=== PATIENT | male | born 1960 | race Caucasian/White ===

== ENCOUNTER 2017-10-10 19:57 | Emergency (ER) | payer OTHER, SELFPAY ==
[2017-10-10 20:02] VITALS: BP 130/43; PULSE 93; RESP 16; TEMP 37.1; O2SAT 97; BMI 35.9
[2017-10-10 21:10] LABS: Absolute Lymphocyte Count 1.44 X10^3/ul (0.83-4.51); Absolute Neutrophil Count 6.2 X10^3/uL (2.0-7.7); Basophil# 0.02 X10^3/uL; Basophil% 0.2 % (0-1); Eosinophil# 0.11 X10^3/uL; Eosinophils% 1.3 % (0-5); Hematocrit 29.6 % (40-54); Hemoglobin 9.5 g/dl (13.0-16.5); Lymphocyte # 1.44 X10^3/ul (4.0); Lymphocyte % 17.2 % (19-41); Mean Corp Hgb Conc 32.1 g/gl (32-36); Mean Corpuscular Hgb 26.2 pg (27.0-32.0); Mean Corpuscular Volume 81.5 fL (80-94); Mean Platelet Vol. 8.6 fl (6.2-12.0); Monocyte% 7.2 % (0-10); Neutrophil # 6.19 X10^3/uL (2.7-7.7); Neutrophil % 73.9 % (47-70); Platelet Count 406 K/mm3 (150-450); RBC Distribution Width CV 13.6 % (11.6-14.6); RBC Distribution Width SD 40.4 fl (35.1-43.9); Red Blood Count 3.63 M/mm3 (4.6-6.2); White Blood Count 8.4 K/mm3 (4.4-11.0)
--- NOTE | 2017-10-10 21:10 | RAD_ITS ---
STUDY: X-RAY CHEST REASON FOR EXAM: Male, 57 years old. Cough after recent podiatry surgery. TECHNIQUE: AP and lateral views of the chest. COMPARISON: October 22, 2015. FINDINGS: Patient has left-sided intracardiac pacemaker. Patient has had a sternotomy. Cardiac monitoring leads are present. The lungs are underexpanded with crowding the bronchovascular markings and obscuration of the lung bases. There is a small left-sided pleural effusion. Normal size heart. Normal mediastinum and delia. There is prominence of the pulmonary hilar arteries without peripheral pulmonary vascular congestion. There is atherosclerotic calcification of the aortic arch with tortuosity. Normal visualized thoracic spine. Normal visualized ribs, clavicles, and shoulders. There is no demonstrated abnormality of the visualized soft tissue structures of the upper abdomen. RAD/Chest PA and Lateral IMPRESSION: Cardiomegaly and mild pulmonary congestion. Electronically Signed: Delores Bass MD at 21:43 EST , Service support ,
[2017-10-10 21:11] LABS: POSITIVE COUNT NO; POSITIVE DIFFERENTIAL NO; POSITIVE MORPHOLOGY NO
[2017-10-10 21:36] LABS: Anion Gap 8 (5-15); BUN 6 mg/dL (7-18); BUN/Creat Ratio 7.3 RATIO (10-20); Calcium,Total 7.8 mg/dL (8.5-10.1); Chloride 104 mmol/L (98-107); Creatinine, Serum 0.82 mg/dL (0.70-1.30); EST Glomerular Filtration Rate 102 mL/min (>60); Est Glom Filt Rate - Afr Amer 124 mL/min (>60); Estimated Creatinine Clearance 102.63 ml/min; Glucose 181 mg/dL (74-106); Potassium 3.6 mmol/L (3.5-5.1); Sodium Level 139 mmol/L (136-145)
[2017-10-10 21:37] LABS: Lactic Acid 1.1 mmol/L (0.4-2.0)
--- NOTE | 2017-10-10 22:23 | ED.DCSUM_ITS ---
- ER Visit Summary Date of Service: 10/10/17 Chief Complaint: Bleeding from right foot History of Present Illness: The patient is a [address] Burris. He reports that he had amputation of his right great toe and part of his first metatarsal on October 06 at [facility]. Reports that he was discharged from hospital on the . He was not supposed to change his dressing until tomorrow and the home health aide was going to do it at that time. Reports that tonight he began have bleeding. Patient reports he has a burning pain is 10 out of 10 at worst and is pain-free currently. Physical Examination: Vitals: Stable. Afebrile. General: Well-nourished and well-developed. Head: Normocephalic atraumatic. Neck: Supple, no lymphadenopathy. No JVD. Nontender. Cardiovascular: Regular rate and rhythm. 2 out of 6 systolic murmur. Respiratory: No respiratory distress. Clear to auscultation bilaterally. Decreased air movement. Abdominal: Soft, nontender, nondistended, normal bowel sounds. No guarding, rebound, or peritoneal signs. Back: Nontender. Extremities: Right foot shows an amputation of the first distal metatarsal and toe. There is no active bleeding. The second toe is dusky. There is surrounding hematoma/contusion. There is no surrounding erythema or drainage. There is no fluctuance.. Skin: Normal color, no rash. Neurologic: Alert and oriented ?3. Cranial nerves II through XII are intact. Normal strength and sensation. Psych: Normal affect. Test Results: CBC is marked for an H&H 9.5 and 29.6, segmented neutrophils 74, lymphocytes 17. Lactic acid is 1.1. Chem-7 is more for BUN of 6, glucose 181, calcium 7.8. Chest x-ray shows cardiomegaly and pulmonary congestion. Emergency Department Course and Treatment: Was treated with Ultram p.o. Treatment Plan: The patient was discussed with the surgeon at [facility]. I texted him the pictures. Reports that it is very similar to what it looked like here and that there is no further operative intervention that would be helpful until he has vascular surgeon. I discussed this with the patient and family. They understand this and are happy with this plan. Disposition: To home in improved and stable condition. Impression: 1. 4 days status post right first toe amputation. 2. Anemia. This note was generated with [employer] dictation software. It may contain incorrect words, spelling, and punctuation that were not noted in review of the chart prior to signing ED Disposition - Plan for ED Patient: Disposition: Home or Assisted Living Chief Complaint: Wound Check Instructions: ED Wound Check Post Op Bleeding Referrals: Doctor,Your [STAFF PHYSICIAN] - Keep Jessie appointment
--- NOTE | 2017-10-10 23:09 | ED.RN ---
PT PICC (RED) LINE WAS UNABLE TO BE FLUSHED. WORKED WITH LINE UNTIL BLOOD RAMIN FREELY. 20CC WASTE DRAWN FROM RED PORT. FLUSHED EACH LINE WITH 20CC NORMAL SALINE AND 5CC HEPARIN.
[2017-10-10 23:13] VITALS: BP 130/71; PULSE 78; RESP 22; O2SAT 98
== END 2017-10-10 23:14 | disposition home or self-care (01) ==
PROVIDERS: Emergency Provider Emergency Medicine; Family Provider Family Medicine; PCP Family Medicine
DX: M96.830 Postprocedural hemorrhage of a musculoskeletal structure following a musculoskeletal system procedure (principal); Y83.8 Other surgical procedures as the cause of abnormal reaction of the patient, or of later complication, without mention of misadventure at the time of the procedure; D64.9 Anemia, unspecified; R01.1 Cardiac murmur, unspecified; I51.7 Cardiomegaly; R09.89 Other specified symptoms and signs involving the circulatory and respiratory systems; I25.10 Atherosclerotic heart disease of native coronary artery without angina pectoris; E11.9 Type 2 diabetes mellitus without complications; I10 Essential (primary) hypertension; E78.00 Pure hypercholesterolemia, unspecified
CPT/HCPCS: 71046; 80048; 83605; 85025; 87040; 96374; 96375; 99284; J2997; A4216

== ENCOUNTER 2017-10-13 17:18 | Outpatient (RCR) | payer OTHER, SELFPAY ==
[2017-10-13 17:29] LABS: Hematocrit 28.1 % (40-54); Mean Corpuscular Hgb 26.9 pg (27.0-32.0); Mean Corpuscular Volume 83.9 fL (80-94); Mean Platelet Vol. 9.7 fl (6.2-12.0); Platelet Count 484 K/mm3 (150-450); RBC Distribution Width CV 13.8 % (11.6-14.6); RBC Distribution Width SD 40.9 fl (35.1-43.9); Red Blood Count 3.35 M/mm3 (4.6-6.2); White Blood Count 7.1 K/mm3 (4.4-11.0)
[2017-10-13 17:30] LABS: Scan Indicated on CBC? Y/N NO
[2017-10-13 17:39] LABS: Erythrocyte Sedimentation Rate 60 mm/hr (0-20)
[2017-10-13 18:00] LABS: Anion Gap 7 (5-15); BUN 6 mg/dL (7-18); BUN/Creat Ratio 8.4 RATIO (10-20); Calcium,Total 7.8 mg/dL (8.5-10.1); Chloride 103 mmol/L (98-107); Creatinine, Serum 0.72 mg/dL (0.70-1.30); EST Glomerular Filtration Rate 120 mL/min (>60); Est Glom Filt Rate - Afr Amer 145 mL/min (>60); Glucose 153 mg/dL (74-106); Potassium 3.9 mmol/L (3.5-5.1); Sodium Level 138 mmol/L (136-145)
== END 2017-11-08 23:59 ==
LOC: HHLAB 17:18
PROVIDERS: Family Provider Family Medicine; PCP Family Medicine
DX: M86.9 Osteomyelitis, unspecified (principal); G61.0 Guillain-Barre syndrome; I73.9 Peripheral vascular disease, unspecified; E11.9 Type 2 diabetes mellitus without complications; L98.499 Non-pressure chronic ulcer of skin of other sites with unspecified severity
CPT/HCPCS: 80048; 85027; 85652; 86140

== ENCOUNTER 2017-10-23 14:56 | Inpatient (IN) | payer OTHER, SELFPAY ==
[2017-10-23 15:04] VITALS: BP 102/54; PULSE 95; RESP 20; TEMP 36.6; O2SAT 96
--- NOTE | 2017-10-23 15:18 | NURSING ---
PT ARRIVED VIA WC AT SIDE FROM [facility]
[2017-10-23 15:30] VITALS: BMI 32.1
[2017-10-23 15:32] VITALS: BMI 32.2
--- NOTE | 2017-10-23 15:45 | NURSING ---
SPOKE WITH OSWALDO MAURER AT [facility] TO CLARIFY CEFTRIAXONE 2G IV, DR LOVELL DOES NOT IV ATB CONTINUED. PICC WAS REMOVED BEFORE ARRIVING TO TCU.
[2017-10-23 17:05] LABS: Bedside Glucose 256 mg/dL (70-110)
[2017-10-23] MEDS: Acetaminophen 325 MG Tablet 650 MG PO (17:46)
[2017-10-23] MEDS: SACUBITRIL/VALSARTAN 49-51 MG TABLET 1 EACH PO (19:48)
[2017-10-23] MEDS: Carvedilol 12.5 MG Tablet PO (19:48)
[2017-10-23] MEDS: Ascorbic Acid 500 MG Tablet PO (19:49)
[2017-10-23 21:01] LABS: Bedside Glucose 304 mg/dL (70-110)
--- NOTE | 2017-10-23 22:54 | PCM.HP.STD ---
Problem List (1) Gangrene of right foot Status: Acute (2) Diabetes mellitus Status: Chronic (3) Chronic systolic heart failure Status: Chronic (4) Hypertension Status: Chronic (5) Atrial fibrillation Status: Chronic (6) Peripheral arterial occlusive disease Status: Chronic (7) Osteoarthritis Status: Chronic (8) Polyneuropathy Status: Chronic History of Present Illness Date of Admission: 10/23/17 Chief Complaint: Here for rehabilitation, strengthening, prior to discharge home with spouse. The patient is a 57 year old Male with below past medical history hospitalized at [facility] for right foot gangrene. 10/03/2017 Vascular surgery performed left peroneal artery surgery. 10/20/2017 Dr. Hernandez performed right below knee amputation. 10/23/2017 Admit to TCU for rehabilitation, strengthening, prior to discharge home with spouse. Past Medical History Past Medical History (Chronic Problems): Chronic Problems Diabetes mellitus (Chronic) Chronic systolic heart failure (Chronic) Hypertension (Chronic) Atrial fibrillation (Chronic) Peripheral arterial occlusive disease (Chronic) Osteoarthritis (Chronic) Polyneuropathy (Chronic) Allergies Penicillins Allergy (Verified 10/10/17 20:05) Hives pioglitazone HCl [From Actos] Allergy (Verified 10/10/17 20:05) Swelling Juxqnve-Dyn-Fuz Reductase Inhibitor Allergy (Verified 10/10/17 20:05) Unknown gabapentin [From Neurontin] Adverse Reaction (Verified 10/10/17 20:05) Other Home Medications: Ambulatory Orders Medication Instructions Recorded Insulin Glargine [Lantus SoloStar 70 units SC DAILY 09/16/14 Pen] Tramadol HCl [Ultram] 50 mg PO Q6H PRN PRN 09/16/14 Pregabalin [Lyrica] 200 mg PO DAILY 10/22/15 Carvedilol [Coreg (Beta Toño)] 12.5 tab PO BID 08/29/17 Furosemide [Furosemide] 1 tab PO DAILY 08/29/17 Metformin HCl [Glucophage] 500 mg PO BREAKFAST 08/29/17 Sacubitril/Valsartan 49-51 mg 1 tab PO BID 08/29/17 [Entresto 49 mg-51 mg Tablet] Ascorbic Acid [Vitamin C] 500 mg PO BID 10/10/17 Aspirin [Adult Aspirin Regimen] 81 mg PO DAILY 10/10/17 Clopidogrel Bisulfate [Plavix] 75 mg PO DAILY 10/10/17 Nitroglycerin [Nitro-Dur] 0.4 mg TRANSDERM. DAILY 10/10/17 Acetaminophen 650 mg PO Q6H PRN PRN 10/23/17 Metoclopramide [Reglan] 10 mg PO 4X/DAY 10/23/17 Oxycodone [Oxyir] 5 mg PO Q6H PRN PRN 10/23/17 Surgical History: angioplasty - with stent., coronary bypass surgery, pacemaker implantation - defibrillator., - - Right BKA, back surgery, left peroneal artery surgery. Psychiatric History: No pertinent psych hx Lives: Spouse/ Significant Other Smoking Status: Former smoker Tobacco Use: Non-smoker Alcohol: None Drugs: None - *Family History Maternal History Items: No pertinent history Paternal History Items: No pertinent history Review of Systems Constitutional: Denies: Chills, Fever, Weight Change HEENT: Denies: Head Aches, Sinus Congestion, Sinus Drainage Cardiovascular: Denies: Chest Pain, Palpitations Respiratory: Denies: Cough, Shortness of breath at rest, Sputum production Gastrointestinal: Denies: Abdominal Pain, Nausea, Vomiting Genitourinary: Denies: Dysuria Musculoskeletal: Denies: Joint Pain, Joint Tenderness Skin: Denies: Rash, Wounds Neurological: Denies: Numbness, Tingling, Focal weakness Psychiatric: Denies: Anxiety, Depression, Homicidal Ideations, Suicidal Ideations Hematologic/ Lymphatic: Denies: Easy Bruising, Easy Bleeding VTE Information - Inpt Only VTE Present on Admission: No VTE Mechan Device Prophylaxis: Knee High QUIRINO Hose VTE Pharm Prophylaxis ordered?: Yes Patient Problems: Active and Suspected Problems Gangrene of right foot (Acute) - Physical Exam General: Alert, Oriented x3, Cooperative HEENT: Atraumatic, PERRLA, EOMI, Normocephalic Neck: Supple, No JVD, Negative Carotid Bruits Lungs: Clear to auscultation, Normal air movement Cardiovascular: Regular rate, No murmurs Abdomen: Bowel Sounds Present, Soft, Non Tender Extremities: No edema, Capillary Refill Less than 3 Seconds, - - Right below knee amputation. Skin: No rashes, No breakdown Musculoskeletal: No Tenderness to Palpation of Joints or Extremities, - - Right below knee amputation. Neurological: Cranial nerves II-XII grossly intact Psych/Mental Status: Normal Affect, Appropriate Vital Signs Temp Pulse Resp BP Pulse Ox 97.8 F 95 20 H 102/54 L 96 10/23/17 15:04 10/23/17 15:04 10/23/17 15:04 10/23/17 15:04 10/23/17 15:04 Oxygen Delivery Method Room Air Weight: 101.831 kg Body Mass Index (BMI) 32.1 Finger Stick Blood Glucose 250 Intake and Output for Last 24 Hours 10/21/17 10/22/17 10/23/17 23:59 23:59 23:59 Intake Total 240 / 240 Balance 240 / 240 POC Glucose 10/23/17 10/23/17 20:50 16:59 POC Glucose 304 H 256 H Assessment/Plan Active and Suspected Problems Gangrene of right foot (Acute) 57 year old male with below past medical history hospitalized for right foot gangrene, 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 Debility - PT/OT. Pain - Tylenol 1000MG Q8H PRN mild pain, Tramadol 50MG Q6H PRN moderate pain, Oxycodone 5MG Q6H PRN severe pain. Bowel - Miralax 17GM daily, Senna/colace 2 tablets BID, Dulcolax 10MG IA daily PRN. Pneumonia vaccination - Administer Prevnar 13 and/or Pneumovax 23 as necessary. DVT prophylaxis - Lovenox 40MG SC daily. Vitamin C deficiency - Vitamin C 500MG BID. Coronary Artery Disease status post CABG, stent - Coreg 12.5MG BID, Aspirin 81MG daily, Plavix 75MG daily, NTG 0.4MG TD daily. Chronic systolic heart failure - Coreg 12.5MG BID, Entresto 49/51MG BID, NTG 0.4MG TD daily, Lasix 40MG daily. Diabetes Mellitus II - Metformin 500MG QAM, Levemir 70 units daily. Diabetic polyneuropathy - Lyrica 200MG daily.
--- NOTE | 2017-10-23 23:05 | HP.PCM_ITS ---
Problem List (1) Gangrene of right foot Status: Acute (2) Diabetes mellitus Status: Chronic (3) Chronic systolic heart failure Status: Chronic (4) Hypertension Status: Chronic (5) Atrial fibrillation Status: Chronic (6) Peripheral arterial occlusive disease Status: Chronic (7) Osteoarthritis Status: Chronic (8) Polyneuropathy Status: Chronic History of Present Illness Date of Admission: 10/23/17 Chief Complaint: Here for rehabilitation, strengthening, prior to discharge home with spouse. The patient is a 57 year old Male with below past medical history hospitalized at [facility] for right foot gangrene. 10/03/2017 Vascular surgery performed left peroneal artery surgery. 10/20/2017 Dr. Hernandez performed right below knee amputation. 10/23/2017 Admit to TCU for rehabilitation, strengthening, prior to discharge home with spouse. Past Medical History Past Medical History (Chronic Problems): Chronic Problems Diabetes mellitus (Chronic) Chronic systolic heart failure (Chronic) Hypertension (Chronic) Atrial fibrillation (Chronic) Peripheral arterial occlusive disease (Chronic) Osteoarthritis (Chronic) Polyneuropathy (Chronic) Allergies Penicillins Allergy (Verified 10/10/17 20:05) Hives pioglitazone HCl [From Actos] Allergy (Verified 10/10/17 20:05) Swelling Tqiynor-Pqi-Kpx Reductase Inhibitor Allergy (Verified 10/10/17 20:05) Unknown gabapentin [From Neurontin] Adverse Reaction (Verified 10/10/17 20:05) Other Home Medications: Ambulatory Orders Medication Instructions Recorded Insulin Glargine [Lantus SoloStar 70 units SC DAILY 09/16/14 Pen] Tramadol HCl [Ultram] 50 mg PO Q6H PRN PRN 09/16/14 Pregabalin [Lyrica] 200 mg PO DAILY 10/22/15 Carvedilol [Coreg (Beta Toño)] 12.5 tab PO BID 08/29/17 Furosemide [Furosemide] 1 tab PO DAILY 08/29/17 Metformin HCl [Glucophage] 500 mg PO BREAKFAST 08/29/17 Sacubitril/Valsartan 49-51 mg 1 tab PO BID 08/29/17 [Entresto 49 mg-51 mg Tablet] Ascorbic Acid [Vitamin C] 500 mg PO BID 10/10/17 Aspirin [Adult Aspirin Regimen] 81 mg PO DAILY 10/10/17 Clopidogrel Bisulfate [Plavix] 75 mg PO DAILY 10/10/17 Nitroglycerin [Nitro-Dur] 0.4 mg TRANSDERM. DAILY 10/10/17 Acetaminophen 650 mg PO Q6H PRN PRN 10/23/17 Metoclopramide [Reglan] 10 mg PO 4X/DAY 10/23/17 Oxycodone [Oxyir] 5 mg PO Q6H PRN PRN 10/23/17 Surgical History: angioplasty - with stent., coronary bypass surgery, pacemaker implantation - defibrillator., - - Right BKA, back surgery, left peroneal artery surgery. Psychiatric History: No pertinent psych hx Lives: Spouse/ Significant Other Smoking Status: Former smoker Tobacco Use: Non-smoker Alcohol: None Drugs: None - *Family History Maternal History Items: No pertinent history Paternal History Items: No pertinent history Review of Systems Constitutional: Denies: Chills, Fever, Weight Change HEENT: Denies: Head Aches, Sinus Congestion, Sinus Drainage Cardiovascular: Denies: Chest Pain, Palpitations Respiratory: Denies: Cough, Shortness of breath at rest, Sputum production Gastrointestinal: Denies: Abdominal Pain, Nausea, Vomiting Genitourinary: Denies: Dysuria Musculoskeletal: Denies: Joint Pain, Joint Tenderness Skin: Denies: Rash, Wounds Neurological: Denies: Numbness, Tingling, Focal weakness Psychiatric: Denies: Anxiety, Depression, Homicidal Ideations, Suicidal Ideations Hematologic/ Lymphatic: Denies: Easy Bruising, Easy Bleeding VTE Information - Inpt Only VTE Present on Admission: No VTE Mechan Device Prophylaxis: Knee High QUIRINO Hose VTE Pharm Prophylaxis ordered?: Yes Patient Problems: Active and Suspected Problems Gangrene of right foot (Acute) - Physical Exam General: Alert, Oriented x3, Cooperative HEENT: Atraumatic, PERRLA, EOMI, Normocephalic Neck: Supple, No JVD, Negative Carotid Bruits Lungs: Clear to auscultation, Normal air movement Cardiovascular: Regular rate, No murmurs Abdomen: Bowel Sounds Present, Soft, Non Tender Extremities: No edema, Capillary Refill Less than 3 Seconds, - - Right below knee amputation. Skin: No rashes, No breakdown Musculoskeletal: No Tenderness to Palpation of Joints or Extremities, - - Right below knee amputation. Neurological: Cranial nerves II-XII grossly intact Psych/Mental Status: Normal Affect, Appropriate Vital Signs Temp Pulse Resp BP Pulse Ox 97.8 F 95 20 H 102/54 L 96 10/23/17 15:04 10/23/17 15:04 10/23/17 15:04 10/23/17 15:04 10/23/17 15:04 Oxygen Delivery Method Room Air Weight: 101.831 kg Body Mass Index (BMI) 32.1 Finger Stick Blood Glucose 250 Intake and Output for Last 24 Hours 10/21/17 10/22/17 10/23/17 23:59 23:59 23:59 Intake Total 240 / 240 Balance 240 / 240 POC Glucose 10/23/17 10/23/17 20:50 16:59 POC Glucose 304 H 256 H Assessment/Plan Active and Suspected Problems Gangrene of right foot (Acute) 57 year old male with below past medical history hospitalized for right foot gangrene, 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 * Debility - PT/OT. * Pain - Tylenol 1000MG Q8H PRN mild pain, Tramadol 50MG Q6H PRN moderate pain, Oxycodone 5MG Q6H PRN severe pain. * Bowel - Miralax 17GM daily, Senna/colace 2 tablets BID, Dulcolax 10MG AK daily PRN. * Pneumonia vaccination - Administer Prevnar 13 and/or Pneumovax 23 as necessary. * DVT prophylaxis - Lovenox 40MG SC daily. * Vitamin C deficiency - Vitamin C 500MG BID. * Coronary Artery Disease status post CABG, stent - Coreg 12.5MG BID, Aspirin 81MG daily, Plavix 75MG daily, NTG 0.4MG TD daily. * Chronic systolic heart failure - Coreg 12.5MG BID, Entresto 49/51MG BID, NTG 0.4MG TD daily, Lasix 40MG daily. * Diabetes Mellitus II - Metformin 500MG QAM, Levemir 70 units daily. * Diabetic polyneuropathy - Lyrica 200MG daily.
[2017-10-24 03:26] VITALS: BP 113/61; PULSE 89
[2017-10-24] MEDS: SACUBITRIL/VALSARTAN 49-51 MG TABLET 1 EACH PO ×2 (03:26→17:30)
[2017-10-24] MEDS: Carvedilol 12.5 MG Tablet PO ×2 (03:26→17:29)
[2017-10-24] MEDS: Furosemide 40 MG Tablet PO (03:26)
[2017-10-24] MEDS: Ascorbic Acid 500 MG Tablet PO ×2 (03:30→17:30)
[2017-10-24] MEDS: Clopidogrel Bisulfate 75 MG Tablet PO (03:30)
[2017-10-24] MEDS: Enoxaparin 40 MG/0.4 ML Syringe SC (03:30)
[2017-10-24] MEDS: Senna/Docusate Sodium 1 Tablet 2 TABLET PO ×2 (03:31→17:30)
[2017-10-24] MEDS: Pregabalin 50 MG Capsule 200 MG PO (03:33)
[2017-10-24 06:20] LABS: Bedside Glucose 284 mg/dL (70-110)
[2017-10-24 06:25] LABS: Absolute Lymphocyte Count 1.38 X10^3/ul (0.83-4.51); Absolute Neutrophil Count 4.3 X10^3/uL (2.0-7.7); Basophil# 0.02 X10^3/uL; Basophil% 0.3 % (0-1); Eosinophil# 0.12 X10^3/uL; Eosinophils% 1.9 % (0-5); Hemoglobin 9.8 g/dl (13.0-16.5); Lymphocyte # 1.38 X10^3/ul (4.0); Mean Corp Hgb Conc 31.6 g/gl (32-36); Mean Corpuscular Hgb 25.4 pg (27.0-32.0); Mean Corpuscular Volume 80.3 fL (80-94); Mean Platelet Vol. 9.4 fl (6.2-12.0); Monocyte% 6.4 % (0-10); Neutrophil # 4.33 X10^3/uL (2.7-7.7); Neutrophil % 69.1 % (47-70); Platelet Count 181 K/mm3 (150-450); RBC Distribution Width CV 14.3 % (11.6-14.6); RBC Distribution Width SD 40.9 fl (35.1-43.9); Red Blood Count 3.86 M/mm3 (4.6-6.2); White Blood Count 6.3 K/mm3 (4.4-11.0)
[2017-10-24 06:27] LABS: POSITIVE COUNT NO; POSITIVE DIFFERENTIAL NO; POSITIVE MORPHOLOGY NO
[2017-10-24 06:49] LABS: Anion Gap 7 (5-15); BUN 15 mg/dL (7-18); BUN/Creat Ratio 19.8 RATIO (10-20); Calcium,Total 8.1 mg/dL (8.5-10.1); Chloride 102 mmol/L (98-107); Creatinine, Serum 0.76 mg/dL (0.70-1.30); EST Glomerular Filtration Rate 113 mL/min (>60); Est Glom Filt Rate - Afr Amer 136 mL/min (>60); Estimated Creatinine Clearance 110.73 ml/min; Glucose 273 mg/dL (74-106); Potassium 4.4 mmol/L (3.5-5.1); Sodium Level 133 mmol/L (136-145)
[2017-10-24] MEDS: Aspirin E.C. 81 MG Tablet PO (07:35)
[2017-10-24 11:41] LABS: Bedside Glucose 267 mg/dL (70-110)
[2017-10-24] MEDS: Tuberculin,Purif.prot.deriv. 50 TU/ML Vial 5 ML ID (14:36)
[2017-10-24 15:52] VITALS: BP 123/56; PULSE 95; RESP 22; TEMP 36.3; O2SAT 96
[2017-10-24 17:06] LABS: Bedside Glucose 279 mg/dL (70-110)
[2017-10-24] MEDS: Polyethylene Glycol 3350 17 GM PACKET PO (19:36)
[2017-10-24] MEDS: Acetaminophen 500 MG Tablet 1000 MG PO (19:41)
[2017-10-24 20:51] LABS: Bedside Glucose 336 mg/dL (70-110)
--- NOTE | 2017-10-25 00:29 | NURSING ---
Butrans patches noted to bilateral side of back.
[2017-10-25] MEDS: Ascorbic Acid 500 MG Tablet PO ×2 (04:42→17:43)
[2017-10-25] MEDS: Polyethylene Glycol 3350 17 GM PACKET PO (04:42)
[2017-10-25] MEDS: Furosemide 40 MG Tablet PO (04:42)
[2017-10-25] MEDS: Clopidogrel Bisulfate 75 MG Tablet PO (04:42)
[2017-10-25] MEDS: Senna/Docusate Sodium 1 Tablet 2 TABLET PO ×2 (04:43→17:43)
[2017-10-25] MEDS: SACUBITRIL/VALSARTAN 49-51 MG TABLET 1 EACH PO ×2 (04:43→17:43)
[2017-10-25] MEDS: Enoxaparin 40 MG/0.4 ML Syringe SC (04:43)
[2017-10-25] MEDS: Carvedilol 12.5 MG Tablet PO ×2 (04:43→17:42)
[2017-10-25] MEDS: Pregabalin 50 MG Capsule 200 MG PO (04:44)
[2017-10-25 04:45] VITALS: BP 122/76; PULSE 86
[2017-10-25 06:45] LABS: Bedside Glucose 114 mg/dL (70-110)
[2017-10-25] MEDS: Aspirin E.C. 81 MG Tablet PO (07:57)
[2017-10-25 11:36] LABS: Bedside Glucose 154 mg/dL (70-110)
--- NOTE | 2017-10-25 14:01 | PCM.PN.RX ---
<Jeffery Stark - Last Filed: 10/25/17 14:01> Progress Note - Pharmacy Subjective: TCU Admission Objective: Allergies Penicillins Allergy (Verified 10/10/17 20:05) Hives pioglitazone HCl [From Actos] Allergy (Verified 10/10/17 20:05) Swelling Vyesufs-Rtc-Hwk Reductase Inhibitor Allergy (Verified 10/10/17 20:05) Unknown gabapentin [From Neurontin] Adverse Reaction (Verified 10/10/17 20:05) Other Home Medications Medication Instructions Recorded Insulin Glargine [Lantus SoloStar 70 units SC DAILY 09/16/14 Pen] Tramadol HCl [Ultram] 50 mg PO Q6H PRN PRN 09/16/14 Pregabalin [Lyrica] 200 mg PO DAILY 10/22/15 Carvedilol [Coreg (Beta Toño)] 12.5 tab PO BID 08/29/17 Furosemide [Furosemide] 1 tab PO DAILY 08/29/17 Metformin HCl [Glucophage] 500 mg PO BREAKFAST 08/29/17 Sacubitril/Valsartan 49-51 mg 1 tab PO BID 08/29/17 [Entresto 49 mg-51 mg Tablet] Ascorbic Acid [Vitamin C] 500 mg PO BID 10/10/17 Aspirin [Adult Aspirin Regimen] 81 mg PO DAILY 10/10/17 Clopidogrel Bisulfate [Plavix] 75 mg PO DAILY 10/10/17 Nitroglycerin [Nitro-Dur] 0.4 mg TRANSDERM. DAILY 10/10/17 Acetaminophen 650 mg PO Q6H PRN PRN 10/23/17 Metoclopramide [Reglan] 10 mg PO 4X/DAY 10/23/17 Oxycodone [Oxyir] 5 mg PO Q6H PRN PRN 10/23/17 Current Medications Generic Name Dose Route Start Last Admin Trade Name Freq PRN Reason Stop Dose Admin Acetaminophen 1,000 mg 10/23/17 23:07 10/24/17 19:41 Tylenol PO 1,000 mg Q8H PRN PRN Administration MILD PAIN (1-3/10) Ascorbic Acid 500 mg 10/23/17 18:00 10/25/17 04:42 Vitamin C PO 500 mg BID YARY Administration Aspirin 81 mg 10/24/17 08:00 10/25/17 07:57 Ecotrin PO 81 mg DAILYCM YARY Administration Bisacodyl 10 mg 10/23/17 23:07 Dulcolax RECTAL DAILY PRN Constipation Carvedilol 12.5 mg 10/23/17 18:00 10/25/17 04:43 Coreg PO 12.5 mg BID [facility] Administration Clopidogrel Bisulfate 75 mg 10/24/17 06:00 10/25/17 04:42 Plavix PO 75 mg DAILY [facility] Administration Enoxaparin Sodium 40 mg 10/24/17 06:00 10/25/17 04:43 Lovenox SC 40 mg DAILY@0600 [facility] Administration Furosemide 40 mg 10/24/17 06:00 10/25/17 04:42 Lasix PO 40 mg DAILY [facility] Administration Insulin Detemir 70 units 10/24/17 22:00 10/24/17 21:16 Levemir (Bkc) SC 70 units QHS [facility] Administration Metformin HCl 500 mg 10/24/17 08:00 10/25/17 07:57 Glucophage PO 500 mg BREAKFAST [facility] Administration Nitroglycerin 0.4 mg 10/24/17 06:00 10/25/17 04:45 Nitro-Dur TRANSDERM. 0.4 mg DAILY [facility] Administration Nutritional Formula 1 packet 10/24/17 17:00 10/25/17 07:57 Naresh - Archule[place] Flavor PO 1 packet BIDCM [facility] Administration Oxycodone HCl 5 mg 10/23/17 23:08 Oxyir PO Q6H PRN PRN SEVERE PAIN (6-10/10) Polyethylene Glycol 17 gm 10/24/17 06:00 10/25/17 04:42 Miralax PO 17 gm DAILY [facility] Administration Pregabalin 200 mg 10/24/17 06:00 10/25/17 04:44 Lyrica PO 200 mg DAILY [facility] Administration Senna/Docusate Sodium 2 tablet 10/24/17 06:00 10/25/17 04:43 Senokot-S, Lulú-Colace PO 2 tablet BID [facility] Administration Tramadol HCl 50 mg 10/23/17 23:08 10/25/17 13:22 Ultram (G) PO 50 mg Q6H PRN PRN Administration MODERATE PAIN (4-5/10) Tuberculin PPD 5 tu 10/31/17 10:00 Tubersol, Aplisol, Ppd ID 10/31/17 10:01 X1 ONE Problem List Gangrene of right foot (Acute) Diabetes mellitus (Chronic) Chronic systolic heart failure (Chronic) Hypertension (Chronic) Atrial fibrillation (Chronic) Peripheral arterial occlusive disease (Chronic) Osteoarthritis (Chronic) Polyneuropathy (Chronic) Vital Signs Temp Pulse Resp BP Pulse Ox 97.4 F L 86 22 H 122/76 H 96 10/24/17 15:52 10/25/17 04:45 10/24/17 15:52 10/25/17 04:45 10/24/17 15:52 Oxygen Delivery Method Room Air Weight: 101.831 kg Body Mass Index (BMI) 32.1 Finger Stick Blood Glucose 250 Sodium 133 mmol/L (136-145) L 10/24/17 06:03 Potassium 4.4 mmol/L (3.5-5.1) 10/24/17 06:03 Chloride 102 mmol/L (98-107) 10/24/17 06:03 Carbon Dioxide 24.0 mmol/L (21.0-32.0) 10/24/17 06:03 Anion Gap 7 (5-15) 10/24/17 06:03 BUN 15 mg/dL (7-18) 10/24/17 06:03 Creatinine 0.76 mg/dL (0.70-1.30) 10/24/17 06:03 Est GFR (MDRD) Af Amer 136 mL/min (>60) 10/24/17 06:03 Est GFR (MDRD) Non-Af 113 mL/min (>60) 10/24/17 06:03 BUN/Creatinine Ratio 19.8 RATIO (10-20) 10/24/17 06:03 Glucose 273 mg/dL (74-106) H 10/24/17 06:03 Assessment/Plan: 1) Pain APAP for mild pain, tramadol for moderate pain, oxycodone for severe pain, pregabalin. Continue to monitor prn medication use, daily pain scores. 2) CHF/CAD Sacubitril/valsartan, ntg patch, furosemide, ASA, clopidogrel, carvedilol. BP/HR within goal ranges, K wnl, BUN/SCr at baseline. Continue to monitor BP/HR, renal function, electrolytes, s/s chest pain. 3) DM2 Insulin detemir at HS, metformin daily. Avg BGT < 200 mg/dL for past 24 hr. Continue to monitor BGT, s/s hyper/hypoglycemia. 4) Nutrition C, Naresh. Continue to monitor clinically. 5) DVT PPx Enoxaparin daily. Continue to monitor s/s bleeding/clot Psychotropic Medications: None Unnecessary Medications: None Bowel Regimen: 6) Senna/s, PEG, prn bisacodyl. Continue to monitor prn medication use, for constipation/diarrhea. Date of Note:: 10/25/17 - Provider Comments Provider responsibility: Provider responsible to enter orders to implement recommendations <Brain Diez Chi - Last Filed: 10/25/17 14:21> Progress Note - Pharmacy Subjective: [] Objective: Allergies Penicillins Allergy (Verified 10/10/17 20:05) Hives pioglitazone HCl [From Actos] Allergy (Verified 10/10/17 20:05) Swelling Enccyza-Evy-Ykx Reductase Inhibitor Allergy (Verified 10/10/17 20:05) Unknown gabapentin [From Neurontin] Adverse Reaction (Verified 10/10/17 20:05) Other Home Medications Medication Instructions Recorded Insulin Glargine [Lantus SoloStar 70 units SC DAILY 09/16/14 Pen] Tramadol HCl [Ultram] 50 mg PO Q6H PRN PRN 09/16/14 Pregabalin [Lyrica] 200 mg PO DAILY 10/22/15 Carvedilol [Coreg (Beta Toño)] 12.5 tab PO BID 08/29/17 Furosemide [Furosemide] 1 tab PO DAILY 08/29/17 Metformin HCl [Glucophage] 500 mg PO BREAKFAST 08/29/17 Sacubitril/Valsartan 49-51 mg 1 tab PO BID 08/29/17 [Entresto 49 mg-51 mg Tablet] Ascorbic Acid [Vitamin C] 500 mg PO BID 10/10/17 Aspirin [Adult Aspirin Regimen] 81 mg PO DAILY 10/10/17 Clopidogrel Bisulfate [Plavix] 75 mg PO DAILY 10/10/17 Nitroglycerin [Nitro-Dur] 0.4 mg TRANSDERM. DAILY 10/10/17 Acetaminophen 650 mg PO Q6H PRN PRN 10/23/17 Metoclopramide [Reglan] 10 mg PO 4X/DAY 10/23/17 Oxycodone [Oxyir] 5 mg PO Q6H PRN PRN 10/23/17 Current Medications Generic Name Dose Route Start Last Admin Trade Name Freq PRN Reason Stop Dose Admin Acetaminophen 1,000 mg 10/23/17 23:07 10/24/17 19:41 Tylenol PO 1,000 mg Q8H PRN PRN Administration MILD PAIN (1-3/10) Ascorbic Acid 500 mg 10/23/17 18:00 10/25/17 04:42 Vitamin C PO 500 mg BID [facility] Administration Aspirin 81 mg 10/24/17 08:00 10/25/17 07:57 Ecotrin PO 81 mg DAILYCM [facility] Administration Bisacodyl 10 mg 10/23/17 23:07 Dulcolax RECTAL DAILY PRN Constipation Carvedilol 12.5 mg 10/23/17 18:00 10/25/17 04:43 Coreg PO 12.5 mg BID [facility] Administration Clopidogrel Bisulfate 75 mg 10/24/17 06:00 10/25/17 04:42 Plavix PO 75 mg DAILY [facility] Administration Enoxaparin Sodium 40 mg 10/24/17 06:00 10/25/17 04:43 Lovenox SC 40 mg DAILY@0600 [facility] Administration Furosemide 40 mg 10/24/17 06:00 10/25/17 04:42 Lasix PO 40 mg DAILY [facility] Administration Insulin Detemir 70 units 10/24/17 22:00 10/24/17 21:16 Levemir (Bkc) SC 70 units QHS [facility] Administration Metformin HCl 500 mg 10/24/17 08:00 10/25/17 07:57 Glucophage PO 500 mg BREAKFAST [facility] Administration Nitroglycerin 0.4 mg 10/24/17 06:00 10/25/17 04:45 Nitro-Dur TRANSDERM. 0.4 mg DAILY [facility] Administration Nutritional Formula 1 packet 10/24/17 17:00 10/25/17 07:57 Naresh - Archuleta Flavor PO 1 packet BIDCM [facility] Administration Oxycodone HCl 5 mg 10/23/17 23:08 Oxyir PO Q6H PRN PRN SEVERE PAIN (6-10/10) Polyethylene Glycol 17 gm 10/24/17 06:00 10/25/17 04:42 Miralax PO 17 gm DAILY [facility] Administration Pregabalin 200 mg 10/24/17 06:00 10/25/17 04:44 Lyrica PO 200 mg DAILY [facility] Administration Senna/Docusate Sodium 2 tablet 10/24/17 06:00 10/25/17 04:43 Senokot-S, Lulú-Colace PO 2 tablet BID YARY Administration Tramadol HCl 50 mg 10/23/17 23:08 10/25/17 13:22 Ultram (G) PO 50 mg Q6H PRN PRN Administration MODERATE PAIN (4-5/10) Tuberculin PPD 5 tu 10/31/17 10:00 Tubersol, Aplisol, Ppd ID 10/31/17 10:01 X1 ONE Problem List Gangrene of right foot (Acute) Diabetes mellitus (Chronic) Chronic systolic heart failure (Chronic) Hypertension (Chronic) Atrial fibrillation (Chronic) Peripheral arterial occlusive disease (Chronic) Osteoarthritis (Chronic) Polyneuropathy (Chronic) Vital Signs Temp Pulse Resp BP Pulse Ox 97.4 F L 86 22 H 122/76 H 96 10/24/17 15:52 10/25/17 04:45 10/24/17 15:52 10/25/17 04:45 10/24/17 15:52 Oxygen Delivery Method Room Air Weight: 101.831 kg Body Mass Index (BMI) 32.1 Finger Stick Blood Glucose 250 Sodium 133 mmol/L (136-145) L 10/24/17 06:03 Potassium 4.4 mmol/L (3.5-5.1) 10/24/17 06:03 Chloride 102 mmol/L (98-107) 10/24/17 06:03 Carbon Dioxide 24.0 mmol/L (21.0-32.0) 10/24/17 06:03 Anion Gap 7 (5-15) 10/24/17 06:03 BUN 15 mg/dL (7-18) 10/24/17 06:03 Creatinine 0.76 mg/dL (0.70-1.30) 10/24/17 06:03 Est GFR (MDRD) Af Amer 136 mL/min (>60) 10/24/17 06:03 Est GFR (MDRD) Non-Af 113 mL/min (>60) 10/24/17 06:03 BUN/Creatinine Ratio 19.8 RATIO (10-20) 10/24/17 06:03 Glucose 273 mg/dL (74-106) H 10/24/17 06:03 Assessment/Plan: Psychotropic Medications: Unnecessary Medications: Bowel Regimen: - Provider Comments Provider responsibility: Provider responsible to enter orders to implement recommendations Provider Comments to Recommendations by Pharmacy: Agree
--- NOTE | 2017-10-25 14:08 | PHA.CONS_ITS ---
<Jeffery Stark - Last Filed: 10/25/17 14:01> Progress Note - Pharmacy Subjective: TCU Admission Objective: Allergies Penicillins Allergy (Verified 10/10/17 20:05) Hives pioglitazone HCl [From Actos] Allergy (Verified 10/10/17 20:05) Swelling Agszzvp-Zoo-Jgd Reductase Inhibitor Allergy (Verified 10/10/17 20:05) Unknown gabapentin [From Neurontin] Adverse Reaction (Verified 10/10/17 20:05) Other Home Medications Medication Instructions Recorded Insulin Glargine [Lantus SoloStar 70 units SC DAILY 09/16/14 Pen] Tramadol HCl [Ultram] 50 mg PO Q6H PRN PRN 09/16/14 Pregabalin [Lyrica] 200 mg PO DAILY 10/22/15 Carvedilol [Coreg (Beta Toño)] 12.5 tab PO BID 08/29/17 Furosemide [Furosemide] 1 tab PO DAILY 08/29/17 Metformin HCl [Glucophage] 500 mg PO BREAKFAST 08/29/17 Sacubitril/Valsartan 49-51 mg 1 tab PO BID 08/29/17 [Entresto 49 mg-51 mg Tablet] Ascorbic Acid [Vitamin C] 500 mg PO BID 10/10/17 Aspirin [Adult Aspirin Regimen] 81 mg PO DAILY 10/10/17 Clopidogrel Bisulfate [Plavix] 75 mg PO DAILY 10/10/17 Nitroglycerin [Nitro-Dur] 0.4 mg TRANSDERM. DAILY 10/10/17 Acetaminophen 650 mg PO Q6H PRN PRN 10/23/17 Metoclopramide [Reglan] 10 mg PO 4X/DAY 10/23/17 Oxycodone [Oxyir] 5 mg PO Q6H PRN PRN 10/23/17 Current Medications Generic Name Dose Route Start Last Admin Trade Name Freq PRN Reason Stop Dose Admin Acetaminophen 1,000 mg 10/23/17 23:07 10/24/17 19:41 Tylenol PO 1,000 mg Q8H PRN PRN Administration MILD PAIN (1-3/10) Ascorbic Acid 500 mg 10/23/17 18:00 10/25/17 04:42 Vitamin C PO 500 mg BID YARY Administration Aspirin 81 mg 10/24/17 08:00 10/25/17 07:57 Ecotrin PO 81 mg DAILYCM YARY Administration Bisacodyl 10 mg 10/23/17 23:07 Dulcolax RECTAL DAILY PRN Constipation Carvedilol 12.5 mg 10/23/17 18:00 10/25/17 04:43 Coreg PO 12.5 mg BID [facility] Administration Clopidogrel Bisulfate 75 mg 10/24/17 06:00 10/25/17 04:42 Plavix PO 75 mg DAILY [facility] Administration Enoxaparin Sodium 40 mg 10/24/17 06:00 10/25/17 04:43 Lovenox SC 40 mg DAILY@0600 [facility] Administration Furosemide 40 mg 10/24/17 06:00 10/25/17 04:42 Lasix PO 40 mg DAILY [facility] Administration Insulin Detemir 70 units 10/24/17 22:00 10/24/17 21:16 Levemir (Bkc) SC 70 units QHS [facility] Administration Metformin HCl 500 mg 10/24/17 08:00 10/25/17 07:57 Glucophage PO 500 mg BREAKFAST [facility] Administration Nitroglycerin 0.4 mg 10/24/17 06:00 10/25/17 04:45 Nitro-Dur TRANSDERM. 0.4 mg DAILY [facility] Administration Nutritional Formula 1 packet 10/24/17 17:00 10/25/17 07:57 Naresh - [place] Flavor PO 1 packet BIDCM [facility] Administration Oxycodone HCl 5 mg 10/23/17 23:08 Oxyir PO Q6H PRN PRN SEVERE PAIN (6-10/10) Polyethylene Glycol 17 gm 10/24/17 06:00 10/25/17 04:42 Miralax PO 17 gm DAILY [facility] Administration Pregabalin 200 mg 10/24/17 06:00 10/25/17 04:44 Lyrica PO 200 mg DAILY [facility] Administration Senna/Docusate Sodium 2 tablet 10/24/17 06:00 10/25/17 04:43 Senokot-S, Lulú-Colace PO 2 tablet BID [facility] Administration Tramadol HCl 50 mg 10/23/17 23:08 10/25/17 13:22 Ultram (G) PO 50 mg Q6H PRN PRN Administration MODERATE PAIN (4-5/10) Tuberculin PPD 5 tu 10/31/17 10:00 Tubersol, Aplisol, Ppd ID 10/31/17 10:01 X1 ONE Problem List Gangrene of right foot (Acute) Diabetes mellitus (Chronic) Chronic systolic heart failure (Chronic) Hypertension (Chronic) Atrial fibrillation (Chronic) Peripheral arterial occlusive disease (Chronic) Osteoarthritis (Chronic) Polyneuropathy (Chronic) Vital Signs Temp Pulse Resp BP Pulse Ox 97.4 F L 86 22 H 122/76 H 96 10/24/17 15:52 10/25/17 04:45 10/24/17 15:52 10/25/17 04:45 10/24/17 15:52 Oxygen Delivery Method Room Air Weight: 101.831 kg Body Mass Index (BMI) 32.1 Finger Stick Blood Glucose 250 Sodium 133 mmol/L (136-145) L 10/24/17 06:03 Potassium 4.4 mmol/L (3.5-5.1) 10/24/17 06:03 Chloride 102 mmol/L (98-107) 10/24/17 06:03 Carbon Dioxide 24.0 mmol/L (21.0-32.0) 10/24/17 06:03 Anion Gap 7 (5-15) 10/24/17 06:03 BUN 15 mg/dL (7-18) 10/24/17 06:03 Creatinine 0.76 mg/dL (0.70-1.30) 10/24/17 06:03 Est GFR (MDRD) Af Amer 136 mL/min (>60) 10/24/17 06:03 Est GFR (MDRD) Non-Af 113 mL/min (>60) 10/24/17 06:03 BUN/Creatinine Ratio 19.8 RATIO (10-20) 10/24/17 06:03 Glucose 273 mg/dL (74-106) H 10/24/17 06:03 Assessment/Plan: 1) Pain APAP for mild pain, tramadol for moderate pain, oxycodone for severe pain, pregabalin. Continue to monitor prn medication use, daily pain scores. 2) CHF/CAD Sacubitril/valsartan, ntg patch, furosemide, ASA, clopidogrel, carvedilol. BP /HR within goal ranges, K wnl, BUN/SCr at baseline. Continue to monitor BP/HR, renal function, electrolytes, s/s chest pain. 3) DM2 Insulin detemir at HS, metformin daily. Avg BGT < 200 mg/dL for past 24 hr. Continue to monitor BGT, s/s hyper/hypoglycemia. 4) Nutrition C, Naresh. Continue to monitor clinically. 5) DVT PPx Enoxaparin daily. Continue to monitor s/s bleeding/clot Psychotropic Medications: None Unnecessary Medications: None Bowel Regimen: 6) Senna/s, PEG, prn bisacodyl. Continue to monitor prn medication use, for constipation/diarrhea. Date of Note:: 10/25/17 - Provider Comments Provider responsibility: Provider responsible to enter orders to implement recommendations <Brain Diez Chi - Last Filed: 10/25/17 14:21> Progress Note - Pharmacy Subjective: [] Objective: Allergies Penicillins Allergy (Verified 10/10/17 20:05) Hives pioglitazone HCl [From Actos] Allergy (Verified 10/10/17 20:05) Swelling Ubpjabq-Rsf-Fiy Reductase Inhibitor Allergy (Verified 10/10/17 20:05) Unknown gabapentin [From Neurontin] Adverse Reaction (Verified 10/10/17 20:05) Other Home Medications Medication Instructions Recorded Insulin Glargine [Lantus SoloStar 70 units SC DAILY 09/16/14 Pen] Tramadol HCl [Ultram] 50 mg PO Q6H PRN PRN 09/16/14 Pregabalin [Lyrica] 200 mg PO DAILY 10/22/15 Carvedilol [Coreg (Beta Toño)] 12.5 tab PO BID 08/29/17 Furosemide [Furosemide] 1 tab PO DAILY 08/29/17 Metformin HCl [Glucophage] 500 mg PO BREAKFAST 08/29/17 Sacubitril/Valsartan 49-51 mg 1 tab PO BID 08/29/17 [Entresto 49 mg-51 mg Tablet] Ascorbic Acid [Vitamin C] 500 mg PO BID 10/10/17 Aspirin [Adult Aspirin Regimen] 81 mg PO DAILY 10/10/17 Clopidogrel Bisulfate [Plavix] 75 mg PO DAILY 10/10/17 Nitroglycerin [Nitro-Dur] 0.4 mg TRANSDERM. DAILY 10/10/17 Acetaminophen 650 mg PO Q6H PRN PRN 10/23/17 Metoclopramide [Reglan] 10 mg PO 4X/DAY 10/23/17 Oxycodone [Oxyir] 5 mg PO Q6H PRN PRN 10/23/17 Current Medications Generic Name Dose Route Start Last Admin Trade Name Freq PRN Reason Stop Dose Admin Acetaminophen 1,000 mg 10/23/17 23:07 10/24/17 19:41 Tylenol PO 1,000 mg Q8H PRN PRN Administration MILD PAIN (1-3/10) Ascorbic Acid 500 mg 10/23/17 18:00 10/25/17 04:42 Vitamin C PO 500 mg BID [facility] Administration Aspirin 81 mg 10/24/17 08:00 10/25/17 07:57 Ecotrin PO 81 mg DAILYCM [facility] Administration Bisacodyl 10 mg 10/23/17 23:07 Dulcolax RECTAL DAILY PRN Constipation Carvedilol 12.5 mg 10/23/17 18:00 10/25/17 04:43 Coreg PO 12.5 mg BID [facility] Administration Clopidogrel Bisulfate 75 mg 10/24/17 06:00 10/25/17 04:42 Plavix PO 75 mg DAILY [facility] Administration Enoxaparin Sodium 40 mg 10/24/17 06:00 10/25/17 04:43 Lovenox SC 40 mg DAILY@0600 [facility] Administration Furosemide 40 mg 10/24/17 06:00 10/25/17 04:42 Lasix PO 40 mg DAILY [facility] Administration Insulin Detemir 70 units 10/24/17 22:00 10/24/17 21:16 Levemir (Bkc) SC 70 units QHS [facility] Administration Metformin HCl 500 mg 10/24/17 08:00 10/25/17 07:57 Glucophage PO 500 mg BREAKFAST [facility] Administration Nitroglycerin 0.4 mg 10/24/17 06:00 10/25/17 04:45 Nitro-Dur TRANSDERM. 0.4 mg DAILY [facility] Administration Nutritional Formula 1 packet 10/24/17 17:00 10/25/17 07:57 Naresh - [place] Flavor PO 1 packet BIDCM [facility] Administration Oxycodone HCl 5 mg 10/23/17 23:08 Oxyir PO Q6H PRN PRN SEVERE PAIN (6-10/10) Polyethylene Glycol 17 gm 10/24/17 06:00 10/25/17 04:42 Miralax PO 17 gm DAILY [facility] Administration Pregabalin 200 mg 10/24/17 06:00 10/25/17 04:44 Lyrica PO 200 mg DAILY [facility] Administration Senna/Docusate Sodium 2 tablet 10/24/17 06:00 10/25/17 04:43 Senokot-S, Lulú-Colace PO 2 tablet BID [facility] Administration Tramadol HCl 50 mg 10/23/17 23:08 10/25/17 13:22 Ultram (G) PO 50 mg Q6H PRN PRN Administration MODERATE PAIN (4-5/10) Tuberculin PPD 5 tu 10/31/17 10:00 Tubersol, Aplisol, Ppd ID 10/31/17 10:01 X1 ONE Problem List Gangrene of right foot (Acute) Diabetes mellitus (Chronic) Chronic systolic heart failure (Chronic) Hypertension (Chronic) Atrial fibrillation (Chronic) Peripheral arterial occlusive disease (Chronic) Osteoarthritis (Chronic) Polyneuropathy (Chronic) Vital Signs Temp Pulse Resp BP Pulse Ox 97.4 F L 86 22 H 122/76 H 96 10/24/17 15:52 10/25/17 04:45 10/24/17 15:52 10/25/17 04:45 10/24/17 15:52 Oxygen Delivery Method Room Air Weight: 101.831 kg Body Mass Index (BMI) 32.1 Finger Stick Blood Glucose 250 Sodium 133 mmol/L (136-145) L 10/24/17 06:03 Potassium 4.4 mmol/L (3.5-5.1) 10/24/17 06:03 Chloride 102 mmol/L (98-107) 10/24/17 06:03 Carbon Dioxide 24.0 mmol/L (21.0-32.0) 10/24/17 06:03 Anion Gap 7 (5-15) 10/24/17 06:03 BUN 15 mg/dL (7-18) 10/24/17 06:03 Creatinine 0.76 mg/dL (0.70-1.30) 10/24/17 06:03 Est GFR (MDRD) Af Amer 136 mL/min (>60) 10/24/17 06:03 Est GFR (MDRD) Non-Af 113 mL/min (>60) 10/24/17 06:03 BUN/Creatinine Ratio 19.8 RATIO (10-20) 10/24/17 06:03 Glucose 273 mg/dL (74-106) H 10/24/17 06:03 Assessment/Plan: Psychotropic Medications: Unnecessary Medications: Bowel Regimen: - Provider Comments Provider responsibility: Provider responsible to enter orders to implement recommendations Provider Comments to Recommendations by Pharmacy: Agree
[2017-10-25 16:00] VITALS: BP 138/62; PULSE 98; RESP 18; TEMP 36.4; O2SAT 97
[2017-10-25 19:36] LABS: Bedside Glucose 170 mg/dL (70-110)
[2017-10-25 21:21] LABS: Bedside Glucose 145 mg/dL (70-110)
[2017-10-26] MEDS: SACUBITRIL/VALSARTAN 49-51 MG TABLET 1 EACH PO ×2 (06:56→17:16)
[2017-10-26 06:57] VITALS: BP 121/73; PULSE 85
[2017-10-26] MEDS: Carvedilol 12.5 MG Tablet PO ×2 (06:57→17:16)
[2017-10-26] MEDS: Furosemide 40 MG Tablet PO (06:57)
[2017-10-26] MEDS: Enoxaparin 40 MG/0.4 ML Syringe SC (07:00)
[2017-10-26] MEDS: Clopidogrel Bisulfate 75 MG Tablet PO (07:00)
[2017-10-26] MEDS: Ascorbic Acid 500 MG Tablet PO ×2 (07:00→17:16)
[2017-10-26] MEDS: Pregabalin 50 MG Capsule 200 MG PO (07:03)
[2017-10-26] MEDS: Acetaminophen 500 MG Tablet 1000 MG PO ×2 (07:04→15:12)
[2017-10-26] MEDS: Senna/Docusate Sodium 1 Tablet 2 TABLET PO (07:05)
[2017-10-26 07:06] LABS: Bedside Glucose 149 mg/dL (70-110)
[2017-10-26] MEDS: Aspirin E.C. 81 MG Tablet PO (08:17)
[2017-10-26 11:35] LABS: Bedside Glucose 366 mg/dL (70-110)
[2017-10-26 15:56] VITALS: BP 122/72; PULSE 89; RESP 20; TEMP 36.8; O2SAT 98
[2017-10-26 16:50] LABS: Bedside Glucose 207 mg/dL (70-110)
[2017-10-26 21:06] LABS: Bedside Glucose 265 mg/dL (70-110)
[2017-10-27 05:31] VITALS: BP 130/69; PULSE 89
[2017-10-27] MEDS: Furosemide 40 MG Tablet PO (05:33)
[2017-10-27] MEDS: Carvedilol 12.5 MG Tablet PO ×2 (05:33→18:01)
[2017-10-27] MEDS: Ascorbic Acid 500 MG Tablet PO ×2 (05:33→18:00)
[2017-10-27] MEDS: SACUBITRIL/VALSARTAN 49-51 MG TABLET 1 EACH PO ×2 (05:34→19:08)
[2017-10-27] MEDS: Clopidogrel Bisulfate 75 MG Tablet PO (05:34)
[2017-10-27] MEDS: Enoxaparin 40 MG/0.4 ML Syringe SC (05:34)
[2017-10-27] MEDS: Pregabalin 50 MG Capsule 200 MG PO (05:39)
[2017-10-27 06:51] LABS: Bedside Glucose 119 mg/dL (70-110)
[2017-10-27] MEDS: Aspirin E.C. 81 MG Tablet PO (07:40)
[2017-10-27] MEDS: Acetaminophen 500 MG Tablet 1000 MG PO (10:44)
--- NOTE | 2017-10-27 11:03 | NURSING ---
Addendum entered by Liza Reynolds 10/27/17 11:28: RICHARD FROM [employer] CALLED AND NEEDED DEMOGRAPHIC SHEET AND ORDER, FAXED. 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 awaiting return call.
[2017-10-27 11:36] LABS: Bedside Glucose 99 mg/dL (70-110)
--- NOTE | 2017-10-27 12:32 | NURSING ---
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
--- NOTE | 2017-10-27 15:41 | CASEMGMT ---
Social Work Spoke with resident in room. Resident requesting for discharge date to be set for 10/28/17. Spoke with staff/therapy, 10/28/17 is an agreeable date at this time. Resident plans to discharge home with spouse. Resident reporting to have a need for a wheelchair within the home. Resident does not have a preference of [place], [place] to be utilized. Physical and Occupational therapy and nursing are recommending for resident to have continued services within the home. Resident is agreeable to recommendation and requesting for home health services to be set up through [facility] ([facility]). Resident spouse plans to provide transportation home for resident at time of discharge and is aware of discharge plan. Resident spouse also planning to assist with dressing changes within the home for wound at time of discharge, nursing planning to educate spouse on dressing changes. Support given. [facility] making referral for physical and occupational therapy as well as jail. Order to be completed. Telephone call to Evelyne Austin. This social research assistant making referral for wheelchair. Order faxed. Evelyne to deliver wheelchair to resident room prior to resident discharge. Proposed discharge date: 10/28/17 PLAN: Discharge home with spouse and home health services. Rika BOLDEN, NURSING STAFF DEVELOPMENT COORDINATOR
[2017-10-27 16:00] VITALS: BP 111/50; PULSE 91; RESP 20; TEMP 36.9; O2SAT 95
[2017-10-27 17:40] LABS: Bedside Glucose 200 mg/dL (70-110)
--- NOTE | 2017-10-27 20:31 | PCM.DC ---
- Discharge Diagnoses Current Active Problems: Current Active and Chronic Problems Gangrene of right foot (Acute) Diabetes mellitus (Chronic) Chronic systolic heart failure (Chronic) Hypertension (Chronic) Atrial fibrillation (Chronic) Peripheral arterial occlusive disease (Chronic) Osteoarthritis (Chronic) Polyneuropathy (Chronic) You will use the following diet at home:: No restrictions, Regular Your food should be the consistency of: Regular Your liquids should be the consistency of: Regular/Thin Discharge Activity: Return to Normal Activity, Use Walker Weight Bearing Status: Weight bearing as tolerated Call your doctor if you observe: Fever of 101 or Higher, Inability to urinate, Inability to have a bowel movement, Shortness of breath, Chest pain, Uncontrolled pain Allergies/Adverse Reactions: Allergies Penicillins Allergy (Verified 10/10/17 20:05) Hives pioglitazone HCl [From Actos] Allergy (Verified 10/10/17 20:05) Swelling Ztzzeqf-Woh-Yrj Reductase Inhibitor Allergy (Verified 10/10/17 20:05) Unknown gabapentin [From Neurontin] Adverse Reaction (Verified 10/10/17 20:05) Other Medications to take at Discharge Insulin Glargine [Lantus SoloStar Pen] 70 units SC DAILY 09/16/14 Pregabalin [Lyrica] 200 mg PO DAILY 10/22/15 Carvedilol [Coreg (Beta Toño)] 12.5 tab PO BID 08/29/17 Furosemide 1 tab PO DAILY 08/29/17 Metformin HCl [Glucophage] 500 mg PO BREAKFAST 08/29/17 Sacubitril/Valsartan 49-51 mg [Entresto 49 mg-51 mg Tablet] 1 tab PO BID 08/29/17 Ascorbic Acid [Vitamin C] 500 mg PO BID 10/10/17 Aspirin [Adult Aspirin Regimen] 81 mg PO DAILY 10/10/17 Clopidogrel Bisulfate [Plavix] 75 mg PO DAILY 10/10/17 Nitroglycerin [Nitro-Dur] 0.4 mg TRANSDERM. DAILY 10/10/17 Acetaminophen [Tylenol] 1,000 mg PO Q8H PRN PRN tablet 10/27/17 Nutritional Supplement [Naresh - ORANGE FLAVOR] 1 packet PO BIDCM #60 packet 10/27/17 Oxycodone [Oxyir] 5 mg PO Q6H PRN PRN #30 tablet 10/27/17 Polyethylene Glycol 3350 [Miralax] 17 gm PO DAILY #30 packet 10/27/17 Senna/Docusate Sodium [Senokot-S] 2 tab PO BID #120 tab 10/27/17 TraMADol [Ultram] 50 mg PO Q6H PRN PRN #30 tablet 10/27/17 The following prescriptions were given: Oxycodone [Oxyir] 5 mg PO Q6H PRN PRN #30 tablet PRN Reason: Mod-Severe Pain (4-10/10) TraMADol [Ultram] 50 mg PO Q6H PRN PRN #30 tablet PRN Reason: Moderate Pain (4-5/10) Polyethylene Glycol 3350 [Miralax] 17 gm PO DAILY #30 packet Nutritional Supplement [Naresh - ORANGE FLAVOR] 1 packet PO BIDCM #60 packet Senna/Docusate Sodium [Senokot-S] 2 tab PO BID #120 tab Primary Care Physician: Saul Hartmann MD [Primary Care Provider] - Please follow up with your Primary Care Physician in: 1 week. Please Follow Up With: Dr Hernandez When: 2 weeks. Proposed Discharge Date: 10/28/17
--- NOTE | 2017-10-27 20:33 | PCM.DC.SUM ---
Discharge Date and Diagnosis - Problem List Patient Problems: Active and Suspected Problems Gangrene of right foot (Acute) Date of Admission: 10/23/17 Date of Discharge: 10/28/17 - Primary Discharge Diagnosis Active and Suspected Problems Gangrene of right foot (Acute) - Secondary Discharge Diagnosis Chronic Problems Diabetes mellitus (Chronic) Chronic systolic heart failure (Chronic) Hypertension (Chronic) Atrial fibrillation (Chronic) Peripheral arterial occlusive disease (Chronic) Osteoarthritis (Chronic) Polyneuropathy (Chronic) Hospital Course and Treatment Imaging Results: 10/23/17 16:24 Diet: Cardiac: Calorie-Controlled Food consistency:: Regular Liquid Consistency:: Regular/Thin Is pt able to select menu?: Yes How many daily calories?: 1800 calorie Labs (Last 48 Hours) 10/25/17 10/26/17 10/26/17 21:09 06:40 11:27 POC Glucose 145 H 149 H 366 H 10/26/17 10/26/17 10/27/17 16:44 21:00 06:18 POC Glucose 207 H 265 H 119 H 10/27/17 10/27/17 11:14 17:35 POC Glucose 99 200 H Operations: None Procedures: None Summary of Care Provided: The patient is a 57 year old Male with below past medical history hospitalized for right foot gangrene, 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 [] Discharge home with spouse, and Home Health Services. Home health ordered. Discharge Diet: No Restrictions Discharge Activity: Return to Normal Activity, Use Walker Weight Bearing Status: Weight bearing as tolerated Call your doctor if you observe: Fever of 101 or Higher, Inability to urinate, Inability to have a bowel movement, Shortness of breath, Chest pain, Uncontrolled pain Home Medications: Medications to take at Discharge Insulin Glargine [Lantus SoloStar Pen] 70 units SC DAILY 09/16/14 Pregabalin [Lyrica] 200 mg PO DAILY 10/22/15 Carvedilol [Coreg (Beta Otño)] 12.5 tab PO BID 08/29/17 Furosemide 1 tab PO DAILY 08/29/17 Metformin HCl [Glucophage] 500 mg PO BREAKFAST 08/29/17 Sacubitril/Valsartan 49-51 mg [Entresto 49 mg-51 mg Tablet] 1 tab PO BID 08/29/17 Ascorbic Acid [Vitamin C] 500 mg PO BID 10/10/17 Aspirin [Adult Aspirin Regimen] 81 mg PO DAILY 10/10/17 Clopidogrel Bisulfate [Plavix] 75 mg PO DAILY 10/10/17 Nitroglycerin [Nitro-Dur] 0.4 mg TRANSDERM. DAILY 10/10/17 Acetaminophen [Tylenol] 1,000 mg PO Q8H PRN PRN tablet 10/27/17 Nutritional Supplement [Naresh - ORANGE FLAVOR] 1 packet PO BIDCM #60 packet 10/27/17 Oxycodone [Oxyir] 5 mg PO Q6H PRN PRN #30 tablet 10/27/17 Polyethylene Glycol 3350 [Miralax] 17 gm PO DAILY #30 packet 10/27/17 Senna/Docusate Sodium [Senokot-S] 2 tab PO BID #120 tab 10/27/17 TraMADol [Ultram] 50 mg PO Q6H PRN PRN #30 tablet 10/27/17 Following Prescrptions Were Given to Patient: Oxycodone [Oxyir] 5 mg PO Q6H PRN PRN #30 tablet PRN Reason: Mod-Severe Pain (4-10/10) TraMADol [Ultram] 50 mg PO Q6H PRN PRN #30 tablet PRN Reason: Moderate Pain (4-5/10) Polyethylene Glycol 3350 [Miralax] 17 gm PO DAILY #30 packet Nutritional Supplement [Naresh - ORANGE FLAVOR] 1 packet PO BIDCM #60 packet Senna/Docusate Sodium [Senokot-S] 2 tab PO BID #120 tab Primary Care Physician: Saul Hartmann MD [Primary Care Provider] - Please follow up with your Primary Care Physician in: 1 week. Please Follow Up With: Dr Hernandez When: 2 weeks. Please Follow Up With: Dr. Vazquez Disposition: Home with Home Health Minutes spent on discharge:: 35 Patient Condition:: Good Medical Necessity - Tobacco Use Smoking Status: Former smoker Tobacco Use: Non-smoker Meaningful Use Info Meaningful Use Diagnoses (Choose all that apply): None applicable
--- NOTE | 2017-10-27 20:36 | HHNOTE_ITS ---
Home Health Note - Plan Overview of reason of hospitalization: The patient is a 57 year old Male with below past medical history hospitalized for right foot gangrene, 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 [] Discharge home with spouse, and Home Health Services. Home health ordered. Problems: Patient was seen for Gangrene of right foot (Acute) Diabetes mellitus (Chronic) Chronic systolic heart failure (Chronic) Hypertension (Chronic) Atrial fibrillation (Chronic) Peripheral arterial occlusive disease (Chronic) Osteoarthritis (Chronic) Polyneuropathy (Chronic) Complete List of Medical Problems Gangrene of right foot (Acute) Diabetes mellitus (Chronic) Chronic systolic heart failure (Chronic) Hypertension (Chronic) Atrial fibrillation (Chronic) Peripheral arterial occlusive disease (Chronic) Osteoarthritis (Chronic) Polyneuropathy (Chronic) - Requirements and Reasons Disciplines Needed/Ordered: Assisted, Physical Therapy Reason for Disciplines: Disease Specific Monitoring/education, Medication Management/Knowledge Deficit, Wound Care, Gait Training, Stair Training, Fall Prevention, Home Safety/Equipment Instruction, Balance and/or Posture Training, Transfer Training Related To: Limited/Poor Endurance, Physical Impairments, Unsteady Gait/Balance , Fall Risk Patient is unable to leave the home: Without Aid of Supportive Devices (crutches , cane, wheelchair, walker), Without the assistance of another person - Additional Disciplines Additional Disciplines Needed/Ordered: Occupational Therapy
[2017-10-27 21:11] LABS: Bedside Glucose 292 mg/dL (70-110)
[2017-10-28 04:41] VITALS: BP 127/58; PULSE 85
[2017-10-28] MEDS: Clopidogrel Bisulfate 75 MG Tablet PO (04:41)
[2017-10-28] MEDS: Ascorbic Acid 500 MG Tablet PO (04:41)
[2017-10-28] MEDS: Acetaminophen 500 MG Tablet 1000 MG PO (04:42)
[2017-10-28] MEDS: Pregabalin 50 MG Capsule 200 MG PO (04:42)
[2017-10-28] MEDS: Furosemide 40 MG Tablet PO (04:42)
[2017-10-28] MEDS: Enoxaparin 40 MG/0.4 ML Syringe SC (04:42)
[2017-10-28] MEDS: Carvedilol 12.5 MG Tablet PO (04:42)
[2017-10-28 06:50] LABS: Bedside Glucose 61 mg/dL (70-110)
[2017-10-28 06:50] LABS: Bedside Glucose 101 mg/dL (70-110)
[2017-10-28 06:55] LABS: Bedside Glucose 231 mg/dL (70-110)
[2017-10-28] MEDS: Aspirin E.C. 81 MG Tablet PO (08:05)
--- NOTE | 2017-10-28 10:38 | NURSING ---
DASCO HERE AND DROPPING OFF WC.
[2017-10-28 10:48] VITALS: BP 127/85; PULSE 91; RESP 18; TEMP 36.6; O2SAT 98
[2017-10-28 11:15] LABS: Bedside Glucose 177 mg/dL (70-110)
--- NOTE | 2017-10-28 12:49 | BH.SGPN.T2 ---
800am rounds pt called stating coffee was spilled while he was in bed so i assisted in helping put the two top bath blankets on his lap in the linen cart bc the bed was dry. Pt felt the green pad with his hand and clothes were dry also including the bed linens. Only top two bath blankets had coffee on them. Later in shift OSWALDO De Jesus confirmed that bed linens were dry.
--- NOTE | 2017-10-28 14:43 | CASEMGMT ---
Brief interview for mental status (BIMS) and resident mood interview (PHQ-9) completed on this day. BIMS score 15/15. PHQ-9 score
--- NOTE | 2017-10-28 16:02 | CASEMGMT ---
Insurance Notified insurance of resident discharge on 10/28/17 to home with spouse. Auth#[id number] Rika BOLDEN, [employer]
--- NOTE | 2017-11-03 15:56 | MDS.RN ---
Information for the mds was obtained from review of the clinical record, observation of resident, staff, and direct observation of resident's care.
== END 2017-10-28 11:45 | disposition home health service (06) | DRG 560 ==
PROVIDERS: Admitting Provider Family Medicine Geriatric Medicine; Family Provider Family Medicine; PCP Family Medicine; Visit Provider Family Medicine Geriatric Medicine
DX: Z47.81 Encounter for orthopedic aftercare following surgical amputation (principal); I50.22 Chronic systolic (congestive) heart failure; E11.42 Type 2 diabetes mellitus with diabetic polyneuropathy; E11.51 Type 2 diabetes mellitus with diabetic peripheral angiopathy without gangrene; I11.0 Hypertensive heart disease with heart failure; I48.2 Chronic atrial fibrillation; M19.90 Unspecified osteoarthritis, unspecified site; I25.10 Atherosclerotic heart disease of native coronary artery without angina pectoris; Z87.891 Personal history of nicotine dependence; Z89.511 Acquired absence of right leg below knee; Z79.899 Other long term (current) drug therapy; Z79.02 Long term (current) use of antithrombotics/antiplatelets; Z79.84 Long term (current) use of oral hypoglycemic drugs; Z95.1 Presence of aortocoronary bypass graft; Z95.0 Presence of cardiac pacemaker
CPT/HCPCS: 36415; 80048; 82962; 85025; 97110; 97116; 97162; 97165; 97530; 97802

== ENCOUNTER → 2017-11-06 15:41 | Outpatient (CLI) | payer OTHER, SELFPAY ==
[2017-11-06 17:45] LABS: Absolute Lymphocyte Count 1.99 X10^3/ul (0.83-4.51); Absolute Neutrophil Count 2.6 X10^3/uL (2.0-7.7); Basophil# 0.04 X10^3/uL; Basophil% 0.8 % (0-1); Eosinophil# 0.14 X10^3/uL; Eosinophils% 2.7 % (0-5); Hematocrit 34.2 % (40-54); Hemoglobin 10.8 g/dl (13.0-16.5); Lymphocyte # 1.99 X10^3/ul (4.0); Lymphocyte % 37.8 % (19-41); Mean Corp Hgb Conc 31.6 g/gl (32-36); Mean Corpuscular Volume 82.2 fL (80-94); Mean Platelet Vol. 9.7 fl (6.2-12.0); Monocyte# 0.44 X10^3/uL; Monocyte% 8.3 % (0-10); Neutrophil # 2.64 X10^3/uL (2.7-7.7); Platelet Count 390 K/mm3 (150-450); RBC Distribution Width CV 15.6 % (11.6-14.6); RBC Distribution Width SD 46.5 fl (35.1-43.9); Red Blood Count 4.16 M/mm3 (4.6-6.2); White Blood Count 5.3 K/mm3 (4.4-11.0)
[2017-11-06 18:05] LABS: POSITIVE COUNT NO; POSITIVE DIFFERENTIAL NO; POSITIVE MORPHOLOGY NO
[2017-11-06 18:12] LABS: ALB/GLOB Ratio 0.8 RATIO (0.9-2.4); AST(SGOT) 12 U/L (15-37); Alanine Aminotransfer ALT/SGPT 24 U/L (16-61); Albumin, Serum 3.2 g/dL (3.2-5.0); Alkaline Phosphatase 60 U/L (45-117); Anion Gap 7 (5-15); BUN 13 mg/dL (7-18); BUN/Creat Ratio 15.8 RATIO (10-20); CRP 5.61 mg/L (0.0-3.0); Calcium,Total 8.6 mg/dL (8.5-10.1); Chloride 104 mmol/L (98-107); Creatinine, Serum 0.82 mg/dL (0.70-1.30); EST Glomerular Filtration Rate 102 mL/min (>60); Est Glom Filt Rate - Afr Amer 124 mL/min (>60); Glucose 112 mg/dL (74-106); Potassium 4.2 mmol/L (3.5-5.1); Protein, Total 7.2 g/dL (6.4-8.2); Sodium Level 139 mmol/L (136-145)
[2017-11-06 18:24] LABS: BNP,B-Type NATRIURETIC PEPTIDE 319.3 pg/mL (0-100)
[2017-11-06 18:27] LABS: Erythrocyte Sedimentation Rate 16 mm/hr (0-20)
== END ==
PROVIDERS: Family Provider Family Medicine; PCP Family Medicine; Visit Provider Family Medicine
DX: Z89.519 Acquired absence of unspecified leg below knee (principal); I50.9 Heart failure, unspecified
CPT/HCPCS: 36415; 80053; 83880; 85025; 85652; 86140

== ENCOUNTER → 2017-11-11 13:52 | Outpatient (CLI) | payer OTHER, SELFPAY ==
--- NOTE | 2017-11-11 13:58 | VDLE_ITS ---
Reason For Study: edema RIGHT GSV is normal. CFV is compressible, spontaneous, phasic, competent and demonstrates normal augmentation. Prox and Mid FV are compressible with normal venous flow patterns. Distal FV is partially compressible. POP V is dilated and noncompressible with decreased flow. Pt is recent BKA amputation. Procedure Exam performed in department. The exam was diagnostic. A preliminary report was called and/or faxed to [facility]. Pt to go back to [facility]. Interpretation Summary Acute deep vein thrombosis is noted in the right popliteal vein and distal femoral vein. The more proximal portion of the right lower extremity deep venous system is patent and compressible. Valvular competence appears intact within the proximal deep venous system on the right . The right greater saphenous vein appears patent and compressible segmentally. The patient has a right below- knee amputation. Ordering Physician: Darius Hartmann Performed By: Flash Montanez RVT
== END ==
PROVIDERS: Family Provider Family Medicine; PCP Family Medicine; Visit Provider Family Medicine
DX: T87.89 Other complications of amputation stump (principal)
CPT/HCPCS: 93971

== ENCOUNTER → 2018-01-01 08:26 | Outpatient (CLI) | payer OTHER, SELFPAY ==
--- NOTE | 2018-01-01 08:27 | STE_ITS ---
Reason For Study: Chest Pain, CAD Stress Results Protocol: Dobutamine Stress Echo Maximum Predicted HR: 163 bpm Target HR: 139 bpm% Maximum Pre dicted HR: 87 % DurationHeart Rate Stage (mm:ss) (bpm) BPComm ent Baseline 70 146/78 No Chest Pain DSE 10 MCG 3:07 74 132/92 No Chest Pain DSE 20 MCG 3:00 10 3 150/101No Chest Pain DSE 30 MCG 3:02 13 6 154/56 No Chest Pain DSE 40 MCG 1:31 14 1 146/74 No Chest Pain Recovery 90 113/73 No Chest Pain Stress Duration: 10:40 mm:ss Maximum Stress HR: 141 bpmME TS: 1 Baseline Echocardiogram Findings The estimated ejection fraction is 35 %. Septal motion consistent with IVCD. Stress Echo Wall motion Data Resting WMIntermediate WMStress WM Resting Wall Motion Wall Motion Stress Mid-Lateral : Mildly hypokinetic. Anterior and posterior schrader Mid-Inferior: Mildly hypokinetic. contract normally at peak Infero-Basal: Mildly hypokinetic. infusion. Baseline infero-lateral schrader remained hypokinetic during infusion. EKG Data The baseline ECG demonstrates normal sinus rhythm with at rate of _ beats per minute. The patient was titrated from 10 mcg to a maximum of 40 mcg of dobutamine during the stress. The maximum heart rate attained was 142 beats per minute. This was 87% of maximum predicted heart rate. At peak infusion, upsloping ST changes only were noted, which did not meet the criteria for ischemia. No clinical angina was noted. Interpretation Summary The estimated ejection fraction is 35 %. Anterior and posterior schrader contract normally at peak infusion. Baseline infero-lateral schrader remained hypokinetic during infusion. Normal, adequate, dobutamine echocardiogram. No additional wall motion abnormalities over baseline inferior and lateral hypokinesis. Anterior, apical, and posterior schrader all contracted normally during peak infusion. Rare PVCs noted. No anginal symptoms noted. Appropriate blood pressure response to dobutamine. Final LVEF of 45%. No complications. Recommend clinical correlation or alternative mode of testing if coronary ischemia is suspected. Ordering Physician: Harrison Noel Referring Physician: Harrison Noel MD Performed By: Kerrie Hanna RDCS
== END ==
PROVIDERS: Family Provider Family Medicine; PCP Family Medicine; Visit Provider Internal Medicine Cardiovascular Disease
DX: I25.10 Atherosclerotic heart disease of native coronary artery without angina pectoris (principal); I25.5 Ischemic cardiomyopathy; I20.8 Other forms of angina pectoris
CPT/HCPCS: 93017; 93350; J7030; A4216

== ENCOUNTER → 2018-01-12 09:15 | Outpatient (CLI) | payer OTHER, SELFPAY ==
--- NOTE | 2018-01-12 09:15 | DT_ITS ---
This patient was seen during an EMR downtime January 12, 2018 - January 19, 2018. This patient may have a combination of paper and electronic documentation or all paper documentation. All documentation is viewable within the e-chart portion of [employer] for each patient visit.
[2018-01-16 21:03] LABS: Anion Gap 8 (5-15); BUN 13 mg/dL (7-18); BUN/Creat Ratio 11.4 RATIO (10-20); Calcium,Total 8.4 mg/dL (8.5-10.1); Chloride 105 mmol/L (98-107); Creatinine, Serum 1.14 mg/dL (0.70-1.30); EST Glomerular Filtration Rate 70 mL/min (>60); Est Glom Filt Rate - Afr Amer 85 mL/min (>60); Glucose 328 mg/dL (74-106); Potassium 4.3 mmol/L (3.5-5.1); Sodium Level 137 mmol/L (136-145)
[2018-01-16 21:05] LABS: BNP,B-Type NATRIURETIC PEPTIDE 220.3 pg/mL (0-100)
[2018-01-16 21:29] LABS: Hematocrit 39.4 % (40-54); Mean Corpuscular Hgb 26.6 pg (27.0-32.0); Mean Corpuscular Volume 80.6 fL (80-94); Mean Platelet Vol. 11.2 fl (6.2-12.0); POSITIVE COUNT NO; POSITIVE DIFFERENTIAL NO; POSITIVE MORPHOLOGY NO; Platelet Count 189 K/mm3 (150-450); RBC Distribution Width CV 15.5 % (11.6-14.6); RBC Distribution Width SD 44.7 fl (35.1-43.9); Red Blood Count 4.89 M/mm3 (4.6-6.2); White Blood Count 9.1 K/mm3 (4.4-11.0)
[2018-01-16 21:31] LABS: Absolute Lymphocyte Count 1.91 X10^3/ul (0.83-4.51); Absolute Neutrophil Count 6.6 X10^3/uL (2.0-7.7); Basophil# 0.02 X10^3/uL; Basophil% 0.2 % (0-1); Eosinophil# 0.07 X10^3/uL; Eosinophils% 0.8 % (0-5); Lymphocyte # 1.91 X10^3/ul (4.0); Lymphocyte % 20.9 % (19-41); Monocyte# 0.57 X10^3/uL; Monocyte% 6.2 % (0-10); Neutrophil # 6.56 X10^3/uL (2.7-7.7); Neutrophil % 71.9 % (47-70)
== END ==
PROVIDERS: Family Provider Family Medicine; PCP Family Medicine; Visit Provider Internal Medicine Cardiovascular Disease
DX: I25.10 Atherosclerotic heart disease of native coronary artery without angina pectoris (principal); I50.9 Heart failure, unspecified; R60.0 Localized edema; R50.9 Fever, unspecified
CPT/HCPCS: 36415; 80048; 83880; 85025; 87040

== ENCOUNTER → 2018-02-06 10:24 | Outpatient (CLI) | payer OTHER, SELFPAY ==
--- NOTE | 2018-02-06 10:30 | CDU_ITS ---
Reason For Study: CAD Rt. Velocities/BP Lt. Velocities/BP Prox CCA 68.0/17.0 cm/sec. Prox CCA 88.5/21.1 cm/sec. Mid CCA 72.7/17.6 cm/sec. Mid CCA 77.4/15.8 cm/sec. Dist CCA 86.2/22.9 cm/sec. Dist CCA 95.0/21.7 cm/sec. Prox ICA 99.1/22.3 cm/sec. Prox ICA 72.7/18.4 cm/sec. Mid ICA 97.9/25.8 cm/sec. Mid ICA 82.3/21.9 cm/sec. Dist ICA 71.5/23.5 cm/sec. Dist ICA 66.8/21.4 cm/sec. Rt. ICA/CCA = 1.4. Lt. ICA/CCA = 1.1. Prox ECA 137.0/16.7 cm/sec. Prox ECA 99.7/9.4 cm/sec. Rt. Vert. 48.1/14.7 cm/sec. Lt. Vert. 40.9/14.1 cm/sec. Right Extracranial There is intimal thickening but no significant atherosclerotic plaque noted in the right common carotid artery. There is heterogeneous, irregular atherosclerotic plaque noted in the right internal carotid artery. There is intimal thickening but no significant atherosclerotic plaque noted in the right external carotid artery. Antegrade flow is noted in the right vertebral artery. Left Extracranial There is intimal thickening but no significant atherosclerotic plaque noted in the left common carotid artery. There is heterogeneous, irregular atherosclerotic plaque noted in the left internal carotid artery. There is no significant atherosclerotic plaque noted in the left external carotid artery. Antegrade flow is noted in the left vertebral artery. Procedure Carotid Duplex [id number]. Exam performed in department. Interpretation Summary Mild (<50%) stenosis right extracranial internal carotid. Mild (<50%) stenosis left extracranial internal carotid. Flow within the vertebral arteries is antegrade bilaterally. Ordering Physician: Darius Hartmann Referring Physician: Darius Hartmann [facility] Performed By: Yuko Baldwin RVT
== END ==
PROVIDERS: Family Provider Family Medicine; PCP Family Medicine; Visit Provider Family Medicine
DX: I25.10 Atherosclerotic heart disease of native coronary artery without angina pectoris (principal)
CPT/HCPCS: 93880

== ENCOUNTER 2018-02-20 07:00 | Outpatient (RCR) | payer OTHER, SELFPAY ==
--- NOTE | 2018-01-27 14:48 | HP.PTEVAL_ITS ---
Patient's Visit Information XUAN HUSTON is a 57 year old M referred to Physical Therapy by RADHA MIGUEL with a diagnosis of Right BKA. Date of Evaluation: 01/27/18 Physical Therapist: Shelly Esteban - Visit Plan Frequency: 3x /Week Duration: 4 Weeks Plan: focus on ambulation and functional mobility and balance - Subjective Subjective: When he had his leg amputated he had so much fluid in damaged the eyes and he had injections in them this morning. So he can't really see today and is hard of hearing. Right leg amputation in October BKA. Had an ingrown toe nail- toe ampuation and gangrene- so they attempted stents- so they decided an ampuation was appropriate- [facility]. Received his prothesis yesterday. He has been wearing it on/off. He is having ghost pains (ankle hurt so bad he felt like it was broken). Does have walker at home and has been just standing on it. Was on the // bars for actually walking- at [employer] Lives in a one story home with 2 stairs to get in but uses a ramp. Has been using a scooter and a w/c at home. Has a at home who helps. He is not driving. Other than the one time he had ghost pains he doesnt have problems. No pain meds but can feel the pressure. Does have feeling in the stump. Sleep: not disturbed. Wants to be more active. Has a long list of medical issues that slow him down. Work: disabled. PMHx/Meds: only change since last hospitalization is a booster to his water pill. - Objective Posture: good throughout. Observation: no open wounds on stump- stocking and prosthesis fit well. ROM: knee: WNL. Sensation: diminished to light touch but normal to deep pressure at end of stump. Sit to Stand: I with 2 UE safely to walker- stand to sit- good control with use of UE and LE. Strength: 5/5 with gross strength testing in hip/knee. SLS: can weight shift but unable to SLS on the left UE for any length of time. ambulation: ambulated with FWW 100 feet with no rest breaks and no LOB - Goals Goal 1:: Patient will be I with HEP and progression Goal Time Frame: 4-6 Weeks Goal 2:: Patient will ambulate >300 feet with a normalized gait pattern and LRD Goal Time Frame: 4-6 Weeks Goal 3:: Patient will SLS for 10 sec on right LE Goal Time Frame: 4-6 Weeks Goal 4:: Patient will report full I with ADL's. Goal Time Frame: 4-6 Weeks - Rehabilitation Potential Physical Therapy Diagnosis: Patient presents with hypomobilty- he has decreased strength and balance leading abnormal gait and decreased ability to perform ADL' s. Rehabilitation Potential: Fair - Anticipated Interventions Patient/Client Instruction: Educate patient on: Benefits of Fitness Program For the Purpose of:: To improve ability to perform ADL's Therapeutic Exercise to Include: Strength training, Endurance training, Balance training, Agility training, Body mechanics, Postural training, Flexibilty training, Gait and locomotor training, Dynamic Lumbar Stabilization Functional Training to Include: ADL Training, Gait training Thank you for the opportunity to evaluate your patient. For Medicare and Medicare HMO plans, please review the plan of care and approve it. It will need to be FAXED BACK to us at [phone] for Medicare purposes. Please let me know if there are questions or concerns regarding this plan of care. Physician Signature: Date:
--- NOTE | 2018-05-04 16:30 | HP.PT.NRP ---
HP - Discharge Summary (1) - Patient Information XUAN HUSTON was seen in my office for initial evaluation on 01/27/18. The following Plan of Care was established for this patient: Initial Frequency: 3x /Week Initial Duration: 4 Weeks - Anticipated Interventions Patient/Client Instruction: Educate patient on: Benefits of Fitness Program For the Purpose of:: To improve ability to perform ADL's Therapeutic Exercise to Include: Strength training, Endurance training, Balance training, Agility training, Body mechanics, Postural training, Flexibilty training, Gait and locomotor training, Dynamic Lumbar Stabilization Functional Training to Include: ADL Training, Gait training This patient was last seen in our office . Pertinent comments regarding their Physical therapy will appear below: Patient has not attended physical therapy in over 8 weeks and is appropriate for d/c. At this point I will be discontinuing this patient from physical therapy. I would be happy to see this patient again in the future if found appropriate by the physician. Thank you! Shelly Esteban
== END 2018-02-20 19:00 | disposition home or self-care (01) ==
LOC: PT 07:00
PROVIDERS: Family Provider Family Medicine; PCP Family Medicine
DX: Z97.8 Presence of other specified devices (principal)
CPT/HCPCS: 97110; 97116; 97162

== ENCOUNTER → 2018-03-24 14:56 | Outpatient (CLI) | payer OTHER, SELFPAY | PROVIDERS: Family Provider Family Medicine; PCP Family Medicine | DX: H00-H59 Diseases of the eye and adnexa (principal) | CPT/HCPCS: 70496; 70498; Q9967 ==

== ENCOUNTER → 2018-04-22 14:54 | Outpatient (CLI) | payer OTHER, SELFPAY ==
--- NOTE | 2018-04-22 14:58 | RAD_ITS ---
STUDY: X-RAY - CERVICAL SPINE REASON FOR EXAM: Male, 57 years old. Bilateral hand numbness/coldness. TECHNIQUE: Lateral, frontal, bilateral oblique, swimmer's view, and odontoid views of the cervical spine. COMPARISON: CTA neck 03/24/2018. FINDINGS: The patient is edentulous. Craniofacial osseous structures within the field of view exhibit no acute abnormality. The sinuses appear grossly clear. Odontoid and lateral masses intact and aligned. Normal alignment across the cervicothoracic junction. Mild multilevel facet arthropathy slightly more prominent in the upper cervical spine. In the oblique views there is no evidence of significant bony foraminal stenosis. Cervical vertebral body height and alignment are normal. Mineralization is osteopenic. Preserved cervical lordosis. Facet joints aligned and intact. Spinous processes aligned and intact. There is mild to moderate disc narrowing at each level between C3 and C7 most notably at C4-C5. Prevertebral soft tissues and airways appear normal. Apical lungs clear, apical thoracic cage intact. RAD/Cerv Spine 4 or 5 Views IMPRESSION: Multilevel cervical spondylosis as described above. Most notable degenerative disc disease at C4-C5. No evidence of acute cervical spine fracture or traumatic subluxation. Electronically Signed: Aristides Demetria, at 16:38 EDT Tel , Service support ,
== END ==
PROVIDERS: Family Provider Family Medicine; PCP Family Medicine; Visit Provider Family Medicine
DX: M54.12 Radiculopathy, cervical region (principal)
CPT/HCPCS: 72050

== ENCOUNTER → 2018-06-13 07:49 | Outpatient (CLI) | payer OTHER, SELFPAY ==
[2018-06-13 09:09] LABS: ALB/GLOB Ratio 1.1 RATIO (0.9-2.4); AST(SGOT) 12 U/L (15-37); Alanine Aminotransfer ALT/SGPT 25 U/L (16-61); Albumin, Serum 3.5 g/dL (3.2-5.0); Alkaline Phosphatase 50 U/L (45-117); Anion Gap 8 (5-15); BUN 17 mg/dL (7-18); BUN/Creat Ratio 17.1 RATIO (10-20); Calcium,Total 8.4 mg/dL (8.5-10.1); Chloride 109 mmol/L (98-107); Cholesterol 113 mg/dL (200); EST Glomerular Filtration Rate 82 mL/min (>60); Est Glom Filt Rate - Afr Amer 99 mL/min (>60); Globulin 3.3 g/dL (2.2-4.2); Glucose 95 mg/dL (74-106); High Density Lipoprotein 36 mg/dL; Potassium 4.2 mmol/L (3.5-5.1); Protein, Total 6.8 g/dL (6.4-8.2); Sodium Level 140 mmol/L (136-145); Triglycerides 54 mg/dL; Very Low Density Lipoprotein 11 mg/dL (5-40)
[2018-06-13 10:31] LABS: BNP,B-Type NATRIURETIC PEPTIDE 87.9 pg/mL (0-100)
[2018-06-13 16:00] LABS: Xtra Tube EP Lab EXTRA TUBE
== END ==
PROVIDERS: Family Provider Family Medicine; PCP Family Medicine; Referring Provider Family Medicine; Visit Provider Family Medicine
DX: E11.65 Type 2 diabetes mellitus with hyperglycemia (principal)
CPT/HCPCS: 36415; 80053; 80061; 83880

== ENCOUNTER 2018-06-19 06:31 | Day surgery (SDC) | payer OTHER, SELFPAY ==
--- NOTE | 2018-06-15 11:43 | RAD_ITS ---
STUDY: X-RAY CHEST REASON FOR EXAM: Male, 58 years old. Her breath. Chest pain. TECHNIQUE: Frontal and lateral views of the chest. COMPARISON: 10/10/2017. FINDINGS: The lungs are clear and expanded. There is no demonstrated pleural abnormality. Normal size heart. Previous CABG. Pacemaker is seen with leads terminating in the right atrium and right ventricle.. Normal mediastinum and delia. Normal visualized pulmonary arteries. Normal visualized aortic arch and descending thoracic aorta. Normal visualized thoracic spine. Epidural stimulator seen in the lower thoracic spine. Normal visualized ribs, clavicles, and shoulders. There is no demonstrated abnormality of the visualized soft tissue structures of the upper abdomen. RAD/Chest PA and Lateral IMPRESSION: No acute chest disease. Electronically Signed: Moreno Mccurdy MD at 22:54 EST , Service support ,
[2018-06-15 13:01] LABS: Absolute Lymphocyte Count 2.31 X10^3/ul (0.83-4.51); Basophil# 0.02 X10^3/uL; Basophil% 0.3 % (0-1); Eosinophil# 0.09 X10^3/uL; Eosinophils% 1.5 % (0-5); Hematocrit 43.4 % (40-54); Hemoglobin 14.4 g/dl (13.0-16.5); Lymphocyte # 2.31 X10^3/ul (4.0); Lymphocyte % 39.1 % (19-41); Mean Corp Hgb Conc 33.2 g/gl (32-36); Mean Corpuscular Hgb 27.6 pg (27.0-32.0); Mean Corpuscular Volume 83.1 fL (80-94); Mean Platelet Vol. 10.7 fl (6.2-12.0); Monocyte# 0.45 X10^3/uL; Monocyte% 7.6 % (0-10); Neutrophil # 3.03 X10^3/uL (2.7-7.7); Neutrophil % 51.3 % (47-70); Platelet Count 202 K/mm3 (150-450); RBC Distribution Width CV 13.1 % (11.6-14.6); RBC Distribution Width SD 39.5 fl (35.1-43.9); Red Blood Count 5.22 M/mm3 (4.6-6.2); White Blood Count 5.9 K/mm3 (4.4-11.0)
[2018-06-15 13:05] LABS: POSITIVE COUNT NO; POSITIVE DIFFERENTIAL NO; POSITIVE MORPHOLOGY NO
[2018-06-15 13:15] LABS: International Normalized Ratio 1.2; Prothrombin Time (Protime)PT. 14.7 SECONDS (11.7-14.9)
[2018-06-15 13:22] LABS: Anion Gap 9 (5-15); BUN 20 mg/dL (7-18); Calcium,Total 8.5 mg/dL (8.5-10.1); Chloride 106 mmol/L (98-107); Creatinine, Serum 1.11 mg/dL (0.70-1.30); EST Glomerular Filtration Rate 72 mL/min (>60); Est Glom Filt Rate - Afr Amer 88 mL/min (>60); Glucose 205 mg/dL (74-106); Potassium 4.2 mmol/L (3.5-5.1); Sodium Level 141 mmol/L (136-145)
[2018-06-18 07:00] VITALS: BMI 38.4
--- NOTE | 2018-06-19 09:05 | CL.D_ITS ---
Patient Name: XUAN HUSTON Study Date: 06/19/2018 Performing: Harrison Noel MD Ht: 68.89 inches 175 cm : 1960 Wt: 260.15 lbs 118 kg Age: 58 Gender: male BSA: 2.31 PROCEDURE(S) PERFORMED [id number]/COR/LV/CABG CLINICAL PROFILE AND INDICATIONS Indications: New Onset Angina <= 2 months, Stable Known CAD, Cardiomyopathy, LV Dysfunction Heart Failure: NYHA Class: 1, Newly Diagnosed: No, Heart Failure Type: Systolic Stress/Imaging Stress Echocardiogram: Yes Result: NegativeStress Echocardiogram: Negative Angina Classification Anginal Classification w/in 2 Weeks: CCS IV CAD Presentations: Unstable angina. Comorbidities/Risk Factors: Hypertension Dyslipidemia Prior CHF Prior PCI Prior CABG Diabetes Mellitus: Diabetes Therapy: Oral CONCLUSIONS Triple vessel CAD of the LCX, LAD, RCA Patent sequential VEGA to DIAG#1 and LAD. Patent SVG to RCA; table mountain PDA with diffuse 75% disease, but pt has old inferior HI; unlikely to benef it from PCI. Occluded recently placed OM#1 stents. RECOMMENDATIONS Risk factor modification Management as per referring [employer] [place]; all stenotic vessels too small or of questionable benefit for additional PCI. Manual sheath removal. DESCRIPTION OF PROCEDURE The patient arrived to the procedure lab. The risks and benefits of the procedure as well as a full d escription of our services here and current unavailability of surgical backup were fully explained to the patient and/or their significant other prior to the catheterization. The Timeout was completed, verifying the correct patient and procedure. The patient's procedural site was prepped and draped in the usual fashion. Local anesthetic was given subcutaneously to right groin region with Lidocaine 2%. Using a modified Seldinger technique, arterial access was obtained via the right femoral artery, a 4 Fr sheath was inserted Left Coronary Artery selective angiography was performed in multiple views us ing a 4 Fr. JL5 catheter. Right Coronary Artery selective angiography was then performed in multiple views using a 4 Fr. 3DRC catheter. Left internal mammary artery graft to the LAD selective angiograph y was performed in multiple views using a 4 Fr. 3DRC catheter. Saphenous Vein graft to the RPDA selective angiography was performed in multiple views using a 4 Fr. AR MOD 2 catheter. Left Vent riculography was performed in CORBETT projection using a 4 Fr. Pigtail catheter. LV to AO pullback pressu res were then recorded. CORONARY ANGIOGRAPHY DOMINANCE: Right Dominant LEFT HEART ASSESSMENT Left Ventricular Ejection Fraction: by LV Gram 25-30 % Apical Akinesis. Inferior Mid Akinesis Depressed Left Ventricular systolic function LEFT MAIN: Instent restenosis 10 % LEFT ANTERIOR DECENDING ARTERY: MID LAD: is occluded CIRCUMFLEX ARTERY: OSTIAL CIRC: 70 % Stenosis DISTAL CIRC: 85 % Stenosis; very small vessel, too tiny for PCI. OM 1: Proximal - Previously placed stent is occluded RIGHT CORONARY ARTERY: PROX RCA: is occluded RT PDA: Mid - 75% after touchdown site from SVG to RCA; too small to PCI in face of old inferior ray esis. GRAFTS: Sequential VEGA graft to the DIAG#1 and LAD is patent. Saphenous Vein graft to the RCA is patent COMPLICATIONS No Complications PROCEDURE MEDICATIONS Oxygen: 2 L/min via nasal cannula SUMMARY OF HEMODYNAMIC DATA Time AIR REST ECG 07:24:45 AO 104/62 (78) SA 08:39:39 LV 105/-24, 3 08:50:33 LV 106/-20, 5 08:50:39 LVp 112/-19, 6 08:50:46 AOp 112/60 (79) 08:50:51 Signed By Harrison Noel MD On 06/19/2018 09:04:16 Harrison Noel MD
== END 2018-06-19 13:25 | disposition home or self-care (01) ==
LOC: CLSP 06:31
PROVIDERS: Family Provider Family Medicine; PCP Family Medicine; Referring Provider Internal Medicine Cardiovascular Disease; Visit Provider Internal Medicine Cardiovascular Disease
DX: I25.10 Atherosclerotic heart disease of native coronary artery without angina pectoris (principal); I25.82 Chronic total occlusion of coronary artery; I25.5 Ischemic cardiomyopathy; E78.5 Hyperlipidemia, unspecified; I48.91 Unspecified atrial fibrillation; T82.858A Stenosis of other vascular prosthetic devices, implants and grafts, initial encounter; I10 Essential (primary) hypertension; Z95.1 Presence of aortocoronary bypass graft; E11.9 Type 2 diabetes mellitus without complications; I73.9 Peripheral vascular disease, unspecified; Z86.718 Personal history of other venous thrombosis and embolism; Z87.891 Personal history of nicotine dependence; I25.2 Old myocardial infarction; I50.22 Chronic systolic (congestive) heart failure; Z95.810 Presence of automatic (implantable) cardiac defibrillator
CPT/HCPCS: 36415; 71046; 80048; 85025; 85610; 93459; J7040; C1769; C1894; Q9967

== ENCOUNTER 2018-07-10 15:40 | Emergency (ER) | payer OTHER, SELFPAY ==
[2018-07-10 15:40] VITALS: BP 170/79; PULSE 93; RESP 16; TEMP 36.3; O2SAT 96; BMI 35.9
[2018-07-10] MEDS: Oxymetazoline 0.05% 1 SPRAY SPRAY.BTL 2 SPRAY NASAL (16:09)
[2018-07-10] MEDS: Tetracaine/Benzocaine/Butamben 1 APPLIC TOPICAL (16:09)
--- NOTE | 2018-07-10 17:09 | ED.VISSUMM ---
- ER Visit Summary Date of Service: 07/10/18 Chief Complaint: Nosebleed History of Present Illness: The patient is a 58 M with a nosebleed that started around 1 PM this afternoon. He states blood was initially just from the left nostril but now from both. He is currently on aspirin and Plavix. He did have shots to both eyes earlier today in [place]. He has been getting the shots regularly since November. He is complaining of a burning sensation to both eyes. He had similar reaction in the past but more severe today. He is unsure if this is related to his nosebleed. He also had a single nosebleed earlier in the week that he was able to stop with compression. Physical Examination: Vital signs include a blood pressure of 170/79, otherwise normal. Patient is sitting at the side of the bed holding pressure over his nose. Heart is regular rate and rhythm. Lungs clear. Test Results: [] Emergency Department Course and Treatment: Afrin and Cetacaine soaked cottonball was placed in the left nostril. This was removed and foam packing was placed into the left nare. Bleeding is well controlled at this time. He states his headache is improving. He still has a burning sensation to his eyes. I offered tetracaine drops and further eye exam but he declines at this time. Patient is given a dose of [place] will be discharged home with . He is referred to Dr. Alamo for follow-up as he is seen him in the past. Repeat blood pressure at discharge is 133/96. Treatment Plan: [] Disposition: Discharge Impression: Left epistaxis, improved This note was generated with [employer] dictation software. It may contain incorrect words, spelling, and punctuation that were not noted in review of the chart prior to signing ED Disposition - Plan for ED Patient: Disposition: Home or Assisted Living Chief Complaint: Nosebleed Instructions: Nosebleed Referrals: Scott Pratt MD [STAFF PHYSICIAN] - 3-5 Days
[2018-07-10] MEDS: HYDROcodone Bitartrate/Apap 5/325 Tablet PO (17:21)
[2018-07-10 17:22] VITALS: BP 133/96; PULSE 99; RESP 18; O2SAT 97
--- OUTSIDE RECORDS SUMMARY | 2018-09-04 16:19 | XMS RPT_ITS ---
:1960 Author Organization OHIP Support Name Relationship Address Phone SHILAEVELYNE Unavailable [address] + [place] [address] ROSAS FUCHS Unavailable [address] + [place] [address] D Unavailable Unavailable Unavailable EVELYNE FUCHS Unavailable [address] + [place] [address] ROSAS FUCHS Unavailable [address] + [place] [address] D Unavailable Unavailable Unavailable EVELYNE FUCHS Unavailable [address] + [place] [address] ROSAS FUCHS Unavailable [address] + [place] [address] D Unavailable Unavailable Unavailable EVELYNE FUCHS Unavailable [address] + [place] [address] ROSAS FUCHS Unavailable [address] + [place] [address] D Unavailable Unavailable Unavailable EVELYNE FUCHS Unavailable [address] + [place] [address] ROSAS FUCHS Unavailable [address] + [place] [address] D Unavailable Unavailable Unavailable EVELYNE FUCHS Unavailable [address] + [place] [address] ROSAS FUCHS Unavailable [address] + [place] [address] D Unavailable Unavailable Unavailable EVELYNE FUCHS Unavailable [address] + [place] [address] ROSAS FUCHS Unavailable [address] + [place] [address] D Unavailable Unavailable Unavailable EVELYNE FUCHS Unavailable [address] + [place] [address] SHILA ROSAS Unavailable [address] + [place] [address] D Unavailable Unavailable Unavailable EVELYNE FUCHS Unavailable [address] + [place] [address] SHILA ROSAS Unavailable [address] + [place] [address] D Unavailable Unavailable Unavailable EVELYNE FUCHS Unavailable [address] + [place] [address] SHILA ROSAS Unavailable [address] + [facility] [place] [address] D Unavailable Unavailable Unavailable EVELYNE FUCHS Unavailable [address] + [place] [address] SHILA ROSAS Unavailable [address] + [place] [address] D Unavailable Unavailable Unavailable EVELYNE FUCHS Unavailable [address] + [place] [address] SHILA ROSAS Unavailable [address] + [place] [address] D Unavailable Unavailable Unavailable EVELYNE FUCHS Unavailable [address] + [place] [address] ROSAS FUCHS Unavailable [address] + [place] [address] D Unavailable Unavailable Unavailable EVELYNE FUCHS Unavailable [address] + [place] [address] ROSAS FUCHS Unavailable [address] + [place] [address] D Unavailable Unavailable Unavailable EVELYNE FUCHS Unavailable [address] + [place] [address] ROSAS FUCHS Unavailable [address] + [facility] [place] [address] D Unavailable Unavailable Unavailable EVELYNE FUCHS Unavailable [address] + [place] [address] ROSAS FUCHS Unavailable [address] + [facility] [place] [address] D Unavailable Unavailable Unavailable EVELYNE FUCHS Unavailable [address] + [place] [address] FUCHSROSAS Unavailable [address] + [place] [address] D Unavailable Unavailable Unavailable EVELYNE FUCHS Unavailable [address] + [place] [address] ROSAS FUCHS Unavailable [address] + [facility] [place] [address] D Unavailable Unavailable Unavailable EVELYNE FUCHS Unavailable [address] + [place] [address] FUCHS ROSAS Unavailable [address] + [place] [address] D Unavailable Unavailable Unavailable SHIRLEY FUCHSEN Unavailable [address] + [place] [address] FUCHS ROSAS Unavailable [address] + [place] [address] D Unavailable Unavailable Unavailable EVELYNE FUCHS Unavailable [address] + [place] [address] SHILA ROSAS Unavailable [address] + [place] [address] D Unavailable Unavailable Unavailable Evelyne Fuchs Unavailable Unavailable + EVELYNE FUCHS Unavailable [address] + [place] [address] FUCHS ROSAS Unavailable [address] + [place] [address] D Unavailable Unavailable Unavailable Evelyne Fuchs Unavailable Unavailable + EVELYNE FUCHS Unavailable [address] + [place] [address] SHILA ROSAS Unavailable [address] + [place] [address] D Unavailable Unavailable Unavailable SHIRLEY FUCHSEN Unavailable [address] + [place] [address] SHILA ROSAS Unavailable [address] + [place] [address] D Unavailable Unavailable Unavailable SHIRLEY FUCHSEN Unavailable [address] + [place] [address] SHILA ROSAS Unavailable [address] + [place] [address] D Unavailable Unavailable Unavailable SHIRLEY FUCHSEN Unavailable [address] + [place] [address] SHILA ROSAS Unavailable [address] + [place] [address] D Unavailable Unavailable Unavailable FUCHSEVELYNE Unavailable [address] + [place] [address] SHILA ROSAS Unavailable [address] + [place] [address] D Unavailable Unavailable Unavailable Shila Evelyne Unavailable Unavailable + Shila Evelyne Unavailable Unavailable + FUCHSEVELYNE Unavailable [address] + [place] [address] SHILA ROSAS Unavailable [address] + [place] [address] D Unavailable Unavailable Unavailable EVELYNE FUCHS Unavailable [address] [phone] [place] [address] SHILA ROSAS Unavailable [address] + [place] [address] D Unavailable Unavailable Unavailable EVELYNE FUCHS Unavailable [address] + [place] [address] EVELYNE FUCHS Unavailable [address] + [place] [address] EVELYNE FUCHS CELL Unavailable Unavailable + EVELYNE FUCHS Unavailable [address] + [place] [address] EVELYNE FUCHS Unavailable [address] + [place] [address] EVELYNE FUCHS CELL Unavailable Unavailable + EVELYNE FUCHS Unavailable [address] + [place] [address] EVELYNE FUCHS Unavailable [address] + [place] [address] EVELYNE FUCHS CELL Unavailable Unavailable + EVELYNE FUCHS Unavailable [address] + [place] [address] EVELYNE FUCHS Unavailable [address] + [place] [address] EVELYNE FUCHS CELL Unavailable Unavailable + EVELYNE FUCHS Unavailable [address] + [place] [address] EVELYNE FUCHS Unavailable [address] + [place] [address] EVELYNE FUCHS CELL Unavailable Unavailable + EVELYNE FUCHS Unavailable [address] + [place] [address] EVELYNE FUCHS Unavailable [address] + [place] [address] EVELYNE FUCHS Unavailable [address] + [place] [address] EVELYNE FUCHS Unavailable [address] + [place] [address] FUCHS EVELYNE Unavailable [address] [phone] [place] [address] SHILA ROSAS Unavailable . + [place] [address] D Unavailable Unavailable Unavailable FUCHS, EVELYNE Unavailable [address] [phone] [place] [address] SHILA ROSAS Unavailable . + [place] [address] D Unavailable Unavailable Unavailable FUCHS, EVELYNE Unavailable [address] [phone] [place] [address] SHILA ROSAS Unavailable . + [place] [address] D Unavailable Unavailable Unavailable Care Team Providers Name Role Phone Suri Aguilar Attending Unavailable Suri Aguilar Referring Unavailable Ranney, Christopher Primary Care Unavailable Suri Aguilar Attending Unavailable Ranney, Christopher Primary Care Unavailable Niurka Tellez Attending Unavailable Ranney, Christopher Referring Unavailable Ranney, Christopher Primary Care Unavailable Roni Wilkins Attending Unavailable Ranney, Christopher Primary Care Unavailable Jake Velazquez Attending Unavailable OSMEL WREN Referring Unavailable Ranney, Christopher Primary Care Unavailable OSMEL WREN Attending Unavailable Rg, Brain Chi Admitting Unavailable Rg, Brain Chi Attending Unavailable Rg, Brain Chi Referring Unavailable Ranney, Christopher Primary Care Unavailable Ranney, Christopher Attending Unavailable Ranney, Christopher Primary Care Unavailable DOCTOR, OUT OF TOWN Attending Unavailable OSMEL WREN Referring Unavailable Ranney, Christopher Primary Care Unavailable KilnerKelley Attending Unavailable Ranney, Christopher Attending Unavailable Ranney, Christopher Primary Care Unavailable Harrison Noel Attending Unavailable Ranney, Christopher Referring Unavailable Ranney, Christopher Primary Care Unavailable Kelley Thapa Attending Unavailable Niurka Tellez Attending Unavailable Ranney, Christopher Referring Unavailable NoelHarrison Attending Unavailable Ranney, Christopher Referring Unavailable Ranney, Christopher Primary Care Unavailable Harrison Noel Attending Unavailable Harrison Noel Referring Unavailable Ranney, Christopher Primary Care Unavailable Harrison Noel Attending Unavailable Bert, Harrison Referring Unavailable Ranney, Christopher Primary Care Unavailable Ranney, Christopher Primary Care Unavailable OSMEL WREN Attending Unavailable OSMEL WREN Referring Unavailable Kelley Thapa Attending Unavailable Harrison Noel Attending Unavailable Ranney, Christopher Attending Unavailable Ranney, Christopher Referring Unavailable Ranney, Christopher Primary Care Unavailable Inez Israel D.C. Attending Unavailable Ranney, Christopher Referring Unavailable OSMEL WREN Attending Unavailable OSMEL WREN Referring Unavailable Ranney, Christopher Primary Care Unavailable OSMEL WREN Consulting Unavailable Niurka Tellez Attending Unavailable Ranney, Christopher Referring Unavailable Ranney, Christopher Primary Care Unavailable Ranney, Christopher Attending Unavailable Ranney, Christopher Referring Unavailable Ranney, Christopher Primary Care Unavailable Bolivar Finch Attending Unavailable Ranney, Christopher Referring Unavailable Ranney, Christopher Attending Unavailable Ranney, Christopher Referring Unavailable Ranney, Christopher Primary Care Unavailable Harrison Noel Attending Unavailable Ranney, Christopher Referring Unavailable Harrison Noel Attending Unavailable Noel, Harrison Referring Unavailable Ranney, Christopher Primary Care Unavailable Suni Jacobs Attending Unavailable Harrison Noel Attending Unavailable Noel, Harrison Referring Unavailable Ranney, Christopher Primary Care Unavailable Debbi Link Attending Unavailable DANTE VANN Attending Unavailable NONSTAFF, PHYSICIAN Primary Care Unavailable SOO DANTE A Attending Unavailable NONSTAFF, PHYSICIAN Primary Care Unavailable SOO, DANTE A Attending Unavailable NONSTAFF, PHYSICIAN Primary Care Unavailable UNKNOWN, PROVIDER Attending Unavailable NONSTAFF, PHYSICIAN Primary Care Unavailable UNKNOWN, PROVIDER Attending Unavailable NONSTAFF, PHYSICIAN Referring Unavailable NONSTAFF, PHYSICIAN Primary Care Unavailable AMILCAR COBB Consulting Unavailable UNKNOWN, PROVIDER Attending Unavailable NONSTAFF, PHYSICIAN Primary Care Unavailable GUERDA CHAVEZ Consulting Unavailable NONSTAFF, PHYSICIAN Primary Care Unavailable [facility] ([facility]) Jaciel Attending Unavailable UNKNOWN, PROVIDER Consulting Unavailable AMILCAR COBB Consulting Unavailable HUGH MORENO Consulting Unavailable MELINA AUGUSTIN Procedure Practitioner Unavailable TAVRI, SIDHARTHA Procedure Practitioner Unavailable MELINA AUGUSTIN Consulting Unavailable UNKNOWN, PROVIDER Procedure Practitioner Unavailable Melina Augustin Attending Unavailable PROVIDER, UNKNOWN Referring Unavailable Ransandeep, Garrettophgladis Primary Care Unavailable Bill Lockwood Attending Unavailable PROVIDER, UNKNOWN Referring Unavailable Ransandeep, Christopher Primary Care Unavailable PROVIDER, UNKNOWN Referring Unavailable Angel Hartmanner Primary Care Unavailable James Mijares Attending Unavailable James Mijares Attending Unavailable PROVIDER, UNKNOWN Referring Unavailable Ransandeep, Christopher Primary Care Unavailable Dr. Aristides Moura Attending Unavailable Dr. 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 / Hospital I25.2(ICD-10) Repository Unknown I25.5 - Ischemic Harrison Noel cardiomyopathy / Community I25.5(ICD-10) Hospital Repository Unknown E78.5 - Harrison Noel Hyperlipidemia, Community unspecified / Hospital E78.5(ICD-10) Repository Unknown R07.9 - Chest pain, Harrison Noel Active [place] [facility] unspecified / Community R07.9(ICD-10) Hospital Repository Unknown I48.91 - Unspecified Harrison Noel Active [facility] atrial fibrillation Community / I48.91(ICD-10) Hospital Repository Unknown M54.12 - Mary Kate Active [facility] Radiculopathy, [facility] cervical region / Hospital M54.12(ICD-10) Repository Unknown Z97.8 - Presence of OSMEL WREN Active [facility] other specified Community devices / Hospital Z97.8(ICD-10) Repository Unknown I20.8 - Other forms Bert Harrison Active [facility] of angina pectoris / Community I20.8(ICD-10) Hospital Repository Admitting Acute embolism and [place] 8 Diagnosis thrombosis of right [facility] popliteal vein / Repository I82.431(ICD-10) Unknown Z47.81 - Encounter Rg, Brain Chi Active [facility] for orthopedic Community aftercare following Hospital surgical amputation Repository / Z47.81(ICD-10) Unknown I96 - Gangrene, not Rg, Brain Chi Active [facility] elsewhere classified Community / I96(ICD-10) Hospital Repository Admitting Athscl yocha dehe [place] 8 Diagnosis arteries of [facility] extremities w Repository gangrene, right leg / I70.261(ICD-10) Admitting Type 2 diabetes w [facility], [facility] 8 Diagnosis diabetic peripheral [facility] angiopathy w Repository gangrene / E11.52(ICD-10) Admitting Acute on chronic [place] 8 Diagnosis systolic [facility] (congestive) heart Repository failure / I50.23(ICD-10) Admitting Other pancytopenia / [place] 8 Diagnosis D61.818(ICD-10) [facility] Repository Admitting Type 2 diabetes [place] 8 Diagnosis mellitus with foot [facility] ulcer / Repository E11.621(ICD-10) Admitting Coagulation defect, [facility] Diagnosis unspecified / [facility] D68.9(ICD-10) Repository Admitting Gangrene, not [facility], [facility] Diagnosis elsewhere classified [facility] / I96(ICD-10) Repository Admitting Type 2 diabetes [facility], [facility] 8 Diagnosis mellitus with other [facility] skin complications / Repository E11.628(ICD-10) Admitting Type 2 diabetes [facility], [facility] 8 Diagnosis mellitus with other [facility] specified Repository complication / E11.69(ICD-10) Admitting [facility]el[facility], [facility] and foot / [facility] M86.8X7(ICD-10) Repository Admitting [facility]ulitis [facility] lower limb / [facility] L03.115(ICD-10) Repository Admitting Non-prs chronic [facility] Diagnosis ulcer oth prt right [facility] foot w unsp severity Repository / L97.519(ICD-10) Admitting [facility]schemic [facility] Diagnosis cardiomyopathy / [facility] I25.5(ICD-10) Repository Admitting Ath[facility]cl [facility] Diagnosis of yocha dehe coronary [facility] artery w/o ang pctrs Repository / I25.10(ICD-10) Admitting [facility]ence of [facility] Diagnosis automatic [facility] (implantable) Repository cardiac defibrillator / Z95.810(ICD-10) Admitting Essential (primary) [facility] Diagnosis hypertension / [facility] I10(ICD-10) Repository Admitting Hyperlipidemia, [facility], [facility] 8 Diagnosis unspecified / [facility] E78.5(ICD-10) Repository Admitting Obesity, unspecified [facility], [facility] 8 Diagnosis / E66.9(ICD-10) [facility] Repository Admitting Body mass index [facility], [facility] 8 Diagnosis (BMI) 36.0-36.9, [facility] adult / Repository Z68.36(ICD-10) Admitting Presence of Mcshannic, Active [facility] 8 Diagnosis aortocoronary bypass [facility] graft / Repository Z95.1(ICD-10) Admitting Presence of coronary Mcshannic, Active [facility] 8 Diagnosis angioplasty implant [facility] and graft / Repository Z95.5(ICD-10) Admitting Unspecified Mcshannic, Active [facility] 8 Diagnosis osteoarthritis, [facility] unspecified site / Repository M19.90(ICD-10) Admitting Unspecified asthma, Mcshannic, Active [place] 8 Diagnosis uncomplicated / [facility] J45.909(ICD-10) Repository Admitting Nicotine dependence, [facility], [facility] 8 Diagnosis chewing tobacco, [facility] uncomplicated / Repository F17.220(ICD-10) Admitting Acquired absence of [facility], [facility] 8 Diagnosis right great toe / [facility] Z89.411(ICD-10) Repository Admitting Type 2 diabetes w [facility], Active [place] 8 Diagnosis 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 edema / Repository E11.319(ICD-10) Admitting Chronic obstructive Mcshannic, Active [place] 8 Diagnosis pulmonary disease, [facility] unspecified / Repository J44.9(ICD-10) Admitting Pure Mcshannic, Active [facility] 8 Diagnosis hypercholesterolemia [facility] , unspecified / Repository E78.00(ICD-10) Admitting Unspecified Mcshannic, Active [facility] 8 Diagnosis age-related cataract [facility] / H25.9(ICD-10) Repository Admitting Unspecified disorder Mcshannic, Active [facility] 8 Diagnosis of refraction / [facility] H52.7(ICD-10) Repository Unknown M86.9 - OSMEL WREN Active [facility] Osteomyelitis, Community unspecified / Hospital M86.9(ICD-10) Repository Admitting SEPSIS, UNSPECIFIED [facility] 8 Diagnosis ORGANISM / ([facility]) [facility] A41.9(ICD-10) Hospital Repository Final SEPSIS, UNSPECIFIED [facility] Diagnosis ORGANISM / ([facility]) [facility] (Discharge) A41.9(ICD-10) Hospital Repository Final GANGRENE, NOT [facility] Diagnosis ELSEWHERE CLASSIFIED ([facility]) [facility] (Discharge) / I96(ICD-10) Hospital Repository Final ACIDOSIS / [facility] Diagnosis E87.2(ICD-10) ([facility]) [facility] (Discharge) Hospital Repository Final CHRONIC COMBINED [facility] Diagnosis SYSTOLIC AND ([facility]) [facility] (Discharge) DIASTOLIC HRT FAIL / Hospital I50.42(ICD-10) Repository Final OSTEOMYELITIS, [facility] Diagnosis UNSPECIFIED / ([facility]) [facility] (Discharge) M86.9(ICD-10) Hospital Repository Final TYPE 2 DIABETES W [facility] Diagnosis DIABETIC PERIPHERAL ([facility]) [facility] (Discharge) ANGIOPATHY W Hospital GANGRENE / Repository E11.52(ICD-10) Final TYPE 2 DIABETES [facility] Diagnosis MELLITUS WITH ([facility]) [facility] (Discharge) DIABETIC NEUROPATHY, Hospital UNSP / Repository E11.40(ICD-10) Final HYPERTENSIVE HEART [facility] Diagnosis DISEASE WITH HEART ([facility]) [facility] (Discharge) FAILURE / Hospital I11.0(ICD-10) Repository Final MORBID (SEVERE) [facility] Diagnosis OBESITY DUE TO ([facility]) [facility] (Discharge) EXCESS CALORIES / Hospital E66.01(ICD-10) Repository Final TYPE 2 DIABETES [facility] Diagnosis MELLITUS WITH OTHER ([facility]) [facility] (Discharge) SPECIFIED Hospital COMPLICATION / Repository E11.69(ICD-10) Final TYPE 2 DIABETES [facility] Diagnosis MELLITUS WITH ([facility]) [facility] (Discharge) HYPERGLYCEMIA / Hospital E11.65(ICD-10) Repository Final PRESENCE OF CORONARY [facility] Diagnosis ANGIOPLASTY IMPLANT ([facility]) [facility] (Discharge) AND GRAFT / Hospital Z95.5(ICD-10) Repository Final OLD MYOCARDIAL [facility] Diagnosis INFARCTION / ([facility]) [facility] (Discharge) I25.2(ICD-10) Hospital Repository Final CARE HOME (CURRENT) [facility] Diagnosis USE OF ASPIRIN / ([facility]) [facility] (Discharge) Z79.82(ICD-10) Hospital Repository Final CARE HOME (CURRENT) [facility] Diagnosis USE OF ([facility]) [facility] (Discharge) ANTITHROMBOTICS/ANTI Hospital PLATELETS / Repository Z79.02(ICD-10) Final ACQUIRED ABSENCE OF [facility] Diagnosis OTHER SPECIFIED ([facility]) [facility] (Discharge) PARTS OF DIGESTIVE Hospital TRACT / Repository Z90.49(ICD-10) Final SEVERE SEPSIS [facility] Diagnosis WITHOUT SEPTIC SHOCK ([facility]) [facility] (Discharge) / R65.20(ICD-10) Hospital Repository Final NAUSEA / [facility] Diagnosis R11.0(ICD-10) ([facility]) [facility] (Discharge) Hospital Repository Final BODY MASS INDEX [facility] Diagnosis (BMI) 34.0-34.9, ([facility]) [facility] (Discharge) ADULT / Hospital Z68.34(ICD-10) Repository Final PRESENCE OF Unknown Active [facility] 8 Diagnosis AORTOCORONARY BYPASS [facility] (Discharge) GRAFT / Hospital Z95.1(ICD-10) Repository Final PERSONAL HISTORY OF Unknown Active [facility] 8 Diagnosis NICOTINE DEPENDENCE [facility] (Discharge) / Z87.891(ICD-10) Hospital Repository Admitting ATHSCL HEART DISEASE Unknown Active [facility] 8 Diagnosis OF [place] CORONARY [facility] ARTERY W/O [facility] / I25.10(ICD-10) Repository Final ATHSCL HEART DISEASE Unknown Active [facility] 8 Diagnosis OF [place] CORONARY [facility] (Discharge) ARTERY W/O [facility] / I25.10(ICD-10) Repository Final NON-PRS CHRONIC Unknown Active [facility] 8 Diagnosis ULCER OTH PRT RIGHT [facility] (Discharge) FOOT W [facility] / L97.519(ICD-10) Repository Final TYPE 2 DIABETES Unknown Active [facility] 8 Diagnosis MELLITUS WITHOUT [facility] (Discharge) COMPLICATIONS / Hospital E11.9(ICD-10) Repository Final CARDIOMYOPATHY, Unknown Active [facility] 8 Diagnosis UNSPECIFIED / [facility] (Discharge) I42.9(ICD-10) Hospital Repository Final HEART FAILURE, Unknown Active [facility] 8 Diagnosis UNSPECIFIED / [facility] (Discharge) I50.9(ICD-10) Hospital Repository Final NICOTINE DEPENDENCE, Unknown Active [facility] 8 Diagnosis CHEWING TOBACCO, [facility] (Discharge) UNCOMPLICATED / Hospital F17.220(ICD-10) Repository Final PRESENCE OF Unknown Active [facility] 8 Diagnosis AUTOMATIC [facility] (Discharge) (IMPLANTABLE) Hospital CARDIAC Repository DEFIBRILLATOR / Z95.810(ICD-10) Final CORONARY ANGIOPLASTY Unknown Active [facility] 8 Diagnosis STATUS / [facility] (Discharge) Z98.61(ICD-10) Hospital Repository Final CARE HOME (CURRENT) Unknown Active [facility] 8 Diagnosis USE OF ORAL [facility] (Discharge) HYPOGLYCEMIC DRUGS / Hospital Z79.84(ICD-10) Repository Admitting PERIPHERAL VASCULAR Unknown Active [facility] 8 Diagnosis DISEASE, [facility]IED [facility] / I73.9(ICD-10) Hospital Repository Final PERIPHERAL VASCULAR Unknown Active [facility] 8 Diagnosis DISEASE, UNSPECIFIED [facility] (Discharge) / I73.9(ICD-10) Hospital Repository Admitting Unknown / SOODANTE Active [facility] 8 Diagnosis UNK(Unknown) [facility] Repository Final TYPE 2 DIABETES W SOODANTE A Active [facility] 8 Diagnosis DIABETIC PERIPHERAL [facility] (Discharge) ANGIOPATH W/O Hospital GANGRENE / Repository E11.51(ICD-10) Final VENOUS INSUFFICIENCY DANTE VANN Active [facility] 8 Diagnosis (CHRONIC) [facility] (Discharge) (PERIPHERAL) / Hospital I87.2(ICD-10) Repository Admitting TYPE 2 DIABETES SOODANTE A Active [facility] Diagnosis MELLITUS WITH FOOT [facility] / Hospital E11.621(ICD-10) Repository Final TYPE 2 DIABETES SOODANTE A Active [facility] Diagnosis MELLITUS WITH FOOT [facility] (Discharge) [facility] / Hospital E11.621(ICD-10) Repository Final NON-PRS CHRONIC SOODANTE JERNIGAN A Active [facility] Diagnosis [facility] OTH PRT RIGHT [facility] (Discharge) FOOT W FAT LAYER Hospital EXPOSED / Repository L97.512(ICD-10) Final CELLULITIS OF RIGHT SOO, DANTE A Active [facility] Diagnosis LOWER LIMB / [facility] (Discharge) L03.115(ICD-10) Hospital Repository Final EDEMA, UNSPECIFIED / SOO, DANTE A Active [facility] Diagnosis R60.9(ICD-10) [facility] (Discharge) Hospital Repository Final TYPE 2 DIABETES SOO, DANTE A Active [facility] Diagnosis MELLITUS WITH [facility] (Discharge) DIABETIC Hospital POLYNEUROPATHY / Repository E11.42(ICD-10) Final ESSENTIAL (PRIMARY) SOO, DANTE A Active [facility] Diagnosis HYPERTENSION / [facility] (Discharge) I10(ICD-10) Hospital Repository Final OBESITY, UNSPECIFIED SOO, DANTE A Active [facility] Diagnosis / E66.9(ICD-10) [facility] (Discharge) Hospital Repository PROCEDURES PROCEDURES DATE CODE DESCRIPTION STATUS SOURCE 10/08/2017 [id number](ICD-1 DETACHMENT AT RIGHT 1ST Completed [facility] 0) TOE, COMPLETE, O Hospital Repository 10/08/2017 [id number](ICD-1 INSERTION OF INFUSION Completed [facility] 0) DEV INTO SUP VENA Hospital Repository 10/03/2017 207S7MX(ICD-1 DILATION OF RIGHT Completed [facility] 0) ANTERIOR TIBIAL ARTERY Hospital Repository 10/03/2017 194E36F(ICD-1 DILATION OF R PERONEAL Completed [facility] 0) ART WITH DRUG-ELU Hospital Repository 10/03/2017 [id number](ICD-1 FLUOROSCOPY OF SUPERIOR Completed [facility] 0) VENA CAVA, MANJU Hospital Repository 10/03/2017 [id number](ICD-1 ULTRASONOGRAPHY OF RIGHT Completed [facility] 0) UPPER EXTREMITY Hospital Repository RESULTS RESULTS PACEMAKER CHECK Observed: 07/24/2018 Status: F Source: [place] 2:56 PM [facility] HOSPITAL REPOSITORY [facility] [address] [place], [place] [address]e. [address] [place] [address] Pacemaker Check Date of Service: 07/23/18 0703 MR#: [id number] Acct: [id number] Name: XUAN FUCHS Rep #: [id number] : 1960 From: Niurka Tellez Age/Sex: 58/M Location: [facility] Status: Signed Billing Codes ICD Device Billing: ICD Dev Interrogate (Rmt) 07/23/18 0705 <Electronically signed by Niurka Tellez > Date Niurka Tellez 07/24/18 1456<Electronically signed by Harrison Noel MD> Cosigner Signature: Date (if applicable) Harrison Noel MD CC: EMERGENCY DEPARTMENT Observed: 07/10/2018 Status: F Source: [place] SUMMARY 10:55 PM [facility] REPOSITORY [facility] Medical Records Department [address] [place] [address] Emergency Department Summary 07/10/18 1709 MR#: [id number] Acct: [id number] Name: XUAN FUCHS Rep #: [id number] : 1960 58 From: Debbi Link MD PCP: Darius Hartmann MD Status: DEP ER - ER Visit Summary Date of Service: 07/10/18 Chief Complaint: Nosebleed History of Present Illness: The patient is a 58 M with a nosebleed that started around 1 PM this afternoon. He states blood was initially just from the left nostril but now from both. He is currently on aspirin and Plavix. He did have shots to both eyes earlier today in [place]. He has been getting the shots regularly since November. He is complaining of a burning sensation to both eyes. He had similar reaction in the past but more severe today. He is unsure if this is related to his nosebleed. He also had a single nosebleed earlier in the week that he was able to stop with compression. Physical Examination: Vital signs include a blood pressure of 170/79, otherwise normal. Patient is sitting at the side of the bed holding pressure over his nose. Heart is regular rate and rhythm. Lungs clear. Test Results: [] Emergency Department Course and Treatment: Afrin and Cetacaine soaked cottonball was placed in the left nostril. This was removed and foam packing was placed into the left nare. Bleeding is well controlled at this time. He states his headache is improving. He still has a burning sensation to his eyes. I offered tetracaine drops and further eye exam but he declines at this time. Patient is given a dose of [place] will be discharged home with . He is referred to Dr. Alamo for follow-up as he is seen him in the past. Repeat blood pressure at discharge is 133/96. Treatment Plan: [] Disposition: Discharge Impression: Left epistaxis, improved This note was generated with [employer] dictation software. It may contain incorrect words, spelling, and punctuation that were not noted in review of the chart prior to signing ED Disposition - Plan for ED Patient: Disposition: Home or Assisted Living Chief Complaint: Nosebleed Instructions: Nosebleed Referrals: Scott Pratt MD [STAFF PHYSICIAN] - 3-5 Days What to do if you have Problems For any increased pain, shortness of breath, bleeding, nausea or vomiting, chest pain, or any unexpected problems, contact your Primary Care Provider. Call [facility] ([phone]) or report to the closest Emergency Room. Call 911 if necessary. 07/10/18 1844 <Electronically signed by Debbi Link MD> Date Debbi Link MD Cosigner Signature (If Indicated): Date CC: Darius Hartmann MD; Darius Hartmann MD DISCHARGE INSTRUCTION Observed: 07/10/2018 Status: F Source: [place] 5:10 PM [facility] REPOSITORY [facility] Medical Records Department [address] [place] [address] Discharge Instruction 07/10/18 1710 MR#: [id number] Acct: [id number] Name: XUAN FUCHS Rep #: [id number] : 1960 58 From: Debbi Link MD PCP: Darius Hartmann MD Status: REG ER ED Disposition - Plan for ED Patient: Disposition: Home or Assisted Living Chief Complaint: Nosebleed Instructions: Nosebleed Referrals: Scott Pratt MD [STAFF PHYSICIAN] - 3-5 Days What to do if you have Problems For any increased pain, shortness of breath, bleeding, nausea or vomiting, chest pain, or any unexpected problems, contact your Primary Care Provider. Call [facility] ([phone]) or report to the closest Emergency Room. Call 911 if necessary. 07/10/18 1710 <Electronically signed by Debbi Link MD> Date Debbi Link MD Cosigner Signature (If Indicated): Date CC: Darius Hartmann MD; Darius Hartmann MD CBC W/DIFF, AUTOMATED Collected: 06/19/2018 Status: F Source: [place] 8:30 AM [facility] REPOSITORY TYPE CODE TESTS RESULT OUT OF RANGE REFERENCE UNITS LAB L100.1000 4.4-11.0 K/mm3 Normal WBC 5.9 LAB L100.1200 4.6-6.2 M/mm3 Normal RBC 5.22 LAB L100.1300 13.0-16.5 g/dl Normal HGB 14.4 LAB L100.1400 40-54 % Normal HCT 43.4 LAB L100.1500 80-94 fL Normal MCV 83.1 LAB L100.1600 27.0-32.0 pg Normal MCH 27.6 LAB L100.1700 32-36 g/gl Normal MCHC 33.2 LAB L100.1810 11.6-14.6 % Normal RDW CV 13.1 LAB L100.1820 35.1-43.9 fl Normal RDW SD 39.5 LAB L100.1900 150-450 K/mm3 Normal PLT 202 LAB L100.2000 6.2-12.0 fl Normal MPV 10.7 LAB L100.2100 47-70 % Normal NEUT% 51.3 LAB L100.2200 19-41 % Normal LY% 39.1 LAB L100.2300 0-10 % Normal MONO% 7.6 LAB L100.2400 0-5 % Normal EO% 1.5 LAB L100.2500 0-1 % Normal BASO% 0.3 LAB L100.2550 0.0-0.9 % Normal IM GRAN % 0.200 Result Comment: IG% - Immature Granulocytes (promyelocytes, myelocytes and metamyelocytes) > 1% indicates that a LEFT SHIFT is Present. LAB L100.2620 2.0-7.7 X10 3/uL Normal Absolute Neut 3.0 LAB L100.2720 0.83-4.51 X10 3/ul Normal Absolute Lymph 2.31 Performed By: #### L100.0100 #### [facility] [address] [facility] [place], [address] PROTHROMBIN TIME W/INR Collected: 06/19/2018 Status: F Source: [place] 8:30 AM [facility] REPOSITORY TYPE CODE TESTS RESULT OUT OF RANGE REFERENCE UNITS LAB L300.4150 11.7-14.9 SECONDS Normal PROTIME 14.7 LAB L300.4200 Normal INR 1.2 Performed By: #### L300.3900 #### [facility] [address] [facility] [place], [address] BASIC METABOLIC Collected: 06/19/2018 Status: F Source: [place] PROFILE (BMP) 8:30 AM [facility] REPOSITORY TYPE CODE TESTS RESULT OUT OF RANGE REFERENCE UNITS LAB L501.0100 74-106 mg/dL High GLU 205 Result Comment: Glucose result greater than or equal to 200 mg/dL suggests DIABETES MELLITUS per A.D.A. criteria. Please note revised GLUCOSE reference range effective 2017. LAB L501.1000 7-18 mg/dL High BUN 20 LAB L501.1100 0.70-1.30 mg/dL Normal CREAT,SERUM 1.11 Result Comment: The validity of the calculated GFR AND GFRAA in patients over 70 years has not been determined. Clinical correlation is essential. LAB L501.1110 >60 mL/min Normal EST GFR 72 Result Comment: Non- GFR Calc LAB L501.1115 >60 mL/min Normal EST GFR - AA 88 Result Comment: GFR Calc LAB L501.1300 10-20 RATIO Normal BUN/CRE 18.0 LAB L501.2200 8.5-10.1 mg/dL CA Normal 8.5 LAB L501.5300 136-145 mmol/L NA Normal 141 LAB L501.5600 3.5-5.1 mmol/L K Normal 4.2 LAB L501.5900 98-107 mmol/L CL Normal 106 LAB L501.6100 21.0-32.0 mmol/L Normal CO2 26.0 LAB L501.6200 5-15 Normal GAP 9 Performed By: #### L500.2500 #### [facility] [address] [facility] [place], [address] CHEST PA AND LATERAL Observed: 06/15/2018 Status: F Source: [place] 11:43 AM [facility] REPOSITORY [facility] Imaging Services [address] [facility] [place] [address] Chest PA and Lateral MR#: [id number] Acct: [id number] Name: XUAN FUCHS Rep #: [id number] : 1960 M 58 From: Moreno Mccurdy MD PCP: Darius Hartmann MD Status: [facility] Study: Chest PA and Lateral Date of Exam: 06/15/18 Exam# [id number] Ordering Dr: Harrison Noel MD STUDY: X-RAY CHEST REASON FOR EXAM: Male, 58 years old. Her breath. Chest pain. TECHNIQUE: Frontal and lateral views of the chest. COMPARISON: 10/10/2017. FINDINGS: The lungs are clear and expanded. There is no demonstrated pleural abnormality. Normal size heart. Previous CABG. Pacemaker is seen with leads terminating in the right atrium and right ventricle.. Normal mediastinum and delia. Normal visualized pulmonary arteries. Normal visualized aortic arch and descending thoracic aorta. Normal visualized thoracic spine. Epidural stimulator seen in the lower thoracic spine. Normal visualized ribs, clavicles, and shoulders. There is no demonstrated abnormality of the visualized soft tissue structures of the upper abdomen. RAD/Chest PA and Lateral IMPRESSION: No acute chest disease. Electronically Signed: Moreno Mccurdy MD at 22:54 EST , Service support , CC: Darius Hartmann MD; Harrison Noel MD [employer] [place]: Signed CARDIOLOGY VISIT Observed: 06/15/2018 Status: F Source: [place] REPORT 11:24 AM [facility] REPOSITORY [facility] [address] [place] [address] OFFICE VISIT Date of Service: 06/15/18 MR#: [id number] Acct: [id number] Name: XUAN FUCHS Rep #: [id number] : 1960 Provider: Harrison Noel MD Age/Sex: 58/M Location: [facility] Status: Signed HPI HPI Chief Complaint: Sinus pressure with cough Details: XUAN FUCHS, is a 58 M, lifelong non-smoker, with a history of diabetes, ischemic cardiomyopathy, systolic congestive heart failure with an EF around 15%, coronary artery disease status post CABG [address] Moss at [facility]. At that time he received a VEGA to the LAD with sequential jumping to the diagonal, and a saphenous vein graft to the right posterior descending artery. Left circumflex had minimal disease and a previously patent stent. In addition the patient has undergone multiple coronary PCI's. Patient had PCI in 2011 and again on 09/25/17 at [facility]. At that time the patient was undergoing evaluation for right lower extremity claudication and diabetic foot ulcer. And underwent successful angioplasty and stenting of the mid obtuse marginal #2 receiving a 2.5X 38 Xience Alpine, followed by a 2.5X 23 overlapping Xience alpine stent. This was then postdilated with a noncompliant 3.0 mm balloon. Several days later the patient underwent attempted lower extremity angioplasty for his right foot cellulitis but unfortunately was unsuccessful. He then had a gangrenous foot which resulted in osteomyelitis undergoing eventual below the knee amputation. Patient is now here in follow-up. In addition he is undergone AICD placement on 08/08/16. Unfortunately the patient is unable to take statins due to myalgias. Patient states that initially his angina got much better after his angioplasty and stenting in September 2017, and that he required only 1 nitroglycerin patch on a daily basis. Patient was doing well up in the week prior to our december 2017 visit when he has developed worsening lower extremity edema, orthopnea, congestive cough, as well as substernal chest pain radiating up into his left shoulder and down his left arm similar to his previous angina. He has been compliant with his dietary and fluid restrictions and has been compliant with his Lasix 40 mg twice daily. He underwent dobutamine echocardiogram on 01/01/18 which was negative for any additional wall motion abnormalities over the above is inferior posterior hypokinesis. No additional catheterization took place. Patient is now here in follow-up. Since her last visit, the patient has had progressively worsening substernal chest pain now radiating down his left arm, with both typical and atypical features. He reports that it can happen at rest, or with exertion. He has not required any significant nitroglycerin tablets. He also complains of mild dyspnea on exertion and worsening left lower extremity edema. He has a prosthetic right limb. He has maintained his aspirin and Plavix. In our office today's blood pressure is 100/60, and pulse is 88 and regular. Physical exam is as below. Lipids from 06/13/18 show an LDL of 66 and an HDL of 36. EKG dated 09/18/17 shows normal sinus rhythm with old inferior wall myocardial infarction, old anteroseptal wall myocardial infarction, and ventricular conduction delay. EKG dated 06/15/18 shows normal sinus rhythm, poor R wave progression, left anterior hemiblock, incomplete right bundle branch block. No changes from previous. Intake Vital Signs06/15/18 Height 5 ft 9 in 06/15/18 Weight: 260 lb 06/15/18 Body Mass Index (BMI) 38.4 06/15/18 Blood Pressure 100/60 Intake Visit Reasons: 6 M Chain Hooker Required: No Accompanied by: Son Is patient in pain?: No Allergies Penicillins Allergy (Verified 06/15/18 10:55) Hives pioglitazone HCl [From Actos] Allergy (Verified 06/15/18 10:55) Swelling Pvvbbjy-Hyh-Kch Reductase Inhibitor Allergy (Verified 06/15/18 10:55) Unknown gabapentin [From Neurontin] Adverse Reaction (Verified 06/15/18 10:55) Other Medications Metformin HCl [Glucophage] 500 mg PO BREAKFAST 08/29/17 [History Confirmed 06/15/18] Aspirin [Adult Aspirin Regimen] 81 mg PO DAILY 10/10/17 [History Confirmed 06/15/18] traMADol [Ultram] 50 mg PO Q6H PRN PRN #30 tab 10/27/17 [Rx Confirmed 04/29/18] clopidogrel 75 mg tablet 75 mg PO DAILY #90 tab 11/28/17 [Rx Confirmed 06/15/18] furosemide 40 mg tablet 40 mg PO BID #180 tab 12/29/17 [Rx Confirmed 06/15/18] nitroglycerin 0.4 mg sublingual tablet 0.4 mg SUBLINGUAL Q5- 15M PRN #25 tab 12/29/17 [Rx Confirmed 06/15/18] nitroglycerin 0.4 mg/hr transdermal 24 hour patch 0.4 mg TOPICAL DAILY #90 ea 12/29/17 [Rx Confirmed 06/15/18] metolazone 2.5 mg tablet 2.5 mg PO .2xweek #14 tab 02/09/18 [Rx Confirmed 06/15/18] benzonatate 200 mg capsule 200 mg PO TID PRN #30 cap 04/29/18 [Rx Confirmed 06/15/18] insulin aspart U- 100 100 unit/mL subcutaneous pen SC 90 Days #15 04/29/18 [History Confirmed 04/29/18] insulin glargine (U-100) 100 unit/mL (3 mL) subcutaneous pen 70 unit SC DAILY ml 04/29/18 [History Confirmed 04/29/18] pregabalin 200 mg capsule 200 mg PO DAILY 04/29/18 [History Confirmed 06/15/18] sacubitril 49 mg-valsartan 51 mg tablet 1 tab PO BID 04/29/18 [History Confirmed 06/15/18] carvedilol 6.25 mg tablet 6.25 mg PO BID #180 tab 06/15/18 [Rx Confirmed 06/15/18] gemfibrozil 600 mg tablet 600 mg PO BID 90 Days #180 tab 06/15/18 [Rx Confirmed 06/15/18] [facility] Medical History History of DVT (deep vein thrombosis) (Chronic) Sick sinus syndrome (Chronic) Old myocardial infarction (Chronic) Obesity (Chronic) Hyperlipidemia (Chronic) Atherosclerosis of coronary artery of [place] heart without angina pectoris (Chronic) Ischemic cardiomyopathy (Chronic) Diabetes mellitus (Chronic) Chronic systolic heart failure (Chronic) Hypertension (Chronic) Atrial fibrillation (Chronic) Peripheral arterial occlusive disease (Chronic) Back pain (Acute) CAD (coronary artery disease) (Acute) CHF (congestive heart failure) (Acute) Chest pain (Acute) Difficulty balancing (Acute) Hx of staphylococcal infection (Acute) PAD (peripheral artery disease) (Acute) NPDR (nonproliferative diabetic retinopathy) (Chronic) Osteoarthritis (Chronic) Polyneuropathy (Chronic) Thrombocytopenia (Chronic) Deep vein blood clot of right lower extremity (Resolved) Gangrene of right foot (Resolved) Surgical History Presence of automatic implantable cardioverter-defibrillator (Chronic 08/08/16) History of coronary artery stent placement (Chronic 09/25/17) H/O coronary artery bypass surgery (Chronic 09/26/04) Amputation, toe, traumatic (Acute) H/O right heart catheterization (Acute) History of angioplasty (Acute) History of carpal tunnel release of both wrists (Acute) History of exploratory laparotomy (Acute) History of laminectomy (Acute) History of right below knee amputation (Acute 10/20/17) History of spinal fusion (Acute) neurostimulator implant (Chronic) History of vasectomy (Resolved 1994) Hx of cholecystectomy (Resolved 2014) Previous back surgery (Resolved) RLE peroneal artery stent (Resolved 10/03/17) Status post ablation of incompetent vein using laser (Resolved) abdominal aortagram with RLE runoff (Resolved 10/17/17) left heart cath and RLE arteriogram (Resolved 09/25/17) Family History Other CAD (coronary artery disease) Diabetes Social History Smoking Status: Former smoker caffeine: Yes Type: coffee Number of servings: 8 ROS Const Const: Positive for other (On 2nd round ATB for URI, cough prod yellow); negative for fatigue, weakness, body ache, fever(s), headache(s), chills, frequent falls, night sweats, daytime sleepiness, difficulty sleeping, excessive sweating, weight gain, weight loss, increased appetite, poor appetite or anorexia Eyes Eyes: Negative for blind spots, loss of peripheral vision, transient loss of vision, blurry vision, change in vision, double vision, floaters, tunnel vision or other ENT ENT: Negative for headache(s), dizziness, hearing loss, tinnitus, Nosebleed/epistaxis, balance problems, post nasal drip, lip swelling, tongue swelling, bleeding gums, hoarseness, neck pain, dry mouth or other Cardio Chest Pain: Yes (Not related to activity, usually relieved with drinking diet pepsi. ) Frequency: other (variable frequency and not related to activity or eating) Character: sharp (Very sharp, feels like hit in chest.) Location: mid sternal, other (radiating down left arm, sometimes from right arm to mid sternal) Palpitations: No Edema: Left (Pitting edema left leg chronic, post SVG harvesting) Muscle aches with walking: None Resp Respiratory: Positive for SOB with activity and Cough (Productive of yellow sputum. Lungs clear); negative for SOB at rest, SOB orthopnea\SOB lying down, Coughing up blood/hemoptysis, chest congestion, pain on inspiration, snoring, stridor, wheezing, crackles, paroxysmal nocturnal dyspnea or other GI GI: Negative nausea, vomiting, heartburn, constipation, belching, bloating, cramping, vomiting blood/hematemesis, bright, red blood in stools, black,tarry stools, loose stools, Difficulty Swallowing or other : Negative for hematuria, frequent nighttime urination/ nocturia, erectile dysfunction or abnormal vaginal bleeding Musc Musc: Negative for balance problems, muscle aches/ myalgia, muscle weakness or joint pain Skin Skin: Negative redness, non-healing lesions, rash, unusual bruising, skin ulcer, wounds, jaundice or other Neuro Neuro: Negative for weakness, headache(s), frequent falls, blurry vision, double vision, dizziness, lightheadedness, near syncope, syncope, orthostatic symptoms, confusion, memory loss, restless legs, vertigo, seizures, lack of coordination or other Hector Hematologic/Lymphatic: Negative for easy bleeding, easy bruising, enlarged lymph nodes or other Endo Endo: Negative for fatigue, excessive sweating, cold intolerance, heat intolerance, flushing, increased thirst/drinking, increased hunger, hair loss, hair growth or other Psych Psych: Negative for anxiety, depression, thoughts of harming anyone, thoughts of harming yourself, visual hallucinations, panic attacks or audible hallucinations Allergy Allergy/Immunology: Negative for lip swelling, Negative for tongue swelling, Negative for rash, Negative for throat swelling, Negative for hives Cardiology Exam Const Appearance: cooperative, healthy appearing and no acute distress Nutritional Appearance: well nourished Orientation: alert, oriented x3 and oriented to person Head Head: normal to inspection, atraumatic and normocephalic Nose: external nose normal Face and Sinus: face symmetric Mouth: oral mucosae normal Eyes General: appearance normal, both eyes and all related structures Eyelids: eyelids normal Conjunctivae: conjunctivae normal Pupils: PERRL and normal by confrontation EOM: EOM intact bilaterally Neck Neck: normal visual inspection and full ROM Carotids: normal carotid upstroke Chest Chest inspection: normal inspection of the chest Auscultation: Bilateral: Clear to Auscultation Cardio Palpation: normal PMI Rate: regular rate Rhythm: regular rhythm Heart sounds: S1 normal and S2 normal GI GI: normal to inspection, no hepatosplenomegaly and bowel sounds present Neuro General: alert, oriented x3, awake, CN's II-XI intact bilaterally and moves all extremities Skin Skin: no rashes or lesions noted Extremities Pulses: Normal: Right Femoral Pulse, Left Femoral Pulse, Right Dorsalis Pedis Pulse, Left Dorsalis Pedis Pulse, Right Posterior Tibial Pulse, Left Posterior Tibial Pulse, Right Radial Pulse, Left Radial Pulse Lower Extremity Edema: None: Bilateral Psych Psychological: normal affect Assessment AND Plan 1. Ischemic cardiomyopathy I25.5 Plan 1. Coronary artery disease: The patient reports worsening exertional chest pain as well as radiation down his left arm, but he cannot recall whether this is similar dissimilar from his angina prior to his bypass surgery. Patient had a negative stress test for inducible ischemia in December 2017 but despite this his symptoms have worsened. In order to be sure he has no significant recurrent coronary occlusive disease, I recommended he undergo a left heart catheterization with graft angiography in the near future. His blood pressure and heart rate are optimized. I recommended he continue baby aspirin, Plavix, Lasix, metolazone and Entresto. 2. Hyperlipidemia E78.5 Plan 2. Hyperlipidemia: His LDL and HDL cholesterol are at goal. Continue gemfibrozil. 3. Atrial fibrillation I48.91 Plan 3. Atrial fibrillation: Patient is currently in normal sinus rhythm as of this writing. He continues on Coreg. He is not on Coumadin or novel new oral anticoagulants. 4. Return office in 6 months. This note was generated using a voice recognition system and there may be incorrect words, spelling or punctuation that were not noted when reviewing the office note prior to saving. Plan Detail Other Orders Orders: Other Medications New: Follow Up +6M (Bert) Coding Level of Care Code Off vis,est,level 3 Diagnoses Ischemic cardiomyopathy I25.5 Hyperlipidemia E78.5 Atrial fibrillation I48.91 Coding Level of Care Code Off vis,est,level 3 Diagnoses Ischemic cardiomyopathy I25.5 Hyperlipidemia E78.5 Atrial fibrillation I48.91 06/15/18 1124 <Electronically signed by Harrison Noel MD> Date [facility]el [facility] Signature: Date (if applicable) CC: Darius Hartmann MD 12 LEAD EKG PERFORMED Observed: 06/15/2018 Status: F Source: RAZA BY [facility] 11:01 AM [facility] REPOSITORY [facility] [address] [place] [address] 12 Lead EKG performed by [facility] 06/15/18 1100 MR#: [id number] Acct: [id number] Name: XUAN FUCHS Rep #: [id number] : 1960 58 From: Harrison Noel MD Attending Dr: Harrison Noel MD Status: DEP AMB Ordering Dr: Harrison Noel MD Date: 06/15/18 Location: [facility] Sex: M C Admitted: [facility]/12 Lead EKG performed by [facility] ECG Report Interpretation Sinus Rhythm Low voltage in precordial leads. -Incomplete right bundle branch block and left axis -anterior fascicular block. ABNORMAL Electronically signed on 07/24/2018 at 15:00 by Harrison Noel Software Version [id number] 07/24/18 1501 Date Harrison Noel MD CC: Darius Hartmann MD Date Dictated: 06/15/181099 Date Transcribed: 06/15/181099 [employer]: Signed BNP,B-TYPE NATRIURETIC Collected: 06/13/2018 Status: F Source: RAZA PEPTIDE 7:59 AM [facility] REPOSITORY TYPE CODE TESTS RESULT OUT OF RANGE REFERENCE UNITS LAB L503.6620 0-100 pg/mL Normal B-TYPE 87.9 JHONNY PEP Performed By: #### L503.6620 #### [facility] [address] [place], [address] COMPREHENSIVE METABOLIC Collected: 06/13/2018 Status: F Source: RAZA PROFIL 7:58 AM [facility] REPOSITORY Order Comment: Order Date: 04/22/18 Order Info: 0786-1 - CMP Order Info: 78782-8 - LIPID TYPE CODE TESTS RESULT OUT OF RANGE REFERENCE UNITS LAB L501.0100 74-106 mg/dL Normal GLU 95 Result Comment: Please note revised GLUCOSE reference range effective 2017. LAB L501.1000 7-18 mg/dL Normal BUN 17 LAB L501.1100 0.70-1.30 mg/dL Normal CREAT,SERUM 1.00 Result Comment: The validity of the calculated GFR AND GFRAA in patients over 70 years has not been determined. Clinical correlation is essential. LAB L501.1110 >60 mL/min Normal EST GFR 82 Result Comment: Non- GFR Calc LAB L501.1115 >60 mL/min Normal EST GFR - AA 99 Result Comment: GFR Calc LAB L501.1300 10-20 RATIO Normal BUN/CRE 17.1 LAB L501.1500 6.4-8.2 g/dL T Normal PROT 6.8 LAB L501.1800 3.2-5.0 g/dL Normal ALB 3.5 LAB L501.1950 2.2-4.2 g/dL Normal GLOB 3.3 LAB L501.2000 0.9-2.4 RATIO Normal A/G 1.1 LAB L501.2200 8.5-10.1 mg/dL Low CA 8.4 LAB L501.4100 15-37 U/L Low AST 12 LAB L501.4305 45-117 U/L Normal ALK P 50 LAB L501.4405 16-61 U/L Normal ALT 25 LAB L501.4600 0.20-1.00 mg/dL T Normal BILI 0.50 LAB L501.5300 136-145 mmol/L NA Normal 140 LAB L501.5600 3.5-5.1 mmol/L K Normal 4.2 LAB L501.5900 98-107 mmol/L High CL 109 LAB L501.6100 21.0-32.0 mmol/L Normal CO2 23.0 LAB L501.6200 5-15 Normal GAP 8 Performed By: #### L500.4050, L500.4100 #### [facility] [address] [place], [place], [address] LIPID PROFILE Collected: 06/13/2018 Status: F Source: RAZA 7:58 AM [facility] REPOSITORY Order Comment: Order Date: 04/22/18 Order Info: 0786-1 - CMP Order Info: 93727-9 - LIPID TYPE CODE TESTS RESULT OUT OF RANGE REFERENCE UNITS LAB L501.4900 200 mg/dL Normal CHOL 113 Result Comment: <200 mg/dL Desirable 200-240 mg/dL Borderline >240 mg/dL High Risk LAB L501.5000 mg/dL Normal TRIG 54 Result Comment: The drugs N-Acetylcysteine and Metamizole may falsely depress this assay. Serum Triglycerides Reference Interval Normal <150 mg/dL Borderline high 150 - 199 mg/dL High 200 - 499 mg/dL Very High > or = 500 mg/dL LAB L501.6400 mg/dL Low HDL 36 Result Comment: The drugs N-Acetylcysteine and Metamizole may falsely depress this assay. Reference Range HDL <40 mg/dL Low HDL Cholesterol HDL >or= 60 mg/dL High HDL Cholesterol LAB L501.6500 0-130 mg/dL Normal LDL 66 LAB L501.6600 5-40 mg/dL Normal VLDL 11 Performed By: #### L500.4050, L500.4100 #### [facility] [address] [place], [address] URGENT CARE VISIT Observed: 04/29/2018 Status: F Source: [place] REPORT 7:56 AM [facility] REPOSITORY [facility] [address] [place] [address] [address] [place] [address] OFFICE VISIT Date of Service: 04/29/18 MR#: [id number] Acct: [id number] Name: XUAN FUCHS Rep #: [id number] : 1960 Provider: ANGIE Finch Age/Sex: 57/M Location: [facility] Status: Signed Intake Vital Signs04/29/18 Height 5 ft 9 in Intake Visit Reasons: Cough Chief Complaint: Sinus pressure with cough Allergies Penicillins Allergy (Verified 04/29/18 06:27) Hives pioglitazone HCl [From Actos] Allergy (Verified 04/29/18 06:27) Swelling Lwnjiuh-Puu-Prp Reductase Inhibitor Allergy (Verified 04/29/18 06:27) Unknown gabapentin [From Neurontin] Adverse Reaction (Verified 04/29/18 06:27) Other Medications Metformin HCl [Glucophage] 500 mg PO BREAKFAST 08/29/17 [History Confirmed 04/29/18] Aspirin [Adult Aspirin Regimen] 81 mg PO DAILY 10/10/17 [History Confirmed 04/29/18] traMADol [Ultram] 50 mg PO Q6H PRN PRN #30 tab 10/27/17 [Rx Confirmed 04/29/18] clopidogrel 75 mg tablet 75 mg PO DAILY #90 tab 11/28/17 [Rx Confirmed 04/29/18] furosemide 40 mg tablet 40 mg PO BID #180 tab 12/29/17 [Rx Confirmed 04/29/18] nitroglycerin 0.4 mg sublingual tablet 0.4 mg SUBLINGUAL Q5- 15M PRN #25 tab 12/29/17 [Rx Confirmed 04/29/18] nitroglycerin 0.4 mg/hr transdermal 24 hour patch 0.4 mg TOPICAL DAILY #90 ea 12/29/17 [Rx Confirmed 04/29/18] carvedilol 12.5 mg tablet 6.25 mg PO BID tab 01/24/18 [History Confirmed 04/29/18] metolazone 2.5 mg tablet 2.5 mg PO .2xweek #14 tab 02/09/18 [Rx Confirmed 04/29/18] benzonatate 200 mg capsule 200 mg PO TID PRN #30 cap 04/29/18 [Rx Confirmed 04/29/18] doxycycline monohydrate 100 mg capsule 100 mg PO Q12H 10 Days #20 cap 04/29/18 [Rx Confirmed 04/29/18] gemfibrozil 600 mg tablet PO 90 Days #180 04/29/18 [History Confirmed 04/29/18] insulin aspart U-100 100 unit/mL subcutaneous pen SC 90 Days #15 04/29/18 [History Confirmed 04/29/18] insulin glargine (U-100) 100 unit/mL (3 mL) subcutaneous pen 70 unit SC DAILY ml 04/29/18 [History Confirmed 04/29/18] pregabalin 200 mg capsule 200 mg PO DAILY 04/29/18 [History Confirmed 04/29/18] sacubitril 49 mg-valsartan 51 mg tablet 1 tab PO BID 04/29/18 [History Confirmed 04/29/18] PFSH Medical History Deep vein blood clot of right lower extremity (Acute) Sick sinus syndrome (Chronic) Old myocardial infarction (Chronic) Obesity (Chronic) Hyperlipidemia (Chronic) Atherosclerosis of coronary artery of [place] heart without angina pectoris (Chronic) Ischemic cardiomyopathy (Chronic) Diabetes mellitus (Chronic) Chronic systolic heart failure (Chronic) Hypertension (Chronic) Atrial fibrillation (Chronic) Peripheral arterial occlusive disease (Chronic) Back pain (Acute) CAD (coronary artery disease) (Acute) CHF (congestive heart failure) (Acute) Chest pain (Acute) Difficulty balancing (Acute) Hx of staphylococcal infection (Acute) PAD (peripheral artery disease) (Acute) NPDR (nonproliferative diabetic retinopathy) (Chronic) Osteoarthritis (Chronic) Polyneuropathy (Chronic) Thrombocytopenia (Chronic) Gangrene of right foot (Resolved) Surgical History Presence of automatic implantable cardioverter-defibrillator (Chronic 08/08/16) History of coronary artery stent placement (Chronic 09/25/17) H/O coronary artery bypass surgery (Chronic 09/26/04) Amputation, toe, traumatic (Acute) H/O right heart catheterization (Acute) History of angioplasty (Acute) History of carpal tunnel release of both wrists (Acute) History of exploratory laparotomy (Acute) History of laminectomy (Acute) History of right below knee amputation (Acute 10/20/17) History of spinal fusion (Acute) neurostimulator implant (Chronic) History of vasectomy (Resolved 1994) Hx of cholecystectomy (Resolved 2014) Previous back surgery (Resolved) RLE peroneal artery stent (Resolved 10/03/17) Status post ablation of incompetent vein using laser (Resolved) abdominal aortagram with RLE runoff (Resolved 10/17/17) left heart cath and RLE arteriogram (Resolved 09/25/17) Family History Other CAD (coronary artery disease) Diabetes Social History Smoking Status: Former smoker caffeine: Yes Type: coffee Number of servings: 8 HPI HPI Chief Complaint: Sinus pressure with cough Details: XUAN FUCHS, is a 57 M who presents to the office today for a 10 day history of sinus pain and pressure with a hacking cough and low-grade fever. The patient has been taking OTC Mucinex and DayQuil. His son is being treated for a sinus infection at this time. ROS Const Constitutional: Positive for fever(s), fatigue and headache(s) Eyes Eyes: No change in vision ENT ENT: Positive for sinus pain, facial pain, post nasal drip, sinus pressure and headache(s) Resp Respiratory: Positive for cough and change in phlegm color (Dark yellow sputum) Cardio Cardiology: No chest pain at rest or chest pain with exertion Gastro GI: No abdominal pain, diarrhea, vomiting or nausea/dyspepsia Genitourinary Male: No urinary frequency, urinary urgency or difficulty urinating Musc Musculoskeletal: No back pain Skin Skin: No rash or change in skin color Neuro Neurology: Positive for headache(s) Endo Endocrine: Positive for fatigue Exam Const General: healthy appearing, no acute distress Orientation: oriented x3, oriented to person, oriented to place, oriented to time [facility] Head: normocephalic Ears: external ears normal, TM's normal bilaterally, EAC's normal Face and sinus: sinus tenderness Throat: posterior oropharynx normal Eyes General: appearance normal, both eyes and all related structures Conjunctivae: conjunctivae normal Sclera: sclerae normal Pupils: PERRL Neck Neck: no lymphadenopathy Thyroid: thyroid normal Chest Chest palpation AND inspection: normal inspection of the chest Resp Effort AND Inspection: normal respiratory effort, no cough, no respiratory distress Auscultation: Bilateral: Clear to Auscultation Cardio Rate: regular rate Rhythm: regular rhythm GI Inspection: normal to inspection Auscultation: normal bowel sounds Palpation: no hepatosplenomegaly, no splenomegaly, no masses Skin General: no pallor Rashes: no rashes Nails: no clubbing Neuro General: oriented x3, gait normal Extrem General: normal to inspection, no pedal edema, no calf tenderness, normal gait, no edema, no cyanosis, no clubbing, no calf tenderness bilaterally, no pedal edema Psych Mood: congruent mood Affect: normal affect Speech and Movement: speech and movement normal Assessment AND Plan Problems 1. Acute maxillary sinusitis J01.00 2. Cough R05 Medications New: Discontinued: ezetimibe (Zetia) Discontinued Reason: Pt no longer t10 mg PO DAILY Sandee hameed Coding Level of Care Code Off vis,est,level 4 Diagnoses Acute maxillary sinusitis J01.00 Cough R05 04/29/18 0756 <Electronically signed by Bolivar ADAMS> Date Bolivar ADAMS Cosigner Signature: Date (if applicable) CC: CERV SPINE 4 OR 5 Observed: 04/22/2018 Status: F Source: RAZA VIEWS 2:58 PM [facility] REPOSITORY [facility] Imaging Services [address] [place] [address] Cerv Spine 4 or 5 Views MR#: [id number] Acct: [id number] Name: XUAN FUCHS Rep #: [id number] : 1960 M 57 From: Aristides Augustin MD PCP: Darius Hartmann MD Status: REG CLI Study: Cerv Spine 4 or 5 Views Date of Exam: 04/22/18 Exam# [id number] Ordering Dr: Saul Hartmann MD STUDY: X-RAY - CERVICAL SPINE REASON FOR EXAM: Male, 57 years old. Bilateral hand numbness/coldness. TECHNIQUE: Lateral, frontal, bilateral oblique, swimmer's view, and odontoid views of the cervical spine. COMPARISON: CTA neck 03/24/2018. FINDINGS: The patient is edentulous. Craniofacial osseous structures within the field of view exhibit no acute abnormality. The sinuses appear grossly clear. Odontoid and lateral masses intact and aligned. Normal alignment across the cervicothoracic junction. Mild multilevel facet arthropathy slightly more prominent in the upper cervical spine. In the oblique views there is no evidence of significant bony foraminal stenosis. Cervical vertebral body height and alignment are normal. Mineralization is osteopenic. Preserved cervical lordosis. Facet joints aligned and intact. Spinous processes aligned and intact. There is mild to moderate disc narrowing at each level between C3 and C7 most notably at C4-C5. Prevertebral soft tissues and airways appear normal. Apical lungs clear, apical thoracic cage intact. RAD/Cerv Spine 4 or 5 Views IMPRESSION: Multilevel cervical spondylosis as described above. Most notable degenerative disc disease at C4-C5. No evidence of acute cervical spine fracture or traumatic subluxation. Electronically Signed: Aristides Augustin, at 16:38 EDT Tel , Service support , CC: Darius Hartmann MD; Darius Hartmann MD [employer]: Signed PACEMAKER CHECK Observed: 04/06/2018 Status: F Source: [place] 10:14 AM [facility] REPOSITORY [facility] [address] [place] [address]. [address] [place] [address] Pacemaker Check Date of Service: 04/01/18 1526 MR#: [id number] Acct: [id number] Name: XUAN FUCHS Rep #: [id number] : 1960 From: Niurka Tellez Age/Sex: 57/M Location: [facility] Status: Signed Billing Codes ICD Device Billing: ICD Dev Interrogate (Rmt) 04/01/18 1529 <Electronically signed by Niurka Tellez > Date Niurka Tellez 04/06/18 1014<Electronically signed by Harrison Noel MD> Cosigner Signature: Date (if applicable) Harrison Noel MD CC: CTA HEAD W/WO Observed: 03/24/2018 Status: F Source: [place] CONTRAST 3:05 PM [facility] REPOSITORY [facility] Imaging Services [address] [place] [address] CTA Head W/WO Contrast MR#: [id number] Acct: [id number] Name: XUAN FUCHS Rep #: [id number] : 1960 M 57 From: Bradley Frye MD PCP: Darius Hartmann MD Status: REG CLI Study: CTA Head W/WO Contrast Date of Exam: 03/24/18 Exam# [id number] Ordering Dr: RIDGE BLACKWELL STUDY: CTA OF THE BRAIN REASON FOR EXAM: Male, 57 years old. AMAUROSIS RADIATION DOSAGE (If Supplied By Facility): CTDIvol = ( 30.34 ) mGy, DLP = ( 1608.01 ) mGycm TECHNIQUE: CT angiography was performed with a multi-detector CT scanner. Data acquisition was obtained from the skull base through the vertex following intravenous administration of 100 ml of ISO 370. MIP images were reconstructed from the axial data set. Post-processing of the angiographic images was performed, with multiplanar reformation and 3D reconstruction. Individualized dose optimization techniques were used for this CT. COMPARISON: None. FINDINGS: Normal bilateral petrous carotid arteries. There is calcified plaque formation of the right cavernous carotid artery, with a mild stenosis (less than 50%). There is calcified plaque formation of the left cavernous carotid artery, with a mild stenosis (less than 50%). Normal right A1 segments of the anterior cerebral artery. Normal left A1 segments of the anterior cerebral artery. Normal intact anterior communicating artery (ACOM). Normal bilateral A2 segments of the anterior cerebral arteries. Normal right M1 and M2 segments of the middle cerebral arteries, with a normal M1 bifurcation. Normal left M1 and M2 segments of the middle cerebral arteries, with a normal M1 bifurcation. There is non-visualization of the right posterior communicating artery (PCOM). Normal left posterior communicating artery (PCOM). Normal bilateral vertebral arteries. Normal basilar artery with a normal basilar bifurcation. The visualized bilateral superior cerebellar (SCA) arteries are normal. Normal bilateral P1, P2 and visualized P3 segments of the posterior cerebral arteries. There is no demonstrated aneurysm of the [place]. Low density regions in the brain may signify early microvascular ischemic changes, a demyelinating process, vasculitis, or sequela related to migraines. Multiple median sternotomy wires are noted consistent for cardiac surgery. There are coronary arterial calcifications. CT/CTA Head W/WO Contrast IMPRESSION: There is calcified plaque formation of the right cavernous carotid artery, with a mild stenosis (less than 50%). There is calcified plaque formation of the left cavernous carotid artery, with a mild stenosis (less than 50%). Low density regions in the brain may signify early microvascular ischemic changes, a demyelinating process, vasculitis, or sequela related to migraines. Electronically Signed: Bradley Frye MD at 16:52 EDT , Service support , CC: Darius Hartmann MD; RIDGE BLACKWELL [employer] [place]: Signed CTA NECK W/WO Observed: 03/24/2018 Status: F Source: [place] CONTRAST 3:05 PM [facility] REPOSITORY [facility] Imaging Services [address] [place] [address] CTA Neck W/WO Contrast MR#: [id number] Acct: [id number] Name: XUAN FUCHS Rep #: [id number] : 1960 M 57 From: Bradley Frye MD PCP: Darius Hartmann MD Status: REG CLI Study: CTA Neck W/WO Contrast Date of Exam: 03/24/18 Exam# [id number] Ordering Dr: RIDGE BLACKWELL STUDY: CTA NECK WITH CONTRAST REASON FOR EXAM: Male, 57 years old. AMAUROSIS RADIATION DOSAGE (If Supplied By Facility): CTDIvol = ( 30.34 ) mGy, DLP = ( 1608.01 ) mGycm TECHNIQUE: CT angiography with multi-detector data acquisition was performed from the aortic arch to the skull base following intravenous administration of 100CC ml of Isovue 370 contrast. MIP images were reconstructed from the axial data set. Post-processing of the angiographic images was performed, with multiplanar reformation and 3D reconstruction. COMPARISON: None. FINDINGS: Multiple median sternotomy wires are noted consistent for cardiac surgery. AORTIC ARCH: There is atherosclerotic calcific plaque formation of the aortic arch and great vessels arising from the aortic arch, without a hemodynamically significant stenosis. There is a normal origin of the brachiocephalic, left common carotid, and left subclavian arteries. Normal origins of the brachiocephalic, left common carotid, and left subclavian arteries. RIGHT CAROTID ARTERIES: Normal right common carotid artery (CCA). Normal right common carotid bulb. There is mild atherosclerotic plaque formation of the origin of the right internal carotid artery with less than 50% cross sectional diameter stenosis. Normal visualized cervical portion of the right internal carotid artery. Normal origin of the right external carotid artery (ECA). LEFT CAROTID ARTERIES: Normal left common carotid artery (CCA). Normal left common carotid bulb. There is mild atherosclerotic plaque formation of the origin of the left internal carotid artery with less than 50% cross sectional diameter stenosis. Normal visualized cervical portion of the left internal carotid artery. Normal origin of the left external carotid artery (ECA). VERTEBRAL ARTERIES: Normal bilateral vertebral arteries. CT/CTA Neck W/WO Contrast IMPRESSION: There is mild atherosclerotic plaque formation of the origin of the right and left internal carotid artery with less than 50% cross sectional diameter stenosis. Electronically Signed: Bradley Frye MD at 16:53 EDT , Service support , CC: Darius Hartmann MD; RIDGE BLACKWELL [employer] [place]: Signed CAROTID DUPLEX Observed: 02/07/2018 Status: F Source: [place] ULTRASOUND 1:33 PM [facility] REPOSITORY [facility] Cardiovascular Services [address] [place] [address] Carotid Duplex Ultrasound 02/06/18 1031 MR#: [id number] Acct: [id number] Name: XUAN FUCHS Rep #: [id number] : 1960 57 From: Tyler Zhu MD Attending Dr: Darius Hartmann MD Status: REG CLI Ordering Dr: Saul Hartmann MD Date: 02/06/18 Location: [facility] Sex: M C Admitted: Reason For Study: CAD Rt. Velocities/BP Lt. Velocities/BP Prox CCA 68.0/17.0 cm/sec. Prox CCA 88.5/21.1 cm/sec. Mid CCA 72.7/17.6 cm/sec. Mid CCA 77.4/15.8 cm/sec. Dist CCA 86.2/22.9 cm/sec. Dist CCA 95.0/21.7 cm/sec. Prox ICA 99.1/22.3 cm/sec. Prox ICA 72.7/18.4 cm/sec. Mid ICA 97.9/25.8 cm/sec. Mid ICA 82.3/21.9 cm/sec. Dist ICA 71.5/23.5 cm/sec. Dist ICA 66.8/21.4 cm/sec. Rt. ICA/CCA = 1.4. Lt. ICA/CCA = 1.1. Prox ECA 137.0/16.7 cm/sec. Prox ECA 99.7/9.4 cm/sec. Rt. Vert. 48.1/14.7 cm/sec. Lt. Vert. 40.9/14.1 cm/sec. Right Extracranial There is intimal thickening but no significant atherosclerotic plaque noted in the right common carotid artery. There is heterogeneous, irregular atherosclerotic plaque noted in the right internal carotid artery. There is intimal thickening but no significant atherosclerotic plaque noted in the right external carotid artery. Antegrade flow is noted in the right vertebral artery. Left Extracranial There is intimal thickening but no significant atherosclerotic plaque noted in the left common carotid artery. There is heterogeneous, irregular atherosclerotic plaque noted in the left internal carotid artery. There is no significant atherosclerotic plaque noted in the left external carotid artery. Antegrade flow is noted in the left vertebral artery. Procedure Carotid Duplex [id number]. Exam performed in department. Interpretation Summary Mild (<50%) stenosis right extracranial internal carotid. Mild (<50%) stenosis left extracranial internal carotid. Flow within the vertebral arteries is antegrade bilaterally. Ordering Physician: Darius Hartmann Referring Physician: Darius Hartmann Chi Performed By: Yuko Baldwin RVT 02/07/18 1332 Date Tyler Zhu MD CC: Darius Hartmann MD; Darius Hartmann MD Date Dictated: 02/06/18 1031 Date Transcribed: 02/07/18 133 [employer] [place]: Signed DOWNTIME REPORT Observed: 01/29/2018 Status: F Source: [place] 12:32 PM [facility] REPOSITORY [facility] Medical Records Department [address] [place] [address] Downtime Report MR#: [id number] Acct: [id number] Name: XUAN FUCHS Rep #: [id number] : 1960 57 From: Johnny Bass PCP: Darius Hartmann MD Status: REG CLI This patient was seen during an EMR downtime January 12, 2018 - January 19, 2018. This patient may have a combination of paper and electronic documentation or all paper documentation. All documentation is viewable within the e-chart portion of [employer] for each patient visit. INITAL EVALUATION (1) Observed: 01/27/2018 Status: F Source: [place] - PT 2:48 PM [facility] REPOSITORY [facility] [address] [place], [place] [address] Fax REHABILITATION SERVICES INITIAL EVALUATION MR#: [id number] Acct: [id number] Name: XUAN FUCHS Rep #: [id number] : 1960 57 From: Shelly Esteban DPT Referring Dr.: OUT OF TOWN DOCTOR Status: REG RCR Insurance: [facility] SELF PAY INSURANCE Patient's Visit Information XUAN FUCHS is a 57 year old M referred to Physical Therapy by JAMES MIJARES with a diagnosis of Right BKA. Date of Evaluation: 01/27/18 Physical Therapist: Shelly Esteban - Visit Plan Frequency: 3x /Week Duration: 4 Weeks Plan: focus on ambulation and functional mobility and balance - Subjective Subjective: When he had his leg amputated he had so much fluid in damaged the eyes and he had injections in them this morning. So he can't really see today and is hard of hearing. Right leg amputation in October BKA. Had an ingrown toe nail- toe ampuation and gangrene- so they attempted stents- so they decided an ampuation was appropriate- [facility]. Received his prothesis yesterday. He has been wearing it on/off. He is having ghost pains (ankle hurt so bad he felt like it was broken). Does have walker at home and has been just standing on it. Was on the // bars for actually walking- at [employer]. Lives in a one story home with 2 stairs to get in but uses a ramp. Has been using a scooter and a w/c at home. Has a at home who helps. He is not driving. Other than the one time he had ghost pains he doesnt have problems. No pain meds but can feel the pressure. Does have feeling in the stump. Sleep: not disturbed. Wants to be more active. Has a long list of medical issues that slow him down. Work: disabled. PMHx/Meds: only change since last hospitalization is a booster to his water pill. - Objective Posture: good throughout. Observation: no open wounds on stump- stocking and prosthesis fit well. ROM: knee: WNL. Sensation: diminished to light touch but normal to deep pressure at end of stump. Sit to Stand: I with 2 UE safely to walker- stand to sit- good control with use of UE and LE. Strength: 5/5 with gross strength testing in hip/knee. SLS: can weight shift but unable to SLS on the left UE for any length of time. ambulation: ambulated with FWW 100 feet with no rest breaks and no LOB - Goals Goal 1:: Patient will be I with HEP and progression Goal Time Frame: 4-6 Weeks Goal 2:: Patient will ambulate >300 feet with a normalized gait pattern and LRD Goal Time Frame: 4-6 Weeks Goal 3:: Patient will SLS for 10 sec on right LE Goal Time Frame: 4-6 Weeks Goal 4:: Patient will report full I with ADL's. Goal Time Frame: 4-6 Weeks - Rehabilitation Potential Physical Therapy Diagnosis: Patient presents with hypomobilty- he has decreased strength and balance leading abnormal gait and decreased ability to perform ADL's. Rehabilitation Potential: Fair - Anticipated Interventions Patient/Client Instruction: Educate patient on: Benefits of Fitness Program For the Purpose of:: To improve ability to perform ADL's Therapeutic Exercise to Include: Strength training, Endurance training, Balance training, Agility training, Body mechanics, Postural training, Flexibilty training, Gait and locomotor training, Dynamic Lumbar Stabilization Functional Training to Include: ADL Training, Gait training Thank you for the opportunity to evaluate your patient. For Medicare and Medicare HMO plans, please review the plan of care and approve it. It will need to be FAXED BACK to us at [phone] for Medicare purposes. Please let me know if there are questions or concerns regarding this plan of care. Physician Signature: Date: <Electronically signed by Shelly Esetban DPT> 01/27/18 1448 CC: Darius Hartmann MD; OUT OF TOWN DOCTOR ELR Signed For Medicare only, by signing this I certify the plan of care. Physicians Signature Date CBC W/DIFF, AUTOMATED Collected: 01/12/2018 Status: F Source: RAZA 9:20 AM [facility] REPOSITORY Order Comment: CALLED TO KELLEY STEPHENSON IN THE OFFICE AT 11:40 TYPE CODE TESTS RESULT OUT OF RANGE REFERENCE UNITS LAB L100.1000 4.4-11.0 K/mm3 Normal WBC 9.1 LAB L100.1200 4.6-6.2 M/mm3 Normal RBC 4.89 LAB L100.1300 13.0-16.5 g/dl Normal HGB 13.0 LAB L100.1400 40-54 % Low HCT 39.4 LAB L100.1500 80-94 fL Normal MCV 80.6 LAB L100.1600 27.0-32.0 pg Low MCH 26.6 LAB L100.1700 32-36 g/gl Normal MCHC 33.0 LAB L100.1810 11.6-14.6 % High RDW CV 15.5 LAB L100.1820 35.1-43.9 fl High RDW SD 44.7 LAB L100.1900 150-450 K/mm3 Normal PLT 189 LAB L100.2000 6.2-12.0 fl Normal MPV 11.2 LAB L100.2100 47-70 % High NEUT% 71.9 LAB L100.2200 19-41 % Normal LY% 20.9 LAB L100.2300 0-10 % Normal MONO% 6.2 LAB L100.2400 0-5 % Normal EO% 0.8 LAB L100.2500 0-1 % Normal BASO% 0.2 LAB L100.2620 2.0-7.7 X10 3/uL Normal Absolute Neut 6.6 LAB L100.2720 0.83-4.51 X10 3/ul Normal Absolute Lymph 1.91 Performed By: #### L100.0100 #### [facility] [address] [place], [place], [address] BASIC METABOLIC Collected: 01/12/2018 Status: F Source: RAZA PROFILE (BMP) 9:20 AM [facility] REPOSITORY Order Comment: RESULT(S) PREVIOUSLY REPORTED ON MANUAL REQUISITION DURING DOWNTIME. HAND DELIVERED. 10:45 01/12/18 SLOZANO TYPE CODE TESTS RESULT OUT OF RANGE REFERENCE UNITS LAB L501.0100 74-106 mg/dL High GLU 328 Result Comment: Glucose result greater than or equal to 200 mg/dL suggests DIABETES MELLITUS per A.D.A. criteria. Please note revised GLUCOSE reference range effective 2017. LAB L501.1000 7-18 mg/dL Normal BUN 13 LAB L501.1100 0.70-1.30 mg/dL Normal CREAT,SERUM 1.14 Result Comment: The validity of the calculated GFR AND GFRAA in patients over 70 years has not been determined. Clinical correlation is essential. LAB L501.1110 >60 mL/min Normal EST GFR 70 LAB L501.1115 >60 mL/min Normal EST GFR - AA 85 LAB L501.1300 10-20 RATIO Normal BUN/CRE 11.4 LAB L501.2200 8.5-10.1 mg/dL Low CA 8.4 LAB L501.5300 136-145 mmol/L Normal NA 137 LAB L501.5600 3.5-5.1 mmol/L Normal K 4.3 LAB L501.5900 98-107 mmol/L Normal CL 105 LAB L501.6100 21.0-32.0 mmol/L Normal CO2 24.0 LAB L501.6200 5-15 Normal GAP 8 Performed By: #### L500.2500 #### [facility] [address] [place], [address] BNP,B-TYPE NATRIURETIC Collected: 01/12/2018 Status: F Source: RAZA PEPTIDE 9:20 AM [facility] REPOSITORY Order Comment: RESULT(S) PREVIOUSLY REPORTED ON MANUAL REQUISITION DURING DOWNTIME. HAND DELIVERED TYPE CODE TESTS RESULT OUT OF RANGE REFERENCE UNITS LAB L503.6620 0-100 pg/mL High B-TYPE 220.3 JHONNY PEP Performed By: #### L503.6620 #### [facility] [address] [place], [address] Observed: 01/12/2018 Status: F Source: RAZA CULTURE, BLOOD (WB) 9:20 AM [facility] REPOSITORY BC No growth in 5 days. Performed By: #### M200.1000 #### [facility] [address] [place], [address] Observed: 01/12/2018 Status: F Source: RAZA CULTURE, BLOOD (WB) 9:20 AM [facility] REPOSITORY BC No growth in 5 days. Performed By: #### M200.1000 #### [facility] [address] [place], [place], [address] PACEMAKER CHECK Observed: 01/07/2018 Status: F Source: RAZA 8:43 AM [facility] REPOSITORY [facility] [address] [place] [address] Pacemaker Check Date of Service: 12/18/17 1030 MR#: [id number] Acct: [id number] Name: XUAN FUCHS Jaciel Rep #: [id number] : 1960 From: Niurka Tellez Age/Sex: 57/M Location: [facility] Status: Signed Comments Summary Comments: Dual Chamber ICD Evaluation: See attached scanned .net programmer report. New enrollee to device clinic from Dr. Whelan's office. Interrogation shows 1 NSVT episode and no no MS episodes since 01/07/17. Stored e-gram for NSVT episode shows on 10/15/17 what appears to be supraventricular tachycardia @ 165 bpm (1:1 conduction) x 18 beats. Pt unable to correlate sx's with episode. Left pectoral pocket/incision w/o s/s of infection or erosion. Pt offers no cardiac complaints. Presenting rhythm shows NSR @ 65 bpm. NAIL KEGGER=<1%. Battery longevity approx 10.5 yrs. Lead impedances, sensing and pace/sense thresholds remain stable. No parameter changes made. Counters cleared. Pt enrolled in [facility] remote site and transferred from [facility]. Next remote f/u appt scheduled for in 3 mos. Device Device Date Interviewed: 12/18/17 Follow-up Location: in office Interview Reason: scheduled follow up Fork Lift Technician: Nintu Oy Name: InsureWorx EL Model: [id number] Serial #: [id number] Implant Date: 08/08/16 Year(s): 1 Implant Physician: Dave Whelan MD @ [facility] Patient Characteristics Atrial Indication: sick sinus syndrome, Sinus bradycardia Ventricular Indication: Prophylactic (per MADIT II Criteria, Ischemic cardiomyopathy, systolic heart failure, RBBB) Patient Substrate: Ischemic cardiomyopathy Underlying rhythm: Sinus rhythm (W/ RBBB) Pacemaker Dependent: No Device Characteristics Device: Dual Chamber Type: Implantable defibrillator Remote Follow-Up: [facility] Device Physical Exam Yes Incision well healed Leads Lead #1 Fork Lift Technician Lead 1: Nintu Oy Model Lead 1: 7741 Serial# Lead 1: [id number] Date Implanted Lead 1: 08/08/16 Position Lead 1: RA Lead #2 Fork Lift Technician Lead 2: Nintu Oy Model Lead 2: 0296 Serial# Lead 2: [id number] Date Implanted Lead 2: 08/08/16 Position Lead 2: RV Diagnostics Pacing % RA Pacin % RV Pacin Mode Switching Total # Episodes: 0 % Mode switched: 0 Arrhythmias VF Episodes: 0 Fast VT Episodes: 0 Slow VT Episodes: 0 Non-Sust Episodes: 1 Measurements Battery Charge Time (Sec): 9.7 Battery Status: ELVER Predicted Remaining Longevity (months or years): 10.5 years RA Measurements Signal Amplitude (mV): 5.2 Impedance (Ohms): 680 Threshold Voltage: 0.8 @ PW(ms): 0.5 RV Measurements Signal Amplitude (mV): 7.6 Impedance (Ohms): 381 Threshold Voltage: 1.2 @ PW(ms): 0.5 Shock Impedance (Ohms): 40 Tachy Settings VF ON 150 (bpm) FVT ON 185 (bpm) VT ms (bpm) Monitor Monitor Only ms (bpm) VF Therapies VF Therapy Status On/Off On/Off On/Off On/Off On/Off On/Off Energy 41 JOULES X 8 Pathway ATP: During charging ON FVT Therapies FVT Therapy Status On/Off On/Off On/Off On/Off On/Off On/Off VT Therapies FVT Therapy Status On/Off On/Off On/Off On/Off On/Off On/Off Comments: Flip Settings Flip Settings Pacemaker Mode DDD Lower Rate Limit (bpm) 60 Hysteresis Rate (bpm) Max Track Rate (bpm) 135 Max Sensor Rate (bpm) Max AV Delay (msec) 300 Max PV Delay (msec) Max PVARP (msec) 300 Output/Sensing V/PW (ms) 2.5/0.5 2.5/0.5 Sensitivity RA RV LV AGC 0.25 0.6 Comments: Billing Codes ICD Device Billing: ICD Dev Prog Eval, Dual Assessment AND Plan Problems 1. Presence of automatic implantable cardioverter-defibrillator Z95.810 [employer]gen EL Dr. Ilana Fitzgerald @ [facility] 2. Sick sinus syndrome I49.5 3. Ischemic cardiomyopathy I25.5 4. Chronic systolic heart failure I50.22 01/05/18 1249 <Electronically signed by Niurka Tellez > Date Niurka Tellez 01/07/18 0843<Electronically signed by Harrison Noel MD> Cosign Signature: Date (if applicable) Harrison Noel MD CC: STRESS TEST ECHO W/O Observed: 01/01/2018 Status: F Source: RAZA CONTRAST 4:57 PM [facility] REPOSITORY [facility] Services [address] [place], [place] [address] [place] [address] Stress Test Echo w/o Contrast MR#: [id number] Acct: [id number] Name: XUAN FUCHS Rep #: [id number] : 1960 57 From: Harrison Noel MD Primary Care: Darius Hartmann MD Status: REG CLI Ordering Dr: Harrison Noel MD Sex: M C Reason For Study: Chest Pain, CAD Stress Results Protocol: Dobutamine Stress Echo Maximum Predicted HR: 163 bpm Target HR: 139 bpm% Maximum Pre dicted HR: 87 % DurationHeart Rate Stage (mm:ss) (bpm) BPComm ent Baseline 70 146/78 No Chest Pain DSE 10 MCG 3:07 74 132/92 No Chest Pain DSE 20 MCG 3:00 10 3 150/101No Chest Pain DSE 30 MCG 3:02 13 6 154/56 No Chest Pain DSE 40 MCG 1:31 14 1 146/74 No Chest Pain Recovery 90 113/73 No Chest Pain Stress Duration: 10:40 mm:ss Maximum Stress HR: 141 bpmME TS: 1 Baseline Echocardiogram Findings The estimated ejection fraction is 35 %. Septal motion consistent with IVCD. Stress Echo Wall motion Data Resting WMIntermediate WMStress WM Resting Wall Motion Wall Motion Stress Mid-Lateral : Mildly hypokinetic. Anterior and posterior schrader Mid-Inferior: Mildly hypokinetic. contract normally at peak Infero-Basal: Mildly hypokinetic. infusion. Baseline infero-lateral schrader remained hypokinetic during infusion. EKG Data The baseline ECG demonstrates normal sinus rhythm with at rate of _ beats per minute. The patient was titrated from 10 mcg to a maximum of 40 mcg of dobutamine during the stress. The maximum heart rate attained was 142 beats per minute. This was 87% of maximum predicted heart rate. At peak infusion, upsloping ST changes only were noted, which did not meet the criteria for ischemia. No clinical angina was noted. Interpretation Summary The estimated ejection fraction is 35 %. Anterior and posterior schrader contract normally at peak infusion. Baseline infero-lateral schrader remained hypokinetic during infusion. Normal, adequate, dobutamine echocardiogram. No additional wall motion abnormalities over baseline inferior and lateral hypokinesis. Anterior, apical, and posterior schrader all contracted normally during peak infusion. Rare PVCs noted. No anginal symptoms noted. Appropriate blood pressure response to dobutamine. Final LVEF of 45%. No complications. Recommend clinical correlation or alternative mode of testing if coronary ischemia is suspected. Ordering Physician: Harrison Noel Referring Physician: Harrison Noel MD Performed By: Kerrie Hanna [facility] 01/01/181655 Date Harrison Noel MD CC: Darius Hartmann MD; Darius Hartmann MD; Harrison Noel MD Date Dictated: 01/01/1851 Date Transcribed: 01/01/181655 [employer] [place]: Signed CARDIOLOGY VISIT Observed: 12/29/2017 Status: F Source: [place] REPORT 2:07 PM [facility] REPOSITORY [facility] [address] [place] [address] OFFICE VISIT Date of Service: 12/29/17 MR#: [id number] Acct: [id number] Name: XUAN FUCHS Rep #: [id number] : 1960 Provider: Harrison Noel MD Age/Sex: 57/M Location: [facility] Status: Signed HPI HPI Chief Complaint: Routine f/u Details: Chief Complaint: Establishment of cardiac care Details: XUAN FUCHS, is a 57 M, lifelong non-smoker, with a history of diabetes, ischemic cardiomyopathy, systolic congestive heart failure with an EF around 15%, coronary artery disease status post CABG [address] Moss at [facility]. At that time he received a VEGA to the LAD with sequential jumping to the diagonal, and a saphenous vein graft to the right posterior descending artery. Left circumflex had minimal disease and a previously patent stent. In addition the patient has undergone multiple coronary PCI's. Patient had PCI in 2011 and again on 09/25/17 at [facility]. At that time the patient was undergoing evaluation for right lower extremity claudication and diabetic foot ulcer. And underwent successful angioplasty and stenting of the mid obtuse marginal #2 receiving a 2.5X 38 Xience Alpine, followed by a 2.5X 23 overlapping Xience alpine stent. This was then postdilated with a noncompliant 3.0 mm balloon. Several days later the patient underwent attempted lower extremity angioplasty for his right foot cellulitis but unfortunately was unsuccessful. He then had a gangrenous foot which resulted in osteomyelitis undergoing eventual below the knee amputation. Patient is now here in follow-up. In addition he is undergone AICD placement on 08/08/16. Unfortunately the patient is unable to take statins due to myalgias. Patient states that initially his angina got much better after his angioplasty and stenting in September 2017, and that he required only 1 nitroglycerin patch on a daily basis. Patient was doing well up in the last week when he has developed worsening lower extremity edema, orthopnea, congestive cough, as well as substernal chest pain radiating up into his left shoulder and down his left arm similar to his previous angina. He has been compliant with his dietary and fluid restrictions and has been compliant with his Lasix 40 mg twice daily. In our office today's blood pressure is 130/70, and pulse is 66 and regular. Physical exam is as below. Lipids are pending. EKG dated 09/18/17 shows normal sinus rhythm with old inferior wall myocardial infarction, old anteroseptal wall myocardial infarction, and ventricular conduction delay. Intake Vital Signs12/29/17 Height 5 ft 10 in Intake Visit Reasons: per LL Allergies Penicillins Allergy (Verified 12/29/17 13:28) Hives pioglitazone HCl [From Actos] Allergy (Verified 12/29/17 13:28) Swelling Nqmffxc-Lnc-Xye Reductase Inhibitor Allergy (Verified 12/29/17 13:28) Unknown gabapentin [From Neurontin] Adverse Reaction (Verified 12/29/17 13:28) Other Medications Insulin Glargine [Lantus SoloStar Pen] 70 units SC DAILY 09/16/14 [History Confirmed 12/29/17] Pregabalin [Lyrica] 200 mg PO DAILY 10/22/15 [History Confirmed 12/29/17] Metformin HCl [Glucophage] 500 mg PO BREAKFAST 08/29/17 [History Confirmed 12/29/17] Sacubitril/Valsartan 49-51 mg [Entresto 49 mg-51 mg Tablet] 1 tab PO BID 08/29/17 [History Confirmed 12/29/17] Ascorbic Acid [Vitamin C] 500 mg PO BID 10/10/17 [History Confirmed 12/29/17] Aspirin [Adult Aspirin Regimen] 81 mg PO DAILY 10/10/17 [History Confirmed 12/29/17] Acetaminophen [Tylenol] 1,000 mg PO Q8H PRN PRN tab 10/27/17 [Rx Confirmed 12/29/17] Nutritional Supplement [Naresh - ORANGE FLAVOR] 1 packet PO BIDCM #60 packet 10/27/17 [Rx Confirmed 12/29/17] Senna/Docusate Sodium [Senokot-S] 2 tab PO BID #120 tab 10/27/17 [Rx Confirmed 12/29/17] traMADol [Ultram] 50 mg PO Q6H PRN PRN #30 tab 10/27/17 [Rx Confirmed 12/29/17] carvedilol 12.5 mg tablet 12.5 mg PO BID 11/13/17 [History Confirmed 12/29/17] clopidogrel 75 mg tablet 75 mg PO DAILY #90 tab 11/28/17 [Rx Confirmed 12/29/17] furosemide 40 mg tablet 40 mg PO BID #180 tab 12/29/17 [Rx Confirmed 12/29/17] gemfibrozil 600 mg tablet 600 mg PO BID #180 tab 12/29/17 [Rx Confirmed 12/29/17] metolazone 2.5 mg tablet 2.5 mg PO ONCE #14 tab 12/29/17 [Rx Confirmed 12/29/17] nitroglycerin 0.4 mg sublingual tablet 0.4 mg SUBLINGUAL Q5- 15M PRN #25 tab 12/29/17 [Rx Confirmed 12/29/17] nitroglycerin 0.4 mg/hr transdermal 24 hour patch 0.4 mg TOPICAL DAILY #90 ea 12/29/17 [Rx Confirmed 12/29/17] [facility] Medical History Deep vein blood clot of right lower extremity (Acute) Sick sinus syndrome (Chronic) Old myocardial infarction (Chronic) Obesity (Chronic) Hyperlipidemia (Chronic) Atherosclerosis of coronary artery of [place] heart without angina pectoris (Chronic) Ischemic cardiomyopathy (Chronic) Diabetes mellitus (Chronic) Chronic systolic heart failure (Chronic) Hypertension (Chronic) Atrial fibrillation (Chronic) Peripheral arterial occlusive disease (Chronic) NPDR (nonproliferative diabetic retinopathy) (Chronic) Osteoarthritis (Chronic) Polyneuropathy (Chronic) Thrombocytopenia (Chronic) Gangrene of right foot (Resolved) Surgical History Presence of automatic implantable cardioverter-defibrillator (Chronic 08/08/16) History of coronary artery stent placement (Chronic 09/25/17) H/O coronary artery bypass surgery (Chronic 09/26/04) History of right below knee amputation (Acute 10/20/17) neurostimulator implant (Chronic) History of vasectomy (Resolved 1994) Hx of cholecystectomy (Resolved 2014) Previous back surgery (Resolved) RLE peroneal artery stent (Resolved 10/03/17) Status post ablation of incompetent vein using laser (Resolved) abdominal aortagram with RLE runoff (Resolved 10/17/17) left heart cath and RLE arteriogram (Resolved 09/25/17) Family History Other CAD (coronary artery disease) Social History Smoking Status: Former smoker caffeine: Yes Type: coffee Number of servings: 8 ROS Const Const: Positive for other, weight gain (up 5 lbs) and fatigue; negative for weakness, difficulty sleeping, frequent falls, headache(s) or excessive sweating Eyes Eyes: Negative for loss of peripheral vision, transient loss of vision, blurry vision or double vision ENT ENT: Negative for dizziness, Nosebleed/epistaxis, balance problems or headache(s) Cardio Chest Pain: Yes Frequency: daily Character: tightness Onset: at rest Location: mid sternal, left chest Duration: minutes, hours Edema: None Muscle aches with walking: None Resp Respiratory: Positive for SOB with activity and Cough; negative for SOB at rest, SOB orthopnea\SOB lying down or paroxysmal nocturnal dyspnea GI GI: Negative nausea or heartburn : Negative for hematuria Musc Musc: Negative for muscle aches/ myalgia, muscle weakness, joint pain or balance problems Skin Skin: Negative non-healing lesions, unusual bruising or rash Neuro Neuro: Negative for blurry vision, dizziness, lightheadedness, orthostatic symptoms, double vision, weakness, frequent falls or headache(s) Hector Hematologic/Lymphatic: Negative for easy bruising Endo Endo: Positive for fatigue; negative for excessive sweating or increased thirst/drinking Psych Psych: Negative for anxiety or depression Allergy Allergy/Immunology: Negative for hives, Negative for rash Cardiology Exam Const Appearance: cooperative, healthy appearing and no acute distress Nutritional Appearance: well nourished Orientation: alert, oriented x3 and oriented to person Head Head: normal to inspection, atraumatic and normocephalic Nose: external nose normal Face and Sinus: face symmetric Mouth: oral mucosae normal Eyes General: appearance normal, both eyes and all related structures Eyelids: eyelids normal Conjunctivae: conjunctivae normal Pupils: PERRL and normal by confrontation EOM: EOM intact bilaterally Neck Neck: normal visual inspection and full ROM Carotids: normal carotid upstroke Chest Chest inspection: normal inspection of the chest Auscultation: Bilateral: Clear to Auscultation Cardio Palpation: normal PMI Rate: regular rate Rhythm: regular rhythm Heart sounds: S1 normal and S2 normal GI GI: normal to inspection, no hepatosplenomegaly and bowel sounds present Neuro General: alert, oriented x3, awake, CN's II-XI intact bilaterally and moves all extremities Skin Skin: no rashes or lesions noted Extremities Pulses: Normal: Right Femoral Pulse, Left Femoral Pulse, Right Dorsalis Pedis Pulse, Left Dorsalis Pedis Pulse, Right Posterior Tibial Pulse, Left Posterior Tibial Pulse, Right Radial Pulse, Left Radial Pulse Lower Extremity Edema: None: Bilateral Psych Psychological: normal affect Assessment AND Plan 1. Atherosclerosis of coronary artery of [place] de[place] heart without angina pectoris I25.10 PCI-VERA x 2 -Prox-mid OM2 2.5 x 38 mm Xience Alpine and a 2.5 x 23 mm Xience Alpine 09/25/17 PCI-BMS-Lt Main 4.0 x 9 mm Integrity and PCI-BMS-Mid Cx 3.5 x 15 mm Integrity 12/11/2011 CABG x 3 VEGA Sequential LAD and D1, SVG-PDA of the RCA 09/26/2004 Plan 1. Coronary artery disease: Patient now has return of his anginal symptoms similar to his angina prior to stenting in September 2017. This is superimposed on what appears to be congestive heart failure exacerbation. I recommended the patient continue his baby aspirin, Plavix, Lasix 40 mg p.o. twice daily, adding metolazone 2.5 mg p.o. every Derrick, and wrapping his legs in Jose bandages. In addition we will check to see if there is a 24 hour nitroglycerin patch versus the 12 hours on 12 hours off. If no such Nitropatch exists, recommend nitroglycerin patch every 12 hours. In addition we will do a dobutamine echocardiogram to determine if he has any ischemia in the territory of his previous obtuse marginal stents. If this is grossly abnormal for ischemia, he may require repeat catheterization and graft angiography. Also requested that he continue his 1500 cc fluid restriction. He appears to be compliant with this. Finally, we will need to get a copy of his catheterization and angioplasty film from [facility] from September 2017. Orders Orders: 2. Hyperlipidemia E78.5 Plan 2. Hyperlipidemia: Unfortunately the patient is unable to take statins. We will repeat his lipid profile to determine if his gemfibrozil is adequately controlling his LDL and HDL. Orders Orders: 3. Ischemic cardiomyopathy I25.5 Plan 3. Ischemic cardiac myopathy: The patient is status post AICD placement. No shocks delivered. Patient follows up with [facility]. 4. Return office in 4 months. This note was generated using a voice recognition system and there may be incorrect words, spelling or punctuation that were not noted when reviewing the office note prior to saving. Orders Orders: Plan Detail Other Orders Orders: Other Medications New: nitroglycerin until response; do not exceed 3 0.4 mg Sublingual Q5-15M PRN chest pain doses per event Changed: Refilled: Follow Up +2 weeks (BP Check) +4M (Noel or [facility]) Coding Level of Care Code Off vis,est,level 3 Diagnoses Atherosclerosis of coronary artery of [place] de[place] heart without angina pectoris I25.10 Hyperlipidemia E78.5 Ischemic cardiomyopathy I25.5 Coding Level of Care Code Off vis,est,level 3 Diagnoses Atherosclerosis of coronary artery of [place] heart without angina pectoris I25.10 Hyperlipidemia E78.5 Ischemic cardiomyopathy I25.5 12/29/17 1407 <Electronically signed by Harrison Noel MD> Date Harrison Noel MD Cosigner Signature: Date (if applicable) CC: Darius Hartmann MD VL VENOUS DUPLEX US Observed: 11/13/2017 Status: F Source: [employer] LOWER EXT RIGHT 2:35 PM SYSTEM REPOSITORY Patient Name: XUAN FUCHS Ultrasound Exam Date/Time 11/13/2017 15:17:09 EDT Exam VL Venous Duplex US Lower Ext Right Ordering Physician JAMES MIJARES Accession Number [id number] CPT4 Codes 29238 () Reason For Exam Acute embolism and thrombosis of right popliteal vein Report [facility] --- Right Lower Extremity Venous Duplex Report Patient Name: Xuan Fuchs : 1960 Study Date: 11/13/2017 (57yrs) Age: 57 Account: [id number] Gender: M Loc: BP: Ordering: James Mijares MD Technologist: Ordering Physician: James Mijares MD Music Arranger: Lucero Hauser RVT Interpreting Physician: James Mijares MD --- Location: [facility] [address] [place] [address] --- INDICATIONS: Acute DVT of popliteal vein of right lower extremity. --- CRITICAL FINDINGS were reported to Nella by Verenice Hauser on 11/13/2017. Correct read-back was verified. --- CONCLUSIONS 1. Acute deep vein thrombosis of the right popliteal vein. --- IMPRESSIONS: Acute deep vein thrombosis of the right popliteal vein. --- STUDY DATA: Right lower extremity venous duplex evaluation. Birthdate: Patient birthdate: 1960. Age: Patient is 57 yr old. Sex: Gender: male. Ethnicity: Ethnicity: white. Doppler flow study including spectral analysis, color and ye scale imaging. Patient status: Outpatient. Procedure: A vascular evaluation was performed. The images were obtained using a [employer] E9 vascular ultrasound machine. --- VENOUS FLOW AND IMAGING: + + + + +-------- --+ !Location !Overall !Thrombosis!Flow properties !Comments ! + + + + +-------- --+ !Right common !Patent ! !Normal phasicity; !-------- --! !femoral ! ! !spontaneous; normal ! ! ! ! ! !augmentation; ! ! ! ! ! !compressible ! ! + + + + +-------- --+ !Right !Patent ! !Compressible !-------- --! !saphenofemoral ! ! ! ! ! !junction ! ! ! ! ! + + + + +-------- --+ !Right profunda !Patent ! !Normal phasicity; !-------- --! !femoral ! ! !spontaneous; normal ! ! ! ! ! !augmentation ! ! + + + + +-------- --+ !R femoral !Patent ! !Compressible !-------- --! !proximal ! ! ! ! ! + + + + +-------- --+ !R femoral mid !Patent ! !Normal phasicity; !-------- --! ! ! ! !spontaneous; normal ! ! ! ! ! !augmentation; ! ! ! ! ! !compressible ! ! + + + + +-------- --+ !R femoral distal!Patent ! !Compressible !-------- --! + + + + +-------- --+ !Right popliteal ! !Acute !Noncompressible !Acute DVT.! + + + + +-------- --+ !Right !Patent ! !Compressible !-------- --! !gastrocnemius ! ! ! ! ! + + + + +-------- --+ !Right posterior !Not visualized! ! !Amputated.! !tibial ! ! ! ! ! + + + + +-------- --+ !Right peroneal !Not visualized! ! !Amputated.! + + + + +-------- --+ !Right soleal !Not visualized! ! !Amputated.! + + + + +-------- --+ !Right greater !Patent ! !Compressible !-------- --! !saphenous ! ! ! ! ! + + + + +-------- --+ !Right lesser !Patent ! !Compressible !-------- --! !saphenous ! ! ! ! ! + + + + +-------- --+ !Left common !Patent ! !Normal phasicity; !-------- --! !femoral ! ! !spontaneous; normal ! ! ! ! ! !augmentation; ! ! ! ! ! !compressible ! ! + + + + +-------- --+ Electronically signed by: James Mijares MD [id number] Final Dictated: 11/13/2017 4:14 pm Dictating Physician: JAMES MIJRAES Signed Date and Time: 11/13/2017 4:14 pm Signed by: JAMES MIJARES CARDIOLOGY VISIT Observed: 11/13/2017 Status: F Source: [facility]ZA REPORT 11:48 AM [facility] REPOSITORY [facility] [address] [place] [address] OFFICE VISIT Date of Service: 11/13/17 MR#: [id number] Acct: [id number] Name: XUAN FUCHS Rep #: [id number] : 1960 Provider: Harrison Noel MD Age/Sex: 57/M Location: [facility] Status: Signed HPI HPI Chief Complaint: Establishment of cardiac care Details: XUAN FUCHS, is a 57 M, lifelong non-smoker, with a history of diabetes, ischemic cardiomyopathy, systolic congestive heart failure with an EF around 15%, coronary artery disease status post CABG [address] Moss at [facility]. At that time he received a VEGA to the LAD with sequential jumping to the diagonal, and a saphenous vein graft to the right posterior descending artery. Left circumflex had minimal disease and a previously patent stent. In addition the patient has undergone multiple coronary PCI's. Patient had PCI in 2011 and again on 09/25/17 at [facility]. At that time the patient was undergoing evaluation for right lower extremity claudication and diabetic foot ulcer. And underwent successful angioplasty and stenting of the mid obtuse marginal #2 receiving a 2.5X 38 [place] alpine, followed by a 2.5X 23 overlapping [place] alpine stent. This was then postdilated with a noncompliant 3.0 mm balloon. Several days later the patient underwent attempted lower extremity angioplasty for his right foot cellulitis but unfortunately was unsuccessful. He then had a gangrenous foot which resulted in osteomyelitis undergoing eventual below the knee amputation. Patient is now here in follow-up. In addition he is undergone AICD placement on 08/08/16. Patient denies any chest pain, angina, shortness of breath or dyspnea on exertion. He is taking and tolerating his medicines well. Unfortunately he is not able to take statins due to myalgias. In our office today's blood pressure is 80/50, and pulse is 82 and regular. Physical exam is as below. Lipids are pending. EKG dated 09/18/17 shows normal sinus rhythm with old inferior wall myocardial infarction, old anteroseptal wall myocardial infarction, and ventricular conduction delay. Intake Vital Signs11/13/17 Height 5 ft 10 in Intake Visit Reasons: CHF, CABG, STENTS Allergies Penicillins Allergy (Verified 11/13/17 10:04) Hives pioglitazone HCl [From Actos] Allergy (Verified 11/13/17 10:04) Swelling Zdffbpi-Nwd-All Reductase Inhibitor Allergy (Verified 11/13/17 10:04) Unknown gabapentin [From Neurontin] Adverse Reaction (Verified 11/13/17 10:04) Other Medications Insulin Glargine [Lantus SoloStar Pen] 70 units SC DAILY 09/16/14 [History Confirmed 11/13/17] Pregabalin [Lyrica] 200 mg PO DAILY 10/22/15 [History Confirmed 11/13/17] Metformin HCl [Glucophage] 500 mg PO BREAKFAST 08/29/17 [History Confirmed 11/13/17] Sacubitril/Valsartan 49-51 mg [Entresto 49 mg-51 mg Tablet] 1 tab PO BID 08/29/17 [History Confirmed 11/13/17] Ascorbic Acid [Vitamin C] 500 mg PO BID 10/10/17 [History Confirmed 11/13/17] Aspirin [Adult Aspirin Regimen] 81 mg PO DAILY 10/10/17 [History Confirmed 11/13/17] Clopidogrel Bisulfate [Plavix] 75 mg PO DAILY 10/10/17 [History Confirmed 11/13/17] Nitroglycerin [Nitro-Dur] 0.4 mg TRANSDERM. DAILY 10/10/17 [History Confirmed 11/13/17] Acetaminophen [Tylenol] 1,000 mg PO Q8H PRN PRN tab 10/27/17 [Rx] Nutritional Supplement [Naresh - ORANGE FLAVOR] 1 packet PO BIDCM #60 packet 10/27/17 [Rx] Senna/Docusate Sodium [Senokot-S] 2 tab PO BID #120 tab 10/27/17 [Rx] traMADol [Ultram] 50 mg PO Q6H PRN PRN #30 tab 10/27/17 [Rx Confirmed 11/13/17] carvedilol 12.5 mg tablet 12.5 mg PO BID 11/13/17 [History Confirmed 11/13/17] furosemide 40 mg tablet 40 mg PO BID tab 11/13/17 [History Confirmed 11/13/17] [facility] Medical History Old myocardial infarction (Chronic) Obesity (Chronic) Hyperlipidemia (Chronic) Atherosclerosis of coronary artery of yocha dehe heart without angina pectoris (Chronic) Ischemic cardiomyopathy (Chronic) Diabetes mellitus (Chronic) Chronic systolic heart failure (Chronic) Hypertension (Chronic) Atrial fibrillation (Chronic) Peripheral arterial occlusive disease (Chronic) Osteoarthritis (Chronic) Polyneuropathy (Chronic) Thrombocytopenia (Chronic) Gangrene of right foot (Resolved) Surgical History Presence of automatic implantable cardioverter-defibrillator (Chronic 08/08/16) History of coronary artery stent placement (Chronic 09/25/17) H/O coronary artery bypass surgery (Chronic 09/26/04) History of right below knee amputation (Acute 10/20/17) neurostimulator implant (Chronic) History of vasectomy (Resolved 1994) Hx of cholecystectomy (Resolved 2014) Previous back surgery (Resolved) RLE peroneal artery stent (Resolved 10/03/17) Status post ablation of incompetent vein using laser (Resolved) abdominal aortagram with RLE runoff (Resolved 10/17/17) left heart cath and RLE arteriogram (Resolved 09/25/17) Family History Other CAD (coronary artery disease) Social History Smoking Status: Former smoker caffeine: Yes Type: coffee Number of servings: 8 ROS Const Const: Positive for fatigue, weakness and other (weight up 13 ibs from 10/23/17); negative for difficulty sleeping, frequent falls, headache(s) or excessive sweating Eyes Eyes: Negative for loss of peripheral vision, transient loss of vision, blurry vision or double vision ENT ENT: Negative for headache(s), dizziness, Nosebleed/epistaxis or balance problems Cardio Chest Pain: Yes Character: tightness Onset: at rest, exercise Location: left chest Duration: brief, minutes Edema: None, Bilateral (BLE edema 1+ pitting edema at site of right BKA site greater secondary to DVT) Muscle aches with walking: None Resp Respiratory: Negative for SOB with activity, SOB at rest, SOB orthopnea\SOB lying down or paroxysmal nocturnal dyspnea GI GI: Negative nausea or heartburn : Negative for hematuria Musc Musc: Negative for muscle aches/ myalgia, muscle weakness, joint pain or balance problems Skin Skin: Negative non-healing lesions, unusual bruising or rash Neuro Neuro: Positive for weakness; negative for frequent falls, blurry vision, headache(s), dizziness, lightheadedness, orthostatic symptoms or double vision Hector Hematologic/Lymphatic: Negative for easy bruising Endo Endo: Positive for fatigue; negative for excessive sweating or increased thirst/drinking Psych Psych: Negative for anxiety or depression Allergy Allergy/Immunology: Negative for hives, Negative for rash Cardiology Exam Const Appearance: cooperative, healthy appearing and no acute distress Nutritional Appearance: well nourished Orientation: alert, oriented x3 and oriented to person Head Head: normal to inspection, atraumatic and normocephalic Nose: external nose normal Face and Sinus: face symmetric Mouth: oral mucosae normal Eyes General: appearance normal, both eyes and all related structures Eyelids: eyelids normal Conjunctivae: conjunctivae normal Pupils: PERRL and normal by confrontation EOM: EOM intact bilaterally Neck Neck: normal visual inspection and full ROM Carotids: normal carotid upstroke Chest Chest inspection: normal inspection of the chest Auscultation: Bilateral: Clear to Auscultation Cardio Palpation: normal PMI Rate: regular rate Rhythm: regular rhythm Heart sounds: S1 normal and S2 normal GI GI: normal to inspection, no hepatosplenomegaly and bowel sounds present Neuro General: alert, oriented x3, awake, CN's II-XI intact bilaterally and moves all extremities Skin Skin: no rashes or lesions noted Extremities Pulses: Normal: Left Femoral Pulse, Left Dorsalis Pedis Pulse, Left Posterior Tibial Pulse, Right Radial Pulse, Left Radial Pulse, Absent: Right Dorsalis Pedis Pulse, Right Posterior Tibial Pulse Lower Extremity Edema: None: Bilateral Psych Psychological: normal affect Assessment AND Plan 1. Ischemic cardiomyopathy I25.5 Plan 1. Ischemic cardiac myopathy: The patient has no anginal symptoms since he has undergone angioplasty and stenting of his obtuse marginal. At that time his VEGA to the LAD and saphenous vein graft to the RCA were widely patent. Would recommend continue baby aspirin and Plavix for life given his coronary artery disease, peripheral vascular disease, and LV dysfunction. His blood pressure and heart rate are fairly well-controlled, and his activities are essentially bedbound or in a wheelchair given his prosthesis. Recommend he continue his Coreg, Lasix 40 mrem p.o. twice daily. The patient requires eyeball injections for his diabetic retinopathy, and I believe it is appropriate for the patient to proceed with this going forward. Would like to avoid using Lidoderm with epi if at all possible. Patient is already undergone several injections. 2. Hyperlipidemia: Patient is intolerant to statins and recommend that we initiate gemfibrozil 600 mg p.o. twice daily and repeat lipid profile in 6 weeks time. 2. Presence of automatic implantable cardioverter-defibrillator Z95.[address] [employer] Dr. Ilana Fitzgerald @ [facility] Plan 3. AICD: We will enroll the patient in our AICD defibrillator clinic. Patient has had no firing since implantation. 4. Return office in 6 months. This note was generated using a voice recognition system and there may be incorrect words, spelling or punctuation that were not noted when reviewing the office note prior to saving. Plan Detail Other Medications Discontinued: polyethylene glycol 3350 Discontinued Re17 GM PO DAILY ason: Order Changed oxycodone Discontinued Reason: Order Ch5 mg PO Q6H PRN PRN Mod-Severe Pain (4-10/I96 anged 10) Follow Up +6m (Bert) Coding Level of Care Code Off vis,new,level 4 Diagnoses Ischemic cardiomyopathy I25.5 Presence of automatic implantable cardioverter-defibrillator Z95.810 Coding Level of Care Code Off vis,new,level 4 Diagnoses Ischemic cardiomyopathy I25.5 Presence of automatic implantable cardioverter-defibrillator Z95.810 11/13/17 1148 <Electronically signed by Harrison Noel MD> Date Harrison Noel MD Cosigner Signature: Date (if applicable) CC: VENOUS DUPLEX LOWER Observed: 11/13/2017 Status: F Source: RAZA EXTREMITY 8:45 AM [facility] REPOSITORY [facility] Cardiovascular Services [address] [place] [address] Venous Duplex US, Unilateral 11/11/17 1405 MR#: [id number] Acct: [id number] Name: XUAN FUCHS Rep #: [id number] : 1960 57 From: Tyler Zhu MD Attending Dr: Darius Hartmann MD Status: REG CLI Ordering Dr: Saul Hartmann MD Date: 11/11/17 Location: [facility] Sex: M C Admitted: Reason For Study: edema RIGHT GSV is normal. CFV is compressible, spontaneous, phasic, competent and demonstrates normal augmentation. Prox and Mid FV are compressible with normal venous flow patterns. Distal FV is partially compressible. POP V is dilated and noncompressible with decreased flow. Pt is recent BKA amputation. Procedure Exam performed in department. The exam was diagnostic. A preliminary report was called and/or faxed to [facility]. Pt to go back to [facility]. Interpretation Summary Acute deep vein thrombosis is noted in the right popliteal vein and distal femoral vein. The more proximal portion of the right lower extremity deep venous system is patent and compressible. Valvular competence appears intact within the proximal deep venous system on the right . The right greater saphenous vein appears patent and compressible segmentally. The patient has a right below- knee amputation. Ordering Physician: Darius Hartmann Performed By: Flash Montanez RVT 11/13/17 0844 Date Tyler Zhu MD CC: Darius Hartmann MD; Darius Hartmann MD Date Dictated: 11/11/17 1405 Date Transcribed: 11/13/17 0844 [employer]: Signed CBC W/DIFF, AUTOMATED Collected: 11/06/2017 Status: F Source: RAZA 3:41 PM [facility] REPOSITORY Order Comment: Order Date: 11/06/17 Order Info: [id number] - CBCD Order Info: 38094-9 - SED TYPE CODE TESTS RESULT OUT OF RANGE REFERENCE UNITS LAB L100.1000 4.4-11.0 K/mm3 Normal WBC 5.3 LAB L100.1200 4.6-6.2 M/mm3 Low RBC 4.16 LAB L100.1300 13.0-16.5 g/dl Low HGB 10.8 LAB L100.1400 40-54 % Low HCT 34.2 LAB L100.1500 80-94 fL Normal MCV 82.2 LAB L100.1600 27.0-32.0 pg Low MCH 26.0 LAB L100.1700 32-36 g/gl Low MCHC 31.6 LAB L100.1810 11.6-14.6 % High RDW CV 15.6 LAB L100.1820 35.1-43.9 fl High RDW SD 46.5 LAB L100.1900 150-450 K/mm3 Normal PLT 390 LAB L100.2000 6.2-12.0 fl Normal MPV 9.7 LAB L100.2100 47-70 % Normal NEUT% 50.0 LAB L100.2200 19-41 % Normal LY% 37.8 LAB L100.2300 0-10 % Normal MONO% 8.3 LAB L100.2400 0-5 % Normal EO% 2.7 LAB L100.2500 0-1 % Normal BASO% 0.8 LAB L100.2550 0.0-0.9 % Normal IM GRAN % 0.400 Result Comment: IG% - Immature Granulocytes (promyelocytes, myelocytes and metamyelocytes) > 1% indicates that a LEFT SHIFT is Present. LAB L100.2620 2.0-7.7 X10 3/uL Normal Absolute Neut 2.6 LAB L100.2720 0.83-4.51 X10 3/ul Normal Absolute Lymph 1.99 Performed By: #### L100.0100, L500.4050, L101.9900 #### [facility] [address] [place], [address] COMPREHENSIVE METABOLIC Collected: 11/06/2017 Status: F Source: RAZA CARUSO 3:41 PM [facility] REPOSITORY Order Comment: Order Date: 11/06/17 Order Info: 0786-1 - CMP TYPE CODE TESTS RESULT OUT OF RANGE REFERENCE UNITS LAB L501.0100 74-106 mg/dL High GLU 112 Result Comment: Fasting Glucose result from 100 to 125 mg/dL suggests IMPAIRED HOMEOSTASIS per A.D.A. criteria. Please note revised GLUCOSE reference range effective 2017. LAB L501.1000 7-18 mg/dL Normal BUN 13 LAB L501.1100 0.70-1.30 mg/dL Normal CREAT,SERUM 0.82 Result Comment: The validity of the calculated GFR AND GFRAA in patients over 70 years has not been determined. Clinical correlation is essential. LAB L501.1110 >60 mL/min Normal EST GFR 102 Result Comment: Non- GFR Calc LAB L501.1115 >60 mL/min Normal EST GFR - AA 124 Result Comment: GFR Calc LAB L501.1300 10-20 RATIO Normal BUN/CRE 15.8 LAB L501.1500 6.4-8.2 g/dL T Normal PROT 7.2 LAB L501.1800 3.2-5.0 g/dL Normal ALB 3.2 LAB L501.1950 2.2-4.2 g/dL Normal GLOB 4.0 LAB L501.2000 0.9-2.4 RATIO Low A/G 0.8 LAB L501.2200 8.5-10.1 mg/dL CA Normal 8.6 LAB L501.4100 15-37 U/L Low AST 12 LAB L501.4305 45-117 U/L Normal ALK P 60 LAB L501.4405 16-61 U/L Normal ALT 24 Result Comment: Please note revised ALT reference range effective 2017. LAB L501.4600 0.20-1.00 mg/dL Normal T BILI 0.70 LAB L501.5300 136-145 mmol/L Normal NA 139 LAB L501.5600 3.5-5.1 mmol/L Normal K 4.2 LAB L501.5900 98-107 mmol/L Normal CL 104 LAB L501.6100 21.0-32.0 mmol/L Normal CO2 28.0 LAB L501.6200 5-15 Normal GAP 7 Performed By: #### L100.0100, L500.4050, L101.9900 #### [facility] [address] [place], [address] ERYTHROCYTE SED RATE Collected: 11/06/2017 Status: F Source: [place]IL 3:41 PM [facility] REPOSITORY Order Comment: Order Date: 11/06/17 Order Info: 0184-1 - CBCD Order Info: 49877-5 - SED TYPE CODE TESTS RESULT OUT OF RANGE REFERENCE UNITS LAB L102.0000 0-20 mm/hr Normal SED RATE 16 Performed By: #### L100.0100, L500.4050, L101.9900 #### [facility] [address] [place], [address] CRP Collected: 11/06/2017 Status: F Source: [place] 3:41 PM [facility] REPOSITORY Order Comment: Order Date: 11/06/17 Order Info: 0786-1 - CMP TYPE CODE TESTS RESULT OUT OF RANGE REFERENCE UNITS LAB L501.6710 0.0-3.0 mg/L High 5.61 C-REACTIVE PROT Result Comment: C-Reactive Protein (CRP) provides useful information for the diagnosis, therapy and monitoring of inflammatory processes and associated diseases. For the evaluation of Relative Risk for Cardiovascular Disease, a High Sensitivity CRP (HSCRP) should be ordered. Performed By: #### L501.6710 #### [facility] [address] [place], [address] BNP,B-TYPE NATRIURETIC Collected: 11/06/2017 Status: F Source: [place] PEPTIDE 3:41 PM [facility] REPOSITORY TYPE CODE TESTS RESULT OUT OF RANGE REFERENCE UNITS LAB L503.6620 0-100 pg/mL High B-TYPE 319.3 JHONNY PEP Performed By: #### L503.6620 #### [facility] [address] [place], [place], [address] BEDSIDE GLUCOSE Collected: 10/28/2017 Status: F Source: RAZA 11:09 AM [facility] REPOSITORY TYPE CODE TESTS RESULT OUT OF REFERENCE UNITS RANGE LAB L501.080 70-110 mg/dL High BEDSIDE GLU 177 Result Comment: MANAGEMENT OF PATIENT CARE PER NURSING PROTOCOL Performed By: #### L501.080 #### [facility] Point of Care [address] [place], [place] [address] BEDSIDE GLUCOSE Collected: 10/28/2017 Status: F Source: RAZA 6:39 AM [facility] REPOSITORY TYPE CODE TESTS RESULT OUT OF REFERENCE UNITS RANGE LAB L501.080 70-110 mg/dL High BEDSIDE GLU 231 Result Comment: MANAGEMENT OF PATIENT CARE PER NURSING PROTOCOL Performed By: #### L501.080 #### [facility] Point of Care [address] [place] [address] BEDSIDE GLUCOSE Collected: 10/28/2017 Status: F Source: RAZA 5:04 AM [facility] REPOSITORY TYPE CODE TESTS RESULT OUT OF RANGE REFERENCE UNITS LAB L501.080 70-110 mg/dL Normal BEDSIDE GLU 101 Result Comment: MANAGEMENT OF PATIENT CARE PER NURSING PROTOCOL Performed By: #### L501.080 #### [facility] Point of Care [address] [place] [address] BEDSIDE GLUCOSE Collected: 10/28/2017 Status: F Source: RAZA 4:47 AM [facility] REPOSITORY TYPE CODE TESTS RESULT OUT OF REFERENCE UNITS RANGE LAB L501.080 70-110 mg/dL Low BEDSIDE GLU 61 Result Comment: MANAGEMENT OF PATIENT CARE PER NURSING PROTOCOL Performed By: #### L501.080 #### [facility] Point of Care [address] [place] [address] BEDSIDE GLUCOSE Collected: 10/27/2017 Status: F Source: RAZA 9:06 PM [facility] REPOSITORY TYPE CODE TESTS RESULT OUT OF REFERENCE UNITS RANGE LAB L501.080 70-110 mg/dL High BEDSIDE GLU 292 Result Comment: Dr Rojas Followed MANAGEMENT OF PATIENT CARE PER NURSING PROTOCOL Performed By: #### L501.080 #### [facility] Point of Care [address] [place] [address] HOME HEALTH PROGRESS Observed: 10/27/2017 Status: F Source: RAZA NOTE 8:36 PM [facility] REPOSITORY [facility] Medical Records Department [address] [place] [address] Home Health Progress Note Muyi-go-Uvto Encounter Encounter Date: 10/27/172034 MR#: [id number] Acct: [id number] Name: XUAN FUCHS Rep #: [id number] : 1960 57 From: Brain Diez MD PCP: Darius Hartmann MD Status: ADM IN Location: [place] [address] Home Health Note - Plan Overview of reason of hospitalization: The patient is a 57 year old Male with below past medical history hospitalized for right foot gangrene, 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 [] Discharge home with spouse, and Home Health Services. Home health ordered. Problems: Patient was seen for Gangrene of right foot (Acute) Diabetes mellitus (Chronic) Chronic systolic heart failure (Chronic) Hypertension (Chronic) Atrial fibrillation (Chronic) Peripheral arterial occlusive disease (Chronic) Osteoarthritis (Chronic) Polyneuropathy (Chronic) Complete List of Medical Problems Gangrene of right foot (Acute) Diabetes mellitus (Chronic) Chronic systolic heart failure (Chronic) Hypertension (Chronic) Atrial fibrillation (Chronic) Peripheral arterial occlusive disease (Chronic) Osteoarthritis (Chronic) Polyneuropathy (Chronic) - Requirements and Reasons Disciplines Needed/Ordered: Half-Way, Physical Therapy Reason for Disciplines: Disease Specific Monitoring/education, Medication Management/Knowledge Deficit, Wound Care, Gait Training, Stair Training, Fall Prevention, Home Safety/Equipment Instruction, Balance and/or Posture Training, Transfer Training Related To: Limited/Poor Endurance, Physical Impairments, Unsteady Gait/Balance, Fall Risk Patient is unable to leave the home: Without Aid of Supportive Devices (crutches, cane, wheelchair, walker), Without the assistance of another person - Additional Disciplines Additional Disciplines Needed/Ordered: Occupational Therapy 10/27/172035 <Electronically signed by Brain Diez MD> Date Brain Diez MD [facility] Signature (if indicated): Date CC: Signed DISCHARGE SUMMARY Observed: 10/27/2017 Status: F Source: RAZA 8:35 PM [facility] REPOSITORY [facility] Medical Records Department [address] [place] [address] Discharge Summary 10/27/172032 MR#: [id number] Acct: [id number] Name: XUAN FUCHS Rep #: [id number] : 1960 57 From: Brain Diez MD PCP: Darius Hartmann MD Status: ADM IN Y Location: [place] [address] Discharge Date and Diagnosis - Problem List Patient Problems: Active and Suspected Problems Gangrene of right foot (Acute) Date of Admission: 10/23/17 Date of Discharge: 10/28/17 - Primary Discharge Diagnosis Active and Suspected Problems Gangrene of right foot (Acute) - Secondary Discharge Diagnosis Chronic Problems Diabetes mellitus (Chronic) Chronic systolic heart failure (Chronic) Hypertension (Chronic) Atrial fibrillation (Chronic) Peripheral arterial occlusive disease (Chronic) Osteoarthritis (Chronic) Polyneuropathy (Chronic) Hospital Course and Treatment Imaging Results: 10/23/17 16:24 Diet: Cardiac: Calorie-Controlled Food consistency:: Regular Liquid Consistency:: Regular/Thin Is pt able to select menu?: Yes How many daily calories?: 1800 calorie Labs (Last 48 Hours) POC Glucose 145 H 149 H 366 H POC Glucose 207 H 265 H 119 H POC Glucose 99 200 H Operations: None Procedures: None Summary of Care Provided: The patient is a 57 year old Male with below past medical history hospitalized for right foot gangrene, 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 [] Discharge home with spouse, and Home Health Services. Home health ordered. Discharge Diet: No Restrictions Discharge Activity: Return to Normal Activity, Use Walker Weight Bearing Status: Weight bearing as tolerated Call your doctor if you observe: Fever of 101 or Higher, Inability to urinate, Inability to have a bowel movement, Shortness of breath, Chest pain, Uncontrolled pain Home Medications: Medications to take at Discharge Insulin Glargine [Lantus SoloStar Pen] 70 units SC DAILY 09/16/14 Pregabalin [Lyrica] 200 mg PO DAILY 10/22/15 Carvedilol [Coreg (Beta Toño)] 12.5 tab PO BID 08/29/17 Furosemide 1 tab PO DAILY 08/29/17 Metformin HCl [Glucophage] 500 mg PO BREAKFAST 08/29/17 Sacubitril/Valsartan 49-51 mg [Entresto 49 mg-51 mg Tablet] 1 tab PO BID 08/29/17 Ascorbic Acid [Vitamin C] 500 mg PO BID 10/10/17 Aspirin [Adult Aspirin Regimen] 81 mg PO DAILY 10/10/17 Clopidogrel Bisulfate [Plavix] 75 mg PO DAILY 10/10/17 Nitroglycerin [Nitro-Dur] 0.4 mg TRANSDERM. DAILY 10/10/17 Acetaminophen [Tylenol] 1,000 mg PO Q8H PRN PRN tablet 10/27/17 Nutritional Supplement [Naresh - ORANGE FLAVOR] 1 packet PO BIDCM #60 packet 10/27/17 Oxycodone [Oxyir] 5 mg PO Q6H PRN PRN #30 tablet 10/27/17 Polyethylene Glycol 3350 [Miralax] 17 gm PO DAILY #30 packet 10/27/17 Senna/Docusate Sodium [Senokot-S] 2 tab PO BID #120 tab 10/27/17 TraMADol [Ultram] 50 mg PO Q6H PRN PRN #30 tablet 10/27/17 Following Prescrptions Were Given to Patient: Oxycodone [Oxyir] 5 mg PO Q6H PRN PRN #30 tablet PRN Reason: Mod-Severe Pain (4-10/10) TraMADol [Ultram] 50 mg PO Q6H PRN PRN #30 tablet PRN Reason: Moderate Pain (4-5/10) Polyethylene Glycol 3350 [Miralax] 17 gm PO DAILY #30 packet Nutritional Supplement [Naresh - ORANGE FLAVOR] 1 packet PO BIDCM #60 packet Senna/Docusate Sodium [Senokot-S] 2 tab PO BID #120 tab Primary Care Physician: Saul Hartmann MD [Primary Care Provider] - Please follow up with your Primary Care Physician in: 1 week. Please Follow Up With: Dr Mijares When: 2 weeks. Please Follow Up With: Dr. Vazquez Disposition: Home with Home Health Minutes spent on discharge:: 35 Patient Condition:: Good Medical Necessity - Tobacco Use Smoking Status: Former smoker Tobacco Use: Non-smoker Meaningful Use Info Meaningful Use Diagnoses (Choose all that apply): None applicable 10/27/172034 <Electronically signed by Brain Diez MD> Date [facility]if applicable): Date CC: Darius Hartmann MD; Darius Hartmann MD; Brain Diez MD Signed DISCHARGE INSTRUCTION Observed: 10/27/2017 Status: F Source: [place] 8:33 PM [facility] REPOSITORY [facility] Medical Records Department [address] [place] [id number] Instructions for Home/Discharge Instructions 10/27/172030 MR#: [id number] Acct: [id number] Name: XUAN FUCHS Rep #: [id number] : 1960 57 From: Brain Diez MD PCP: Darius Hartmann MD Status: ADM IN - Discharge Diagnoses Current Active Problems: Current Active and Chronic Problems Gangrene of right foot (Acute) Diabetes mellitus (Chronic) Chronic systolic heart failure (Chronic) Hypertension (Chronic) Atrial fibrillation (Chronic) Peripheral arterial occlusive disease (Chronic) Osteoarthritis (Chronic) Polyneuropathy (Chronic) You will use the following diet at home:: No restrictions, Regular Your food should be the consistency of: Regular Your liquids should be the consistency of: Regular/Thin Discharge Activity: Return to Normal Activity, Use Walker Weight Bearing Status: Weight bearing as tolerated Call your doctor if you observe: Fever of 101 or Higher, Inability to urinate, Inability to have a bowel movement, Shortness of breath, Chest pain, Uncontrolled pain Allergies/Adverse Reactions: Allergies Penicillins Allergy (Verified 10/10/17 20:05) Hives pioglitazone HCl [From Actos] Allergy (Verified 10/10/17 20:05) Swelling Cecocom-Gvv-Xne Reductase Inhibitor Allergy (Verified 10/10/17 20:05) Unknown gabapentin [From Neurontin] Adverse Reaction (Verified 10/10/17 20:05) Other Medications to take at Discharge Insulin Glargine [Lantus SoloStar Pen] 70 units SC DAILY 09/16/14 Pregabalin [Lyrica] 200 mg PO DAILY 10/22/15 Carvedilol [Coreg (Beta Toño)] 12.5 tab PO BID 08/29/17 Furosemide 1 tab PO DAILY 08/29/17 Metformin HCl [Glucophage] 500 mg PO BREAKFAST 08/29/17 Sacubitril/Valsartan 49-51 mg [Entresto 49 mg-51 mg Tablet] 1 tab PO BID 08/29/17 Ascorbic Acid [Vitamin C] 500 mg PO BID 10/10/17 Aspirin [Adult Aspirin Regimen] 81 mg PO DAILY 10/10/17 Clopidogrel Bisulfate [Plavix] 75 mg PO DAILY 10/10/17 Nitroglycerin [Nitro-Dur] 0.4 mg TRANSDERM. DAILY 10/10/17 Acetaminophen [Tylenol] 1,000 mg PO Q8H PRN PRN tablet 10/27/17 Nutritional Supplement [Naresh - ORANGE FLAVOR] 1 packet PO BIDCM #60 packet 10/27/17 Oxycodone [Oxyir] 5 mg PO Q6H PRN PRN #30 tablet 10/27/17 Polyethylene Glycol 3350 [Miralax] 17 gm PO DAILY #30 packet 10/27/17 Senna/Docusate Sodium [Senokot-S] 2 tab PO BID #120 tab 10/27/17 TraMADol [Ultram] 50 mg PO Q6H PRN PRN #30 tablet 10/27/17 The following prescriptions were given: Oxycodone [Oxyir] 5 mg PO Q6H PRN PRN #30 tablet PRN Reason: Mod-Severe Pain (4-10/10) TraMADol [Ultram] 50 mg PO Q6H PRN PRN #30 tablet PRN Reason: Moderate Pain (4-5/10) Polyethylene Glycol 3350 [Miralax] 17 gm PO DAILY #30 packet Nutritional Supplement [Naresh - ORANGE FLAVOR] 1 packet PO BIDCM #60 packet Senna/Docusate Sodium [Senokot-S] 2 tab PO BID #120 tab Primary Care Physician: Saul Hartmann MD [Primary Care Provider] - Please follow up with your Primary Care Physician in: 1 week. Please Follow Up With: Dr Mijares When: 2 weeks. Proposed Discharge Date: 10/28/17 10/27/172032 <Electronically signed by Brain Diez MD> Date Brain Diez MD CC: Darius Hartmann MD; Darius Hartmann MD BEDSIDE GLUCOSE Collected: 10/27/2017 Status: F Source: RAZA 5:35 PM [facility] REPOSITORY TYPE CODE TESTS RESULT OUT OF REFERENCE UNITS RANGE LAB L501.080 70-110 mg/dL High BEDSIDE GLU 200 Result Comment: Dr Rojas Followed MANAGEMENT OF PATIENT CARE PER NURSING PROTOCOL Performed By: #### L501.080 #### [facility] Point of Care [address] [place] [address] BEDSIDE GLUCOSE Collected: 10/27/2017 Status: F Source: [place] 11:14 AM [facility] REPOSITORY TYPE CODE TESTS RESULT OUT OF RANGE REFERENCE UNITS LAB L501.080 70-110 mg/dL Normal BEDSIDE GLU 99 Result Comment: MANAGEMENT OF PATIENT CARE PER NURSING PROTOCOL Performed By: #### L501.080 #### [facility] Point of Care [address] [place] [address] BEDSIDE GLUCOSE Collected: 10/27/2017 Status: F Source: RAZA 6:18 AM [facility] REPOSITORY TYPE CODE TESTS RESULT OUT OF REFERENCE UNITS RANGE LAB L501.080 70-110 mg/dL High BEDSIDE GLU 119 Result Comment: MANAGEMENT OF PATIENT CARE PER NURSING PROTOCOL Performed By: #### L501.080 #### [facility] Point of Care [address] [place] [address] BEDSIDE GLUCOSE Collected: 10/26/2017 Status: F Source: RAZA 9:00 PM [facility] REPOSITORY TYPE CODE TESTS RESULT OUT OF REFERENCE UNITS RANGE LAB L501.080 70-110 mg/dL High BEDSIDE GLU 265 Result Comment: MANAGEMENT OF PATIENT CARE PER NURSING PROTOCOL Performed By: #### L501.080 #### [facility] Point of Care [address] [place] [address] BEDSIDE GLUCOSE Collected: 10/26/2017 Status: F Source: RAZA 4:44 PM [facility] REPOSITORY TYPE CODE TESTS RESULT OUT OF REFERENCE UNITS RANGE LAB L501.080 70-110 mg/dL High BEDSIDE GLU 207 Result Comment: MANAGEMENT OF PATIENT CARE PER NURSING PROTOCOL Performed By: #### L501.080 #### [facility] Point of Care [address] [place] [address] BEDSIDE GLUCOSE Collected: 10/26/2017 Status: F Source: RAZA 11:27 AM [facility] REPOSITORY TYPE CODE TESTS RESULT OUT OF REFERENCE UNITS RANGE LAB L501.080 70-110 mg/dL High BEDSIDE GLU 366 Result Comment: MANAGEMENT OF PATIENT CARE PER NURSING PROTOCOL Performed By: #### L501.080 #### [facility] Point of Care [address] [place] [address] BEDSIDE GLUCOSE Collected: 10/26/2017 Status: F Source: RAZA 6:40 AM [facility] REPOSITORY TYPE CODE TESTS RESULT OUT OF REFERENCE UNITS RANGE LAB L501.080 70-110 mg/dL High BEDSIDE GLU 149 Result Comment: MANAGEMENT OF PATIENT CARE PER NURSING PROTOCOL Performed By: #### L501.080 #### [facility] Point of Care [address] [place] [address] BEDSIDE GLUCOSE Collected: 10/25/2017 Status: F Source: RAZA 9:09 PM [facility] REPOSITORY TYPE CODE TESTS RESULT OUT OF REFERENCE UNITS RANGE LAB L501.080 70-110 mg/dL High BEDSIDE GLU 145 Result Comment: MANAGEMENT OF PATIENT CARE PER NURSING PROTOCOL Performed By: #### L501.080 #### [facility] Point of Care [address] [place] [address] BEDSIDE GLUCOSE Collected: 10/25/2017 Status: F Source: RAZA 7:29 PM [facility] REPOSITORY TYPE CODE TESTS RESULT OUT OF REFERENCE UNITS RANGE LAB L501.080 70-110 mg/dL High BEDSIDE GLU 170 Result Comment: MANAGEMENT OF PATIENT CARE PER NURSING PROTOCOL Performed By: #### L501.080 #### [facility] Point of Care [address] [place] [address] BEDSIDE GLUCOSE Collected: 10/25/2017 Status: F Source: RAZA 11:28 AM [facility] REPOSITORY TYPE CODE TESTS RESULT OUT OF REFERENCE UNITS RANGE LAB L501.080 70-110 mg/dL High BEDSIDE GLU 154 Result Comment: MANAGEMENT OF PATIENT CARE PER NURSING PROTOCOL Performed By: #### L501.080 #### [facility] Point of Care [address] [place] [address] BEDSIDE GLUCOSE Collected: 10/25/2017 Status: F Source: RAZA 6:22 AM [facility] REPOSITORY TYPE CODE TESTS RESULT OUT OF REFERENCE UNITS RANGE LAB L501.080 70-110 mg/dL High BEDSIDE GLU 114 Result Comment: MANAGEMENT OF PATIENT CARE PER NURSING PROTOCOL Performed By: #### L501.080 #### [facility] Point of Care [address] [place] [address] BEDSIDE GLUCOSE Collected: 10/24/2017 Status: F Source: RAZA 8:44 PM [facility] REPOSITORY TYPE CODE TESTS RESULT OUT OF REFERENCE UNITS RANGE LAB L501.080 70-110 mg/dL High BEDSIDE GLU 336 Result Comment: Dr Orders Followed MANAGEMENT OF PATIENT CARE PER NURSING PROTOCOL Performed By: #### L501.080 #### [facility] Point of Care [address] [place] [address] BEDSIDE GLUCOSE Collected: 10/24/2017 Status: F Source: RAZA 4:58 PM [facility] REPOSITORY TYPE CODE TESTS RESULT OUT OF REFERENCE UNITS RANGE LAB L501.080 70-110 mg/dL High BEDSIDE GLU 279 Result Comment: Dr Orders Followed MANAGEMENT OF PATIENT CARE PER NURSING PROTOCOL Performed By: #### L501.080 #### [facility] Point of Care [address] [place] [address] BEDSIDE GLUCOSE Collected: 10/24/2017 Status: F Source: RAZA 11:35 AM [facility] REPOSITORY TYPE CODE TESTS RESULT OUT OF REFERENCE UNITS RANGE LAB L501.080 70-110 mg/dL High BEDSIDE GLU 267 Result Comment: MANAGEMENT OF PATIENT CARE PER NURSING PROTOCOL Performed By: #### L501.080 #### [facility] Point of Care [address] [place] [address] HISTORY AND PHYSICAL Observed: 10/24/2017 Status: F Source: RAZA EXAM 8:57 AM [facility] REPOSITORY [facility] Medical Records Department [address] [place] [address] History and Physical 10/23/17 2254 MR#: [id number] Acct: [id number] Name: XUAN FUCHS Rep #: [id number] : 1960 57 From: Brain Diez MD PCP: Darius Hartmann MD Status: ADM IN Y Location: [facility] [place] [address] Problem List (1) Gangrene of right foot Status: Acute (2) Diabetes mellitus Status: Chronic (3) Chronic systolic heart failure Status: Chronic (4) Hypertension Status: Chronic (5) Atrial fibrillation Status: Chronic (6) Peripheral arterial occlusive disease Status: Chronic (7) Osteoarthritis Status: Chronic (8) Polyneuropathy Status: Chronic History of Present Illness Date of Admission: 10/23/17 Chief Complaint: Here for rehabilitation, strengthening, prior to discharge home with spouse. The patient is a 57 year old Male with below past medical history hospitalized at [facility] for right foot gangrene. 10/03/2017 Vascular surgery performed left peroneal artery surgery. 10/20/2017 Dr. Mijares performed right below knee amputation. 10/23/2017 Admit to TCU for rehabilitation, strengthening, prior to discharge home with spouse. Past Medical History Past Medical History (Chronic Problems): Chronic Problems Diabetes mellitus (Chronic) Chronic systolic heart failure (Chronic) Hypertension (Chronic) Atrial fibrillation (Chronic) Peripheral arterial occlusive disease (Chronic) Osteoarthritis (Chronic) Polyneuropathy (Chronic) Allergies Penicillins Allergy (Verified 10/10/17 20:05) Hives pioglitazone HCl [From Actos] Allergy (Verified 10/10/17 20:05) Swelling Ihabime-Bai-Yjx Reductase Inhibitor Allergy (Verified 10/10/17 20:05) Unknown gabapentin [From Neurontin] Adverse Reaction (Verified 10/10/17 20:05) Other Home Medications: Ambulatory Orders Medication Instructions Recorded Insulin Glargine [Lantus SoloStar 70 units SC DAILY 09/16/14 Surgical History: angioplasty - with stent., coronary bypass surgery, pacemaker implantation - defibrillator., - - Right BKA, back surgery, left peroneal artery surgery. Psychiatric History: No pertinent psych hx Lives: Spouse/ Significant Other Smoking Status: Former smoker Tobacco Use: Non-smoker Alcohol: None Drugs: None - *Family History Maternal History Items: No pertinent history Paternal History Items: No pertinent history Review of Systems Constitutional: Denies: Chills, Fever, Weight Change HEENT: Denies: Head Aches, Sinus Congestion, Sinus Drainage Cardiovascular: Denies: Chest Pain, Palpitations Respiratory: Denies: Cough, Shortness of breath at rest, Sputum production Gastrointestinal: Denies: Abdominal Pain, Nausea, Vomiting Genitourinary: Denies: Dysuria Musculoskeletal: Denies: Joint Pain, Joint Tenderness Skin: Denies: Rash, Wounds Neurological: Denies: Numbness, Tingling, Focal weakness Psychiatric: Denies: Anxiety, Depression, Homicidal Ideations, Suicidal Ideations Hematologic/ Lymphatic: Denies: Easy Bruising, Easy Bleeding VTE Information - Inpt Only VTE Present on Admission: No VTE Mechan Device Prophylaxis: Knee High QUIRINO Hose VTE Pharm Prophylaxis ordered?: Yes Patient Problems: Active and Suspected Problems Gangrene of right foot (Acute) - Physical Exam General: Alert, Oriented x3, Cooperative HEENT: Atraumatic, PERRLA, EOMI, Normocephalic Neck: Supple, No JVD, Negative Carotid Bruits Lungs: Clear to auscultation, Normal air movement Cardiovascular: Regular rate, No murmurs Abdomen: Bowel Sounds Present, Soft, Non Tender Extremities: No edema, Capillary Refill Less than 3 Seconds, - - Right below knee amputation. Skin: No rashes, No breakdown Musculoskeletal: No Tenderness to Palpation of Joints or Extremities, - - Right below knee amputation. Neurological: Cranial nerves II-XII grossly intact Psych/Mental Status: Normal Affect, Appropriate Vital Signs Temp Pulse Resp BP Pulse Ox 97.8 F 95 20 H 102/54 L 96 10/23/17 15:04 10/23/17 15:04 10/23/17 15:04 10/23/17 15:04 10/23/17 15:04 Oxygen Delivery Method Room Air Weight: 101.831 kg Body Mass Index (BMI) 32.1 Finger Stick Blood Glucose 250 Intake and Output for Last 24 Hours Intake Total 240 / 240 Balance 240 / 240 POC Glucose POC Glucose 304 H 256 H Assessment/Plan Active and Suspected Problems Gangrene of right foot (Acute) 57 year old male with below past medical history hospitalized for right foot gangrene, 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 * Debility - PT/OT. * Pain - Tylenol 1000MG Q8H PRN mild pain, Tramadol 50MG Q6H PRN moderate pain, Oxycodone 5MG Q6H PRN severe pain. * Bowel - Miralax 17GM daily, Senna/colace 2 tablets BID, Dulcolax 10MG MO daily PRN. * Pneumonia vaccination - Administer Prevnar 13 and/or Pneumovax 23 as necessary. * DVT prophylaxis - Lovenox 40MG SC daily. * Vitamin C deficiency - Vitamin C 500MG BID. * Coronary Artery Disease status post CABG, stent - Coreg 12.5MG BID, Aspirin 81MG daily, Plavix 75MG daily, NTG 0.4MG TD daily. * Chronic systolic heart failure - Coreg 12.5MG BID, Entresto 49/51MG BID, NTG 0.4MG TD daily, Lasix 40MG daily. * Diabetes Mellitus II - Metformin 500MG QAM, Levemir 70 units daily. * Diabetic polyneuropathy - Lyrica 200MG daily. 10/24/17 0857 <Electronically signed by Brain Diez MD> Date Brain Diez MD Cosigner Signature: Date (if applicable) CC: Darius Hartmann MD; Darius Hartmann MD; Brain Diez MD Signed CBC W/DIFF, AUTOMATED Collected: 10/24/2017 Status: F Source: RAZA 6:03 AM [facility] REPOSITORY TYPE CODE TESTS RESULT OUT OF RANGE REFERENCE UNITS LAB L100.1000 4.4-11.0 K/mm3 Normal WBC 6.3 LAB L100.1200 4.6-6.2 M/mm3 Low RBC 3.86 LAB L100.1300 13.0-16.5 g/dl Low HGB 9.8 LAB L100.1400 40-54 % Low HCT 31.0 LAB L100.1500 80-94 fL Normal MCV 80.3 LAB L100.1600 27.0-32.0 pg Low MCH 25.4 LAB L100.1700 32-36 g/gl Low MCHC 31.6 LAB L100.1810 11.6-14.6 % Normal RDW CV 14.3 LAB L100.1820 35.1-43.9 fl Normal RDW SD 40.9 LAB L100.1900 150-450 K/mm3 Normal PLT 181 LAB L100.2000 6.2-12.0 fl Normal MPV 9.4 LAB L100.2100 47-70 % Normal NEUT% 69.1 LAB L100.2200 19-41 % Normal LY% 22.0 LAB L100.2300 0-10 % Normal MONO% 6.4 LAB L100.2400 0-5 % Normal EO% 1.9 LAB L100.2500 0-1 % Normal BASO% 0.3 LAB L100.2550 0.0-0.9 % Normal IM GRAN % 0.300 Result Comment: IG% - Immature Granulocytes (promyelocytes, myelocytes and metamyelocytes) > 1% indicates that a LEFT SHIFT is Present. LAB L100.2620 2.0-7.7 X10 3/uL Normal Absolute Neut 4.3 LAB L100.2720 0.83-4.51 X10 3/ul Normal Absolute Lymph 1.38 Performed By: #### L100.0100 #### [facility] [address] [place], [address] BASIC METABOLIC Collected: 10/24/2017 Status: F Source: RAZA PROFILE (BMP) 6:03 AM [facility] REPOSITORY TYPE CODE TESTS RESULT OUT OF RANGE REFERENCE UNITS LAB L501.0100 74-106 mg/dL High GLU 273 Result Comment: Glucose result greater than or equal to 200 mg/dL suggests DIABETES MELLITUS per A.D.A. criteria. Please note revised GLUCOSE reference range effective 2017. LAB L501.1000 7-18 mg/dL Normal BUN 15 LAB L501.1100 0.70-1.30 mg/dL Normal CREAT,SERUM 0.76 Result Comment: The validity of the calculated GFR AND GFRAA in patients over 70 years has not been determined. Clinical correlation is essential. LAB L501.1110 >60 mL/min Normal EST GFR 113 Result Comment: Non- GFR Calc LAB L501.1115 >60 mL/min Normal EST GFR - AA 136 Result Comment: GFR Calc LAB L501.1255 ml/min Normal Estimated CRCL 110.73 LAB L501.1300 10-20 RATIO BUN/CRE Normal 19.8 LAB L501.2200 8.5-10 mg/dL Low .1 CA 8.1 LAB L501.5300 136-14 mmol/L Low 5 NA 133 LAB L501.5600 3.5-5. mmol/L 1 K Normal 4.4 LAB L501.5900 98-107 mmol/L CL Normal 102 LAB L501.6100 21.0-3 mmol/L 2.0 CO2 Normal 24.0 LAB L501.6200 5-15 GAP Normal 7 Performed By: #### L500.2500 #### [facility] [address] [place], [place], [address] BEDSIDE GLUCOSE Collected: 10/24/2017 Status: F Source: RAZA 5:52 AM [facility] REPOSITORY TYPE CODE TESTS RESULT OUT OF REFERENCE UNITS RANGE LAB L501.080 70-110 mg/dL High BEDSIDE GLU 284 Result Comment: MANAGEMENT OF PATIENT CARE PER NURSING PROTOCOL Performed By: #### L501.080 #### [facility] Point of Care [address] [place] [address] BEDSIDE GLUCOSE Collected: 10/23/2017 Status: F Source: [place] 8:50 PM [facility] REPOSITORY TYPE CODE TESTS RESULT OUT OF REFERENCE UNITS RANGE LAB L501.080 70-110 mg/dL High BEDSIDE GLU 304 Result Comment: Orders Followed MANAGEMENT OF PATIENT CARE PER NURSING PROTOCOL Performed By: #### L501.080 #### [facility] Point of Care [address] [place] [address] BEDSIDE GLUCOSE Collected: 10/23/2017 Status: F Source: [place] 4:59 PM [facility] REPOSITORY TYPE CODE TESTS RESULT OUT OF REFERENCE UNITS RANGE LAB L501.080 70-110 mg/dL High BEDSIDE GLU 256 Result Comment: Orders Followed MANAGEMENT OF PATIENT CARE PER NURSING PROTOCOL Performed By: #### L501.080 #### [facility] Point of Care [address] [place] [address] GLUCOSE,BEDSIDE Collected: 10/23/2017 Status: F Source: [place] 11:27 AM SYSTEM REPOSITORY TYPE CODE TESTS RESULT OUT OF RANGE REFERENCE UNITS LAB BGLU 70-100 mg/dL High 194 Glucose,Beds edison Result Comment: Test performed by glucose meter. Results may be 10%-15% lower than serum/plasma values. (CLIA ID [id number]) Performed By: #### BGLU #### The performing lab is in the report. HEMOGRAM W/ AUTODIFF Collected: 10/23/2017 Status: F Source: [place] 2:20 AM SYSTEM REPOSITORY TYPE CODE TESTS RESULT OUT OF REFERENCE UNITS RANGE LAB IWBC 3.6-10.7 10*3/uL WBC 7.8 LAB RBC 4.40-5.90 10*6/uL Low RBC 3.98 LAB HGB 13.0-18.0 g/dL Low Hemoglobin 10.4 LAB HCT 40.0-52.0 % Low Hematocrit 31.1 LAB MCV 80.0-98.0 fL Low MCV 78.2 LAB MCH 26.0-34.0 pg MCH 26.0 LAB MCHC 32.0-36.0 % MCHC 33.3 LAB RDW 11.5-14.5 % RDW 14.5 LAB PLT 140-440 10*3/uL Platelet 159 LAB MPV 7.4-10.4 fL MPV 8.4 LAB GRAN% 40.0-80.0 % Granulocytes 63.5 LAB LYMP% 20.0-40.0 % Lymphocytes 25.4 LAB MONO% 2.0-10.0 % Monocytes 8.5 LAB EOS% 1.0-6.0 % Eosinophils 2.2 LAB BAS% 0.0-2.0 % Basophils 0.4 LAB ANC 1.8-7.0 10*3/uL Abs Neutrophile Cnt 5.0 LAB ALC 1.0-4.3 10*3/uL Abs Lymph Cnt 2.0 LAB AMC 0.0-0.8 10*3/uL Abs Monocyte Cnt 0.7 LAB AEC 0.0-0.5 10*3/uL Abs Eosin Cnt 0.2 LAB ABC 0.0-0.2 10*3/uL Abs Baso Cnt 0.0 Performed By: #### HEMJOSE MARIA BMP3 #### The performing lab is in the report. BASIC METABOLIC PANEL Collected: 10/23/2017 Status: F Source: [place] 2:20 AM SYSTEM REPOSITORY TYPE CODE TESTS RESULT OUT OF REFERENCE UNITS RANGE LAB NA3 137-145 mmol/L Low Sodium 136 LAB K3 3.5-5.1 mmol/L Potassium 4.1 LAB CL3 98-107 mmol/L Chloride 102 LAB CO23 22-30 mmol/L Carbon Dioxide 27 LAB ANIN3 Anion Gap 7 LAB GLUC3 70-100 mg/dL Glucose High 142 LAB BUN3 7-20 mg/dL Urea Nitrogen 18 LAB CRET3 0.52-1.25 mg/dL Creatinine 0.82 LAB GF3BR >60 mL/min eGFR >60.0 LAB GF3WR >60 mL/min eGFR OTHER >60.0 Result Comment: Source- MDRD equation with creatinine calibration to IDMS(NKDEP) eGFR not recommended for drug dose adjustment LAB CA3 8.4-10.2 mg/dL Low Calcium 8.2 Performed By: #### HEMDF, BMP3 #### The performing lab is in the report. HEMOGRAM W/ AUTODIFF Collected: 10/22/2017 Status: F Source: [place] 2:59 AM SYSTEM REPOSITORY TYPE CODE TESTS RESULT OUT OF REFERENCE UNITS RANGE LAB IWBC 3.6-10.7 10*3/uL WBC 6.8 LAB RBC 4.40-5.90 10*6/uL Low RBC 3.96 LAB HGB 13.0-18.0 g/dL Low Hemoglobin 10.4 LAB HCT 40.0-52.0 % Low Hematocrit 30.5 LAB MCV 80.0-98.0 fL Low MCV 77.2 LAB MCH 26.0-34.0 pg MCH 26.3 LAB MCHC 32.0-36.0 % MCHC 34.1 LAB RDW 11.5-14.5 % RDW 14.1 LAB PLT 140-440 10*3/uL Low Platelet 136 LAB MPV 7.4-10.4 fL MPV 8.7 LAB GRAN% 40.0-80.0 % Granulocytes 61.9 LAB LYMP% 20.0-40.0 % Lymphocytes 29.7 LAB MONO% 2.0-10.0 % Monocytes 7.4 LAB EOS% 1.0-6.0 % Low Eosinophils 0.7 LAB BAS% 0.0-2.0 % Basophils 0.3 LAB ANC 1.8-7.0 10*3/uL Abs Neutrophile Cnt 4.2 LAB ALC 1.0-4.3 10*3/uL Abs Lymph Cnt 2.0 LAB AMC 0.0-0.8 10*3/uL Abs Monocyte Cnt 0.5 LAB AEC 0.0-0.5 10*3/uL Abs Eosin Cnt 0.0 LAB ABC 0.0-0.2 10*3/uL Abs Baso Cnt 0.0 Performed By: #### MAXX HAYES BMP3 #### The performing lab is in the report. VANCOMYCIN TROUGH Collected: 10/22/2017 Status: F Source: [place] 2:59 AM SYSTEM REPOSITORY TYPE CODE TESTS RESULT OUT OF REFERENCE UNITS RANGE LAB VNCT 5.0-10.0 ug/mL High Vancomycin 14.8 Trough Result Comment: . Performed By: #### MAXX HAYES BMP3 #### The performing lab is in the report. BASIC METABOLIC PANEL Collected: 10/22/2017 Status: F Source: [place] 2:59 AM SYSTEM REPOSITORY TYPE CODE TESTS RESULT OUT OF REFERENCE UNITS RANGE LAB NA3 137-145 mmol/L Low Sodium 135 LAB K3 3.5-5.1 mmol/L Potassium 3.8 LAB CL3 98-107 mmol/L Chloride 102 LAB CO23 22-30 mmol/L Carbon Dioxide 25 LAB ANIN3 Anion Gap 8 LAB GLUC3 70-100 mg/dL Glucose High 221 LAB BUN3 7-20 mg/dL Urea Nitrogen 19 LAB CRET3 0.52-1.25 mg/dL Creatinine 0.82 LAB GF3BR >60 mL/min eGFR >60.0 LAB GF3WR >60 mL/min eGFR OTHER >60.0 Result Comment: Source- MDRD equation with creatinine calibration to IDMS(NKDEP) eGFR not recommended for drug dose adjustment LAB CA3 8.4-10.2 mg/dL Calcium 8.4 Performed By: #### HEMDF, MARCELAT, BMP3 #### The performing lab is in the report. HEMOGRAM W/ AUTODIFF Collected: 10/21/2017 Status: F Source: [place] 4:09 AM SYSTEM REPOSITORY TYPE CODE TESTS RESULT OUT OF REFERENCE UNITS RANGE LAB IWBC 3.6-10.7 10*3/uL WBC 6.2 LAB RBC 4.40-5.90 10*6/uL Low RBC 4.18 LAB HGB 13.0-18.0 g/dL Low Hemoglobin 10.7 LAB HCT 40.0-52.0 % Low Hematocrit 32.7 LAB MCV 80.0-98.0 fL Low MCV 78.1 LAB MCH 26.0-34.0 pg Low MCH 25.6 LAB MCHC 32.0-36.0 % MCHC 32.7 LAB RDW 11.5-14.5 % RDW 13.8 LAB PLT 140-440 10*3/uL Low Platelet 102 LAB MPV 7.4-10.4 fL MPV 8.4 LAB GRAN% 40.0-80.0 % Granulocytes High 81.4 LAB LYMP% 20.0-40.0 % Low Lymphocytes 13.3 LAB MONO% 2.0-10.0 % Monocytes 5.1 LAB EOS% 1.0-6.0 % Low Eosinophils 0.0 LAB BAS% 0.0-2.0 % Basophils 0.2 LAB ANC 1.8-7.0 10*3/uL Abs Neutrophile Cnt 5.1 LAB ALC 1.0-4.3 10*3/uL Low Abs Lymph Cnt 0.8 LAB AMC 0.0-0.8 10*3/uL Abs Monocyte Cnt 0.3 LAB AEC 0.0-0.5 10*3/uL Abs Eosin Cnt 0.0 LAB ABC 0.0-0.2 10*3/uL Abs Baso Cnt 0.0 Performed By: #### ALEJANDRA HAYES3 #### The performing lab is in the report. BASIC METABOLIC PANEL Collected: 10/21/2017 Status: F Source: [place] 4:09 AM SYSTEM REPOSITORY TYPE CODE TESTS RESULT OUT OF REFERENCE UNITS RANGE LAB NA3 137-145 mmol/L Low Sodium 135 LAB K3 3.5-5.1 mmol/L Potassium 4.5 LAB CL3 98-107 mmol/L Chloride 101 LAB CO23 22-30 mmol/L Carbon Dioxide 26 LAB ANIN3 Anion Gap 8 LAB GLUC3 70-100 mg/dL Glucose High 309 LAB BUN3 7-20 mg/dL Urea Nitrogen 13 LAB CRET3 0.52-1.25 mg/dL Creatinine 0.62 LAB GF3BR >60 mL/min eGFR >60.0 LAB GF3WR >60 mL/min eGFR OTHER >60.0 Result Comment: Source- MDRD equation with creatinine calibration to IDMS(NKDEP) eGFR not recommended for drug dose adjustment LAB CA3 8.4-10.2 mg/dL Low Calcium 8.2 Performed By: #### ALEJANDRA HAYES3 #### The performing lab is in the report. Observed: 10/20/2017 Status: F Source: [place] 2:31 AM SYSTEM REPOSITORY ABO Group: A Rh, Gel: POS Antibody Screen Gel: NEG Performed By: #### TSGL #### [place] [id number] HEMOGRAM W/ AUTODIFF Collected: 10/20/2017 Status: F Source: [place] 2:30 AM SYSTEM REPOSITORY TYPE CODE TESTS RESULT OUT OF REFERENCE UNITS RANGE LAB IWBC 3.6-10.7 10*3/uL WBC 3.9 LAB RBC 4.40-5.90 10*6/uL Low RBC 3.84 LAB HGB 13.0-18.0 g/dL Low Hemoglobin 9.9 LAB HCT 40.0-52.0 % Low Hematocrit 29.9 LAB MCV 80.0-98.0 fL Low MCV 78.0 LAB MCH 26.0-34.0 pg Low MCH 25.8 LAB MCHC 32.0-36.0 % MCHC 33.1 LAB RDW 11.5-14.5 % RDW 14.2 LAB PLT 140-440 10*3/uL Low Platelet 85 LAB MPV 7.4-10.4 fL MPV 8.2 LAB GRAN% 40.0-80.0 % Granulocytes 62.3 LAB LYMP% 20.0-40.0 % Lymphocytes 24.5 LAB MONO% 2.0-10.0 % Monocytes 9.1 LAB EOS% 1.0-6.0 % Eosinophils 3.1 LAB BAS% 0.0-2.0 % Basophils 1.0 LAB ANC 1.8-7.0 10*3/uL Abs Neutrophile Cnt 2.4 LAB ALC 1.0-4.3 10*3/uL Abs Lymph Cnt 1.0 LAB AMC 0.0-0.8 10*3/uL Abs Monocyte Cnt 0.4 LAB AEC 0.0-0.5 10*3/uL Abs Eosin Cnt 0.1 LAB ABC 0.0-0.2 10*3/uL Abs Baso Cnt 0.0 Performed By: #### HEMDF, PT/AP, PHOS3, BMP3, MG3 #### The performing lab is in the report. PROTIME Collected: 10/20/2017 Status: F Source: [place] 2:30 AM SYSTEM REPOSITORY TYPE CODE TESTS RESULT OUT OF RANGE REFERENCE UNITS LAB PTTA 20.0-30.5 s APTT 23.8 Result Comment: NOTE: The therapeutic time for Heparin anticoagulation, based on Xa activity inhibition, is an APTT of 46-80 seconds. LAB PROTM 9.0-12.0 s Prothrombin High Time 12.1 Result Comment: . LAB INR 0.9-1.1 High INR 1.2 Result Comment: Recommended Anticoagulant Therapy: SEE BELOW ----- INR of 2.0 - 3.0 : - Prophylaxis of Venous Thrombosis (high-risk surgery) - Treatment of Venous Thrombosis - Treatment of Pulmonary Embolism (Includes tissue heart valves, Acute Myocardial Infarction to prevent systemic embolism, Valvular Heart Disease, and Atrial Fibrillation) ----- INR of 2.5 - 3.5 : - Mechanical Prosthetic Valves (high risk) - If oral anticoagulant therapy is used to prevent Myocardial Infarction Performed By: #### HEMDF, PT/AP, PHOS3, BMP3, MG3 #### The performing lab is in the report. PHOSPHORUS Collected: 10/20/2017 Status: F Source: [place] 2:30 AM SYSTEM REPOSITORY TYPE CODE TESTS RESULT OUT OF REFERENCE UNITS RANGE LAB PHOS3 2.5-4.5 mg/dL Phosphorus 3.1 Performed By: #### HEMDF, PT/AP, PHOS3, BMP3, MG3 #### The performing lab is in the report. BASIC METABOLIC PANEL Collected: 10/20/2017 Status: F Source: [place] 2:30 AM SYSTEM REPOSITORY TYPE CODE TESTS RESULT OUT OF REFERENCE UNITS RANGE LAB NA3 137-145 mmol/L Sodium 137 LAB K3 3.5-5.1 mmol/L Potassium 4.0 LAB CL3 98-107 mmol/L Chloride 105 LAB CO23 22-30 mmol/L Carbon Dioxide 26 LAB ANIN3 Anion Gap 6 LAB GLUC3 70-100 mg/dL Glucose High 179 LAB BUN3 7-20 mg/dL Low Urea Nitrogen 5 LAB CRET3 0.52-1.25 mg/dL Creatinine 0.71 LAB GF3BR >60 mL/min eGFR >60.0 LAB GF3WR >60 mL/min eGFR OTHER >60.0 Result Comment: Source- MDRD equation with creatinine calibration to IDMS(NKDEP) eGFR not recommended for drug dose adjustment LAB CA3 8.4-10.2 mg/dL Low Calcium 8.3 Performed By: #### HEMDF, PT/AP, PHOS3, BMP3, MG3 #### The performing lab is in the report. MAGNESIUM Collected: 10/20/2017 Status: F Source: [place] 2:30 AM SYSTEM REPOSITORY TYPE CODE TESTS RESULT OUT OF REFERENCE UNITS RANGE LAB MG3 1.6-2.3 mg/dL Magnesium 2.1 Performed By: #### HEMDF, PT/AP, PHOS3, BMP3, MG3 #### The performing lab is in the report. HEMOGRAM W/ AUTODIFF Collected: 10/19/2017 Status: F Source: [place] 3:01 AM SYSTEM REPOSITORY TYPE CODE TESTS RESULT OUT OF REFERENCE UNITS RANGE LAB IWBC 3.6-10.7 10*3/uL WBC 3.6 LAB RBC 4.40-5.90 10*6/uL Low RBC 3.58 LAB HGB 13.0-18.0 g/dL Low Hemoglobin 9.3 LAB HCT 40.0-52.0 % Low Hematocrit 27.8 LAB MCV 80.0-98.0 fL Low MCV 77.7 LAB MCH 26.0-34.0 pg MCH 26.0 LAB MCHC 32.0-36.0 % MCHC 33.4 LAB RDW 11.5-14.5 % RDW 14.3 LAB PLT 140-440 10*3/uL Low Platelet 78 LAB MPV 7.4-10.4 fL MPV 8.3 LAB GRAN% 40.0-80.0 % Granulocytes 60.0 LAB LYMP% 20.0-40.0 % Lymphocytes 25.0 LAB MONO% 2.0-10.0 % Monocytes High 11.0 LAB EOS% 1.0-6.0 % Eosinophils 2.9 LAB BAS% 0.0-2.0 % Basophils 1.1 LAB ANC 1.8-7.0 10*3/uL Abs Neutrophile Cnt 2.2 LAB ALC 1.0-4.3 10*3/uL Low Abs Lymph Cnt 0.9 LAB AMC 0.0-0.8 10*3/uL Abs Monocyte Cnt 0.4 LAB AEC 0.0-0.5 10*3/uL Abs Eosin Cnt 0.1 LAB ABC 0.0-0.2 10*3/uL Abs Baso Cnt 0.0 Performed By: #### HEMDF, CMP3, PCAL #### The performing lab is in the report. COMP METABOLIC PANEL Collected: 10/19/2017 Status: F Source: [place] 3:01 AM SYSTEM REPOSITORY TYPE CODE TESTS RESULT OUT OF REFERENCE UNITS RANGE LAB NA3 137-145 mmol/L Sodium 139 LAB K3 3.5-5.1 mmol/L Potassium 3.8 LAB CL3 98-107 mmol/L Chloride 105 LAB CO23 22-30 mmol/L Carbon Dioxide 27 LAB ANIN3 Anion Gap 7 LAB GLUC3 70-100 mg/dL Glucose High 235 LAB BUN3 7-20 mg/dL Urea Nitrogen 8 LAB CRET3 0.52-1.25 mg/dL Creatinine 0.74 LAB GF3BR >60 mL/min eGFR >60.0 LAB GF3WR >60 mL/min eGFR OTHER >60.0 Result Comment: Source- MDRD equation with creatinine calibration to IDMS(NKDEP) eGFR not recommended for drug dose adjustment LAB CA3 8.4-10.2 mg/dL Calcium Low 7.9 LAB ALB3 3.5-5.0 g/dL Albumin, Serum Low 3.0 LAB TP3 6.3-8.2 g/dL Total Protein 6.3 LAB BILT3 0.2-1.3 mg/dL Bilirubin,Total 0.4 LAB ALKP3 38-126 U/L Alkaline Phosphatase 91 LAB ALT3 13-69 U/L ALT (SGPT) 30 LAB AST3 15-46 U/L AST (SGOT) Low 14 Performed By: #### HEMDF, CMP3, PCAL #### The performing lab is in the report. PROCALCITONIN Collected: 10/19/2017 Status: F Source: [place] 3:01 AM SYSTEM REPOSITORY TYPE CODE TESTS RESULT OUT OF RANGE REFERENCE UNITS LAB PRO <0.10 ng/mL Procalcitonin Abnormal 13.11 LAB INT3 Interpretation See Below Result Comment: PCT <0.50 = Low risk of severe sepsis and/or septic shock. PCT >2.00 = High risk of severe sepsis and/or septic shock. Performed By: #### HEMDF, CMP3, PCAL #### The performing lab is in the report. GLUCOSE,BEDSIDE Collected: 10/18/2017 Status: F Source: [place] 1:50 PM SYSTEM REPOSITORY TYPE CODE TESTS RESULT OUT OF RANGE REFERENCE UNITS LAB BGLU 70-100 mg/dL High 181 Glucose,Beds edison Result Comment: Test performed by glucose meter. Results may be 10%-15% lower than serum/plasma values. (CLIA ID [id number]) Performed By: #### BGLU #### The performing lab is in the report. VANCOMYCIN TROUGH Collected: 10/18/2017 Status: F Source: [place] 9:46 AM SYSTEM REPOSITORY TYPE CODE TESTS RESULT OUT OF REFERENCE UNITS RANGE LAB VNCT 5.0-10.0 ug/mL High Vancomycin 13.5 Trough Result Comment: . Performed By: #### VANCT #### The performing lab is in the report. HEMOGRAM W/ AUTODIFF Collected: 10/18/2017 Status: F Source: [place] 1:53 AM SYSTEM REPOSITORY TYPE CODE TESTS RESULT OUT OF REFERENCE UNITS RANGE LAB IWBC 3.6-10.7 10*3/uL Low WBC 3.5 LAB RBC 4.40-5.90 10*6/uL Low RBC 3.57 LAB HGB 13.0-18.0 g/dL Low Hemoglobin 9.2 LAB HCT 40.0-52.0 % Low Hematocrit 27.7 LAB MCV 80.0-98.0 fL Low MCV 77.6 LAB MCH 26.0-34.0 pg Low MCH 25.8 LAB MCHC 32.0-36.0 % MCHC 33.3 LAB RDW 11.5-14.5 % RDW 14.5 LAB PLT 140-440 10*3/uL Low Platelet 87 LAB MPV 7.4-10.4 fL MPV 7.6 LAB GRAN% 40.0-80.0 % Granulocytes 67.4 LAB LYMP% 20.0-40.0 % Low Lymphocytes 19.2 LAB MONO% 2.0-10.0 % Monocytes 9.5 LAB EOS% 1.0-6.0 % Eosinophils 3.0 LAB BAS% 0.0-2.0 % Basophils 0.9 LAB ANC 1.8-7.0 10*3/uL Abs Neutrophile Cnt 2.4 LAB ALC 1.0-4.3 10*3/uL Low Abs Lymph Cnt 0.7 LAB AMC 0.0-0.8 10*3/uL Abs Monocyte Cnt 0.3 LAB AEC 0.0-0.5 10*3/uL Abs Eosin Cnt 0.1 LAB ABC 0.0-0.2 10*3/uL Abs Baso Cnt 0.0 Performed By: #### HEMDF, CMP3 #### The performing lab is in the report. COMP METABOLIC PANEL Collected: 10/18/2017 Status: F Source: [place] 1:53 AM SYSTEM REPOSITORY TYPE CODE TESTS RESULT OUT OF REFERENCE UNITS RANGE LAB NA3 137-145 mmol/L Sodium 138 LAB K3 3.5-5.1 mmol/L Potassium 3.8 LAB CL3 98-107 mmol/L Chloride 105 LAB CO23 22-30 mmol/L Carbon Dioxide 28 LAB ANIN3 Anion Gap 5 LAB GLUC3 70-100 mg/dL Glucose High 222 LAB BUN3 7-20 mg/dL Urea Nitrogen 10 LAB CRET3 0.52-1.25 mg/dL Creatinine 0.79 LAB GF3BR >60 mL/min eGFR >60.0 LAB GF3WR >60 mL/min eGFR OTHER >60.0 Result Comment: Source- MDRD equation with creatinine calibration to IDMS(NKDEP) eGFR not recommended for drug dose adjustment LAB CA3 8.4-10.2 mg/dL Calcium Low 8.1 LAB ALB3 3.5-5.0 g/dL Albumin, Serum Low 2.8 LAB TP3 6.3-8.2 g/dL Total Protein 6.3 LAB BILT3 0.2-1.3 mg/dL Bilirubin,Total 0.4 LAB ALKP3 38-126 U/L Alkaline Phosphatase 95 LAB ALT3 13-69 U/L ALT (SGPT) 27 LAB AST3 15-46 U/L AST (SGOT) 18 Performed By: #### HEMDF, CMP3 #### The performing lab is in the report. ECHO COMPLETE W/WO Observed: 10/17/2017 Status: F Source: [employer] 1:37 PM SYSTEM REPOSITORY Patient Name: XUAN FUCHS Ultrasound Exam Date/Time 10/17/2017 14:24:31 EST Exam Echo Complete w/wo Contrast Ordering Physician MD WM, MICHELLE Serrano Accession Number [id number] Reason For Exam CHF Ischemic CMP Report TRANSTHORACIC ECHOCARDIOGRAM PATIENT: Xuan Fuchs STUDY DATE: 10/17/2017 FIN#: : 1960 AGE: 57 HT/WT: 177.8 cm (70 115.7 kg (254.5 in) lb) GENDER: M BP: 137 / 74 LOCATION: [facility] PATIENT Inpatient [facility] STATUS: *READING PHYSICIAN: * Brent Adams MD *LOCOMOTIVE FIRER/FIREMAN: * Mayela Jimenez --- INDICATIONS: Congestive heart failure. --- CONCLUSIONS SUMMARY: 1. Procedure narrative: Image quality was poor. The study was technically limited due to restricted patient mobility and body habitus. Intravenous imaging enhancement (Definity) was administered to opacify the chamber. Definity lot #: [id number]. 2. Left ventricle: There is mild concentric hypertrophy. Systolic function is moderately decreased. The estimated ejection fraction is 37%. 3. Regional wall motion abnormality: Dyskinesis of the basal inferolateral myocardium; akinesis of the mid inferolateral myocardium; hypokinesis of the basal-mid anterolateral myocardium. This is in the territory of a circumflex or large RCA. 4. Right ventricle: Pacer wire noted in the right ventricle. Systolic function is moderately decreased by visual assessment. (best seen after definity given) Right ventricular systolic pressure is within the normal range. 5. Mitral valve: Not well visualized. Mildly thickened leaflets. There is no evidence for stenosis. There is mild, 1+ regurgitation. 6. Patient has chronic cough cannot lay on his side due to cough,test done supine. --- STUDY DATA: Complete transthoracic echocardiogram. Procedure: Image quality was poor. The study was technically limited due to restricted patient mobility and body habitus. Intravenous imaging enhancement (Definity) was administered to opacify the chamber. Definity lot #: [id number]. M-mode, complete 2D, complete spectral Doppler, and color flow Doppler images were acquired and archived for permanent storage and are available for subsequent review. Study status: Routine. Patient status: Inpatient. --- FINDINGS LEFT VENTRICLE: Not well visualized. The cavity size is normal. Wall thickness is mildly increased. There is mild concentric hypertrophy. Systolic function is moderately decreased. The estimated ejection fraction is 37%. Cardiac wall motion is otherwise normal. Unable to assess LV diastolic function due to suboptimal technical data Regional wall motion abnormalities: Dyskinesis of the basal inferolateral myocardium; akinesis of the mid inferolateral myocardium; hypokinesis of the basal-mid anterolateral myocardium. This is in the territory of a circumflex or large RCA. RIGHT VENTRICLE: Not well visualized. The cavity size is normal. Wall thickness is normal. Pacer wire noted in the right ventricle. Systolic function is moderately decreased by visual assessment. (best seen after definity given) Right ventricular systolic pressure is within the normal range. VENTRICULAR SEPTUM: There is no evidence of a ventricular septal defect. LEFT ATRIUM: Not well visualized. The atrium is mildly dilated. RIGHT ATRIUM: Not well visualized. The atrium is normal in size. Pacer wire noted in right atrium. ATRIAL SEPTUM: Not well visualized. Color Doppler shows no evidence of shunt. There is no aneurysm. MITRAL VALVE: Not well visualized. Mildly thickened leaflets. Doppler: There is no evidence for stenosis. There is mild, 1+ regurgitation. Peak gradient (D): 4 mm Hg. AORTIC VALVE: Not well visualized. Trileaflet; moderately thickened leaflets. Doppler: There is no stenosis. There is trivial, less than 1+ regurgitation. TRICUSPID VALVE: Structurally normal valve. Doppler: There is mild, 1+ regurgitation. PULMONIC VALVE: Not well visualized. Doppler: There is no evidence for stenosis. There is mild, 1+ regurgitation. AORTA: The aorta is poorly visualized and normal. PULMONARY ARTERY: Main pulmonary artery: Normal. PERICARDIUM: There is no pericardial effusion. SYSTEMIC VEINS: Not well visualized. Inferior vena cava: The vessel is normal and mildly dilated. The IVC collapses by greater than 50% with inspiration. Diameter: 2.7 cm. --- Measurements IVC Value Reference ID 2.7 cm --------- Left ventricle Value Reference LV ID, ED (H) 6.2 cm 4.2 - 5.9 LV ID, ES 5.2 cm --------- LV PW thickness, ED 1.0 cm 0.6 - 1.0 LV end-diastolic volume, 1-p A4C 150 ml 67 - 155 LV end-systolic volume, 1-p A4C (H) 96 ml 22 - 58 LV end-diastolic volume, 2-p (H) 159 ml 67 - 155 LV end-systolic volume, 2-p (H) 100 ml 22 - 58 LV ejection fraction, 2-p (L) 37 % >=55 LV E/e', lateral 13 --------- Ventricular septum Value Reference IVS thickness, ED (H) 1.4 cm 0.6 - 1.0 LVOT Value Reference LVOT ID, A-P 2.4 cm --------- LVOT mean velocity, S 0.6 m/sec --------- LVOT VTI, S 12.8 cm --------- LVOT peak gradient, S 2 mm Hg --------- Stroke volume (SV), LVOT DP 57 ml --------- Stroke index (SV/bsa), LVOT DP 24 ml/m2 --------- Aortic valve Value Reference Aortic regurg pressure half-time 300 ms --------- Aorta Value Reference Ascending aorta ID, A-P, S 3.4 cm --------- Left atrium Value Reference LA volume/bsa, ES, 2-p 29 ml/m2 --------- Mitral valve Value Reference Mitral E-wave peak velocity 1 m/sec --------- Mitral A-wave peak velocity 0.7 m/sec --------- Mitral deceleration time 170 ms --------- Mitral peak gradient, D 4 mm Hg --------- Mitral E/A ratio, peak 1.4 --------- Tricuspid valve Value Reference Tricuspid regurg peak velocity 2.5 m/sec --------- Tricuspid peak RV-RA gradient 25 mm Hg --------- Right atrium Value Reference RA area, ES, A4C 18 cm2 10 - 18 Right ventricle Value Reference TAPSE 0.7 cm --------- RV s', lateral, S 0.07 m/sec --------- Pulmonic valve Value Reference Pulmonic regurg gradient, ED 8 mm Hg --------- Legend: (L) and (H) bolivar values outside specified reference range. Electronically signed by Brent Adams MD 10/17/2017 17:12 Final Dictated: 10/29/2017 4:35 pm Dictating Physician: MD AADMS STEPHEN M Signed Date and Time: 10/17/2017 5:12 pm Signed by: MD ADAMS STEPHEN M VL PVR ARTERIAL Observed: 10/17/2017 Status: F Source: [facility] [employer] DOPPLER LWR W/O 12:13 PM SYSTEM REPOSITORY EXERCISE Patient Name: XUAN FUCHS Ultrasound Exam Date/Time 10/17/2017 12:59:33 EST Exam VL PVR Arterial Doppler Lwr w/o Exercise Ordering Physician MD PHPIPS NICHOLAS Accession Number [id number] CPT4 Codes 48379 () Reason For Exam gangrene Report [facility] --- Multilevel Lower Extremity Arterial Evaluation Report Patient Name: Xuan Fuchs : 1960 Study Date: 10/17/2017 (57yrs) Age: 57 Account: [id number] Gender: M Loc: 1405 BP: Ordering: Arcenio Phipps Technologist: Ordering Physician: Arcenio Phipps Music Arranger: Johnna Contreras RVT Interpreting Physician: James Mijares MD --- Location: [facility] --- INDICATIONS: Gangrene right foot. Right great toe amp. Angioplasty of right evette, per and bellhop captain X 2. Patient had Right leg arterial duplex with ankle and toe waves yesterday. Was asked to perform PVR and pressures above ankles. However, the patient was unable to tolerate cuff pressure for BP's. VPR waveforms completed. --- CONCLUSIONS 1. Severe arterial insufficiency involving suggestive of small vessel disease in the right foot --- IMPRESSIONS: - Severe arterial insufficiency involving suggestive of small vessel disease in the right foot - Left JAMAR is 1.1 - This is within the normal range. - PVR waveforms of the left leg appear normal at rest. --- HISTORY: Risk factors: Family history of coronary artery disease. Former tobacco use. Hypertension. Diabetes mellitus. Obese. Dyslipidemia. Previous myocardial infarction. --- STUDY DATA: Lower extremity multilevel physiologic evaluation. Birthdate: Patient birthdate: 1960. Age: Patient is 57 yr old. Sex: Gender: male. Ethnicity: Ethnicity: white. Pressure measurement and pulse volume recording. Patient status: Inpatient. Procedure: A vascular evaluation was performed. The images were obtained using a [employer] 2100 vascular ultrasound machine. --- PVR / Doppler waveforms: + +---------+-----+ + !Segment !Pressure !Index!Comment ! + +---------+-----+ + !R brachial !---------!-----!IV. ! + +---------+-----+ + !R thigh - high!---------!-----!Could not tolerate cuff pressure.! + +---------+-----+ + !R thigh - low !---------!-----!Could not tolerate cuff pressure.! + +---------+-----+ + !R calf !---------!-----!Could not tolerate cuff pressure.! + +---------+-----+ + !R DP !255 mm Hg!-----! ! + +---------+-----+ + !R PT !---------!-----!Could not tolerate cuff pressure.! + +---------+-----+ + !R great toe !---------!-----!amputated. ! + +---------+-----+ + !L brachial !144 mm Hg!-----! ! + +---------+-----+ + !L thigh - high!---------!-----!Could not tolerate cuff pressure.! + +---------+-----+ + !L thigh - low !---------!-----!Could not tolerate cuff pressure.! + +---------+-----+ + !L calf !---------!-----!Could not tolerate cuff pressure.! + +---------+-----+ + !L DP !166 mm Hg!1.15 ! ! + +---------+-----+ + !L PT !167 mm Hg!1.16 ! ! + +---------+-----+ + !L great toe !71 mm Hg !0.49 ! ! + +---------+-----+ + Electronically signed by: James Mijares MD [id number] Final Dictated: 10/17/2017 2:20 pm Dictating Physician: JAMES MIJARES Signed Date and Time: 10/17/2017 2:20 pm Signed by: JAMES MIJARES HEMOGRAM W/ AUTODIFF Collected: 10/17/2017 Status: F Source: [place] 2:15 AM SYSTEM REPOSITORY TYPE CODE TESTS RESULT OUT OF REFERENCE UNITS RANGE LAB IWBC 3.6-10.7 10*3/uL WBC 10.3 LAB RBC 4.40-5.90 10*6/uL Low RBC 3.61 LAB HGB 13.0-18.0 g/dL Low Hemoglobin 9.5 LAB HCT 40.0-52.0 % Low Hematocrit 28.6 LAB MCV 80.0-98.0 fL Low MCV 79.3 LAB MCH 26.0-34.0 pg MCH 26.2 LAB MCHC 32.0-36.0 % MCHC 33.0 LAB RDW 11.5-14.5 % RDW 13.9 LAB PLT 140-440 10*3/uL Platelet 144 LAB MPV 7.4-10.4 fL Low MPV 7.2 LAB GRAN% 40.0-80.0 % Granulocytes High 96.2 LAB LYMP% 20.0-40.0 % Low Lymphocytes 2.7 LAB MONO% 2.0-10.0 % Low Monocytes 0.8 LAB EOS% 1.0-6.0 % Low Eosinophils 0.2 LAB BAS% 0.0-2.0 % Basophils 0.1 LAB ANC 1.8-7.0 10*3/uL Abs High Neutrophile Cnt 9.9 LAB ALC 1.0-4.3 10*3/uL Low Abs Lymph Cnt 0.3 LAB AMC 0.0-0.8 10*3/uL Abs Monocyte Cnt 0.1 LAB AEC 0.0-0.5 10*3/uL Abs Eosin Cnt 0.0 LAB ABC 0.0-0.2 10*3/uL Abs Baso Cnt 0.0 Performed By: #### HEMDF #### The performing lab is in the report. CR CHEST PA/LAT Observed: 10/16/2017 Status: F Source: [place] 7:40 PM SYSTEM REPOSITORY Patient Name: XUAN FUCHS Diagnostic Radiology Exam Date/Time 10/16/2017 17:47:51 EST Exam CR Chest PA/LAT Ordering Physician MD BURK ALEXANDROS W. Accession Number [id number] CPT4 Codes 09206 () Reason For Exam CHF Report PORTABLE CHEST CLINICAL INDICATION: CHF TECHNIQUE: Portable AP COMPARISON: None FINDINGS: Pulmonary vascular congestion without overt edema. No focal consolidation. No large pleural effusions or pneumothorax. Top normal heart size. Status post median sternotomy. Left-sided dual- lead AICD in place. Right upper extremity PICC tip terminates over the cavoatrial junction. IMPRESSION: Top normal heart size with vascular congestion. No overt edema or focal consolidation. Report Dictated on Final Dictating Physician: MD MONTGOMERY KEVIN Signed Date and Time: 10/16/2017 7:41 pm Signed by: MD MONTGOMERY KEVIN Transcribed Date and Time: 10/16/2017 7:42 PROCALCITONIN Collected: 10/16/2017 Status: F Source: [place] 7:13 PM SYSTEM REPOSITORY TYPE CODE TESTS RESULT OUT OF REFERENCE UNITS RANGE LAB PRO <0.10 ng/mL Procalcitonin <0.10 LAB INT3 Interpretation See Below Result Comment: PCT <0.50 = Low risk of severe sepsis and/or septic shock. PCT >2.00 = High risk of severe sepsis and/or septic shock. Performed By: #### PCAL #### The performing lab is in the report. VL ARTERIAL DUPLEX US Observed: 10/16/2017 Status: F Source: [place] LOWER EXT RIGHT 3:11 PM SYSTEM REPOSITORY Patient Name: XUAN FUCHS Ultrasound Exam Date/Time 10/16/2017 16:04:15 EST Exam VL Arterial Duplex US Lower Ext Right Ordering Physician AUSTYN CLEMENTS Accession Number [id number] CPT4 Codes 71309 (), 36696 () Reason For Exam PAD Report [facility] --- Right Lower Extremity [place] Arterial Duplex Report Patient Name: Xuan Fuchs : 1960 Study Date: 10/16/2017 (57yrs) Age: 57 Account: [id number] Gender: M Loc: [id number] BP: Ordering: Austyn Clements MD Technologist: Ordering Physician: Austyn Clements MD Music Arranger: Lizzette Paniagua Interpreting Physician: Austyn Clements MD --- Location: [facility] --- CONCLUSIONS 1. Triphasic waveforms are noted through the right HYDROELECTRIC COMPONENT MACHINIST, right SFA, right popliteal, and right EVETTE. The right TIRE STRIPPER and right peroneal arteries are occluded. Severe small vessel occlusive disease of the right foot with flat-lining of the digital waveforms in that foot. --- IMPRESSIONS: - Triphasic waveforms are noted through the right HYDROELECTRIC COMPONENT MACHINIST, right SFA, right popliteal, and right EVETTE. - The right TIRE STRIPPER and right peroneal arteries are occluded. - PVR waveforms of the left leg appear normal at rest. - PVRs of the right lower extremity are compatible with at least moderate arterial insufficiency. - Severe small vessel occlusive disease of the right foot with flat-lining of the digital waveforms in that foot. --- STUDY DATA: Right lower extremity yocha dehe arterial duplex. Birthdate: Patient birthdate: 1960. Age: Patient is 57 yr old. Sex: Gender: male. Ethnicity: Ethnicity: white. Doppler flow study including spectral analysis, color and ye scale imaging and ankle-brachial index. --- Arterial flow: + + +-------+ --+ !Location !V sys !AP cm !Comment ! + + +-------+ --+ !Right common femoral - !95.7 cm/s !1 cm ! --! !distal ! ! ! ! + + +-------+ --+ !Right deep femoral !90.9 cm/s !0.42 cm! --! + + +-------+ --+ !Right femoral - proximal !110.2 cm/s!0.91 cm! --! + + +-------+ --+ !Right femoral - mid !92.4 cm/s !0.73 cm! --! + + +-------+ --+ !Right femoral - distal !90.8 cm/s !0.8 cm ! --! + + +-------+ --+ !Right popliteal - proximal !97.3 cm/s !0.56 cm! --! + + +-------+ --+ !RT TIRE STRIPPER ! !-------!Arterial flow was ! ! ! ! !demonstrated proximally but ! ! ! ! !not distally. ! + + +-------+ --+ !RT PER A ! !-------!Flow was not imaged ! ! ! ! !proximally or distally. ! + + +-------+ --+ !RT DPA ! !-------!Flow was imaged distally. ! + + +-------+ --+ PVR / Doppler waveforms: + +---------+-----+ + !Segment !Pressure !Index!Comment ! + +---------+-----+ + !R brachial !0 mm Hg !-----!Picc line. ! + +---------+-----+ + !R DP !255 mm Hg!0.00 !Non compressible.! + +---------+-----+ + !R PT !41 mm Hg !0.33 ! ! + +---------+-----+ + !R great toe!0 mm Hg !0.00 !amputation. ! + +---------+-----+ + !L brachial !125 mm Hg!-----! ! + +---------+-----+ + !L DP !171 mm Hg!1.37 ! ! + +---------+-----+ + !L PT !12 mm Hg !0.98 ! ! + +---------+-----+ + !L great toe!129 mm Hg!1.03 ! ! + +---------+-----+ + Electronically signed by: Austyn Clements MD [id number] Final Dictated: 10/17/2017 2:12 pm Dictating Physician: AUSTYN CLEMENTS Signed Date and Time: 10/17/2017 2:12 pm Signed by: AUSTYN CLEMENTS CBC-COMPLETE BLOOD CNT Collected: 10/13/2017 Status: F Source: [place] NO DIFF 5:35 PM [facility] REPOSITORY TYPE CODE TESTS RESULT OUT OF RANGE REFERENCE UNITS LAB L100.1000 4.4-11.0 K/mm3 Normal WBC 7.1 LAB L100.1200 4.6-6.2 M/mm3 Low RBC 3.35 LAB L100.1300 13.0-16.5 g/dl Low HGB 9.0 LAB L100.1400 40-54 % Low HCT 28.1 LAB L100.1500 80-94 fL Normal MCV 83.9 LAB L100.1600 27.0-32.0 pg Low MCH 26.9 LAB L100.1700 32-36 g/gl Normal MCHC 32.0 LAB L100.1810 11.6-14.6 % Normal RDW CV 13.8 LAB L100.1820 35.1-43.9 fl Normal RDW SD 40.9 LAB L100.1900 150-450 K/mm3 High PLT 484 LAB L100.2000 6.2-12.0 fl Normal MPV 9.7 Performed By: #### L100.0500, L101.9900 #### [facility] [address] [place], [place], [address] ERYTHROCYTE SED RATE Collected: 10/13/2017 Status: F Source: [place] 5:35 PM [facility] REPOSITORY TYPE CODE TESTS RESULT OUT OF RANGE REFERENCE UNITS LAB L102.0000 0-20 mm/hr High SED RATE 60 Performed By: #### L100.0500, L101.9900 #### [facility] [address] [facility] [place], [place], [id number] BASIC METABOLIC Collected: 10/13/2017 Status: F Source: [place] PROFILE (BMP) 5:35 PM [facility] REPOSITORY TYPE CODE TESTS RESULT OUT OF RANGE REFERENCE UNITS LAB L501.0100 74-106 mg/dL High GLU 153 Result Comment: Fasting Glucose result greater than or equal to 126 mg/dL suggests DIABETES MELLITUS per A.D.A. criteria. Please note revised GLUCOSE reference range effective 2017. LAB L501.1000 7-18 mg/dL Low BUN 6 LAB L501.1100 0.70-1.30 mg/dL Normal CREAT,SERUM 0.72 Result Comment: The validity of the calculated GFR AND GFRAA in patients over 70 years has not been determined. Clinical correlation is essential. LAB L501.1110 >60 mL/min Normal EST GFR 120 Result Comment: Non- GFR Calc LAB L501.1115 >60 mL/min Normal EST GFR - AA 145 Result Comment: GFR Calc LAB L501.1300 10-20 RATIO Low BUN/CRE 8.4 LAB L501.2200 8.5-10.1 mg/dL Low CA 7.8 LAB L501.5300 136-145 mmol/L Normal NA 138 LAB L501.5600 3.5-5.1 mmol/L Normal K 3.9 LAB L501.5900 98-107 mmol/L Normal CL 103 LAB L501.6100 21.0-32.0 mmol/L Normal CO2 28.0 LAB L501.6200 5-15 Normal GAP 7 Performed By: #### L500.2500, L501.6710 #### [facility] [address] [place], [address] CRP Collected: 10/13/2017 Status: F Source: [place] 5:35 PM [facility] REPOSITORY TYPE CODE TESTS RESULT OUT OF RANGE REFERENCE UNITS LAB L501.6710 0.0-3.0 mg/L High 40.80 C-REACTIVE PROT Result Comment: C-Reactive Protein (CRP) provides useful information for the diagnosis, therapy and monitoring of inflammatory processes and associated diseases. For the evaluation of Relative Risk for Cardiovascular Disease, a High Sensitivity CRP (HSCRP) should be ordered. Performed By: #### L500.2500, L501.6710 #### [facility] [address] [place], [address] EMERGENCY DEPARTMENT Observed: 10/11/2017 Status: F Source: [place] SUMMARY 12:56 AM [facility] REPOSITORY [facility] Medical Records Department [address] [place] [address] Emergency Department Summary 10/10/17 2221 MR#: [id number] Acct: [id number] Name: XUAN FUCHS Rep #: [id number] : 1960 57 From: Jake Velazquez MD PCP: Darius Hartmann MD Status: DEP ER - ER Visit Summary Date of Service: 10/10/17 Chief Complaint: Bleeding from right foot History of Present Illness: The patient is a [address] Burris. He reports that he had amputation of his right great toe and part of his first metatarsal on October 06 at [facility]. Reports that he was discharged from hospital on the . He was not supposed to change his dressing until tomorrow and the home health aide was going to do it at that time. Reports that tonight he began have bleeding. Patient reports he has a burning pain is 10 out of 10 at worst and is pain-free currently. Physical Examination: Vitals: Stable. Afebrile. General: Well-nourished and well-developed. Head: Normocephalic atraumatic. Neck: Supple, no lymphadenopathy. No JVD. Nontender. Cardiovascular: Regular rate and rhythm. 2 out of 6 systolic murmur. Respiratory: No respiratory distress. Clear to auscultation bilaterally. Decreased air movement. Abdominal: Soft, nontender, nondistended, normal bowel sounds. No guarding, rebound, or peritoneal signs. Back: Nontender. Extremities: Right foot shows an amputation of the first distal metatarsal and toe. There is no active bleeding. The second toe is dusky. There is surrounding hematoma/contusion. There is no surrounding erythema or drainage. There is no fluctuance.. Skin: Normal color, no rash. Neurologic: Alert and oriented 3. Cranial nerves II through XII are intact. Normal strength and sensation. Psych: Normal affect. Test Results: CBC is marked for an H AND H 9.5 and 29.6, segmented neutrophils 74, lymphocytes 17. Lactic acid is 1.1. Chem-7 is more for BUN of 6, glucose 181, calcium 7.8. Chest x-ray shows cardiomegaly and pulmonary congestion. Emergency Department Course and Treatment: Was treated with Ultram p.o. Treatment Plan: The patient was discussed with the surgeon at [facility]. I texted him the pictures. Reports that it is very similar to what it looked like here and that there is no further operative intervention that would be helpful until he has vascular surgeon. I discussed this with the patient and family. They understand this and are happy with this plan. Disposition: To home in improved and stable condition. Impression: 1. 4 days status post right first toe amputation. 2. Anemia. This note was generated with [employer] dictation software. It may contain incorrect words, spelling, and punctuation that were not noted in review of the chart prior to signing ED Disposition - Plan for ED Patient: Disposition: Home or Assisted Living Chief Complaint: Wound Check Instructions: ED Wound Check Post Op Bleeding Referrals: Doctor,Your [STAFF PHYSICIAN] - Keep Jessie appointment What to do if you have Problems For any increased pain, shortness of breath, bleeding, nausea or vomiting, chest pain, or any unexpected problems, contact your Primary Care Provider. Call [facility] ([phone]) or report to the closest Emergency Room. Call 911 if necessary. 10/11/17 0056 <Electronically signed by Jake Velazquez MD> Date Jake Velazquez MD Cosigner Signature (If Indicated): Date CC: Darius Hartmann MD; Darius Hartmann MD CBC W/DIFF, AUTOMATED Collected: 10/10/2017 Status: F Source: [place] 9:00 PM [facility] REPOSITORY TYPE CODE TESTS RESULT OUT OF RANGE REFERENCE UNITS LAB L100.1000 4.4-11.0 K/mm3 Normal WBC 8.4 LAB L100.1200 4.6-6.2 M/mm3 Low RBC 3.63 LAB L100.1300 13.0-16.5 g/dl Low HGB 9.5 LAB L100.1400 40-54 % Low HCT 29.6 LAB L100.1500 80-94 fL Normal MCV 81.5 LAB L100.1600 27.0-32.0 pg Low MCH 26.2 LAB L100.1700 32-36 g/gl Normal MCHC 32.1 LAB L100.1810 11.6-14.6 % Normal RDW CV 13.6 LAB L100.1820 35.1-43.9 fl Normal RDW SD 40.4 LAB L100.1900 150-450 K/mm3 Normal PLT 406 LAB L100.2000 6.2-12.0 fl Normal MPV 8.6 LAB L100.2100 47-70 % High NEUT% 73.9 LAB L100.2200 19-41 % Low LY% 17.2 LAB L100.2300 0-10 % Normal MONO% 7.2 LAB L100.2400 0-5 % Normal EO% 1.3 LAB L100.2500 0-1 % Normal BASO% 0.2 LAB L100.2550 0.0-0.9 % Normal IM GRAN % 0.200 Result Comment: IG% - Immature Granulocytes (promyelocytes, myelocytes and metamyelocytes) > 1% indicates that a LEFT SHIFT is Present. LAB L100.2620 2.0-7.7 X10 3/uL Normal Absolute Neut 6.2 LAB L100.2720 0.83-4.51 X10 3/ul Normal Absolute Lymph 1.44 Performed By: #### L100.0100 #### [facility] [address] [place], [place], [id number] BASIC METABOLIC Collected: 10/10/2017 Status: F Source: [place] PROFILE (BMP) 9:00 PM [facility] REPOSITORY TYPE CODE TESTS RESULT OUT OF RANGE REFERENCE UNITS LAB L501.0100 74-106 mg/dL High GLU 181 Result Comment: Fasting Glucose result greater than or equal to 126 mg/dL suggests DIABETES MELLITUS per A.D.A. criteria. Please note revised GLUCOSE reference range effective 2017. LAB L501.1000 7-18 mg/dL Low BUN 6 LAB L501.1100 0.70-1.30 mg/dL Normal CREAT,SERUM 0.82 Result Comment: The validity of the calculated GFR AND GFRAA in patients over 70 years has not been determined. Clinical correlation is essential. LAB L501.1110 >60 mL/min Normal EST GFR 102 Result Comment: Non- GFR Calc LAB L501.1115 >60 mL/min Normal EST GFR - AA 124 Result Comment: GFR Calc LAB L501.1255 ml/min Normal Estimated CRCL 102.63 LAB L501.1300 10-20 RATIO Low BUN/CRE 7.3 LAB L501.2200 8.5-10 mg/dL Low .1 CA 7.8 LAB L501.5300 136-14 mmol/L 5 NA Normal 139 LAB L501.5600 3.5-5. mmol/L 1 K Normal 3.6 LAB L501.5900 98-107 mmol/L CL Normal 104 LAB L501.6100 21.0-3 mmol/L 2.0 CO2 Normal 27.0 LAB L501.6200 5-15 GAP Normal 8 Performed By: #### L500.2500 #### [facility] [address] [place], [place], [address] LACTIC ACID Collected: 10/10/2017 Status: F Source: [place] 9:00 PM [facility] REPOSITORY Order Comment: Yes/No query for Sepsis Lactate Rule Y TYPE CODE TESTS RESULT OUT OF RANGE REFERENCE UNITS LAB L503.6005 0.4-2.0 mmol/L Normal LACTIC ACID 1.1 Performed By: #### L503.6005 #### [facility] [address] [place], [address] Observed: 10/10/2017 Status: F Source: [place] CULTURE, BLOOD (WB) 9:00 PM [facility] REPOSITORY No growth in 5 days. Performed By: #### M200.1000 #### [facility] [address] [place], [place], [address] Observed: 10/10/2017 Status: F Source: [place] CULTURE, BLOOD (WB) 9:00 PM [facility] REPOSITORY No growth in 5 days. Performed By: #### M200.1000 #### [facility] [address] [place], [place], [address] CHEST PA AND LATERAL Observed: 10/10/2017 Status: F Source: [place] 8:41 PM [facility] REPOSITORY [facility] Imaging Services [address] [place] [address] Chest PA and Lateral MR#: [id number] Acct: [id number] Name: XUAN FUCHS Rep #: [id number] : 1960 M 57 From: Delores Bass MD PCP: Darius Hartmann MD Status: REG ER Study: Chest PA and Lateral Date of Exam: 10/10/17 Exam# [id number] Ordering Dr: Jake Velazquez MD STUDY: X-RAY CHEST REASON FOR EXAM: Male, 57 years old. Cough after recent podiatry surgery. TECHNIQUE: AP and lateral views of the chest. COMPARISON: October 22, 2015. FINDINGS: Patient has left-sided intracardiac pacemaker. Patient has had a sternotomy. Cardiac monitoring leads are present. The lungs are underexpanded with crowding the bronchovascular markings and obscuration of the lung bases. There is a small left-sided pleural effusion. Normal size heart. Normal mediastinum and delia. There is prominence of the pulmonary hilar arteries without peripheral pulmonary vascular congestion. There is atherosclerotic calcification of the aortic arch with tortuosity. Normal visualized thoracic spine. Normal visualized ribs, clavicles, and shoulders. There is no demonstrated abnormality of the visualized soft tissue structures of the upper abdomen. RAD/Chest PA and Lateral IMPRESSION: Cardiomegaly and mild pulmonary congestion. Electronically Signed: Delores Bass MD at 21:43 EST , Service support , CC: Darius Hartmann MD; Jake Velazquez MD [employer]: Signed RIL/INVASIVE PICC LN Observed: 10/08/2017 Status: F Source: [place] 5:13 PM [facility] REPOSITORY Patient Name: XUAN FUCHS STUDY: RIL/INVASIVE PICC LN PLAC; 10/08/2017 3:39 pm INDICATION: Need for IV antibiotics COMPARISON: None. ACCESSION NUMBER(S): [id number] ORDERING CLINICIAN: ANGELLA MOURA TECHNIQUE: See below FINDINGS: PERCUTANEOUS INTRODUCED CENTRAL-VENOUS CATHETER PLACEMENT PERFORMED UNDER DIRECT ULTRASOUND AND FLUOROSCOPIC GUIDANCE The procedure and potential complications in addition to the benefits, risks, and alternatives were discussed with the patient. Voluntary signed, informed consent was obtained. The total procedure time was 30 minutes. The total fluoroscopy time was 0.1 minutes. Maximum sterile barrier technique was implemented. In the recumbent position, the patient was positioned on the angiography table. The cutaneous tissues in the right superomedial arm were prepared and draped in usual sterile manner. Screening ye-scale sonography of the brachial, cephalic and basilic veins was performed demonstrating a patent basilic vein which was subsequently selected for access. Lidocaine 1% was instilled into the subcutaneous soft tissues for local anesthesia. Utilizing direct ultrasound guidance and micropuncture/Seldinger technique, the basilic vein was accessed. Ultrasound imaging was performed to confirm location and a digital spot image was obtained and stored on the PACS. A 018 Berkshire-Mandril guidewire was inserted through the access needle to secure location. The access needle was exchanged over the wire for a 5-Ghanaian coaxial dilator peel-away sheath system. The guidewire was advanced to the cavoatrial junction utilizing intermittent fluoroscopic guidance. An optimal catheter length of 42 cm was obtained. The 5-Ghanaian dual-lumen PICC line catheter was trimmed and loaded on the 018 Berkshire-Mandril guidewire. The inner dilator was removed and the PICC catheter was introduced through the peel-away sheath. Utilizing intermittent fluoroscopic guidance, the catheter was advanced to the cavoatrial junction. The peel-away sheath was removed during catheter advancement. A fluoroscopic spot image of the chest in the AP projection was obtained to confirm optimal location. The catheter was aspirated without resistance and flushed with normal saline. The catheter was again flushed with heparinized saline. The external portion of the catheter was secured in place with a STATLOCK. The patient tolerated the procedure without complication. IMPRESSION: 1. Uncomplicated and technically successful placement of a dual-lumen 5-Ghanaian PICC line - optimal catheter length of 42 cm with catheter tip position at the cavoatrial junction. Uncomplicated procedure and the catheter is ready for use I was present for and/or performed the critical portions of the procedure and immediately available throughout the entire procedure. I personally reviewed the image(s) / study and resident interpretation. I agree with the findings as stated. Dictated at [facility]. Dictated by: Electronically Signed by: Katya Wilkes Electronically Signed on: 10/08/2017 5:13 PM GLUCOMETER Collected: 10/07/2017 Status: F Source: KAM 3:59 PM [facility] REPOSITORY TYPE CODE TESTS RESULT OUT OF REFERENCE UNITS RANGE LAB 8713774(LO 70-100 mg/dL INC) High Glucometer 161 GLUCOMETER Collected: 10/07/2017 Status: F Source: KAM 11:54 AM [facility] REPOSITORY TYPE CODE TESTS RESULT OUT OF REFERENCE UNITS RANGE LAB 6662656(LO 70-100 mg/dL INC) Glucometer 91 AUTO DIFF Collected: 10/07/2017 Status: F Source: KAM 4:37 AM [facility] REPOSITORY TYPE CODE TESTS RESULT OUT OF REFERENCE UNITS RANGE LAB NEUT(LOINC 41.0-73.8 % ) High Neutrophil% 74.8 LAB LYMP%(LOIN 17.0-44.0 % C) Low Lymph % 15.4 LAB MONO%(LOIN 5.3-12.5 % C) Sully % 8.4 LAB EO%(LOINC) 0.7-6.5 % Eo% 1.2 LAB BASO%(LOIN 0.0-2.4 % C) Baso% 0.2 LAB ANEUT(LOIN 1.8-7.5 x10E9/L C) Neutrophil 7.2 LAB ALYMP(LOIN 1.1-3.5 x10E9/L C) Lymphocyte 1.5 LAB AMONO(LOIN 0.3-1.0 x10E9/L C) Monocyte 0.8 LAB AEO(LOINC) 0.0-0.5 x10E9/L Eosinophil 0.1 LAB ABASO(LOIN 0.0-0.2 x10E9/L C) Basophil 0.0 ZCBCD Collected: 10/07/2017 Status: F Source: KAM 4:37 AM [facility] REPOSITORY TYPE CODE TESTS RESULT OUT OF REFERENCE UNITS RANGE LAB 2558509(LO 4.3-10.5 x10E9/L INC) WBC 9.6 LAB 5688228(LO 4.18-5.87 x10E12/L INC) Low RBC 3.92 LAB 4505989(LO 13.4-17.5 g/dL INC) Low Hemoglobin 10.5 LAB 6669400(LO 37.5-49.2 % INC) Low Hematocrit 32.0 LAB MCV(LOINC) 80.0-100.0 fL MCV 81.6 LAB MCH(LOINC) 26.5-33.0 pg MCH 26.8 LAB MCHC(LOINC 32.6-36.0 g/dL ) MCHC 32.9 LAB 4855571(LO 144-400 x10E9/L INC) Platelet 215 LAB 915178(HALLIE 7.2-10.3 fL NC) Mean Plt Vol 8.4 LAB 490363(HALLIE 11.4-16.0 % NC) RDW 13.3 BMP Collected: 10/07/2017 Status: F Source: KAM 4:37 AM [facility] REPOSITORY TYPE CODE TESTS RESULT OUT OF REFERENCE UNITS RANGE LAB 1584074(LO 136-144 mmol/L INC) Low Sodium 131 LAB 9755965(LO 3.4-5.1 mmol/L INC) Potassium 3.8 LAB 9500195(LO 98-107 mmol/L INC) Chloride 103 LAB 6497766(LO 22-32 mmol/L INC) Low CO2 20 LAB 436122(HALLIE 5.0-19.0 mmol/L NC) Anion Gap 8.0 LAB 1554271(LO 70-100 mg/dL INC) Glucose High 258 LAB 7289174(LO 8-26 mg/dL INC) Low BUN 7 LAB 3407226(LO 0.60-1.30 mg/dL INC) Creatinine 0.80 LAB 6557954(LO 8.1-10.1 mg/dL INC) Low Calcium 7.1 LAB 127776(HALLIE mOsm/kg NC) Osmolality-Calc 270 LAB 916294(HALLIE NC) Bun/CretRatio 8.8 MG Collected: 10/07/2017 Status: F Source: KAM 4:37 AM [facility] REPOSITORY TYPE CODE TESTS RESULT OUT OF REFERENCE UNITS RANGE LAB 4796810(LO 1.8-2.5 mg/dL INC) Magnesium 2.1 AUTO DIFF Collected: 10/06/2017 Status: F Source: KAM 4:33 [facility] REPOSITORY TYPE CODE TESTS RESULT OUT OF REFERENCE UNITS RANGE LAB NEUT(LOINC 41.0-73.8 % ) High Neutrophil% 76.6 LAB LYMP%(LOIN 17.0-44.0 % C) Low Lymph % 14.1 LAB MONO%(LOIN 5.3-12.5 % C) Sully % 8.4 LAB EO%(LOINC) 0.7-6.5 % Low Eo% 0.6 LAB BASO%(LOIN 0.0-2.4 % C) Baso% 0.3 LAB ANEUT(LOIN 1.8-7.5 x10E9/L C) Neutrophil 6.8 LAB ALYMP(LOIN 1.1-3.5 x10E9/L C) Lymphocyte 1.2 LAB AMONO(LOIN 0.3-1.0 x10E9/L C) Monocyte 0.7 LAB AEO(LOINC) 0.0-0.5 x10E9/L Eosinophil 0.0 LAB ABASO(LOIN 0.0-0.2 x10E9/L C) Basophil 0.0 ZCBCD Collected: 10/06/2017 Status: F Source: KAM 4:33 [facility] REPOSITORY TYPE CODE TESTS RESULT OUT OF REFERENCE UNITS RANGE LAB 7149729(LO 4.3-10.5 x10E9/L INC) WBC 8.8 LAB 3243365(LO 4.18-5.87 x10E12/L INC) Low RBC 3.88 LAB 6682696(LO 13.4-17.5 g/dL INC) Low Hemoglobin 10.4 LAB 8615315(LO 37.5-49.2 % INC) Low Hematocrit 31.5 LAB MCV(LOINC) 80.0-100.0 fL MCV 81.2 LAB MCH(LOINC) 26.5-33.0 pg MCH 26.9 LAB MCHC(LOINC 32.6-36.0 g/dL ) MCHC 33.1 LAB 6820716(LO 144-400 x10E9/L INC) Platelet 160 LAB 307241(HALLIE 7.2-10.3 fL NC) Mean Plt Vol 8.6 LAB 914672(HALLIE 11.4-16.0 % NC) RDW 13.4 CMP Collected: 10/06/2017 Status: F Source: KAM 4:33 AM [facility] REPOSITORY TYPE CODE TESTS RESULT OUT OF REFERENCE UNITS RANGE LAB 9745604(LO 136-144 mmol/L INC) Low Sodium 132 LAB 5678258(LO 3.4-5.1 mmol/L INC) Potassium 3.9 LAB 6492440(LO 98-107 mmol/L INC) Chloride 101 LAB 0834383(LO 22-32 mmol/L INC) CO2 23 LAB 5262957(LO 70-100 mg/dL INC) Glucose High 270 LAB 4379881(LO 8-26 mg/dL INC) BUN 8 LAB 5276095(LO 0.60-1.30 mg/dL INC) Creatinine 0.78 LAB 1619809(LO 8.1-10.1 mg/dL INC) Low Calcium 7.4 LAB 4876983(LO 6.5-8.1 g/dL INC) Low Total Protein 6.0 LAB 1693716(LO 3.5-5.0 g/dL INC) Low Albumin 2.6 LAB 4237375(LO 0.3-1.2 mg/dL INC) Bilirubin Total 0.6 LAB 5670364(LO 15-41 IU/L INC) AST High (SGOT) 63 LAB 3973259(LO 14-63 IU/L INC) ALT (SGPT) 57 LAB 5957941(LO 32-91 IU/L INC) Alk Phos 85 LAB 819397(HALLIE 5.0-19.0 mmol/L NC) Anion Gap 8.0 LAB 668656(HALLIE NC) Bun/CretRatio 10.3 LAB 546463(HALLIE mOsm/kg NC) Osmolality-Calc 272 GLUCOMETER Collected: 10/05/2017 Status: F Source: KAM 6:24 AM [facility] REPOSITORY TYPE CODE TESTS RESULT OUT OF REFERENCE UNITS RANGE LAB 6912671(LO 70-100 mg/dL INC) High Glucometer 214 AUTO DIFF Collected: 10/05/2017 Status: F Source: KAM 6:14 AM [facility] REPOSITORY TYPE CODE TESTS RESULT OUT OF REFERENCE UNITS RANGE LAB NEUT(LOINC 41.0-73.8 % ) High Neutrophil% 81.4 LAB LYMP%(LOIN 17.0-44.0 % C) Low Lymph % 9.5 LAB MONO%(LOIN 5.3-12.5 % C) Sully % 8.5 LAB EO%(LOINC) 0.7-6.5 % Low Eo% 0.3 LAB BASO%(LOIN 0.0-2.4 % C) Baso% 0.3 LAB ANEUT(LOIN 1.8-7.5 x10E9/L C) Neutrophil 5.8 LAB ALYMP(LOIN 1.1-3.5 x10E9/L C) Low Lymphocyte 0.7 LAB AMONO(LOIN 0.3-1.0 x10E9/L C) Monocyte 0.6 LAB AEO(LOINC) 0.0-0.5 x10E9/L Eosinophil 0.0 LAB ABASO(LOIN 0.0-0.2 x10E9/L C) Basophil 0.0 ZCBCD Collected: 10/05/2017 Status: F Source: KAM 6:14 AM [facility] REPOSITORY TYPE CODE TESTS RESULT OUT OF REFERENCE UNITS RANGE LAB [id number](LO 4.3-10.5 x10E9/L INC) WBC 7.2 LAB 3269265(LO 4.18-5.87 x10E12/L INC) Low RBC 3.70 LAB 2753036(LO 13.4-17.5 g/dL INC) Low Hemoglobin 10.2 LAB 1481978(LO 37.5-49.2 % INC) Low Hematocrit 29.7 LAB MCV(LOINC) 80.0-100.0 fL MCV 80.3 LAB MCH(LOINC) 26.5-33.0 pg MCH 27.6 LAB MCHC(LOINC 32.6-36.0 g/dL ) MCHC 34.3 LAB 9001119(LO 144-400 x10E9/L INC) Low Platelet 113 LAB 243297(HALLIE 7.2-10.3 fL NC) Mean Plt Vol 7.9 LAB 096891(HALLIE 11.4-16.0 % NC) RDW 12.6 CMP Collected: 10/05/2017 Status: F Source: KAM 6:12 AM [facility] REPOSITORY TYPE CODE TESTS RESULT OUT OF REFERENCE UNITS RANGE LAB 6122560(LO 136-144 mmol/L INC) Sodium 136 LAB 3486129(LO 3.4-5.1 mmol/L INC) Potassium 3.6 LAB 7152472(LO 98-107 mmol/L INC) Chloride High 109 LAB 3649761(LO 22-32 mmol/L INC) Low CO2 20 LAB 3276122(LO 70-100 mg/dL INC) Glucose High 187 LAB 2065659(LO 8-26 mg/dL INC) BUN 8 LAB 4052533(LO 0.60-1.30 mg/dL INC) Creatinine 0.64 LAB 2020753(LO 8.1-10.1 mg/dL INC) Low Calcium 6.7 LAB 5552917(LO 6.5-8.1 g/dL INC) Low Total Protein 5.2 LAB 0518250(LO 3.5-5.0 g/dL INC) Low Albumin 2.3 LAB 2035733(LO 0.3-1.2 mg/dL INC) Bilirubin Total 0.8 LAB 1566755(LO 15-41 IU/L INC) AST High (SGOT) 86 LAB 7147750(LO 14-63 IU/L INC) ALT (SGPT) 45 LAB 1372243(LO 32-91 IU/L INC) Alk Phos 73 LAB 333712(HALLIE 5.0-19.0 mmol/L NC) Anion Gap 7.0 LAB 190222(HALLIE NC) Bun/CretRatio 12.5 LAB 651966(HALLIE mOsm/kg NC) Osmolality-Calc 275 MG Collected: 10/05/2017 Status: F Source: KAM 6:12 AM [facility] REPOSITORY TYPE CODE TESTS RESULT OUT OF REFERENCE UNITS RANGE LAB 1964975(LO 1.8-2.5 mg/dL INC) Magnesium 1.8 GLUCOMETER Collected: 10/04/2017 Status: F Source: KAM 8:45 AM [facility] REPOSITORY TYPE CODE TESTS RESULT OUT OF REFERENCE UNITS RANGE LAB 8761733(LO 70-100 mg/dL INC) High Glucometer 155 GLUCOMETER Collected: 10/03/2017 Status: F Source: KAM 9:24 PM [facility] REPOSITORY TYPE CODE TESTS RESULT OUT OF REFERENCE UNITS RANGE LAB 1549291(LO 70-100 mg/dL INC) High Glucometer 124 GLUCOMETER Collected: 10/03/2017 Status: F Source: KAM 4:20 PM [facility] REPOSITORY TYPE CODE TESTS RESULT OUT OF REFERENCE UNITS RANGE LAB 2370354(LO 70-100 mg/dL INC) High Glucometer 205 VANC T Collected: 10/03/2017 Status: F Source: KAM 3:09 PM [facility] REPOSITORY TYPE CODE TESTS RESULT OUT OF REFERENCE UNITS RANGE LAB 1218518(HALLIE 10.0-20.0 ug/mL NC) Vanco Trough 17.0 Result Comment: Reference range - 10 - 20 ug/mL for complicated infections - 15 - 20 ug/mL Vancomycin trough should always be maintained above 10 ug/mL to avoid antibiotic resistance. ZCBCD Collected: 10/03/2017 Status: F Source: KAM 6:58 AM [facility] REPOSITORY TYPE CODE TESTS RESULT OUT OF REFERENCE UNITS RANGE LAB 8636489(LO 4.3-10.5 x10E9/L INC) WBC 8.5 LAB 2822790(LO 4.18-5.87 x10E12/L INC) RBC 4.44 LAB 3925321(LO 13.4-17.5 g/dL INC) Low Hemoglobin 12.0 LAB 3755264(LO 37.5-49.2 % INC) Low Hematocrit 36.1 LAB MCV(LOINC) 80.0-100.0 fL MCV 81.2 LAB MCH(LOINC) 26.5-33.0 pg MCH 27.1 LAB MCHC(LOINC 32.6-36.0 g/dL ) MCHC 33.4 LAB 5261374(LO 144-400 x10E9/L INC) Platelet 197 LAB 067720(HALLIE 7.2-10.3 fL NC) Mean Plt Vol 7.4 LAB 906709(HALLIE 11.4-16.0 % NC) RDW 12.9 AUTO DIFF Collected: 10/03/2017 Status: F Source: HUMPHREY 6:58 AM [facility] REPOSITORY TYPE CODE TESTS RESULT OUT OF REFERENCE UNITS RANGE LAB NEUT(LOINC 41.0-73.8 % ) High Neutrophil% 89.2 LAB LYMP%(LOIN 17.0-44.0 % C) Low Lymph % 7.1 LAB MONO%(LOIN 5.3-12.5 % C) Low Sully % 2.9 LAB EO%(LOINC) 0.7-6.5 % Low Eo% 0.3 LAB BASO%(LOIN 0.0-2.4 % C) Baso% 0.5 LAB ANEUT(LOIN 1.8-7.5 x10E9/L C) High Neutrophil 7.6 LAB ALYMP(LOIN 1.1-3.5 x10E9/L C) Low Lymphocyte 0.6 LAB AMONO(LOIN 0.3-1.0 x10E9/L C) Low Monocyte 0.2 LAB AEO(LOINC) 0.0-0.5 x10E9/L Eosinophil 0.0 LAB ABASO(LOIN 0.0-0.2 x10E9/L C) Basophil 0.0 [address] SHAN Collected: 10/03/2017 Status: F Source: KAM 6:58 AM [facility] REPOSITORY TYPE CODE TESTS RESULT OUT OF REFERENCE UNITS RANGE LAB 3782563(HALLIE 0-20 mm/hr NC) High SedRte Shan 67 CMP Collected: 10/03/2017 Status: F Source: HUMPHREY 6:52 AM [facility] REPOSITORY TYPE CODE TESTS RESULT OUT OF REFERENCE UNITS RANGE LAB 5046294(LO 136-144 mmol/L INC) Low Sodium 135 LAB 5028426(LO 3.4-5.1 mmol/L INC) Potassium 4.3 LAB 6345051(LO 98-107 mmol/L INC) Chloride 107 LAB 8727876(LO 22-32 mmol/L INC) CO2 23 LAB 164852(HALLIE 5.0-19.0 mmol/L NC) Anion Gap 5.0 LAB 0468867(LO 70-100 mg/dL INC) Glucose High 167 LAB 1352083(LO 8-26 mg/dL INC) BUN 10 LAB 7228348(LO 0.60-1.30 mg/dL INC) Creatinine 0.82 LAB 6425508(LO 8.1-10.1 mg/dL INC) Calcium 8.2 LAB 5933443(LO 6.5-8.1 g/dL INC) Low Total Protein 6.2 LAB 6000352(LO 3.5-5.0 g/dL INC) Low Albumin 2.7 LAB 8035493(LO 0.3-1.2 mg/dL INC) Bilirubin Total 0.9 LAB 3461036(LO 15-41 IU/L INC) AST High (SGOT) 166 LAB 5274252(LO 14-63 IU/L INC) ALT (SGPT) 51 LAB 9851689(LO 32-91 IU/L INC) Alk Phos High 98 LAB 440373(HALLIE NC) Bun/CretRatio 12.2 LAB 173934(HALLIE mOsm/kg NC) Osmolality-Calc 273 MG Collected: 10/03/2017 Status: F Source: KAM 6:52 AM [facility] REPOSITORY TYPE CODE TESTS RESULT OUT OF REFERENCE UNITS RANGE LAB 7682521(LO 1.8-2.5 mg/dL INC) Magnesium 2.0 CRP Collected: 10/03/2017 Status: F Source: KAM 6:52 AM [facility] REPOSITORY TYPE CODE TESTS RESULT OUT OF RANGE REFERENCE UNITS LAB 5220373(HALLIE 0.0-9.9 mg/L NC) High 96.3 C-Reactive Prot LACTIC ACID Collected: 10/02/2017 Status: F Source: KAM 10:03 PM [facility] REPOSITORY TYPE CODE TESTS RESULT OUT OF REFERENCE UNITS RANGE LAB 4412124(HALLIE 0.5-2.2 mmol/L NC) Lactic Acid 1.2 C Observed: 10/02/2017 Status: F Source: KAM WND/GRAM 6:40 PM [facility] REPOSITORY SOURCE: Wound (Heavy Streptococcus agalactiae (Group B)) GS : source: Right toe wound Rare White Blood Cells 4+ Gram Positive Cocci in Pairs 1+ Gram Positive Amadou, suggestive of Diphtheroids ORGANISM : Streptococcus agalactiae (Group B) ORGANISM : Streptococcus agalactiae (Group B) Ceftriaxone : Susceptible Levofloxacin : Susceptible Tetracycline : Resistant Erythromycin : Resistant Clindamycin : Resistant Linezolid : Susceptible Vancomycin : Susceptible CBC Collected: 10/02/2017 Status: F Source: KAM 5:33 PM [facility] REPOSITORY TYPE CODE TESTS RESULT OUT OF REFERENCE UNITS RANGE LAB 3331367(LO 4.3-10.5 x10E9/L INC) WBC 8.0 LAB 2429004(LO 4.18-5.87 x10E12/L INC) RBC 5.07 LAB 9598439(LO 13.4-17.5 g/dL INC) Hemoglobin 13.8 LAB 9496113(LO 37.5-49.2 % INC) Hematocrit 41.8 LAB MCV(LOINC) 80.0-100.0 fL MCV 82.5 LAB MCH(LOINC) 26.5-33.0 pg MCH 27.1 LAB MCHC(LOINC 32.6-36.0 g/dL ) MCHC 32.9 LAB 3085252(LO 144-400 x10E9/L INC) Platelet 323 LAB 775142(HALLIE 7.2-10.3 fL NC) Low Mean Plt Vol 7.1 LAB 367095(HALLIE 11.4-16.0 % NC) RDW 13.1 RENAL Collected: 10/02/2017 Status: F Source: KAM 5:33 PM [facility] REPOSITORY TYPE CODE TESTS RESULT OUT OF REFERENCE UNITS RANGE LAB 9823651(LO 136-144 mmol/L INC) Sodium 136 LAB 5137802(LO 3.4-5.1 mmol/L INC) Potassium 4.3 LAB 7296634(LO 98-107 mmol/L INC) Chloride 100 LAB 9964087(LO 22-32 mmol/L INC) CO2 22 LAB 5699444(LO 70-100 mg/dL INC) Glucose High 178 LAB 6919050(LO 8-26 mg/dL INC) BUN 10 LAB 9822119(LO 0.60-1.30 mg/dL INC) Creatinine 1.01 LAB 0346321(LO 3.5-5.0 g/dL INC) Albumin 3.5 LAB 0316012(LO 8.1-10.1 mg/dL INC) Calcium 8.5 LAB 8488950(LO 2.5-4.6 mg/dL INC) Phosphorus 3.6 LAB 916965(HALLIE 5.0-19.0 mmol/L NC) Anion Gap 14.0 LAB 209603(HALLIE NC) Bun/CretRatio 9.9 LAB 187465(HALLIE mOsm/kg NC) Osmolality-Calc 275 LACTIC ACID Collected: 10/02/2017 Status: F Source: KAM 5:33 PM [facility] REPOSITORY TYPE CODE TESTS RESULT OUT OF RANGE REFERENCE UNITS LAB 4395529(LO 0.5-2.2 mmol/L INC) Abnormal Alert Lactic 5.5 Acid Result Comment: Critical result called to, and read back by Thomas Meneses RN. 10/02/2017 18:24:36 EST [facility] LACTIC ACID COMMENT Collected: 10/02/2017 Status: F Source: KAM 5:33 PM [facility] REPOSITORY Order Comment: Lactic Acid > 2.0 If sepsis is suspected, repeat Lactic acid assay within 4 hours. TYPE CODE TESTS RESULT OUT OF REFERENCE UNITS RANGE LAB 0340132(HALLIE NC) Lactic Acid Lactic Comment Acid > 2.0 If sepsis is suspected, repeat Lactic acid assay within 4 hours. GLUCOMETER Collected: 10/02/2017 Status: F Source: KAM 4:57 PM [facility] REPOSITORY TYPE CODE TESTS RESULT OUT OF REFERENCE UNITS RANGE LAB 1926699(LO 70-100 mg/dL INC) High Glucometer 183 RAD/FOOT COMP MIN Observed: 10/02/2017 Status: F Source: KAM 3V-RT 1:37 PM [facility] REPOSITORY Patient Name: XUAN FUCHS STUDY: RAD/FOOT COMP MIN 3V-RT; 10/02/2017 1:02 pm INDICATION: infection. Right foot infection x2 months with redness over metatarsals. COMPARISON: None ACCESSION NUMBER(S): [id number] ORDERING CLINICIAN: MARCO A GOODMAN FINDINGS: Three views of the right foot were obtained. No definite acute fracture or osseous displacement. Possible subtle irregularity of the lateral aspect of the 5th metatarsal head on frontal view. No periosteal reaction. Degenerative spurring in the IP joint of the great toe. Multifocal faint vascular calcifications. Spurring along the posterior and inferior margins of the calcaneus. Forefoot soft tissue swelling. IMPRESSION: Possible subtle irregularity of the lateral 5th metatarsal head. Osteomyelitis not excluded in the proper clinical setting. Further evaluation with MRI or bone scan recommended as clinically warranted. Dictated by: Electronically Signed by: Quiana Guerrero Electronically Signed on: 10/02/2017 1:37 PM AUTO DIFF Collected: 10/02/2017 Status: F Source: KAM 1:27 PM [facility] REPOSITORY TYPE CODE TESTS RESULT OUT OF REFERENCE UNITS RANGE LAB NEUT(LOINC 41.0-73.8 % ) High Neutrophil% 77.7 LAB LYMP%(LOIN 17.0-44.0 % C) Low Lymph % 14.6 LAB MONO%(LOIN 5.3-12.5 % C) Sully % 7.1 LAB EO%(LOINC) 0.7-6.5 % Low Eo% 0.5 LAB BASO%(LOIN 0.0-2.4 % C) Baso% 0.1 LAB ANEUT(LOIN 1.8-7.5 x10E9/L C) High Neutrophil 8.7 LAB ALYMP(LOIN 1.1-3.5 x10E9/L C) Lymphocyte 1.6 LAB AMONO(LOIN 0.3-1.0 x10E9/L C) Monocyte 0.8 LAB AEO(LOINC) 0.0-0.5 x10E9/L Eosinophil 0.1 LAB ABASO(LOIN 0.0-0.2 x10E9/L C) Basophil 0.0 ZCBCD Collected: 10/02/2017 Status: F Source: KAM 1:27 PM [facility] REPOSITORY TYPE CODE TESTS RESULT OUT OF REFERENCE UNITS RANGE LAB 9429911(LO 4.3-10.5 x10E9/L INC) WBC High 11.2 LAB 9168027(LO 4.18-5.87 x10E12/L INC) RBC 4.83 LAB 4466570(LO 13.4-17.5 g/dL INC) Low Hemoglobin 13.1 LAB 7560408(LO 37.5-49.2 % INC) Hematocrit 39.4 LAB MCV(LOINC) 80.0-100.0 fL MCV 81.6 LAB MCH(LOINC) 26.5-33.0 pg MCH 27.2 LAB MCHC(LOINC 32.6-36.0 g/dL ) MCHC 33.4 LAB 3301417(LO 144-400 x10E9/L INC) Platelet 376 LAB 368573(HALLIE 7.2-10.3 fL NC) Mean Plt Vol 7.2 LAB 300317(HALLIE 11.4-16.0 % NC) RDW 12.8 CMP Collected: 10/02/2017 Status: F Source: KAM 1:27 PM [facility] REPOSITORY TYPE CODE TESTS RESULT OUT OF REFERENCE UNITS RANGE LAB 7700492(LO 136-144 mmol/L INC) Low Sodium 133 LAB 4259364(LO 3.4-5.1 mmol/L INC) Potassium 4.9 LAB 3078828(LO 98-107 mmol/L INC) Low Chloride 97 LAB 7396546(LO 22-32 mmol/L INC) CO2 25 LAB 2530356(LO 70-100 mg/dL INC) Glucose High 206 LAB 8356816(LO 8-26 mg/dL INC) BUN 10 LAB 4348769(LO 0.60-1.30 mg/dL INC) Creatinine 0.82 LAB 8183071(LO 8.1-10.1 mg/dL INC) Calcium 8.7 LAB 5668046(LO 6.5-8.1 g/dL INC) Total Protein 7.3 LAB 1415437(LO 3.5-5.0 g/dL INC) Low Albumin 3.2 LAB 2362749(LO 0.3-1.2 mg/dL INC) Bilirubin Total 0.7 LAB 4026803(LO 15-41 IU/L INC) AST (SGOT) 18 LAB 9654070(LO 14-63 IU/L INC) ALT (SGPT) 26 LAB 9162903(LO 32-91 IU/L INC) Alk Phos 65 LAB 660866(HALLIE 5.0-19.0 mmol/L NC) Anion Gap 11.0 LAB 303814(HALLIE NC) Bun/CretRatio 12.2 LAB 255065(HALLIE mOsm/kg NC) Osmolality-Calc 271 LACTIC ACID Collected: 10/02/2017 Status: F Source: KAM 1:27 PM [facility] REPOSITORY TYPE CODE TESTS RESULT OUT OF REFERENCE UNITS RANGE LAB 6134502(HALLIE 0.5-2.2 mmol/L NC) High Lactic Acid 2.6 LACTIC ACID COMMENT Collected: 10/02/2017 Status: F Source: KAM 1:27 PM [facility] REPOSITORY Order Comment: Lactic Acid > 2.0 If sepsis is suspected, repeat Lactic acid assay within 4 hours. TYPE CODE TESTS RESULT OUT OF REFERENCE UNITS RANGE LAB 0763769(HALLIE NC) Lactic Acid Lactic Comment Acid > 2.0 If sepsis is suspected, repeat Lactic acid assay within 4 hours. PT/APTT Collected: 10/02/2017 Status: F Source: KAM 1:26 PM [facility] REPOSITORY TYPE CODE TESTS RESULT OUT OF REFERENCE UNITS RANGE LAB 361842(HALLIE 9.0-11.8 seconds NC) High Protime 13.0 LAB INR(LOINC) INR 1.2 Result Comment: Recommended ranges for Protime INR: 2.0-3.0 for most medical and surgical thromboembolic states. 2.5-3.5 for artificial heart valves and recurrent embolism. NOTE: Utilizing the INR is appropriate only for those patients who are taking oral anticoagulant therapy, are stable for at least two weeks and have appropriately responded to the anticoagulant drug. LAB 2829791(LOINC) 22.5-35.7 seconds APTT 30.0 Result Comment: Recommended therapeutic range for patients receiving unfractionated heparin: 58 - 94 seconds. Observed: 10/02/2017 Status: F Source: KAM Mooney BLD 12:41 PM [facility] REPOSITORY SOURCE: Venipuncture (No growth at 5 days.) Observed: 10/02/2017 Status: F Source: KAM Mooney BLD 12:41 PM [facility] REPOSITORY SOURCE: Venipuncture (No growth at 5 days.) BMP Collected: 09/30/2017 Status: F Source: KAM 5:39 AM [facility] REPOSITORY TYPE CODE TESTS RESULT OUT OF REFERENCE UNITS RANGE LAB 2043611(LO 136-144 mmol/L INC) Sodium 136 LAB 6605107(LO 3.4-5.1 mmol/L INC) Potassium 4.0 LAB 1083319(LO 98-107 mmol/L INC) Chloride 104 LAB 7606799(LO 22-32 mmol/L INC) CO2 25 LAB 4224653(LO 70-100 mg/dL INC) Glucose High 101 LAB 1358542(LO 8-26 mg/dL INC) BUN 14 LAB 6437767(LO 0.60-1.30 mg/dL INC) Creatinine 0.73 LAB 9961973(LO 8.1-10.1 mg/dL INC) Calcium 8.8 LAB 750934(HALLIE 5.0-19.0 mmol/L NC) Anion Gap 7.0 LAB 126947(HALLIE mOsm/kg NC) Osmolality-Calc 273 LAB 414619(HALLIE NC) Bun/CretRatio 19.2 CBC Collected: 09/30/2017 Status: F Source: KAM 5:38 AM [facility] REPOSITORY TYPE CODE TESTS RESULT OUT OF REFERENCE UNITS RANGE LAB 1771550(LO 4.3-10.5 x10E9/L INC) WBC 7.6 LAB 2544879(LO 4.18-5.87 x10E12/L INC) RBC 4.43 LAB 7502284(LO 13.4-17.5 g/dL INC) Low Hemoglobin 12.2 LAB 8841060(LO 37.5-49.2 % INC) Low Hematocrit 36.2 LAB MCV(LOINC) 80.0-100.0 fL MCV 81.5 LAB MCH(LOINC) 26.5-33.0 pg MCH 27.4 LAB MCHC(LOINC 32.6-36.0 g/dL ) MCHC 33.7 LAB 8909183(LO 144-400 x10E9/L INC) Platelet 321 LAB 687544(HALLIE 7.2-10.3 fL NC) Mean Plt Vol 7.5 LAB 184228(HALLIE 11.4-16.0 % NC) RDW 13.0 GLUCOMETER Collected: 09/26/2017 Status: F Source: KAM 7:36 AM [facility] REPOSITORY TYPE CODE TESTS RESULT OUT OF REFERENCE UNITS RANGE LAB 0666378(LO 70-100 mg/dL INC) High Glucometer 224 BMP Collected: 09/26/2017 Status: F Source: KAM 5:42 AM [facility] REPOSITORY TYPE CODE TESTS RESULT OUT OF REFERENCE UNITS RANGE LAB 5945290(LO 136-144 mmol/L INC) Low Sodium 134 LAB 8689869(LO 3.4-5.1 mmol/L INC) Potassium 4.1 LAB 2582997(LO 98-107 mmol/L INC) Chloride 102 LAB 3768751(LO 22-32 mmol/L INC) CO2 25 LAB 9286244(LO 70-100 mg/dL INC) Glucose High 231 LAB 3992827(LO 8-26 mg/dL INC) BUN 11 LAB 6968387(LO 0.60-1.30 mg/dL INC) Creatinine 0.71 LAB 7448101(LO 8.1-10.1 mg/dL INC) Calcium 8.6 LAB 955755(HALLIE 5.0-19.0 mmol/L NC) Anion Gap 7.0 LAB 474005(HALLIE mOsm/kg NC) Osmolality-Calc 275 LAB 879975(HALLIE NC) Bun/CretRatio 15.5 CBC Collected: 09/26/2017 Status: F Source: KAM 5:32 AM [facility] REPOSITORY TYPE CODE TESTS RESULT OUT OF REFERENCE UNITS RANGE LAB 1102310(LO 4.3-10.5 x10E9/L INC) WBC 6.6 LAB 9288123(LO 4.18-5.87 x10E12/L INC) RBC 4.63 LAB 0938398(LO 13.4-17.5 g/dL INC) Low Hemoglobin 12.7 LAB 8226844(LO 37.5-49.2 % INC) Hematocrit 37.8 LAB MCV(LOINC) 80.0-100.0 fL MCV 81.7 LAB MCH(LOINC) 26.5-33.0 pg MCH 27.5 LAB MCHC(LOINC 32.6-36.0 g/dL ) MCHC 33.6 LAB 3722693(LO 144-400 x10E9/L INC) Platelet 269 LAB 778858(HALLIE 7.2-10.3 fL NC) Mean Plt Vol 7.6 LAB 651127(HALLIE 11.4-16.0 % NC) RDW 12.6 GLUCOMETER Collected: 09/25/2017 Status: F Source: KAM 10:18 PM [facility] REPOSITORY TYPE CODE TESTS RESULT OUT OF REFERENCE UNITS RANGE LAB 6296444(LO 70-100 mg/dL INC) High Glucometer 258 GLUCOMETER Collected: 09/25/2017 Status: F Source: KAM 6:03 PM [facility] REPOSITORY TYPE CODE TESTS RESULT OUT OF REFERENCE UNITS RANGE LAB 6946003(LO 70-100 mg/dL INC) High Glucometer 239 GLUCOMETER Collected: 09/25/2017 Status: F Source: KAM 7:16 AM [facility] REPOSITORY TYPE CODE TESTS RESULT OUT OF REFERENCE UNITS RANGE LAB 1060551(LO 70-100 mg/dL INC) High Glucometer 229 CBC Collected: 09/18/2017 Status: F Source: KAM 4:27 PM [facility] REPOSITORY TYPE CODE TESTS RESULT OUT OF REFERENCE UNITS RANGE LAB 0721326(LO 4.3-10.5 x10E9/L INC) WBC 8.0 LAB 8202915(LO 4.18-5.87 x10E12/L INC) RBC 5.19 LAB 0774824(LO 13.4-17.5 g/dL INC) Hemoglobin 14.3 LAB 4040145(LO 37.5-49.2 % INC) Hematocrit 43.5 LAB MCV(LOINC) 80.0-100.0 fL MCV 83.7 LAB MCH(LOINC) 26.5-33.0 pg MCH 27.5 LAB MCHC(LOINC 32.6-36.0 g/dL ) MCHC 32.9 LAB 9630143(LO 144-400 x10E9/L INC) Platelet 266 LAB 001433(HALLIE 7.2-10.3 fL NC) Mean Plt Vol 8.6 LAB 478910(HALLIE 11.4-16.0 % NC) RDW 12.9 CMP Collected: 09/18/2017 Status: F Source: KAM 4:27 PM [facility] REPOSITORY TYPE CODE TESTS RESULT OUT OF REFERENCE UNITS RANGE LAB 781768(HALLIE 5.0-19.0 mmol/L NC) Anion Gap 11.0 LAB 974911(HALLIE NC) Bun/CretRatio 14.1 LAB 833538(HALLIE mOsm/kg NC) Osmolality-Calc 274 LAB 1964301(LO 136-144 mmol/L INC) Low Sodium 129 LAB 6114335(LO 3.4-5.1 mmol/L INC) Potassium 4.1 LAB 8613655(LO 98-107 mmol/L INC) Low Chloride 95 LAB 6405352(LO 22-32 mmol/L INC) CO2 23 LAB 0767995(LO 70-100 mg/dL INC) Glucose High 358 LAB 9709353(LO 8-26 mg/dL INC) BUN 14 LAB 7180710(LO 0.60-1.30 mg/dL INC) Creatinine 0.99 LAB 2461557(LO 8.1-10.1 mg/dL INC) Calcium 8.5 LAB 9934954(LO 6.5-8.1 g/dL INC) Total Protein 7.1 LAB 0404475(LO 3.5-5.0 g/dL INC) Albumin 3.9 LAB 9649041(LO 0.3-1.2 mg/dL INC) Bilirubin Total 0.5 LAB 9516495(LO 15-41 IU/L INC) AST (SGOT) 19 LAB 1668138(LO 14-63 IU/L INC) ALT (SGPT) 22 LAB 1035408(LO 32-91 IU/L INC) Alk Phos 58 C Observed: 09/15/2017 Status: F Source: KAM WND/GRAM 4:51 PM [facility] REPOSITORY SOURCE: Wound (Slight Streptococcus agalactiae (Group B) Moderate Normal skin jordan isolated also) GS : Source: Right Lat foot Few White Blood Cells Few Gram Positive Cocci in Pairs Rare Gram Positive Amadou, suggestive of Diphtheroids ORGANISM : Streptococcus agalactiae (Group B) ORGANISM : Streptococcus agalactiae (Group B) Ceftriaxone : Susceptible Levofloxacin : Susceptible Tetracycline : Resistant Erythromycin : Resistant Clindamycin : Resistant Linezolid : Susceptible Vancomycin : Susceptible Observed: 09/15/2017 Status: F Source: KAM TURNER 4:51 PM [facility] REPOSITORY SOURCE: Wound (No anaerobic organisms isolated after 5 days.) EMERGENCY DEPARTMENT Observed: 08/29/2017 Status: F Source: [place] SUMMARY 10:32 PM [facility] REPOSITORY [facility] Medical Records Department [address] [place] [address] Emergency Department Summary 08/29/176 MR#: [id number] Acct: [id number] Name: XUAN FUCHS Rep #: [id number] : 1960 57 From: Roni Wilkins MD PCP: Darius Hartmann MD Status: REG ER - ER Visit Summary Date of Service: 08/29/17 Chief Complaint: Foot drainage History of Present Illness: The patient is a 57 M with history of diabetes and 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 Patient states 3 weeks ago, he noticed some ulcerations at the medial aspect of his first toe and the lateral aspect of his fifth toe. He has been following with Dr. Aguilar and completed 10 days of antibiotics. He came off the antibiotics 2 days ago. He states tonight, he noticed some drainage in between his fourth and fifth toe. He does admit some mild pain. He denies any fevers or chills. He does have a history of osteomyelitis. Physical Examination: Vital signs reviewed General: Well-nourished, well-developed Head: Normocephalic, atraumatic Eyes: Pupils equal and reactive, extraocular muscles intact Neck, supple, no lymphadenopathy Heart: Regular rate and rhythm Respiratory: No distress, clear bilaterally Abdomen: Soft, nontender, nondistended, no peritoneal signs Back: Nontender Extremities: Nontender, minimal erythema with some scant drainage between the fourth and fifth toe, no cellulitis, normal pulses Skin: Normal color no rash Neuro: Alert and oriented, no focal or lateralizing deficits Test Results: Labs unremarkable. X-ray unremarkable. Emergency Department Course and Treatment: Patient has some scant drainage from between his fourth and fifth toes. There was no significant cellulitis. His pulses are normal. There is no tenderness or evidence of deep space infection. X-rays were obtained. Given the duration of his infection, there is no evidence of osteomyelitis. His labs are unremarkable. I discussed the patient with on-call for podiatry. I am going to start the patient on Levaquin. I did culture the wound. Based on his history, I really have a very low suspicion for staph. I did clinical counselor him on wound care and dressing changes. If there is any worsening over the weekend, I did clinical counselor the patient to return here for reevaluation. They are comfortable with this plan of care. Treatment Plan: [] Disposition: Discharge Impression: Diabetic ulceration between fourth and fifth toes right foot This note was generated with [employer] dictation software. It may contain incorrect words, spelling, and punctuation that were not noted in review of the chart prior to signing ED Disposition - Plan for ED Patient: Chief Complaint: Wound Instructions: ED Foot Care Diabetic Prescriptions: Levofloxacin [Levaquin] 750 mg PO DAILY #7 tab Referrals: Saul Hartmann MD [Primary Care Provider] - What to do if you have Problems For any increased pain, shortness of breath, bleeding, nausea or vomiting, chest pain, or any unexpected problems, contact your Primary Care Provider. Call [facility] ([phone]) or report to the closest Emergency Room. Call 911 if necessary. 08/29/17 2232 <Electronically signed by Roni Wilkins MD> Date Roni Boigner Signature (If Indicated): Date CC: Darius Hartmann MD; Darius Hartmann MD Observed: 08/29/2017 Status: F Source: [place] CULTURE, WOUND 10:20 PM [facility] REPOSITORY Order Date: 08/29/17 Has pt arrived? Y Gram Stain Gram Stain 4+ Gram positive cocci 2+ Gram negative rods No White Blood Cells Wound Culture #2 There are no CLSI standards for interpretation of this Drug/Organism combination. ORGANISM 1: Streptococcus agalactiae (B) Amount Growth 3+ ORGANISM 2: Corynebacterium minutissimum Amount Growth 3+ Streptococcus agalactiae (B): REACTION Ampicillin $ <=0.25 S Benzylpenicillin NF <=0.06 S Ceftriaxone $ <=0.12 S Clindamycin $$ >=1 R Inducable Clindamycin [place] - Linezolid $$$$ <=2 S Vancomycin $ 0.5 S (NF) indicates non-formulary drug at [facility]. Approval by Infectious Disease Specialist required before non-formulary drugs may be ordered and/or dispensed. * CLSI guidelines does not recommend testing of cephalosporins. This interpretation is deduced from Beta-lactam/penicillin results. Performed By: #### M100.1400 #### [facility] [place], [address] CBC W/DIFF, AUTOMATED Collected: 08/29/2017 Status: F Source: [place] 8:50 PM [facility] REPOSITORY TYPE CODE TESTS RESULT OUT OF RANGE REFERENCE UNITS LAB L100.1000 4.4-11.0 K/mm3 Normal WBC 8.0 LAB L100.1200 4.6-6.2 M/mm3 Normal RBC 5.31 LAB L100.1300 13.0-16.5 g/dl Normal HGB 15.0 LAB L100.1400 40-54 % Normal HCT 43.1 LAB L100.1500 80-94 fL Normal MCV 81.2 LAB L100.1600 27.0-32.0 pg Normal MCH 28.2 LAB L100.1700 32-36 g/gl Normal MCHC 34.8 LAB L100.1810 11.6-14.6 % Normal RDW CV 12.9 LAB L100.1820 35.1-43.9 fl Normal RDW SD 37.7 LAB L100.1900 150-450 K/mm3 Normal PLT 202 LAB L100.2000 6.2-12.0 fl Normal MPV 9.7 LAB L100.2100 47-70 % Normal NEUT% 55.0 LAB L100.2200 19-41 % Normal LY% 35.1 LAB L100.2300 0-10 % Normal MONO% 7.8 LAB L100.2400 0-5 % Normal EO% 1.6 LAB L100.2500 0-1 % Normal BASO% 0.4 LAB L100.2550 0.0-0.9 % Normal IM GRAN % 0.100 Result Comment: IG% - Immature Granulocytes (promyelocytes, myelocytes and metamyelocytes) > 1% indicates that a LEFT SHIFT is Present. LAB L100.2620 2.0-7.7 X10 3/uL Normal Absolute Neut 4.4 LAB L100.2720 0.83-4.51 X10 3/ul Normal Absolute Lymph 2.80 Performed By: #### L100.0100 #### [facility] [address] [place], [place], [address] COMPREHENSIVE METABOLIC Collected: 08/29/2017 Status: F Source: [facility] 8:50 PM [facility] REPOSITORY TYPE CODE TESTS RESULT OUT OF RANGE REFERENCE UNITS LAB L501.0100 70-110 mg/dL High GLU 290 Result Comment: Glucose result greater than or equal to 200 mg/dL suggests DIABETES MELLITUS per A.D.A. criteria. LAB L501.1000 7-18 mg/dL High BUN 19 LAB L501.1100 0.70-1.30 mg/dL Normal CREAT,SERUM 1.15 Result Comment: The validity of the calculated GFR AND GFRAA in patients over 70 years has not been determined. Clinical correlation is essential. LAB L501.1110 >60 mL/min Normal EST GFR 70 Result Comment: Non- GFR Calc LAB L501.1115 >60 mL/min Normal EST GFR - AA 84 Result Comment: GFR Calc LAB L501.1255 ml/min Normal Estimated CRCL 73.18 LAB L501.1300 10-20 RATIO Normal BUN/CRE 16.5 LAB L501.1500 6.4-8. g/dL Normal 2 T PROT 7.2 LAB L501.1800 3.4-5. g/dL Normal 0 ALB 3.6 Result Comment: Please note revised Albumin AND Globulin reference range effective 2017. LAB L501.1950 2.2-4.2 g/dL Normal GLOB 3.6 LAB L501.2000 0.9-2.4 RATIO Normal A/G 1.0 LAB L501.2200 8.5-10.1 mg/dL Normal CA 8.6 LAB L501.4100 15-37 U/L Normal AST 17 LAB L501.4305 45-117 U/L Normal ALK P 71 LAB L501.4405 12-78 U/L Normal ALT 37 LAB L501.4600 0.20-1.00 mg/dL Normal T BILI 0.30 LAB L501.5300 136-145 mmol/L Normal NA 138 LAB L501.5600 3.5-5.1 mmol/L Normal K 4.0 LAB L501.5900 98-107 mmol/L Normal CL 104 LAB L501.6100 21.0-32.0 mmol/L Normal CO2 26.0 LAB L501.6200 5-15 Normal GAP 8 Performed By: #### L500.4050 #### [facility] [address] [facility] [place], [address] FOOT MIN 3 VIEWS Observed: 08/29/2017 Status: F Source: [place] 8:40 PM [facility] REPOSITORY [facility] Imaging Services [address] [place] [address] Foot min 3 Views MR#: [id number] Acct: [id number] Name: XUAN FUCHS Rep #: [id number] : 1960 M 57 From: Moreno Mccurdy MD PCP: Darius Hartmann MD Status: REG ER Study: Foot min 3 Views Date of Exam: 08/29/17 Exam# [id number] Ordering Dr: Roni Wilkins MD STUDY: X-RAY - RIGHT FOOT CLINICAL: Male, 57 years old. Right foot infection. TECHNIQUE: 3 view(s) of the foot. COMPARISON: None. FINDINGS: Normal talus, calcaneus, and tarsal bones. Normal visualized subtalar, talonavicular, calcaneocuboid, tarsal and tarsometatarsal articulations. Normal metatarsi. Normal metatarsophalangeal joint of the great toe. Normal tibial and fibular sesamoid bones. Normal interphalangeal joint of the great toe. Normal phalanges of the great toe. Normal second through fifth metatarsophalangeal joints. Normal interphalangeal joints and phalanges of the lesser toes. Heavily calcified arteries across the ankle. RAD/Foot min 3 Views IMPRESSION: No definite acute or focal abnormality of the bones and joints. Electronically Signed: Moreno Mccurdy MD at 21:36 EST , Service support , CC: Darius Hartmann MD; Roni Wilkins MD [employer] [place]: Signed COMPREHENSIVE METABOLIC Collected: 08/14/2017 Status: F Source: [place] 2:23 PM [facility] REPOSITORY TYPE CODE TESTS RESULT OUT OF RANGE REFERENCE UNITS LAB L501.0100 70-110 mg/dL High GLU 230 Result Comment: Glucose result greater than or equal to 200 mg/dL suggests DIABETES MELLITUS per A.D.A. criteria. LAB L501.1000 7-18 mg/dL Normal BUN 16 LAB L501.1100 0.70-1.30 mg/dL Normal CREAT,SERUM 1.15 Result Comment: The validity of the calculated GFR AND GFRAA in patients over 70 years has not been determined. Clinical correlation is essential. LAB L501.1110 >60 mL/min Normal EST GFR 70 Result Comment: Non- GFR Calc LAB L501.1115 >60 mL/min Normal EST GFR - AA 84 Result Comment: GFR Calc LAB L501.1300 10-20 RATIO Normal BUN/CRE 13.9 LAB L501.1500 6.4-8.2 g/dL T Normal PROT 8.1 LAB L501.1800 3.4-5.0 g/dL Normal ALB 4.0 Result Comment: Please note revised Albumin AND Globulin reference range effective 2017. LAB L501.1950 2.2-4.2 g/dL Normal GLOB 4.1 LAB L501.2000 0.9-2.4 RATIO Normal A/G 1.0 LAB L501.2200 8.5-10.1 mg/dL Normal CA 8.8 LAB L501.4100 15-37 U/L Normal AST 15 LAB L501.4305 45-117 U/L Normal ALK P 75 LAB L501.4405 12-78 U/L Normal ALT 31 LAB L501.4600 0.20-1.00 mg/dL Normal T BILI 0.80 LAB L501.5300 136-145 mmol/L Low NA 135 LAB L501.5600 3.5-5.1 mmol/L Normal K 4.4 LAB L501.5900 98-107 mmol/L Normal CL 98 LAB L501.6100 21.0-32.0 mmol/L Normal CO2 28.0 LAB L501.6200 5-15 Normal GAP 9 Performed By: #### L500.4050, L501.6710 #### [facility] [address] [facility] [place], [address] CRP Collected: 08/14/2017 Status: F Source: [place] 2:23 PM [facility] REPOSITORY TYPE CODE TESTS RESULT OUT OF RANGE REFERENCE UNITS LAB L501.6710 0.0-3.0 mg/L High 10.10 C-REACTIVE PROT Result Comment: C-Reactive Protein (CRP) provides useful information for the diagnosis, therapy and monitoring of inflammatory processes and associated diseases. For the evaluation of Relative Risk for Cardiovascular Disease, a High Sensitivity CRP (HSCRP) should be ordered. Performed By: #### L500.4050, L501.6710 #### [facility] [address] [facility] [place], [address] CBC W/DIFF, AUTOMATED Collected: 08/14/2017 Status: F Source: [place] 2:23 PM [facility] REPOSITORY TYPE CODE TESTS RESULT OUT OF RANGE REFERENCE UNITS LAB L100.1000 4.4-11.0 K/mm3 Normal WBC 7.9 LAB L100.1200 4.6-6.2 M/mm3 Normal RBC 5.63 LAB L100.1300 13.0-16.5 g/dl Normal HGB 15.9 LAB L100.1400 40-54 % Normal HCT 46.8 LAB L100.1500 80-94 fL Normal MCV 83.1 LAB L100.1600 27.0-32.0 pg Normal MCH 28.2 LAB L100.1700 32-36 g/gl Normal MCHC 34.0 LAB L100.1810 11.6-14.6 % Normal RDW CV 13.0 LAB L100.1820 35.1-43.9 fl Normal RDW SD 39.1 LAB L100.1900 150-450 K/mm3 Normal PLT 257 LAB L100.2000 6.2-12.0 fl Normal MPV 10.7 LAB L100.2100 47-70 % Normal NEUT% 54.4 LAB L100.2200 19-41 % Normal LY% 35.9 LAB L100.2300 0-10 % Normal MONO% 7.9 LAB L100.2400 0-5 % Normal EO% 1.3 LAB L100.2500 0-1 % Normal BASO% 0.4 LAB L100.2550 0.0-0.9 % Normal IM GRAN % 0.100 Result Comment: IG% - Immature Granulocytes (promyelocytes, myelocytes and metamyelocytes) > 1% indicates that a LEFT SHIFT is Present. LAB L100.2620 2.0-7.7 X10 3/uL Normal Absolute Neut 4.3 LAB L100.2720 0.83-4.51 X10 3/ul Normal Absolute Lymph 2.85 Performed By: #### L100.0100, L101.9900 #### [facility] [address] [facility] [place], [place], [address] ERYTHROCYTE SED RATE Collected: 08/14/2017 Status: F Source: [place] 2:23 PM [facility] REPOSITORY TYPE CODE TESTS RESULT OUT OF RANGE REFERENCE UNITS LAB L102.0000 0-20 mm/hr Normal SED RATE 7 Performed By: #### L100.0100, L101.9900 #### [facility] [address] [place], [place], [address] MRSA WOUND DNA BY Collected: 08/14/2017 Status: F Source: [place] PCR 12:00 AM [facility] REPOSITORY Order Comment: Specimen Source? ULCER RIGHT FOOT TYPE CODE TESTS RESULT OUT OF RANGE REFERENCE UNITS LAB L8200.1100 Negative Normal MRSA Negative RESULT LAB L8200.1150 Negative High SA RESULT POSITIVE Performed By: #### L8200.1075 #### [facility] [address] [place], [address] Observed: 08/14/2017 Status: F Source: [place] CULTURE, WOUND 12:00 AM [facility] REPOSITORY Gram Stain Gram Stain 3+ Gram positive cocci in chains 2+ Red Blood Cells No White Blood Cells Wound Culture #2 Possible skin contamination, further Identification and sensitivity will be performed only by physician's request. ORGANISM 1: Streptococcus agalactiae (B) Amount Growth 3+ ORGANISM 2: Coag Negative Staph Amount Growth 3+ Streptococcus agalactiae (B): REACTION Ampicillin $ <=0.25 S Benzylpenicillin NF <=0.06 S Ceftriaxone (other dx) $ <=0.12 S Clindamycin $$ >=1 R Inducable Clindamycin Resistan - Linezolid $$$$ <=2 S Vancomycin $ 0.5 S (NF) indicates non-formulary drug at [facility]. Approval by Infectious Disease Specialist required before non-formulary drugs may be ordered and/or dispensed. * CLSI guidelines does not recommend testing of cephalosporins. This interpretation is deduced from Beta-lactam/penicillin results. Performed By: #### M100.1400 #### [facility] [address] [place], [address] ALLERGIES ALLERGIES DATE TYPE / CODE NAME / CODE REACTION SEVERITY SOURCE 07/10/2018 Drug pioglitazone Swelling Unknown [place] Allergy/416 HCl/[id number](RXNO Community 609041([facility]) [facility] ED CT) Repository 07/10/2018 Drug Penicillins/B139905 Hives Unknown [place] Allergy/416 476(RXNORM) Community 303679([facility] ED CT) Repository 07/10/2018 Drug Jsyojqo-Oyo-Ndl Unknown Unknown [place] Allergy/416 Reductase Community 807509([facility]/[id number] [facility] ED CT) 5(RXNORM) Repository 07/10/2018 Drug gabapentin/[id number] Other Unknown [place] Allergy/416 15(RXNORM) [facility] 380516([facility] CT) Repository ENCOUNTERS ENCOUNTERS ADMIT/DISCHARGE ACCOUNT NUMBER ADMITTING ENCOUNTER LOCATION SOURCE CLASS 07/22/2018/07/22/20 [id number] Ambulatory BMSBuilding: [place] 18 BMS.[facility] Repository 07/10/2018/07/10/20 [id number] Emergency [address] ding:ED Repository 06/19/2018/06/19/20 [id number] Ambulatory [place] ding:CLSP Repository 06/19/2018/06/19/20 [id number] Ambulatory BMSBuilding: [place] 18 [facility] Repository 06/16/2018 [id number] Ambulatory BMSBuilding: [place] BMS.[facility] Repository 06/15/2018/06/15/20 [id number] Ambulatory BMSBuilding: [place] 18 BMS.[facility] Repository 06/13/2018 [id number] Ambulatory [facility] ding:LAB Repository 04/29/2018/04/29/20 [id number] Ambulatory BMSBuilding: [place] 18 BMS.[facility] Repository 04/22/2018 [id number] Ambulatory [facility] ding:MTRAD Repository 04/01/2018/04/01/20 [id number] Ambulatory BMSBuilding: [place] 18 BMS.[facility] Repository 03/24/2018 [id number] Ambulatory [facility] Hospital ding:CT Repository 03/09/2018 [id number] Ambulatory BMSBuilding: [place] BMS.[facility] Repository 02/20/2018/02/21/20 [id number] Ambulatory [address] Hospital ding:PT Repository 02/06/2018 [id number] Ambulatory [facility] Hospital ding:CVS Repository 01/24/2018 [id number] Ambulatory BMSBuilding: [place] BMS.[facility] Repository 01/12/2018 [id number] Ambulatory [facility] ding:LAB Repository 01/01/2018 [id number] Ambulatory [facility] ding:CVS Repository 01/01/2018 [id number] Ambulatory BMSBuilding: [place] [facility] Repository 12/29/2017/12/30/19 [id number] Ambulatory BMSBuilding: [place] 18 BMS.[facility] Repository 12/18/2017/12/19/19 [id number] Ambulatory BMSBuilding: [place] 18 BMS.[facility] Repository 12/18/2017 [id number] Ambulatory BMSBuilding: [place] BMS.[facility] Repository 12/02/2017 [id number] Ambulatory [facility] Repository 11/19/2017 [id number] Ambulatory [facility] ding:LAB Repository 11/13/2017 [id number] Ambulatory [facility] Repository 11/13/2017/11/14/19 [id number] Ambulatory BMSBuilding: [place] 18 BMS.[facility] Repository 11/11/2017 [id number] Ambulatory [facility] ding:CVS Repository 11/10/2017 [id number] Ambulatory BMSBuilding: [place] BMS.[facility] Repository 11/06/2017 [id number] Ambulatory [facility] ding:MFPLAB Repository 10/23/2017/10/29/19 [id number] RgBrain Inpatient [place] [address] [place] [address] ding:TCURoom Repository : JMS98Sld: 1 10/16/2017 [id number] Inpatient BuildinA [facility] Encounter 4SRoom: System 0G413Say: Repository [id number] 10/16/2017 [id number] Inpatient BuildinA [facility] Encounter 4ERoom: System [id number]: Repository [id number] 10/13/2017/11/09/19 [id number] Ambulatory [address] ding:HHLAB Repository 10/10/2017/10/11/19 [id number] Emergency [address] ding:ED Repository 10/07/2017 [id number] Ambulatory [address] [place] [address] Repository 10/06/2017 [id number] Ambulatory [address] [place] [address] Repository 10/03/2017 [id number] Ambulatory [address] [place] [address] Repository 10/02/2017/10/08/19 [id number] Inpatient BuildinER Kam 18 Encounter oom: 3304 [facility] Repository 10/02/2017 [id number] Ambulatory [address] [place] [address] Repository 09/29/2017/09/30/19 [id number] Ambulatory Building:SCR Kam 18 oom: 2034 [facility] Repository 09/29/2017 [id number] Ambulatory [address] [place] [address] Repository 09/29/2017 [id number] Ambulatory [address] [place] [address] Repository 09/25/2017/09/26/19 [id number] Ambulatory Building:SCR [place] 18 oom: 2031 [facility] Repository 09/25/2017 [id number] Ambulatory [address] [place] [address] Repository 09/22/2017 [id number] Ambulatory Building:W1 [facility] Repository 09/22/2017 [id number] Ambulatory [address] [place] [address] Repository 09/18/2017/09/18/19 [id number] Ambulatory Building:LB [address] Repository 09/18/2017 [id number] Ambulatory [address] [place] [address] Repository 09/15/2017 [id number] Ambulatory Building:W1 [facility] Repository 09/15/2017 [id number] Ambulatory [address] [place] [address] Repository 09/08/2017 [id number] Ambulatory Building:W1 [facility] Repository 09/08/2017 [id number] Ambulatory [address] [place] [address] Repository 08/29/2017/08/29/19 [id number] Emergency [address] ding:ED Repository 08/14/2017 [id number] Ambulatory [facility] ding:LABSPEC Repository 08/14/2017 [id number] Ambulatory [facility] ding:MTLAB Repository PAYERS PAYERS ENCOUNTER GUARANTOR PAYER SUBSCRIBER SOURCE 07/22/2018 XUAN [id number] Primary EVELYNE LEIVA: [facility] Insurance:MEDICAL [id number] [address]Akp: 330) Number: Repository [phone] (HV) [id number] Date:5882-57-95CQ [address] [place] [address]HH: 07/22/2018 Secondary NOT GIVENUNK [place] Insurance:SELF PAY [facility] Number: Effective Repository Date:2018-07-22 07/10/2018 XUAN Grissom [id number] Primary EVELYNE LEIVA: [place] Insurance:MEDICAL [id number] [facility] of [facility] [address]Jqy: (330) Number: Repository [phone] () [id number] Date:4854-94-57IN [place] [phone]: 07/10/2018 Secondary NOT GIVENUNK [place] Insurance:SELF PAY [facility] Number: Effective Repository Date:2018-07-10 06/19/2018 XUAN [id number] Primary EVELYNE HARTMANB: [place] Insurance:MEDICAL [id number] Lady of Mercy Hospital [address]Sci: (330) Number: Repository [phone] () [id number] Date:7919-29-64GF[place] [phone]: 06/19/2018 Secondary NOT GIVENUNK [place] Insurance:SELF PAY [facility] Number: Effective Repository Date:2018-06-15 06/19/2018 XUAN Grissom [id number] Primary EVELYNE LEIVA: [place] Insurance:MEDICAL [id number] Lady of Mercy Hospital [address]Ryi: (330) Number: Repository [phone] () [id number] Date:6950-90-68XI[address] [address]YM: 06/19/2018 Secondary NOT GIVENUNK [place] Insurance:SELF PAY [facility] Number: Effective Repository Date:2018-06-19 06/16/2018 XUAN Grissom [id number] Primary EVELYNE HARTMANB: [place] Insurance:MEDICAL [id number] Lady of Mercy Hospital [address]Oor: (330) Number: Repository [phone] () [id number] Date:2319-87-51FM [address] [place] [address]EG: 06/16/2018 Secondary NOT GIVENUNK [place] Insurance:SELF PAY [facility] Number: Effective Repository Date:2018-06-16 06/15/2018 XUAN Grissom [id number] Primary EVELYNE HARTMANB: [place] Insurance:MEDICAL [id number] [facility] [address]Wxr: (330) Number: Repository [phone] () [id number] Date:4050-50-62JG [address] [place] [address]RR: 06/15/2018 Secondary NOT GIVENUNK [place] Insurance:SELF PAY [facility] Number: Effective Repository Date:2018-06-15 06/13/2018 XUAN [id number] Primary EVELYNE HARTMANB: [place] Insurance:MEDICAL [id number] Lady of Mercy Hospital [address]Mxg: (330) Number: Repository [phone] () [id number] Date:1936-31-47OM [address] [address]AG: 06/13/2018 Secondary NOT GIVENUNK [place] Insurance:SELF PAY [facility] Number: Effective Repository Date:2018-06-13 04/29/2018 XUAN Grissom [id number] Primary EVELYNE HARTMANB: [place] Insurance:MEDICAL [id number] [facility] [address]Ruv: (330) Number: Repository [phone] () [id number] Date:1689-81-65HE [address] [place] [address]CW: 04/29/2018 Secondary NOT GIVENUNK [place] Insurance:SELF PAY [facility] Number: Effective Repository Date:2018-04-29 04/22/2018 XUAN Grissom [id number] Primary EVELYNE HARTMANB: [place] Insurance:MEDICAL [id number] Lady of Mercy Hospital [address]Qep: (330) Number: Repository [phone] () [id number] Date:2480-41-55PE [address] [place] [address]WG: 04/22/2018 Secondary NOT GIVENUNK [place] Insurance:SELF PAY [facility] Number: Effective Repository Date:2018-04-22 04/01/2018 XUAN [id number] Primary EVELYNE HARTMANB: [place] Insurance:MEDICAL [id number] Lady of Mercy Hospital [address]Iuj: (330) Number: Repository [phone] () [id number] Date:9284-43-96HI [place] [phone]: 04/01/2018 Secondary NOT GIVENUNK [place] Insurance:SELF PAY [facility] Number: Effective Repository Date:2018-04-01 03/24/2018 XUAN [id number] Primary EVELYNE HARTMANB: [place] Insurance:MEDICAL [id number] Lady of Mercy Hospital [address]Lxj: (330) Number: Repository [phone] () [id number] Date:6241-10-90YO [address] [address]QL: 03/24/2018 Secondary NOT GIVENUNK [place] Insurance:SELF PAY [facility] Number: Effective Repository Date:2018-03-23 03/09/2018 XUAN [id number] Primary EVELYNE HARTMANB: [place] Insurance:MEDICAL [id number] [facility] [address]Ckt: (330) Number: Repository [phone] () [id number] Date:4323-76-44QM [address] [place] [address]AG: 03/09/2018 Secondary NOT GIVENUNK [place] Insurance:SELF PAY [facility] Number: Effective Repository Date:2018-03-02 02/20/2018 XUAN Grissom [id number] Primary EVELYNE HARTMANB: [place] Insurance:MEDICAL [id number] Lady of Mercy Hospital [address]Qpg: (330) Number: Repository [phone] () [id number] Date:5851-75-92CV [address] [address]UX: 02/20/2018 Secondary NOT GIVENUNK [place] Insurance:SELF PAY [facility] Number: Effective Repository Date:2018-01-20 02/06/2018 XUAN Jaciel [id number] Primary EVELYNE HARTMANB: [place] Insurance:MEDICAL [id number] Lady of Mercy Hospital [address]Kup: (330) Number: Repository [phone] () [id number] Date:0889-55-16AC[place] [phone]: 02/06/2018 Secondary NOT GIVENUNK [place] Insurance:SELF PAY [facility] Number: Effective Repository Date:2018-02-03 01/24/2018 XUAN Jaciel [id number] Primary EVELYNE LEIVA: [place] Insurance:MEDICAL [id number] Lady of Mercy Hospital [address]Ofe: Number: Repository [phone] [id number] () Date:6349-09-27DX [address] [address]WW: 01/24/2018 Secondary NOT GIVENUNK [place] Insurance:SELF PAY [facility] Number: Effective Repository Date:2018-01-24 01/12/2018 XUAN aJciel [id number] Primary EVELYNE HARTMANB: [place] Insurance:MEDICAL [id number] Lady of Mercy Hospital [address]Qqb: (330) Number: Repository [phone] () [id number] Date:6484-53-72FM [address] [address]DV: 01/12/2018 Secondary NOT GIVENUNK [place] Insurance:SELF PAY [facility] Number: Effective Repository Date:2018-01-12 01/01/2018 XUAN Jaciel [id number] Primary EVELYNE HARTMANB: [place] Insurance:MEDICAL [id number] Lady of Mercy Hospital [address]Xyk: (330) Number: Repository [phone] () [id number] Date:8137-07-20GW [address] [address]BF: 01/01/2018 Secondary NOT GIVENUNK [place] Insurance:SELF PAY [facility] Number: Effective Repository Date:2017-12-29 01/01/2018 XUAN [id number] Primary EVELYNE HARTMANB: [place] Insurance:MEDICAL [id number] Lady of Mercy Hospital [address]Gbr: (330) Number: Repository [phone] () [id number] Date:0639-38-33RRMichael [place] [phone]: 01/01/2018 Secondary NOT GIVENUNK [place] Insurance:SELF PAY [facility] Number: Effective Repository Date:2018-01-01 12/29/2017 XUAN Jaciel [id number] Primary EVELYNE HARTMANB: [place] Insurance:MEDICAL [id number] [facility] [address]757Ytf: (330) Number: Repository [phone] () [id number] Date:9048-94-38CF [address] [address]OJ: 12/29/2017 Secondary NOT GIVENUNK [place] Insurance:SELF PAY [facility] Number: Effective Repository Date:2017-12-29 12/18/2017 XUAN [id number] Primary EVELYNE HARTMANB: [place] Insurance:MEDICAL [id number] Ville [address]Tel: (330) Number: Repository [phone] () [id number] Date:1649-35-32JA [address] [address]LY: 12/18/2017 Secondary NOT GIVENUNK [place] Insurance:SELF PAY [facility] Number: Effective Repository Date:2017-12-18 12/18/2017 XUAN Jaciel [id number] Primary EVELYNE HARTMANB: [place] [id number] [facility] [address]Jgd: (330) Number: Repository [phone] () [id number] Date:3762-60-46PG [address] [address]DX: 12/18/2017 Secondary NOT GIVENUNK [place] Insurance:SELF PAY [facility] Number: Effective Repository Date:2017-12-18 12/02/2017 Xuan HartmanB: Primary Evelyne BellDOB: [place] [id number] Insurance:Medical [id number] [facility] Repository [place], [place] Number: Effective [address]Zeu: (330) Date: [id number] () 11/19/2017 XUAN [id number] Primary EVELYNE HARTMANB: [place]ICAL [id number] [facility] [address]Lcj: (330) Number: Repository [phone] () [id number] Date:6111-34-39N[place] [address] [address]UV: 11/19/2017 Secondary NOT GIVENUNK [place] Insurance:SELF PAY [facility] Number: Effective Repository Date:2017-11-09 11/13/2017 Xuan Jaciel DevanB: Primary Evelyne FuchsDOB: [employer] [id number] Insurance:Medical [id number] [facility] Repository [place], [place] Number: Effective [phone]: (330) Date: [phone] () 11/13/2017 XUAN Jaciel [id number] Primary EVELYNE HARTMANB: [place] Insurance:MEDICAL [id number] [address]Xlo: (330) Number: Repository [phone] () [id number] Date:8040-61-78RM [address] [address]YD: 11/13/2017 Secondary NOT GIVENUNK [place] Insurance:SELF PAY [facility] Number: Effective Repository Date:2017-11-13 11/11/2017 XUAN [id number] Primary EVELYNE HARTMANB: [place] Insurance:MEDICAL [id number] Lady of Mercy Hospital [address]Fzw: (330) Number: Repository [phone] () [id number] Date:5108-78-91FM [place] [id number]: 11/11/2017 Secondary NOT GIVENUNK [place] Insurance:SELF PAY [facility] Number: Effective Repository Date:2017-11-11 11/10/2017 XUAN Jaciel [id number] Primary EVELYNE HARTMANB: [place] Insurance:MEDICAL [id number] Lady of Mercy Hospital [address]Ogy: (330) Number: Repository [phone] () [id number] Date:9512-33-17XT [address] [address]PG: 11/10/2017 Secondary NOT GIVENUNK [place] Insurance:SELF PAY [facility] Number: Effective Repository Date:2017-11-10 11/06/2017 XUAN [id number] Primary EVELYNE HARTMANB: [place] Insurance:MEDICAL [id number] Lady of Mercy Hospital [address]894Hwm: (330) Number: Repository [phone] () [id number] Date:2756-13-21AL [place] [id number]: 11/06/2017 Secondary NOT GIVENUNK [place] Insurance:SELF PAY [facility] Number: Effective Repository Date:2017-11-06 10/23/2017 XUAN [id number] Primary EVELYNE HARTMANB: [place] Insurance:MEDICAL [id number] Lady of Mercy Hospital [address]Ihc: (330) Number: Repository [phone] () [id number] Date:0291-91-26KZ [address] [place] [address]MV: 10/23/2017 Secondary NOT GIVENUNK [place] Insurance:SELF PAY [facility] Number: Effective Repository Date:2017-10-23 10/16/2017 Xuan HartmanB: Primary Evelyne HartmanB: [facility] [id number] Insurance:Medical [id number] Number: Effective [id number]: (330) Date: [phone] (HP) 10/16/2017 Xuan HartmanB: Primary Evelyne HartmanB: [facility] [id number] Insurance:Medical [id number], [place] Number: Effective 13249Zkx: (330) Date: [phone] (HP) 10/13/2017 XUAN [id number] Primary EVELYNE HARTMANB: [place] Insurance:MEDICAL [id number] [facility] [address]1863Ipd: (330) Number: Repository [phone] () [id number] Date:5979-32-87KX [address] [place] [address]WR: 10/13/2017 Secondary NOT GIVENUNK [place] Insurance:SELF PAY [facility] Number: Effective Repository Date:2017-10-13 10/10/2017 XUAN [id number] Primary EVELYNE HARTMANB: [place] Insurance:MEDICAL [id number] Lady of Mercy Hospital [address]Vzl: (419) Number: Repository [phone] () [id number] Date:1810-09-69SK [address] [place] [address]QZ: 10/10/2017 Secondary NOT GIVENUNK [place] Insurance:SELF PAY [facility] Number: Effective Repository Date:2017-10-10 10/07/2017 XUAN SHILAB: Primary EVELYNE HARTMANB: [place] [id number] Insurance[place]Medical [id number] Number: [id number]: 330 [id number] [phone] (HP) Date:Plan Name:Health 10/06/2017 XUAN HARTMANB: Primary EVELYNE HARTMANB: [place] [id number] Insurance:[facility] [id number], [place] Number: [id number]: 330) [id number] [phone] (HP) Date:Plan Name:Health 10/03/2017 XUAN HARTMANB: Primary EVELYNE HARTMANB: [place] [id number] Insurance:[facility] [id number], [place] Number: [id number]: 330 [id number] [phone] (HP) Date:Plan Name:Health 10/02/2017 XUAN LEIVA: Primary EVELYNE HARTMANB: [place] [id number] Insurance:SUPER [id number] [facility] Number: 1 [place], [place] [id number] [place] Repository [address]Lpx: (330) Date: [phone] (HP) 10/02/2017 Secondary EVELYNE FUCHSMARIS: [place] Insurance:SUPER [id number] [facility] Number: 1 [facility] [id number] [place] Repository Date: [phone] 10/02/2017 XUAN HARTMANB: Primary EVLEYNE HARTMANB: [place] [id number] Insurance:Medical [id number] Valley Medical Center Repository [facility], [place] Number: [id number]: 330) [id number] [phone] (HP) Date:Plan Name:Health 09/29/2017 XUAN Jaciel CALI: Primary EVELYNE HARTMANB: [place] [id number] Insurance:[facility] [id number] [place] [address] Number: 1 [place], [place] [id number] [facility], [place] Repository [address]Ctd: (330) Date: [phone] (HP) 09/29/2017 Secondary EVELYNE LEIVA: [place] Insurance:[facility] [id number] [place] [address] Number: 1 [facility] [id number] [facility], [place] Repository Date: [phone] 09/29/2017 XUAN HARTMANB: Primary EVELYNE HARTMANB: [place] [id number] Insurance:[facility] [id number] Valley Medical Center Repository [facility], [place] Number: [id number]: (330) [id number] [phone] (HP) Date:Plan Name:[facility] 09/29/2017 XUAN LEIVA: Primary EVELYNE HARTMANB: [place] [id number] Insurance:Medical [id number] Valley Medical Center Repository [facility], [place] Number: [id number]: (330) [id number] [phone] (HP) Date:Plan Name:Health 09/25/2017 XUAN Jaciel DEVANKamran: Primary EVELYNE LEIVA: [place] [id number] Insurance:[facility] [id number] [place] [address] Number: 1 [facility], [place] [id number] [facility] Repository [address]Dwn: (330) Date: [phone] (HP) 09/25/2017 Secondary EVELYNE LEIVA: [place] Insurance:SUPER [id number] [facility] MEDPolicy Number: 1 [facility] [id number] [facility] [place] Repository Date: [phone] 09/25/2017 XUAN HARTMANB: Primary EVELYNE HARTMANB: [place] [id number] Insurance:Medical [id number] Valley Medical Center Repository [facility] Number: [id number]: 330 [id number] [phone] () Date:Plan Name:Health 09/22/2017 XUAN HARTMANB: Primary EVELYNE HARTMANB: [place] [id number] Insurance:SUPER [id number] [facility] MEDPolicy Number: 1 [facility], [place] [id number] [facility], [place] Repository [address]Lby: (330) Date: [phone] () 09/22/2017 Secondary EVELYNE LEIVA: [place] Insurance:SUPER [id number] [facility] MEDPolicy Number: 1 [facility] [id number] [facility], [place] Repository Date: [phone] 09/22/2017 XUAN LEIVA: Primary EVELYNE HARTMANB: [place] [id number] Insurance:Medical [id number] Valley Medical Center Repository [facility], [place] Number: [id number]: (330) [id number] [phone] () Date:Plan Name:Health 09/18/2017 XUAN LEIVA: Primary EVELYNE HARTMANB: [place] [id number] Insurance:SUPER [id number] [facility] MEDPolicy Number: 1 [facility], [place] [id number] [facility], [place] Repository [address]Ivo: (330) Date: 14001 [phone] () 09/18/2017 Secondary EVELYNE LEIVA: [place] Insurance:SUPER [id number] [facility] MEDPolicy Number: 1 [facility] [id number] [place] Repository Date: [phone] 09/18/2017 XUAN FUCHSMARIS: Primary EVELYNE LEIVA: [place] [id number] Insurance:Medical [id number] Valley Medical Center Repository [place], [place] Number: [id number]: 330 [id number] [phone] () Date:Plan Name:Health 09/15/2017 XUAN Grissom CALI: Primary EVELYNE HARTMANB: [place] [id number] Insurance:SUPER [id number] [facility] 1 [facility], [place] [id number] [place] Repository [address]Fgu: (330) Date: [phone] () 09/15/2017 Secondary EVELYNE LEIVA: [place] Insurance:SUPER [id number] [facility] MEDPolicy Number: 1 [facility] [id number] [place] Repository Date: [address] 09/15/2017 XUAN LEIVA: Primary EVELYNE HARTMANKamran: [place] [id number] Insurance:Medical [id number] [facility] Repository [place], [place] Number: [id number]: 330 [id number] [phone] () Date:Plan Name:Health 09/08/2017 XUAN Jaciel CALI: Primary EVELYNE LEIVA: [place] [id number] Insurance:SUPER [id number] [facility] MEDPolicy Number: 1 [facility] [place] [id number] [place] Repository [address]Ett: (330) Date: [phone] () 09/08/2017 Secondary EVELYNE LEIVA: [place] Insurance:SUPER [id number] [facility] MEDPolicy Number: 1 [facility] [id number] [place] Repository Date: [address] 09/08/2017 UXAN LEIVA: Primary EVELYNE HARTMANB: [place] [id number] Insurance:Medical [id number] Number: [id number]: 330 [id number] [phone] (HP) Date:Plan Name:Health 08/29/2017 XUAN Jaciel [id number] Primary EVELYNE HARTMANB: [place] Insurance:MEDICAL [id number] Lady of Mercy Hospital [address]Syg: (419) Number: Repository [phone] () [id number] Date:0672-12-15JF [address] [address]YF: 08/29/2017 Secondary NOT GIVENUNK [place] Insurance:SELF PAY [facility] Number: Effective Repository Date:2017-08-29 08/14/2017 XUAN [id number] Primary EVELYNE HARTMANB: [place] Insurance:MEDICAL [id number] Lady of Mercy Hospital [address]Ydu: (419) Number: Repository [phone] () [id number] Date:4007-36-69XN [address] [address]SY: 08/14/2017 Secondary NOT GIVENUNK [place] Insurance:SELF PAY [facility] Number: Effective Repository Date:2017-08-14 08/14/2017 Xuan [id number] Primary EVELYNE LEIVA: [place] Insurance:MEDICAL [id number] Hospital [address]Dte: (419) Number: Repository [phone] () [id number] Date:0408-02-53GC [address] [address]ZL: 08/14/2017 Secondary NOT GIVENUNK [place] Insurance:SELF PAY [facility] Number: Effective Repository Date:2017-08-14
== END 2018-07-10 17:24 | disposition home or self-care (01) ==
PROVIDERS: Emergency Provider Emergency Medicine; Family Provider Family Medicine; PCP Family Medicine
DX: R04.0 Epistaxis (principal); E11.9 Type 2 diabetes mellitus without complications; I10 Essential (primary) hypertension; E78.00 Pure hypercholesterolemia, unspecified; I48.91 Unspecified atrial fibrillation; I25.2 Old myocardial infarction; Z95.1 Presence of aortocoronary bypass graft; Z90.5 Acquired absence of kidney; Z95.810 Presence of automatic (implantable) cardiac defibrillator; Z79.82 Long term (current) use of aspirin; Z86.718 Personal history of other venous thrombosis and embolism
CPT/HCPCS: 30901; 99283

== ENCOUNTER → 2018-09-16 06:16 | Outpatient (CLI) | payer OTHER, SELFPAY ==
[2018-09-16 08:16] LABS: Anion Gap 6 (5-15); BUN 30 mg/dL (7-18); BUN/Creat Ratio 19.4 RATIO (10-20); Calcium,Total 8.8 mg/dL (8.5-10.1); Chloride 102 mmol/L (98-107); Creatinine, Serum 1.55 mg/dL (0.70-1.30); EST Glomerular Filtration Rate 49 mL/min (>60); Est Glom Filt Rate - Afr Amer 60 mL/min (>60); Glucose 194 mg/dL (74-106); Potassium 4.5 mmol/L (3.5-5.1); Sodium Level 137 mmol/L (136-145)
== END ==
PROVIDERS: Family Provider Family Medicine; PCP Family Medicine; Referring Provider Internal Medicine Cardiovascular Disease; Visit Provider Internal Medicine Cardiovascular Disease
DX: I25.5 Ischemic cardiomyopathy (principal); I50.22 Chronic systolic (congestive) heart failure
CPT/HCPCS: 36415; 80048

== ENCOUNTER → 2018-09-25 15:40 | Outpatient (CLI) | payer OTHER, SELFPAY ==
[2018-09-25 14:52] VITALS: BMI 37.8
[2018-09-25 17:29] LABS: BUN 20 mg/dL (7-18); Creatinine, Serum 1.43 mg/dL (0.70-1.30); EST Glomerular Filtration Rate 54 mL/min (>60); Glucose 344 mg/dL (74-106)
[2018-09-25 17:30] LABS: Anion Gap 8 (5-15); Calcium,Total 8.8 mg/dL (8.5-10.1); Chloride 105 mmol/L (98-107); Est Glom Filt Rate - Afr Amer 65 mL/min (>60); Potassium 4.4 mmol/L (3.5-5.1); Sodium Level 141 mmol/L (136-145)
== END ==
PROVIDERS: Family Provider Family Medicine; PCP Family Medicine; Referring Provider Nurse Practitioner Family; Visit Provider Nurse Practitioner Family
DX: I25.10 Atherosclerotic heart disease of native coronary artery without angina pectoris (principal); I25.5 Ischemic cardiomyopathy; E11.9 Type 2 diabetes mellitus without complications
CPT/HCPCS: 36415; 80048

== ENCOUNTER 2018-10-06 16:41 | Emergency (ER) | payer OTHER, SELFPAY ==
[2018-09-25 14:52] VITALS: BMI 37.8
[2018-10-06 16:42] VITALS: BP 194/107; PULSE 79; RESP 16; TEMP 36.9; O2SAT 97; BMI 38.0
[2018-10-06 17:25] VITALS: BP 162/95; PULSE 76; RESP 18; O2SAT 94
--- NOTE | 2018-10-06 17:42 | RAD_ITS ---
STUDY: X-RAY CHEST REASON FOR EXAM: Male, 58 years old. Cough. TECHNIQUE: PA and lateral chest. COMPARISON: 06/15/2018. FINDINGS: The lungs are clear and expanded. There is no demonstrated pleural abnormality. Normal size heart. 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 Pacemaker is noted on the left. Normal mediastinum and delia. Normal visualized pulmonary arteries. Normal visualized aortic arch and descending thoracic aorta. Normal visualized thoracic spine. Normal visualized ribs, clavicles, and shoulders. There is no demonstrated abnormality of the visualized soft tissue structures of the upper abdomen. RAD/Chest PA and Lateral IMPRESSION: No acute process. Electronically Signed: Sofiya Jenkins MD at 18:53 EST Tel , Service support ,
--- NOTE | 2018-10-06 17:42 | EKG12_ITS ---
Test Reason : SOB Blood Pressure : / mmHG Vent. Rate : 076 BPM Atrial Rate : 076 BPM P-R Int : 162 ms QRS Dur : 112 ms QT Int : 412 ms P-R-T Axes : 066 -42 053 degrees QTc Int : 463 ms Normal sinus rhythm Left axis deviation Incomplete right bundle branch block Abnormal ECG Confirmed by EDGARDO JAIME, ANITA ([id number]), order editor FLAVIO KEITH ([id number]) on 10/08/2018 3:52:02 PM Referred By: STEFANIE Confirmed By:ANITA REYNOSO MD
[2018-10-06] MEDS: Ipratropium/Albuterol Sulfate 3 ML AMPUL.NEB INHALATION (17:56)
[2018-10-06 17:58] VITALS: PULSE 76; RESP 18
[2018-10-06 18:02] LABS: Absolute Neutrophil Count 2.9 X10^3/uL (2.0-7.7); Basophil# 0.02 X10^3/uL; Basophil% 0.4 % (0-1); Eosinophil# 0.12 X10^3/uL; Eosinophils% 2.2 % (0-5); Hematocrit 41.5 % (40-54); Hemoglobin 13.9 g/dl (13.0-16.5); Lymphocyte % 33.2 % (19-41); Mean Corp Hgb Conc 33.5 g/gl (32-36); Mean Corpuscular Volume 83.7 fL (80-94); Mean Platelet Vol. 9.9 fl (6.2-12.0); Monocyte# 0.55 X10^3/uL; Monocyte% 10.1 % (0-10); Neutrophil # 2.93 X10^3/uL (2.7-7.7); Neutrophil % 54.1 % (47-70); Platelet Count 199 K/mm3 (150-450); RBC Distribution Width CV 13.7 % (11.6-14.6); Red Blood Count 4.96 M/mm3 (4.6-6.2); White Blood Count 5.4 K/mm3 (4.4-11.0)
[2018-10-06 18:04] LABS: POSITIVE COUNT NO; POSITIVE DIFFERENTIAL NO; POSITIVE MORPHOLOGY NO
[2018-10-06 18:15] LABS: Anion Gap 3 (5-15); BUN 16 mg/dL (7-18); BUN/Creat Ratio 13.4 RATIO (10-20); Calcium,Total 8.3 mg/dL (8.5-10.1); Chloride 108 mmol/L (98-107); Creatinine, Serum 1.19 mg/dL (0.70-1.30); EST Glomerular Filtration Rate 67 mL/min (>60); Est Glom Filt Rate - Afr Amer 81 mL/min (>60); Estimated Creatinine Clearance 69.86 ml/min; Glucose 126 mg/dL (74-106); Potassium 4.6 mmol/L (3.5-5.1); Sodium Level 140 mmol/L (136-145)
[2018-10-06 18:49] VITALS: BP 131/80; PULSE 78; RESP 22; O2SAT 98
--- NOTE | 2018-10-06 19:44 | ED.RN ---
ANSWERED CALL LIGHT. PT WANTS IV OUT STATING WE HAVE TO GO. STATES THAT WE HAVEN'T SEEN A DOCTOR ALL DAY. ASKED IF THE MD GAVE AN INITIAL EVALUATION AND PUT ORDERS IN, PT DID SEE MD AT [facility] BUT HASN'T BEEN BACK FOR HRS. EDUCATED S/O THAT HIS RESULTS HAD BEEN BACK FOR 40 MIN, I DID ATTEMPT TO LOCATE MD BUT HE WAS WITH OTHER PTS. IV REMOVED AND PT AMBULATED TO LOBBY WITH SPOUSE.
[2018-10-06 19:45] VITALS: BP 115/74; PULSE 69; RESP 21; O2SAT 92
--- NOTE | 2018-10-06 19:49 | ED.RN ---
UPDATED MD ON PT AND SPOUSE. HE WAS ACTIVELY WORKING ON PTS CHART FOR REEVALUATION. SPOUSE DID SAY THAT SHE WAS GOING TO GO TO AN ED, WHERE THEY CARED ABOUT THEIR PTS.
--- NOTE | 2018-10-08 18:10 | ED.VISSUMM ---
- ER Visit Summary Date of Service: 10/08/18 Chief Complaint: Shortness of breath History of Present Illness: The patient is a 58 M who presents with shortness of breath that has been getting worse over the past 3-4 days. Patient states he is coughing up some clear sputum. Patient admits to some chest tightness. Patient also admits to rhinorrhea and sore throat. Patient denies any fevers or chills. Patient denies any nausea but admits to vomiting after coughing. Physical Examination: Vital signs are stable except for mildly elevated blood pressure 194/107. Patient is afebrile. Patient is in no acute distress. Oral mucosa is pink and moist. Neck is supple. Trachea is midline. There is no JVD noted. Heart was regular rate and rhythm. Lungs are clear and equal bilateral. Abdomen is soft. Bowel sounds are normal. There is no tenderness. There is no guarding noted. Skin is warm dry. Cranial nerves II through XII are intact. There are no focal motor or sensory deficits noted. The remaining physical exam is within normal limits. Test Results: EKG showed normal sinus rhythm with a rate of 76. There are no acute ST or T wave changes. PA and lateral chest x-ray was obtained. There is no acute cardiopulmonary process. CBC, metabolic profile, troponin were obtained and were all normal. Emergency Department Course and Treatment: Patient was given a DuoNeb aerosol here. Patient was advised that this is most likely a viral upper respiratory infection. Patient was instructed to follow-up with his primary care physician in 5-7 days. Patient understood and was agreeable with the plan. All questions were answered. Disposition: Discharge home Impression: Upper respiratory infection This note was generated with [employer] dictation software. It may contain incorrect words, spelling, and punctuation that were not noted in review of the chart prior to signing ED Disposition - Plan for ED Patient: Disposition: Home or Assisted Living Diagnosis: Upper respiratory infection Instructions: ED Upper Resp Infec No Abx Tx Referrals: Saul Hartmann MD [Primary Care Provider] -
== END 2018-10-06 19:45 | disposition home or self-care (01) ==
LOC: ED 17:18
PROVIDERS: Emergency Provider Emergency Medicine; Family Provider Family Medicine; PCP Family Medicine
DX: J06.9 Acute upper respiratory infection, unspecified (principal); I25.10 Atherosclerotic heart disease of native coronary artery without angina pectoris; E11.9 Type 2 diabetes mellitus without complications; I10 Essential (primary) hypertension; Z72.0 Tobacco use; Z95.1 Presence of aortocoronary bypass graft; Z79.4 Long term (current) use of insulin
CPT/HCPCS: 71046; 80048; 84484; 85025; 93005; 94640; 99284; A4216

== ENCOUNTER → 2018-11-06 16:30 | Outpatient (CLI) | payer OTHER, SELFPAY ==
[2018-11-06 15:28] VITALS: BMI 35.9
--- NOTE | 2018-11-06 16:34 | RAD_ITS ---
STUDY: X-RAY CHEST REASON FOR EXAM: Male, 58 years old. Cough and shortness of breath TECHNIQUE: PA and lateral views of the chest. COMPARISON: 10/06/2018 FINDINGS: Two lead cardiac conduction device is seen via the left subclavian vein with lead tips projecting over the right atrium and right ventricle, respectively. Neurostimulator device noted. The lungs are clear and expanded. There is no demonstrated pleural abnormality. Normal size heart. Sternal wires and mediastinal surgical clips compatible with prior CABG. Normal mediastinum and delia. Normal visualized pulmonary arteries. Normal visualized aortic arch and descending thoracic aorta. Normal visualized thoracic spine. Normal visualized ribs, clavicles, and shoulders. There is no demonstrated abnormality of the visualized soft tissue structures of the upper abdomen. RAD/Chest PA and Lateral IMPRESSION: 1. Stable, nonacute x-ray examination of the chest. Electronically Signed: Casper Hoffman MD at 16:14 EDT , Service support ,
[2018-11-06 17:27] LABS: BUN 14 mg/dL (7-18); Creatinine, Serum 1.52 mg/dL (0.70-1.30); Glucose 308 mg/dL (74-106)
[2018-11-06 17:28] LABS: Anion Gap 7 (5-15); BUN/Creat Ratio 9.2 RATIO (10-20); Calcium,Total 8.5 mg/dL (8.5-10.1); Chloride 103 mmol/L (98-107); EST Glomerular Filtration Rate 50 mL/min (>60); Est Glom Filt Rate - Afr Amer 61 mL/min (>60); Potassium 3.9 mmol/L (3.5-5.1); Sodium Level 138 mmol/L (136-145)
[2018-11-06 17:37] LABS: BNP,B-Type NATRIURETIC PEPTIDE 30.8 pg/mL (0-100)
== END ==
PROVIDERS: Family Provider Family Medicine; PCP Family Medicine; Referring Provider Nurse Practitioner Family; Visit Provider Nurse Practitioner Family
DX: I25.10 Atherosclerotic heart disease of native coronary artery without angina pectoris (principal); I25.5 Ischemic cardiomyopathy; R06.09 Other forms of dyspnea
CPT/HCPCS: 36415; 71046; 80048; 83880

== ENCOUNTER → 2018-11-27 06:45 | Outpatient (CLI) | payer OTHER, SELFPAY ==
[2018-11-17 15:13] VITALS: BMI 36.4
[2018-11-27 07:43] LABS: Anion Gap 5 (5-15); BUN 17 mg/dL (7-18); BUN/Creat Ratio 11.7 RATIO (10-20); Calcium,Total 8.7 mg/dL (8.5-10.1); Chloride 108 mmol/L (98-107); Creatinine, Serum 1.45 mg/dL (0.70-1.30); EST Glomerular Filtration Rate 53 mL/min (>60); Est Glom Filt Rate - Afr Amer 64 mL/min (>60); Glucose 228 mg/dL (74-106); Potassium 4.6 mmol/L (3.5-5.1); Sodium Level 140 mmol/L (136-145)
== END ==
PROVIDERS: Family Provider Family Medicine; PCP Family Medicine; Referring Provider Nurse Practitioner Family; Visit Provider Nurse Practitioner Family
DX: I25.5 Ischemic cardiomyopathy (principal); R06.09 Other forms of dyspnea
CPT/HCPCS: 36415; 80048

== ENCOUNTER 2019-02-12 13:49 | Emergency (ER) | payer OTHER, SELFPAY ==
[2019-01-25 16:03] VITALS: BMI 35.9
[2019-02-12 13:50] VITALS: BP 142/82; PULSE 76; RESP 16; TEMP 36.4; O2SAT 98; BMI 35.9
--- NOTE | 2019-02-12 14:06 | ED.VIS.GEN ---
History of Present Illness Chief Complaint: Cellulitis Informant: Patient Onset: Yesterday Context: Gradual Onset Timing: Continuous Current Severity: Moderate Maximum Severity: Moderate Narrative: Patient presents with erythema of his right lower extremity. 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 He states that 2 days ago, he noticed a lump on the outer aspect just below his knee. He states it is mildly painful. Over the past 24 hours, is gotten more erythematous. He did see his primary care physician who put him on Levaquin. This was just started today. He is concerned though given his history and want to be evaluated. He denies any fevers or chills. He denies any other systemic complaints. Past Medical History - Allergies and Home Meds Allergies/Adverse Reactions: Allergies Penicillins Allergy (Verified 02/12/19 13:50) Hives pioglitazone HCl [From Actos] Allergy (Verified 02/12/19 13:50) Swelling Xhlahjx-Vct-Pzk Reductase Inhibitor Allergy (Verified 02/12/19 13:50) Unknown gabapentin [From Neurontin] Adverse Reaction (Verified 02/12/19 13:50) Other Primary Care Physician: Saul Hartmann MD [Primary Care Provider] - Prior records reviewed: Yes Surgical History: angioplasty - with stent., coronary bypass surgery, pacemaker implantation - defibrillator., - - Right BKA, back surgery, left peroneal artery surgery. Smoking Status: Never smoker - Family History Maternal Family History: Family History (Last Reviewed 01/25/19 @ 16:03 by Suni Jacobs) Father Diabetes CAD (coronary artery disease) Brother Diabetes Myocardial infarction Brother Diabetes AICD (automatic cardioverter/defibrillator) present CAD (coronary artery disease) Family History: Reports: No pertinent history Paternal Family History: Family History (Last Reviewed 01/25/19 @ 16:03 by Suni Jacobs) Father Diabetes CAD (coronary artery disease) Brother Diabetes Myocardial infarction Brother Diabetes AICD (automatic cardioverter/defibrillator) present CAD (coronary artery disease) Family History: Reports: No pertinent history Review of Systems General: Denies: Chills, Fever, Sweats Eyes: Denies: Visual changes - bilaterally, Diplopia ENT: Denies: Rhinorrhea, Sore throat Cardiovascular: Denies: Chest pain, Palpitations Respiratory: Denies: Dyspnea, Cough, Dyspnea on exertion Gastrointestinal: Denies: Abdominal pain, Nausea, Vomiting, Diarrhea, Melena, Hematochezia Genitourinary: Denies: Dysuria, Hematuria, Frequency Musculoskeletal: Reports: Myalgias Skin: Denies: Rash, Wounds Neurological: Denies: Headache, Weakness, Numbness Physical Exam Vital Signs/Narrative: Vital Signs Temp Pulse Resp BP Pulse Ox 02/12/19 13:50 97.5 F L 76 16 142/82 H 98 Inital Vital Signs reviewed: Yes General: Well nourished, Well developed, No Acute Distress Head: Normocephalic, Atraumatic Eyes: Perrl, EOMI ENT: Moist mucous membranes, No rhinorrhea Neck: Supple, Nontender Cardiovascular: Regular rate, Regular rhythm, No murmurs Respiratory: No distress, CTA bilaterally, Chest nontender Abdomen: Soft, Nontender, Nondistended, Normal bowel sounds Back: Nontender, Normal Inspection Extremities: Nontender, Tenderness - Mild tenderness in the lateral aspect below the knee. There is approximately a 4 cm ovoid area of cellulitis. There is no central fluctuance. There is no streaking. Skin: Normal color, No rash Neurological: Alert, Oriented x3, Cranial nerves II-XII grossly intact, Normal Strength, Normal Sensation Psychological: Normal affect, Normal Mood Diagnostic/Tx/Re-eval - Medical Decision Making The patient has a localized area of cellulitis without any central fluctuance. At this point, I do feel that he is safe for outpatient therapy. He said no systemic symptoms. There is no area that requires incision and drainage. However, I do want this patient to be closely evaluated. I am going to have him come back tomorrow within 24 hours for reevaluation. He is comfortable with this. He is Ovi on Levaquin, but I am going to add doxycycline for MRSA coverage. He is comfortable with this plan of care. ED Disposition - Plan for ED Patient: Instructions: Cellulitis Prescriptions: Doxycycline 100 mg PO BID #20 cap Prescription Printed Referrals: Saul Hartmann MD [Primary Care Provider] -
[2019-02-12] MEDS: Doxycycline 100 MG CAPSULE PO (14:16)
[2019-02-12 14:17] VITALS: RESP 18
== END 2019-02-12 14:22 | disposition home or self-care (01) ==
LOC: ED 14:09
PROVIDERS: Emergency Provider Emergency Medicine; Family Provider Family Medicine; PCP Family Medicine
DX: L03.115 Cellulitis of right lower limb (principal); Z89.511 Acquired absence of right leg below knee; Z95.1 Presence of aortocoronary bypass graft; Z95.0 Presence of cardiac pacemaker; Z88.0 Allergy status to penicillin
CPT/HCPCS: 99283

== ENCOUNTER → 2019-02-25 12:01 | Outpatient (CLI) | payer OTHER, SELFPAY ==
[2019-02-12 13:50] VITALS: BMI 35.9
--- NOTE | 2019-02-25 12:23 | US_ITS ---
STUDY: SUPERFICIAL ULTRASOUND - POST AMPUTATION STUMP. REASON FOR EXAM: Male, 58 years old. Abnormality at the below-knee amputation site. TECHNIQUE: A superficial ultrasound was performed with real-time and static ye-scale imaging. COMPARISON: None. FINDINGS: There is evidence of subcutaneous edema. No solid or cystic mass lesion is seen. US/Ext Non Vasc Limited/Soft Tiss IMPRESSION: Subcutaneous edema. Electronically Signed: Izaiah Mcgee, at 13:27 EDT , Service support ,
[2019-02-25 12:34] LABS: Absolute Lymphocyte Count 2.52 X10^3/uL (0.83-4.51); Absolute Neutrophil Count 3.7 X10^3/uL (2.0-7.7); Basophil# 0.03 X10^3/uL; Basophil% 0.4 % (0-1); Eosinophil# 0.09 X10^3/uL; Eosinophils% 1.3 % (0-5); Hematocrit 46.3 % (40-54); Hemoglobin 15.5 g/dL (13.0-16.5); Lymphocyte # 2.52 X10^3/ul (4.0); Lymphocyte % 36.8 % (19-41); Mean Corp Hgb Conc 33.5 g/dL (32-36); Mean Corpuscular Hgb 27.5 pg (27.0-32.0); Mean Corpuscular Volume 82.1 fL (80-94); Mean Platelet Vol. 9.6 fl (6.2-12.0); Monocyte# 0.42 X10^3/uL; Monocyte% 6.1 % (0-10); NRBC Flagged by Analyzer 0 % (0-5); Neutrophil # 3.74 X10^3/uL (2.7-7.7); Neutrophil % 54.8 % (47-70); Platelet Count 258 K/mm3 (150-450); RBC Distribution Width CV 12.1 % (11.6-14.6); RBC Distribution Width SD 36.6 fl (35.1-43.9); Red Blood Count 5.64 M/mm3 (4.6-6.2); White Blood Count 6.8 K/mm3 (4.4-11.0)
[2019-02-25 12:47] LABS: Anion Gap 5 (5-15); BUN 19 mg/dL (7-18); BUN/Creat Ratio 16.1 RATIO (10-20); CRP < 2.90 mg/L (0.0-3.0); Calcium,Total 8.9 mg/dL (8.5-10.1); Chloride 102 mmol/L (98-107); Creatinine, Serum 1.18 mg/dL (0.70-1.30); EST Glomerular Filtration Rate 67 mL/min (>60); Est Glom Filt Rate - Afr Amer 81 mL/min (>60); Glucose 306 mg/dL (74-106); Potassium 4.7 mmol/L (3.5-5.1); Sodium Level 137 mmol/L (136-145)
[2019-02-25 13:15] LABS: Erythrocyte Sedimentation Rate 8 mm/hr (0-20)
== END ==
PROVIDERS: Family Provider Family Medicine; PCP Family Medicine; Referring Provider Family Medicine; Visit Provider Family Medicine
DX: T87.89 Other complications of amputation stump (principal)
CPT/HCPCS: 36415; 76882; 80048; 85025; 85652; 86140

== ENCOUNTER → 2019-08-31 11:49 | Outpatient (CLI) | payer OTHER, SELFPAY ==
[2019-08-26 10:22] VITALS: BMI 35.2
[2019-08-31 09:24] LABS: AST(SGOT) 10 U/L (15-37); Alanine Aminotransfer ALT/SGPT 25 U/L (16-61); Albumin, Serum 3.8 g/dL (3.2-5.0); Alkaline Phosphatase 61 U/L (45-117); Anion Gap 4 (5-15); BUN 16 mg/dL (7-18); BUN/Creat Ratio 13.1 RATIO (10-20); Chloride 103 mmol/L (98-107); Cholesterol 141 mg/dL (200); Creatinine, Serum 1.22 mg/dL (0.70-1.30); EST Glomerular Filtration Rate 65 mL/min (>60); Est Glom Filt Rate - Afr Amer 78 mL/min (>60); Globulin 3.8 g/dL (2.2-4.2); Glucose 270 mg/dL (74-106); High Density Lipoprotein 34 mg/dL; Potassium 4.9 mmol/L (3.5-5.1); Protein, Total 7.6 g/dL (6.4-8.2); Sodium Level 137 mmol/L (136-145); Triglycerides 110 mg/dL; Very Low Density Lipoprotein 22 mg/dL (5-40)
--- NOTE | 2019-08-31 11:54 | US_ITS ---
HISTORY: NODULE RT LOWER LEG ADDITIONAL HISTORY: Palpable nodule and dark color on the skin involving the right lower leg above stump, posterior aspect COMPARISON: None. TECHNIQUE: High-resolution grayscale and color Doppler sonography of the region of clinical concern in the right lower leg. Number of images including paperwork: 45 FINDINGS: A hypoechoic area measuring 1.5 x 1.1 x 0.5 cm is noted in the region of clinical concern with some surrounding edema. Imaged area otherwise unremarkable. US/Ext Non Vasc Limited/Soft Tiss IMPRESSION: Hypoechoic area in the region of palpable concern with mild surrounding edema. Appearance is nonspecific but could be related to an abscess, resolving hematoma or fluid/edema of other cause. No definite soft tissue mass is seen. MRI could further evaluate as clinically warranted. at 0409 Reported and signed by: Viviana Pompa MD Electronically Signed: Viviana Pompa MD at 4:09 EST Tel , Service support ,
== END ==
PROVIDERS: Internal Medicine Cardiovascular Disease; PCP Family Medicine; Referring Provider Family Medicine; Visit Provider Family Medicine
DX: R22.41 Localized swelling, mass and lump, right lower limb (principal); E78.5 Hyperlipidemia, unspecified; I25.10 Atherosclerotic heart disease of native coronary artery without angina pectoris; I25.5 Ischemic cardiomyopathy; I50.22 Chronic systolic (congestive) heart failure
CPT/HCPCS: 36415; 76882; 80048; 80061; 80076

== ENCOUNTER → 2019-12-08 07:35 | Outpatient (CLI) | payer OTHER, SELFPAY ==
[2019-08-26 10:22] VITALS: BMI 35.2
--- NOTE | 2019-12-08 07:36 | ECHOCS_ITS ---
Reason For Study: CHF Procedure This was a 2D Doppler, Color Flow transthoracic echocardiogram. The study was technically difficult. Exam performed in department. Left Ventricle Moderately dilated left ventricle. The estimated ejection fraction is 35 %. Stage 1 diastolic dysfunction. Posterior-Basal: Severely hypokinetic. Right Ventricle Moderately dilated right ventricle. ICD or pacer leads identified within the right ventricle. Normal systolic function. Mitral Valve The mitral valve is structurally normal. No prolapse or stenosis seen. Trivial mitral valve insufficiency. Tricuspid Valve Normal tricuspid valve. Trivial tricuspid valve insufficiency. Right ventricular systolic pressure estimated to be 15 mmHg. Aortic Valve Trisinus/trileaflet aortic valve. Mild diffuse aortic valve thickening. Trivial aortic valve insufficiency. Pulmonic Valve Normal pulmonic valve. Mild (1+) pulmonic valve insufficiency. Great Vessels Normal aortic root. Normal arch. Normal inferior vena cava. Inferior vena cava collapse with sniff. Pericardium/Pleural No pericardial effusion. Medication 22 gauge I.V. with prn adaptor inserted into right arm. Diluted definity 4ml given slow IV push to enhance endocardial definition. MMode/2D Measurements & Calculations LVIDd: 5.2 cm IVSd: 1.2 cm Ao root diam: 3.8 cm LVIDs: 4.2 cm LVPWd: 1.1 cm RVDd: 3.9 cm FS: 19.3 % LAV(MOD-bp): 56.0 ml LA A4 area: 19.1 cm2 LA dimension(2D): 4.5 cm LAV(MOD-bp) Indexed: 24.6 ml/m2 LAV(MOD-sp2): 53.5 ml LAV(MOD-sp4): 57.5 ml RA A4 area: 13.9 cm2 Doppler Measurements & Calculations MV E max aroldo: 46.1 cm/sec Lat Peak E' Aroldo: 6.3 cm/sec Med Peak E' Aroldo: 5.3 cm/sec MV A max aroldo: 94.9 cm/sec E/E' lat: 7.4 E/E' med: 8.7 MV E/A: 0.49 Ao V2 max: 98.0 cm/sec LV V1 max: 77.2 cm/sec PA V2 max: 84.6 cm/sec Ao max P.8 mmHg LV V1 max P.4 mmHg TR max aroldo: 161.6 cm/sec TR max P.4 mmHg Interpretation Summary Stage 1 diastolic dysfunction. Moderately dilated right ventricle. Moderately dilated left ventricle. The estimated ejection fraction is 35 %. Trivial mitral valve insufficiency. Trivial tricuspid valve insufficiency. Right ventricular systolic pressure estimated to be 15 mmHg. Trivial aortic valve insufficiency. Compared to echo report dated 11/28/2004, no appreciable changes noted. LV function has decreased from 50% to 35% and defibrillator now present. The study was technically difficult. Contrast injection was performed. Ordering Physician: Harrison Noel Referring Physician: Darius Hartmann MD Performed By: Kerrie Hanna RDCS
== END ==
PROVIDERS: PCP Family Medicine; Referring Provider Internal Medicine Cardiovascular Disease; Visit Provider Internal Medicine Cardiovascular Disease
DX: I25.10 Atherosclerotic heart disease of native coronary artery without angina pectoris (principal); I25.5 Ischemic cardiomyopathy; I50.22 Chronic systolic (congestive) heart failure; I48.91 Unspecified atrial fibrillation; Z95.1 Presence of aortocoronary bypass graft; Z95.810 Presence of automatic (implantable) cardiac defibrillator
CPT/HCPCS: 93306; Q9957; A4216; C8929

== ENCOUNTER → 2020-02-17 16:38 | Outpatient (CLI) | payer OTHER, SELFPAY ==
[2019-08-26 10:22] VITALS: BMI 35.2
[2020-02-17 17:30] LABS: Absolute Lymphocyte Count 2.18 X10^3/uL (0.83-4.51); Absolute Neutrophil Count 4.1 X10^3/uL (2.0-7.7); Basophil# 0.03 X10^3/uL; Basophil% 0.4 % (0-1); Eosinophil# 0.08 X10^3/uL; Eosinophils% 1.2 % (0-5); Hematocrit 43.4 % (40-54); Hemoglobin 14.5 g/dL (13.0-16.5); Lymphocyte # 2.18 X10^3/ul (4.0); Lymphocyte % 31.9 % (19-41); Mean Corp Hgb Conc 33.4 g/dL (32-36); Mean Corpuscular Hgb 28.9 pg (27.0-32.0); Mean Corpuscular Volume 86.5 fL (80-94); Mean Platelet Vol. 10.1 fl (6.2-12.0); Monocyte# 0.45 X10^3/uL; Monocyte% 6.6 % (0-10); NRBC Flagged by Analyzer 0 % (0-5); Neutrophil # 4.09 X10^3/uL (2.7-7.7); Neutrophil % 59.8 % (47-70); Platelet Count 244 K/mm3 (150-450); RBC Distribution Width CV 12.8 % (11.6-14.6); RBC Distribution Width SD 39.3 fl (35.1-43.9); Red Blood Count 5.02 M/mm3 (4.6-6.2); White Blood Count 6.8 K/mm3 (4.4-11.0)
[2020-02-17 18:10] LABS: ALB/GLOB Ratio 1.1 RATIO (0.9-2.4); AST(SGOT) 13 U/L (15-37); Alanine Aminotransfer ALT/SGPT 24 U/L (16-61); Albumin, Serum 3.6 g/dL (3.2-5.0); Alkaline Phosphatase 50 U/L (45-117); Anion Gap 6 (5-15); BNP,B-Type NATRIURETIC PEPTIDE 99.1 pg/mL (0-100); BUN 15 mg/dL (7-18); BUN/Creat Ratio 13.5 RATIO (10-20); Calcium,Total 8.6 mg/dL (8.5-10.1); Chloride 107 mmol/L (98-107); Creatinine, Serum 1.11 mg/dL (0.70-1.30); EST Glomerular Filtration Rate 72 mL/min (>60); Est Glom Filt Rate - Afr Amer 87 mL/min (>60); Globulin 3.3 g/dL (2.2-4.2); Glucose 148 mg/dL (74-106); Potassium 3.8 mmol/L (3.5-5.1); Protein, Total 6.9 g/dL (6.4-8.2); Sodium Level 141 mmol/L (136-145)
== END ==
PROVIDERS: PCP Family Medicine; Referring Provider Family Medicine; Visit Provider Family Medicine
DX: I25.10 Atherosclerotic heart disease of native coronary artery without angina pectoris (principal)
CPT/HCPCS: 36415; 80053; 83880; 85025

== ENCOUNTER → 2020-02-18 14:56 | Outpatient (CLI) | payer OTHER, SELFPAY ==
[2019-08-26 10:22] VITALS: BMI 35.2
--- NOTE | 2020-02-18 15:00 | RAD_ITS ---
STUDY: X-RAY CHEST REASON FOR EXAM: Male, 59 years old. Cough for a while, comes and goes TECHNIQUE: Frontal and lateral views COMPARISON: November 06, 2018. FINDINGS: Stable sternotomy wires and left-sided pacemaker. The lungs are clear and expanded. There is no demonstrated pleural abnormality. Normal size heart. Normal mediastinum and delia. Normal visualized pulmonary arteries. Normal visualized aortic arch and descending thoracic aorta. Stimulator electrode noted at the mid thoracic spine. Normal visualized ribs, clavicles, and shoulders. There is no demonstrated abnormality of the visualized soft tissue structures of the upper abdomen. RAD/Chest PA and Lateral IMPRESSION: No acute pulmonary pathology of the chest. Electronically Signed: Jordan Mitchell DO at 15:22 EDT Tel [phone], Service support ,
== END ==
PROVIDERS: PCP Family Medicine; Referring Provider Family Medicine; Visit Provider Family Medicine
DX: R05 Cough (principal)
CPT/HCPCS: 71046

== ENCOUNTER → 2020-09-18 09:29 | Outpatient (CLI) | payer OTHER, SELFPAY ==
[2020-04-06 08:55] VITALS: BMI 34.7
[2020-09-18 12:25] LABS: Hematocrit 47.4 % (40-54); Mean Corp Hgb Conc 33.8 g/dL (32-36); Mean Corpuscular Hgb 28.5 pg (27.0-32.0); Mean Corpuscular Volume 84.5 fL (80-94); Mean Platelet Vol. 10.6 fl (6.2-12.0); Platelet Count 272 K/mm3 (150-450); RBC Distribution Width SD 39.9 fl (35.1-43.9); Red Blood Count 5.61 M/mm3 (4.6-6.2); White Blood Count 5.7 K/mm3 (4.4-11.0)
[2020-09-18 12:38] LABS: BNP,B-Type NATRIURETIC PEPTIDE 37.5 pg/mL (0-100)
[2020-09-18 12:51] LABS: ALB/GLOB Ratio 1.2 RATIO (0.9-2.4); AST(SGOT) 11 U/L (15-37); Alanine Aminotransfer ALT/SGPT 25 U/L (16-61); Alkaline Phosphatase 65 U/L (45-117); Anion Gap 5 (5-15); BUN 15 mg/dL (7-18); BUN/Creat Ratio 13.5 RATIO (10-20); Calcium,Total 9.4 mg/dL (8.5-10.1); Chloride 103 mmol/L (98-107); Cholesterol 145 mg/dL (200); Creatinine, Serum 1.11 mg/dL (0.70-1.30); EST Glomerular Filtration Rate 72 mL/min (>60); Est Glom Filt Rate - Afr Amer 87 mL/min (>60); Globulin 3.4 g/dL (2.2-4.2); Glucose 254 mg/dL (74-106); High Density Lipoprotein 34 mg/dL; PSA,Total - Annual Screen 0.32 ng/mL (0.00-4.00); Potassium 4.8 mmol/L (3.5-5.1); Protein, Total 7.4 g/dL (6.4-8.2); Sodium Level 136 mmol/L (136-145); Thyroid Stim Hormone (TSH) 1.62 uIU/mL (0.358-3.74); Triglycerides 114 mg/dL; Very Low Density Lipoprotein 23 mg/dL (5-40)
== END ==
PROVIDERS: PCP Family Medicine; Visit Provider Family Medicine
DX: E11.9 Type 2 diabetes mellitus without complications (principal); I50.9 Heart failure, unspecified; Z12.5 Encounter for screening for malignant neoplasm of prostate; I11.0 Hypertensive heart disease with heart failure
CPT/HCPCS: 36415; 80053; 80061; 83880; 84153; 84443; 85027; G0103

== ENCOUNTER 2022-03-09 22:51 | Emergency (ER) | payer OTHER, SELFPAY ==
[2022-03-09 22:52] VITALS: BP 198/98; PULSE 78; RESP 21; TEMP 36.3; O2SAT 99; BMI 34.4
--- NOTE | 2022-03-09 23:01 | RAD_ITS ---
STUDY: X-RAY CHEST REASON FOR EXAM: Male, 61 years old. Cough, shortness of breath TECHNIQUE: PA and lateral views of the chest. COMPARISON: 02/18/2020 FINDINGS: Left lung base atelectasis. The right lung appears clear. There is no demonstrated pleural abnormality. Sternal cerclage wires and vascular clips are present from a prior sternotomy and coronary artery bypass graft procedure (CABG). Dual-lead cardiac device remains. Normal mediastinum and delia. Normal visualized pulmonary arteries. Normal visualized aortic arch and descending thoracic aorta. Thoracic spine stimulator leads redemonstrated. There is no demonstrated abnormality of the visualized soft tissue structures of the upper abdomen. RAD/Chest PA and Lateral IMPRESSION: Left lung base atelectasis. Electronically Signed: Marcel Banks MD at 0:18 EDT ,
--- NOTE | 2022-03-09 23:01 | EKG12_ITS ---
Test Reason : DYSRHYTHMIA Blood Pressure : / mmHG Vent. Rate : 078 BPM Atrial Rate : 078 BPM P-R Int : 182 ms QRS Dur : 134 ms QT Int : 442 ms P-R-T Axes : 059 -40 070 degrees QTc Int : 503 ms Normal sinus rhythm Left axis deviation Non-specific intra-ventricular conduction block Abnormal ECG When compared with ECG of 06-OCT-2018 17:52, Non-specific intra-ventricular conduction block has replaced Incomplete right bundle branch block Confirmed by EDGARDO JAIME, ANITA ([id number]), editor news GIN GALLOWAY ([id number]) on 03/12/2022 10:22:16 AM Referred By: EN Confirmed By:ANITA REYNOSO MD
--- NOTE | 2022-03-09 23:04 | EX.ED.DYSGE1 ---
HPI History of Present Illness Chief Complaint: Hypoglycemia Informant: patient, spouse/S.O. and EMS Onset/Context/Timing Onset: Hours (2 or so) Context: Gradual Onset (around 2-3 hrs after using insulin and eating) Timing: Continuous Current Severity: Moderate Maximum Severity: Severe Worsened by: nothing in particular Relieved by: a little by oral glc tabs/orange juice Narrative Narrative: Patient is an insulin-dependent diabetic, he took his Humalog 20 units a little earlier and then a 2 or 3 tacos, which is typical dosing for him, 2 or 3 hours later started dropping his blood sugar, feeling sweaty, near syncopal, a little short of breath which is better now, states over the course of the next hour or so took around 10 or so glucose tablets, half a container of orange juice, and still having blood sugars in the 40s so called EMS out of concern. Started Trulicity a couple weeks ago and in that time has had occasional vomiting, diarrhea, no fevers or chills. He states he has developed a cough at 1 point nonproductive, he denies having any chest pains. Prior to arrival, EMS gave him glucose tablets at home followed by glucose oral gel in route, and just prior to arrival here his blood sugar was 90 per them. [facility] Medical History Amputation of leg Arthritis Atherosclerosis of coronary artery of [place] heart without angina pectoris Back pain Back problem Carpal tunnel syndrome CHF (congestive heart failure) Chronic systolic heart failure Deep vein blood clot of right lower extremity Diabetes mellitus Diabetic retinopathy associated with type 2 diabetes mellitus Difficulty balancing Essential hypertension Gallstones Gangrene of right foot GERD (gastroesophageal reflux disease) Hard of hearing History of DVT (deep vein thrombosis) Hx of staphylococcal infection Hyperlipidemia Ischemic cardiomyopathy Neuropathy NPDR (nonproliferative diabetic retinopathy) Obesity Old myocardial infarction Osteoarthritis Osteomyelitis PAD (peripheral artery disease) Paroxysmal atrial fibrillation Peripheral arterial occlusive disease Polyneuropathy Polyneuropathy due to type 2 diabetes mellitus Sick sinus syndrome Thrombocytopenia Home Medications aspirin 81 mg tablet,delayed release 81 mg PO DAILY [facility] 10/10/17 [History Last Taken 06/19/18] furosemide 40 mg tablet 40 mg PO .COMPLEX #270 tabs 07/09/19 [Rx Last Taken Unknown] metolazone 2.5 mg tablet 2.5 mg PO .COMPLEX PRN SWELLING #45 tabs 08/26/19 [Rx Last Taken Unknown] nitroglycerin 0.4 mg/hr transdermal 24 hour patch 1 patch transdermal DAILY #90 ea 08/31/19 [Rx Last Taken Unknown] ranolazine 500 mg tablet,extended release,12 hr (Ranexa) 500 mg PO BID #180 tabs 04/06/20 [Rx Last Taken Unknown] ascorbic acid (vitamin C) 500 mg capsule 500 mg PO DAILY 12/22/20 [History Last Taken Unknown] Novolog Flexpen U-100 Insulin 100 unit/mL (3 mL) subcutaneous (insulin aspart U-100) 30 unit (0.3 mL) subcut .tidcm #135 mL 05/24/21 [Rx Last Taken Unknown] sacubitril 97 mg-valsartan 103 mg tablet (Entresto) See Rx Instructions .Route .COMPLEX #180 tabs 10/01/21 [Rx Last Taken Unknown] carvedilol 6.25 mg tablet 6.25 mg PO BID #180 tabs 11/08/21 [Rx Last Taken Unknown] omeprazole 20 mg capsule,delayed release 20 mg PO DAILY #90 caps 11/08/21 [Rx Last Taken Unknown] flash glucose sensor (FreeStyle Junaid 14 Day Sensor kit) #2 ea 12/10/21 [Rx Last Taken Unknown] ezetimibe 10 mg tablet 10 mg PO DAILY #90 tabs 02/21/22 [Rx Last Taken Unknown] Basaglar KwikPen U-100 Insulin 100 unit/mL (3 mL) subcutaneous (insulin glargine) 40 unit (0.4 mL) subcut QHS #36 mL 02/28/22 [Rx Last Taken Unknown] Dexcom G6 Nutritionist (blood-glucose meter,continuous) #1 ea 02/28/22 [Rx Last Taken Unknown] Dexcom G6 Sensor (blood-glucose sensor) #9 ea 02/28/22 [Rx Last Taken Unknown] Dexcom G6 Transmitter (blood-glucose transmitter) #1 ea 02/28/22 [Rx Last Taken Unknown] Trulicity 0.75 mg/0.5 mL subcutaneous pen injector (dulaglutide) 0.75 mg (0.5 mL) subcut QWEEK #6 mL 02/28/22 [Rx Last Taken Unknown] Allergy/AdvReac Type Severity Reaction Status Date / Time Penicillins Allergy Hives Verified 02/28/22 14:16 pioglitazone HCl [From Actos] Allergy Swelling Verified 02/28/22 14:16 Kkeoxym-OAN-BnK Reductase Allergy Unknown Verified 02/28/22 14:16 Inhibitor [Dvirsil-Xpw-Lue Reductase Inhibitor] gabapentin [From Neurontin] AdvReac Other Verified 02/28/22 14:16 Family History Father , age 57 Diabetes CAD (coronary artery disease) Brother , age 33 Diabetes Myocardial infarction Brother Diabetes AICD (automatic cardioverter/defibrillator) present CAD (coronary artery disease) coronary stents Other Heart disease Hypertension Surgical History abdominal aortagram with RLE runoff (~10/17/17) Amputation, toe, traumatic H/O coronary artery bypass surgery (09/26/04) H/O right heart catheterization History of angioplasty History of carpal tunnel release of both wrists History of coronary artery stent placement (09/25/17) History of exploratory laparotomy History of laminectomy History of left heart catheterization (06/2018) 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) History of spinal fusion History of vasectomy (1994) Hx of cholecystectomy (2014) left heart cath and RLE arteriogram (09/25/17) neurostimulator implant Presence of automatic implantable cardioverter-defibrillator (08/08/16) Previous back surgery RLE peroneal artery stent (10/03/17) Status post ablation of incompetent vein using laser Social History Smoking Status: Never smoker alcohol intake: never substance use type: does not use caffeine: Yes Type: carbonated beverages Number of servings: 1 and coffee Number of servings: 2 what type of physical activity do you participate in: none ROS ROS ED Review of Systems ROS Unobtainable: other Details: Somewhat limited, very hard of hearing; provides most of history Constitutional Constitutional ED: Reports fatigue and malaise; Denies chills or fever(s) Eyes Eyes: Denies change in vision ENT ENT ED: Denies rhinorrhea or sore throat Cardiovascular Cardiovascular: Reports lightheadedness; Denies chest pain, orthopnea or palpitations Respiratory/Chest Respiratory/Chest: Reports cough and dyspnea; Denies orthopnea or sputum Gastrointestinal Gastrointestinal: Reports diarrhea, nausea and vomiting; Denies abdominal pain or melena Genitourinary Genitourinary ED: Denies dysuria or hematuria Musculoskeletal Musculoskeletal: Denies back pain or neck pain Integumentary Denies abscess or rash Neurologic Neurologic: Denies headache(s), paresthesias or weakness Psychiatric Psychiatric: Denies anxiety or suicidal thoughts EXAM Physical Exam Const Vital Signs: 03/09/22 22:52 03/09/22 22:57 Temperature 97.4 F L Temperature Source Temporal Pulse Rate 78 Respiratory Rate 21 H Respiratory Effort Short of Breath Blood Pressure 198/98 H Blood Pressure Mean 131 Pulse Ox 99 Oxygen Delivery Method Room Air Positive well nourished, well developed and obese Constitutional Narrative: malaised, keenly alert, able to converse General Appearance ED: well developed and NAD Nutritional Appearance: obese HEENT Reports moist mucous membranes normocephalic and atraumatic Eyes PERRL and EOMs intact bilaterally Neck full ROM, no lymphadenopathy, supple and no JVD Resp normal respiratory effort and clear to auscultation bilaterally Cardio regular rate, regular rhythm and no murmurs Rate: Negative for tachycardic GI non-tender and non-distended Auscultation: normoactive bowel sounds Palpation: soft Back/Spine no CVA tenderness General Back: other FROM Extremity normal to inspection Extremity Narrative: s/p R BKA w/ prosthesis attached General Extremety ED: Negative for edema, pulses abnormal or tenderness General Extremity: Negative for edema or pulses abnormal Neuro oriented x3, CN's II-XII intact bilaterally and no sensory deficits noted Sensorium / Orientation: awake and alert Motor Exam: strength 5/5 throughout Skin no rashes or lesions noted and no wounds MDM MDM MDM Narrative Medical decision making narrative: Reviewed echocardiogram around 2 years ago, stage I diastolic dysfunction, dilated ventricles, EF 35%; for this reason, I ordered a bolus of D25 to the bedside since there is a D50 shortage as opposed to D5 half-normal drip, but since his initial blood sugar is 122 we held that at that time and continue to monitor him, locking the fluids that EMS started. Patient felt much better and appeared keenly alert and better, in agreement. Of note, patient has a wireless Dexcom reader, we did a BGT here at the exact same time that we had a wireless reading, they were 122 and 119 respectively, so after that we continue to use his wireless reader to watch his sugars to save the patient from more finger pricks. His blood sugar went up to the 160s, and he felt fine. Therefore we stopped repeating that, we did give him some oral potassium for a level of 3.1, he tolerated that fine after getting Zofran earlier. His work-up is negative, he does not have a leukocytosis, and elevated BNP, kidney injury, or any other electrolyte disorders. Liver enzymes and lipase within normal limits. Chest x-ray unremarkable except for some minor atelectasis. EKG at baseline sinus rhythm. states he always feels a little short of breath as he does now which is no different than his baseline. I do not think he needs further emergent work-up. She states he has been vomiting off and on for the last month, but it is very random. He gets nauseated, and then vomits and then he feels better, maybe happens a couple times a week. The diarrhea started after the Trulicity concerning for side effect of it, they are going to call his mobile home set up person after the weekend to further discuss which I think is reasonable, and I also think it is reasonable to hold off on any further Trulicity doses until they have a discussion. His blood pressure came down to the 150s without treatment, I suspect his hypertension was due to the body stress of hypoglycemia as was the vomiting tonight. Since his blood sugar stable now and he is feeling well, I am discharging him home to rest and also take his nighttime medications which do include blood pressure medication. Lab Data Attestation: I reviewed the patient's lab results. Labs: Laboratory Results - last 24 hr 03/09/22 03/09/22 03/09/22 23:15 23:15 23:15 WBC 10.2 RBC 5.22 Hgb 14.8 Hct 44.3 MCV 84.9 MCH 28.4 MCHC 33.4 RDW Std Deviation 39.9 RDW Coeff of Sushila 12.8 Plt Count 239 MPV 10.2 Immature Gran % (Auto) 0.500 Neut % (Auto) 79.3 H Lymph % (Auto) 12.2 L Ritchie % (Auto) 6.8 Eos % (Auto) 1.0 Baso % (Auto) 0.2 Absolute Neuts (auto) 8.1 H Absolute Lymphs (auto) 1.24 Nucleated RBC % 0 Sodium 140 Potassium 3.1 L Chloride 107 Carbon Dioxide 26.0 Anion Gap 7 BUN 13 Creatinine 1.19 Estim Creat Clear Calc 67.31 Est GFR (MDRD) Af Amer 80 Est GFR (MDRD) Non-Af 66 BUN/Creatinine Ratio 10.9 Glucose 120 H Calcium 8.5 Total Bilirubin 0.40 AST 13 L ALT 24 Alkaline Phosphatase 58 B-Natriuretic Peptide 59.8 Total Protein 7.0 Albumin 3.7 Globulin 3.3 Albumin/Globulin Ratio 1.1 Lipase 126 Urine Color Urine Clarity Urine pH Ur Specific [place] Urine Protein Urine Glucose (UA) Urine Ketones Urine Occult Blood Urine Nitrite Urine Bilirubin Urine Urobilinogen Ur Leukocyte Esterase Urine RBC Urine WBC Ur Squamous Epith Cells Urine Bacteria Urine Mucus POC Glucose 03/09/22 03/09/22 23:21 23:54 WBC RBC Hgb Hct MCV MCH MCHC RDW Std Deviation RDW Coeff of Sushila Plt Count MPV Immature Gran % (Auto) Neut % (Auto) Lymph % (Auto) Ritchie % (Auto) Eos % (Auto) Baso % (Auto) Absolute Neuts (auto) Absolute Lymphs (auto) Nucleated RBC % Sodium Potassium Chloride Carbon Dioxide Anion Gap BUN Creatinine Estim Creat Clear Calc Est GFR (MDRD) Af Amer Est GFR (MDRD) Non-Af BUN/Creatinine Ratio Glucose Calcium Total Bilirubin AST ALT Alkaline Phosphatase B-Natriuretic Peptide Total Protein Albumin Globulin Albumin/Globulin Ratio Lipase Urine Color Yellow Urine Clarity Clear Urine pH 6.0 Ur Specific [place] 1.010 Urine Protein Negative Urine Glucose (UA) Normal Urine Ketones Negative Urine Occult Blood Negative Urine Nitrite Negative Urine Bilirubin Negative Urine Urobilinogen Normal Ur Leukocyte Esterase Negative Urine RBC 0 SEEN Urine WBC 0 SEEN Ur Squamous Epith Cells 0 SEEN Urine Bacteria 0 SEEN Urine Mucus 0 SEEN POC Glucose 122 H Radiography Chest X-Ray - ED: 2 View, Read by ED Physician, No Acute Disease and No Infiltrates Diagnostic Testing: Clinical Impression(s) from Imaging Studies Chest X-Ray 03/09/22 23:01 IMPRESSION: Left lung base atelectasis. Electronically Signed: Marcel Banks MD at 0:18 EDT , Rhythm Strip Rhythm Strip: Sinus Rhythm Rate: 80 Ectopy: None EKG Initial EKG: Attestation: I personally reviewed and interpreted this EKG as follows: Interpretation: Sinus Rhythm, No Acute Injury Pattern, RBBB (incomplete) and LAFB Prior EKG tracings: available for review Prior: Unchanged Discharge Plan Triage Chief Complaint: Hypoglycemia ED Provider: Iain Grant Dx/Rx/DC Orders Clinical Impression: Hypoglycemia associated with type 2 diabetes mellitus, Near syncope, Vomiting and diarrhea, Hypokalemia Instructions: Hypoglycemia (Low Blood Sugar), ED Hypokalemia Prescriptions: No Action metolazone 2.5 mg tablet 2.5 mg PO .COMPLEX PRN (Reason: SWELLING) Qty: 45 3RF Rx Instructions: PRN Ranexa 500 mg tablet extended release 12 hr 500 mg PO BID Qty: 180 3RF Rx Instructions: Take with food. ascorbic acid (vitamin C) 500 mg capsule 500 mg PO DAILY carvedilol 6.25 mg tablet 6.25 mg PO BID Qty: 180 3RF omeprazole 20 mg capsule,delayed release(DR/EC) 20 mg PO DAILY Qty: 90 3RF (DME) Dexcom G6 Nutritionist Misc See Rx Instructions .Route Qty: 1 0RF Rx Instructions: As directed (DME) Dexcom G6 Sensor Device See Rx Instructions .Route Qty: 9 3RF Rx Instructions: 1 sensor q 10 days (DME) Dexcom G6 Transmitter Device See Rx Instructions .Route Qty: 1 3RF Rx Instructions: 1 transmitter q 90 days Trulicity 0.75 mg/0.5 mL pen injector 0.75 mg subcut QWEEK Qty: 6 1RF aspirin 81 MG tablet,delayed release (DR/EC) 81 mg PO DAILY furosemide 40 mg tablet 40 mg PO .COMPLEX Qty: 270 3RF Rx Instructions: 2 tablets in the morning and one tablet in the afternoon nitroglycerin 0.4 mg/hr patch 24 hour 1 patch Transdermal DAILY Qty: 90 3RF insulin aspart U-100 [Novolog Flexpen U-100 Insulin] 100 unit/mL (3 mL) insulin pen 30 unit subcut .tidcm Qty: 135 3RF Rx Instructions: 15 u with snacks max daily dose- 150 u Entresto 97-103 mg tablet See Rx Instructions .ROUTE .COMPLEX Qty: 180 3RF Dose Instruction: TAKE 1 TABLET TWICE A DAY Rx Instructions: TAKE 1 TABLET TWICE A DAY (DME) FreeStyle Junaid 14 Day Sensor Kit See Rx Instructions .ROUTE .MEDSUPPLY Qty: 2 6RF Rx Instructions: As directed ezetimibe 10 mg tablet 10 mg PO DAILY Qty: 90 3RF Basaglar KwikPen U-100 Insulin 100 unit/mL (3 mL) insulin pen 40 unit subcut QHS Qty: 36 1RF Rx Instructions: 55 u PM Primary Care Provider: Saul Hartmann Referrals: Rio Knott MD [Med Staff - Courtesy Staff] - (call on friday for further instructions and hold your Trulicity until you discuss further) Saul Hartmann MD [Primary Care Provider] - Disposition Disposition: Home, Self Care
[2022-03-09] MEDS: Ondansetron 4 MG/2 ML Vial IV (23:20)
--- NOTE | 2022-03-09 23:27 | NURSING ---
approved to use pt home glucose monitor. checked against [facility] monitors.
--- NOTE | 2022-03-09 23:29 | NURSING ---
Doctor gave verbal order to hold dextrose.
[2022-03-09 23:45] LABS: Bedside Glucose 122 mg/dL (74-106)
[2022-03-09 23:48] LABS: Absolute Lymphocyte Count 1.24 X10^3/uL (0.83-4.51); Absolute Neutrophil Count 8.1 X10^3/uL (2.0-7.7); Basophil# 0.02 X10^3/uL; Basophil% 0.2 % (0-1); Hematocrit 44.3 % (40-54); Hemoglobin 14.8 g/dL (13.0-16.5); Lymphocyte # 1.24 X10^3/ul (0.83-4.51); Lymphocyte % 12.2 % (19-41); Mean Corp Hgb Conc 33.4 g/dL (32-36); Mean Corpuscular Hgb 28.4 pg (27.0-32.0); Mean Corpuscular Volume 84.9 fL (80-94); Mean Platelet Vol. 10.2 fl (6.2-12.0); Monocyte# 0.69 X10^3/uL; Monocyte% 6.8 % (0-10); NRBC Flagged by Analyzer 0 % (0-5); Neutrophil # 8.09 X10^3/uL (2.7-7.7); Neutrophil % 79.3 % (47-70); Platelet Count 239 K/mm3 (150-450); RBC Distribution Width CV 12.8 % (11.6-14.6); RBC Distribution Width SD 39.9 fl (35.1-43.9); Red Blood Count 5.22 M/mm3 (4.6-6.2); White Blood Count 10.2 K/mm3 (4.4-11.0)
[2022-03-10] LABS: ALB/GLOB Ratio 1.1 RATIO (0.9-2.4); AST(SGOT) 13 U/L (15-37); Alanine Aminotransfer ALT/SGPT 24 U/L (16-61); Albumin, Serum 3.7 g/dL (3.2-5.0); Alkaline Phosphatase 58 U/L (45-117); Anion Gap 7 (5-15); BUN 13 mg/dL (7-18); BUN/Creat Ratio 10.9 RATIO (10-20); Calcium,Total 8.5 mg/dL (8.5-10.1); Chloride 107 mmol/L (98-107); Creatinine, Serum 1.19 mg/dL (0.70-1.30); EST Glomerular Filtration Rate 66 mL/min (>60); Est Glom Filt Rate - Afr Amer 80 mL/min (>60); Estimated Creatinine Clearance 67.31 ml/min; Globulin 3.3 g/dL (2.2-4.2); Glucose 120 mg/dL (74-106); Lipase 126 U/L (73-393); Potassium 3.1 mmol/L (3.5-5.1); Sodium Level 140 mmol/L (136-145)
[2022-03-10 00:01] LABS: Bacteria 0 SEEN /hpf (None Seen); Mucous, Urine 0 SEEN /hpf (<or=2+); Red Blood Cells-Urine 0 SEEN /hpf (0-5); Squamous Epithelial Cells - UA 0 SEEN /hpf (0-5); White Blood Cells 0 SEEN /hpf (0-5)
--- NOTE | 2022-03-10 00:04 | NURSING ---
bs 166
[2022-03-10 00:14] LABS: BNP,B-Type NATRIURETIC PEPTIDE 59.8 pg/mL (0-100)
[2022-03-10 00:17] LABS: Color, Urine Yellow (Yellow); Glucose, Dipstick Normal (Normal); Ketone-Dipstick Negative (Negative); Leukocyte Esterase-Dipstick Negative /ul (Negative); Nitrite-Dipstick Negative (Negative); Occult Blood-Urine Negative /ul (Negative); Protein-Dipstick Negative (Negative); Urine Bilirubin Dipstick Negative (Negative); Urine Clarity Clear (Clear); Urine Urobilinogen Normal (Normal)
[2022-03-10] MEDS: Potassium Chloride Oral Tablet 20 MEQ 40 MEQ PO (00:25)
[2022-03-10 00:44] VITALS: BP 178/95; PULSE 77; RESP 18; O2SAT 98
--- NOTE | 2022-03-10 00:45 | NURSING ---
bs 186
== END 2022-03-10 00:45 | disposition home or self-care (01) ==
PROVIDERS: Emergency Provider Emergency Medicine; PCP Family Medicine; Visit Provider Emergency Medicine
DX: E11.649 Type 2 diabetes mellitus with hypoglycemia without coma (principal); R55 Syncope and collapse; R11.10 Vomiting, unspecified; R19.7 Diarrhea, unspecified; E87.6 Hypokalemia; I25.10 Atherosclerotic heart disease of native coronary artery without angina pectoris; I25.2 Old myocardial infarction; E66.9 Obesity, unspecified; R06.00 Dyspnea, unspecified; Z86.718 Personal history of other venous thrombosis and embolism; Z95.1 Presence of aortocoronary bypass graft
CPT/HCPCS: 71046; 80053; 81001; 82962; 83690; 83880; 85025; 93005; 96374; 99285; A4216; J2405

== ENCOUNTER → 2022-03-18 | Outpatient (CLI) | payer OTHER, SELFPAY ==
[2022-03-18 12:27] LABS: Anion Gap 4 (5-15); BUN 10 mg/dL (7-18); BUN/Creat Ratio 8.2 RATIO (10-20); Calcium,Total 8.9 mg/dL (8.5-10.1); Chloride 102 mmol/L (98-107); Creatinine, Serum 1.22 mg/dL (0.70-1.30); EST Glomerular Filtration Rate 64 mL/min (>60); Est Glom Filt Rate - Afr Amer 78 mL/min (>60); Glucose 158 mg/dL (74-106); Potassium 4.6 mmol/L (3.5-5.1); Sodium Level 136 mmol/L (136-145)
== END | disposition home or self-care (01) ==
LOC: MFPLAB 10:04
PROVIDERS: PCP Family Medicine; Visit Provider Internal Medicine Cardiovascular Disease
DX: E11.649 Type 2 diabetes mellitus with hypoglycemia without coma (principal); R55 Syncope and collapse; R11.10 Vomiting, unspecified; R19.7 Diarrhea, unspecified; E87.6 Hypokalemia; I25.10 Atherosclerotic heart disease of native coronary artery without angina pectoris; Z95.1 Presence of aortocoronary bypass graft; Z95.5 Presence of coronary angioplasty implant and graft
CPT/HCPCS: 36415; 80048

== ENCOUNTER → 2022-05-15 | Outpatient (CLI) | payer OTHER, SELFPAY ==
[2022-05-15 10:16] LABS: Absolute Neutrophil Count 4.4 X10^3/uL (2.0-7.7); Basophil# 0.05 X10^3/uL; Basophil% 0.7 % (0-1); Eosinophils% 1.4 % (0-5); Hematocrit 46.2 % (40-54); Hemoglobin 15.2 g/dL (13.0-16.5); Lymphocyte % 30.4 % (19-41); Mean Corp Hgb Conc 32.9 g/dL (32-36); Mean Corpuscular Hgb 28.5 pg (27.0-32.0); Mean Corpuscular Volume 86.7 fL (80-94); Mean Platelet Vol. 10.4 fl (6.2-12.0); Monocyte# 0.47 X10^3/uL; Monocyte% 6.5 % (0-10); NRBC Flagged by Analyzer 0 % (0-5); Neutrophil # 4.36 X10^3/uL (2.7-7.7); Neutrophil % 60.3 % (47-70); Platelet Count 262 K/mm3 (150-450); RBC Distribution Width CV 13.4 % (11.6-14.6); RBC Distribution Width SD 42.2 fl (35.1-43.9); Red Blood Count 5.33 M/mm3 (4.6-6.2); White Blood Count 7.2 K/mm3 (4.4-11.0)
[2022-05-15 11:02] LABS: AST(SGOT) 11 U/L (15-37); Alanine Aminotransfer ALT/SGPT 23 U/L (16-61); Albumin, Serum 3.8 g/dL (3.2-5.0); Alkaline Phosphatase 58 U/L (45-117); Anion Gap 6 (5-15); BUN 18 mg/dL (7-18); BUN/Creat Ratio 14.3 RATIO (10-20); Calcium,Total 9.3 mg/dL (8.5-10.1); Chloride 107 mmol/L (98-107); Cholesterol 146 mg/dL (200); Creatinine, Serum 1.26 mg/dL (0.70-1.30); EST Glomerular Filtration Rate 62 mL/min (>60); Est Glom Filt Rate - Afr Amer 75 mL/min (>60); Glucose 196 mg/dL (74-106); High Density Lipoprotein 53 mg/dL; Potassium 4.5 mmol/L (3.5-5.1); Protein, Total 7.8 g/dL (6.4-8.2); Sodium Level 138 mmol/L (136-145); Thyroid Stim Hormone (TSH) 2.03 uIU/mL (0.358-3.74); Triglycerides 43 mg/dL; Very Low Density Lipoprotein 9 mg/dL (5-40)
== END | disposition home or self-care (01) ==
LOC: MFPLAB 08:54
PROVIDERS: PCP Family Medicine; Referring Provider Family Medicine; Visit Provider Family Medicine
DX: L03.90 Cellulitis, unspecified (principal); E11.9 Type 2 diabetes mellitus without complications
CPT/HCPCS: 36415; 80053; 80061; 84443; 85025

== ENCOUNTER → 2022-12-24 | Outpatient (CLI) | payer OTHER, SELFPAY ==
[2022-12-24 12:26] LABS: Absolute Neutrophil Count 3.8 X10^3/uL (2.0-7.7); Basophil# 0.05 X10^3/uL; Basophil% 0.8 % (0-1); Eosinophil# 0.07 X10^3/uL; Eosinophils% 1.1 % (0-5); Hematocrit 46.9 % (40-54); Hemoglobin 15.8 g/dL (13.0-16.5); Lymphocyte % 31.2 % (19-41); Mean Corp Hgb Conc 33.7 g/dL (32-36); Mean Corpuscular Hgb 28.9 pg (27.0-32.0); Mean Corpuscular Volume 85.7 fL (80-94); Mean Platelet Vol. 10.6 fl (6.2-12.0); Monocyte# 0.53 X10^3/uL; Monocyte% 8.3 % (0-10); NRBC Flagged by Analyzer 0 % (0-5); Neutrophil # 3.75 X10^3/uL (2.7-7.7); Neutrophil % 58.3 % (47-70); Platelet Count 257 K/mm3 (150-450); RBC Distribution Width CV 12.9 % (11.6-14.6); RBC Distribution Width SD 39.7 fl (35.1-43.9); Red Blood Count 5.47 M/mm3 (4.6-6.2); White Blood Count 6.4 K/mm3 (4.4-11.0)
[2022-12-24 13:18] LABS: ALB/GLOB Ratio 1.1 RATIO (0.9-2.4); AST(SGOT) 14 U/L (15-37); Alanine Aminotransfer ALT/SGPT 23 U/L (16-61); Albumin, Serum 3.8 g/dL (3.2-5.0); Alkaline Phosphatase 78 U/L (45-117); Amylase 29 U/L (25-115); Anion Gap 9 (5-15); BUN 21 mg/dL (7-18); BUN/Creat Ratio 16.7 RATIO (10-20); Calcium,Total 8.7 mg/dL (8.5-10.1); Chloride 104 mmol/L (98-107); Creatinine, Serum 1.26 mg/dL (0.70-1.30); EST Glomerular Filtration Rate 62 mL/min (>60); Est Glom Filt Rate - Afr Amer 74 mL/min (>60); Globulin 3.4 g/dL (2.2-4.2); Glucose 150 mg/dL (74-106); Lipase 35 U/L (13-75); Protein, Total 7.2 g/dL (6.4-8.2); Sodium Level 138 mmol/L (136-145); Thyroid Stim Hormone (TSH) 2.04 uIU/mL (0.358-3.74)
[2022-12-24 13:58] LABS: Vitamin B12 486 pg/mL (211-911)
== END | disposition home or self-care (01) ==
LOC: MFPLAB 09:40
PROVIDERS: PCP Family Medicine; Visit Provider Family Medicine
DX: Z12.5 Encounter for screening for malignant neoplasm of prostate (principal); E11.9 Type 2 diabetes mellitus without complications; K21.9 Gastro-esophageal reflux disease without esophagitis
CPT/HCPCS: 36415; 80053; 82150; 82607; 83690; 84153; 84403; 84443; 85025; G0103

== ENCOUNTER → 2022-12-27 | Outpatient (CLI) | payer OTHER, SELFPAY ==
--- NOTE | 2022-12-27 08:44 | VDLE_ITS ---
Reason For Study: Swelling and pain of left leg Procedure LEFT This is a venous duplex using B-mode, color CFV is compressible, spontaneous, phasic, flow and spectral Doppler. competent, and demonstrates normal Exam performed in department. augmentation. FV is compressible, spontaneous, phasic, competent and demonstrates normal augmentation. POP V is compressible, spontaneous, phasic, competent and demonstrates normal augmentation. T/P Trunk is compressible. PTV is compressible. LT PerV is compressible. SFJ is INCOMPETENT and measures 1.07 x 1.10 cm. ASV proximal thigh is INCOMPETENT for greater than 0.5 seconds and measures 0.45 x 0.45 cm. ASV mid calf is INCOMPETENT for greater than 0.5 seconds and measures 0.52 x 0.52 cm. SSV mid calf is INCOMPETENT and measures 0.19 x 0.20 cm. GSV previous ablation. VL/Venous Duplex US, Unilateral Interpretation Summary Deep veins of the left lower extremity are patent and compressible segmentally. There is no evidence of left lower extremity deep vein thrombosis. Positive for reflux in the left saphenofemoral junction, accessory saphenous ve in, small saphenous vein. Left greater saphenous vein absent Ordering Physician: Nas Gregg Referring Physician: Darius Hartmann MD Performed By: Madina Vallejo RVT
--- NOTE | 2022-12-27 08:44 | ADUL_ITS ---
Reason For Study: Left leg, arterial occlusive disease Left Velocities Ext Iliac Artery, dist = 80.9 cm./sec. Common Femoral Artery, mid = 90.7 cm./sec. Supf. Femoral Artery, prox = 74.8 cm./sec. SFA prox/mid, 153.4 cm/sec. Supf. Femoral Artery, mid = 87.5 cm./sec. Supf. Femoral Artery, dist = 61.4 cm./sec. Profunda Femoral Artery = 89.5 cm./sec. Popliteal Artery, mid = 46.1 cm./sec. T/P Trunk, 125.8 cm/sec. Peroneal artery, No flow noted. Post. Tibial Artery, prox = 47.2 cm./sec. Post Tibial Artery, mid = 74.6 cm./sec. Post Tibial Artery, dist. = 85.5 cm./sec. Ant.Tibial Artery, prox = 23.2 cm./sec. Ant Tibial Artery, mid = No flow cm./sec. Ant. Tibial Artery, distal = 18.7 cm./sec. Procedure Exam performed in department. /US Art Duplex Unilat Lower Ext Interpretation Summary Left lower extremity SFA with >50% stenosis. Peroneal artery occluded, anterior tibial artery occluded at mid with reconstitution. Ordering Physician: Nas Gregg Referring Physician: Darius Hartmann MD Performed By: Madina Vallejo RVT
== END | disposition home or self-care (01) ==
LOC: CVS 08:42
PROVIDERS: PCP Family Medicine; Referring Provider Surgery Trauma Surgery; Visit Provider Surgery Trauma Surgery
DX: I87.2 Venous insufficiency (chronic) (peripheral) (principal); I77.9 Disorder of arteries and arterioles, unspecified
CPT/HCPCS: 93926; 93971

== ENCOUNTER → 2023-02-26 | Outpatient (CLI) | payer OTHER, SELFPAY ==
--- NOTE | 2023-02-26 17:28 | RAD_ITS ---
INDICATION: foot pain, bruising EXAMINATION/TECHNIQUE: X-RAY - LEFT XR Foot Min 3 Views 3 VIEWS COMPARISON: FINDINGS: SOFT TISSUES: No soft tissue swelling or gas. No radiopaque foreign body. BONES/JOINTS: No acute fracture or subluxation.. Normal alignment. Preservation of the joint space.. No sclerotic or destructive changes observed. RAD/Foot min 3 Views IMPRESSION: Negative. Electronically Signed: Harrison Greco, at 8:33 EDT ,
== END | disposition home or self-care (01) ==
LOC: MTRAD 17:27
PROVIDERS: PCP Family Medicine; Visit Provider Family Medicine
DX: M79.672 Pain in left foot (principal)
CPT/HCPCS: 73630

== ENCOUNTER → 2023-07-22 | Outpatient (CLI) | payer OTHER, SELFPAY ==
[2023-07-22 10:35] LABS: AST(SGOT) 9 U/L (15-37); Alanine Aminotransfer ALT/SGPT 23 U/L (16-61); Albumin, Serum 3.5 g/dL (3.2-5.0); Alkaline Phosphatase 55 U/L (45-117); Anion Gap 5 (5-15); BUN 18 mg/dL (7-18); BUN/Creat Ratio 14.1 RATIO (10-20); Bilirubin, Direct 0.12 mg/dL (0.00-0.30); Calcium,Total 8.9 mg/dL (8.5-10.1); Chloride 110 mmol/L (98-107); Cholesterol 129 mg/dL (200); Creatinine, Serum 1.28 mg/dL (0.70-1.30); EST Glomerular Filtration Rate 60 mL/min (>60); Est Glom Filt Rate - Afr Amer 73 mL/min (>60); Globulin 3.2 g/dL (2.2-4.2); Glucose 208 mg/dL (74-106); High Density Lipoprotein 41 mg/dL; Potassium 4.3 mmol/L (3.5-5.1); Protein, Total 6.7 g/dL (6.4-8.2); Sodium Level 140 mmol/L (136-145); Triglycerides 73 mg/dL; Very Low Density Lipoprotein 15 mg/dL (5-40)
== END | disposition home or self-care (01) ==
LOC: MFPLAB 08:26
PROVIDERS: PCP Family Medicine; Visit Provider Nurse Practitioner Family
DX: Z00.00 Encounter for general adult medical examination without abnormal findings (principal); I50.22 Chronic systolic (congestive) heart failure; Z95.1 Presence of aortocoronary bypass graft; Z95.2 Presence of prosthetic heart valve; Z95.810 Presence of automatic (implantable) cardiac defibrillator; I25.5 Ischemic cardiomyopathy; K21.9 Gastro-esophageal reflux disease without esophagitis
CPT/HCPCS: 36415; 80048; 80061; 80076

== ENCOUNTER 2023-08-20 15:42 | Outpatient (RCR) | payer OTHER, SELFPAY ==
--- NOTE | 2023-08-21 10:52 | HP.PTEVAL_ITS ---
Patient's Visit Information Visit Information Visit Information: XUAN HUSTON is a 63 year old M referred to Physical Therapy by Dr. Saul Hartmann MD with a diagnosis of R BKA. Date of Evaluation: 08/20/23 Physical Therapist: Andi Vaughan DPT Visit Plan Frequency: 2x /Week Duration: 6 Weeks Plan: Improve equal FWD/BWD weight shifting -- pre gait act (better trust his prosthetic leg - RLE) Address balance on even and uneven surfaces (lateral movements may be painful d/t bony prominences) Increase walking tolerance without AD (currently using SPC) Increase glute strength Subjective Subjective: Pt is a 63 year old male who underwent a R BKA approx. 6 years ago. Pt recently received a new prosthetic leg the day before Thanksgiving with a more flexible foot/ankle. He reports difficulty trusting the new leg and is now walking with a cane, used no AD previously. Pt reports some sharp pain in his residual limb that wakes him up at night, but no pain during time of eval. Pt denies any new weakness and is still I with all ADLs, but has some difficulty with getting up out of a chair. His would like him to be safer with dheeraj bustamante on his own and he would like to address amb. on uneven surfaces. Pt has had 4 falls within the last 6 months due to low vision, lightheadedness (heart conditions), and/or prosthetic leg. Pt wears leg approx. 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 Pt has hx of multiple back sx which affects his ability to walk for prolonged distances. Pt was able to use cart for stability and walk in grocery store this past week, first time in a while and he typically does not leave his home. Lives with . Objective Objective: Gait: abducted RLE, uses SPC with increased L trunk lean to avoid full WBing on RLE, decreased stance time on R d/t mistrust and some pain ROM: WNL, some possible tightness in R hip flexors MMT: symmetrical, some R glute weakness Observations: excess soft tissue and some evidence of callous on end of residual limb, difficulty laterally weight shifting d/t pain near fibular head (pressure against socket) Neuro: sensation intact, some sharp pains at night not reproduced upon eval Balance/Special Test Scores 30 Second Chair Rise Test Seconds: 6 Goals Goal 1:: Pt will perform TUG in >20s to indicate improved safety with gait and functional transfers. Goal Time Frame: 4-6 Weeks Goal 2:: Pt will achieve 17 reps during 30s STS test to indicate adequate LE strength for his age range. Goal Time Frame: 4-6 Weeks Goal 3:: Pt will amb. at least 350' with no AD, no LOB and equal weight shifting B to indicate safety and greater independence when amb. household distances. Goal Time Frame: 4-6 Weeks Goal 4:: Pt will navigate 3 steps with decreased need for UE support and no LOB to demonstrate improved strength, balance, and trust in prosthetic leg when entering/exiting his home. Goal Time Frame: 4-6 Weeks Rehabilitation Potential Physical Therapy Diagnosis: Gait deviations and some pain with new prosthetic leg. Flexible foot has led to decreased confidence and altered mechanics with walking on even and uneven surfaces. Rehabilitation Potential: Fair Anticipated Interventions Patient/Client Instruction: Educate patient on: Condition, Plan of Care and Benefits of Fitness Program For the Purpose of:: To decrease pain, To increase tolerance to activity/condition/position, To improve performance and independence with ADL's, To decrease level of supervision to perform tasks, To improve gait and locomotor functions, To improve safety with gait and To improve safety Therapeutic Exercise to Include: Strength training, Endurance training, Balance training and Gait and locomotor training For the Purpose of:: To improve ability to perform ADL's, To increase tolerance to activity/condition/position, To improve performance and independence with ADL's, To decrease level of supervision to perform tasks, To improve gait and locomotor functions, To improve balance and To improve safety with gait Manual Therapy Techniques to Include: Massage For the Purpose of:: To decrease pain, To improve muscle performance and motor function and To increase flexibility/ROM Cryotherapy (ice pack, ice massage): Yes Thermo therapy (hot pack): Yes For the Purpose of:: To decrease pain and To decrease swelling/inflammation Text: Thank you for the opportunity to evaluate your patient. For Medicare and Medicare HMO plans, please review the plan of care and approve it. It will need to be FAXED BACK to us at [phone] for Medicare purposes. For Medicare only, by signing this I certify the plan of care. Please let me know if there are questions or concerns regarding this plan of care. Physician Signature: Date:
--- NOTE | 2023-11-13 13:32 | HP.PT.NRP ---
Patient Information Patient Information: XUAN HUSTON was seen in my office for initial evaluation on 08/20/23. The following Plan of Care was established for this patient: POC Established Initial Frequency: 2x /Week Initial Duration: 6 Weeks Anticipated Interventions Patient/Client Instruction: Educate patient on: Condition, Plan of Care and Benefits of Fitness Program For the Purpose of:: To decrease pain, To increase tolerance to activity/condition/position, To improve performance and independence with ADL's, To decrease level of supervision to perform tasks, To improve gait and locomotor functions, To improve safety with gait and To improve safety Therapeutic Exercise to Include: Strength training, Endurance training, Balance training and Gait and locomotor training For the Purpose of:: To improve ability to perform ADL's, To increase tolerance to activity/condition/position, To improve performance and independence with ADL's, To decrease level of supervision to perform tasks, To improve gait and locomotor functions, To improve balance and To improve safety with gait Manual Therapy Techniques to Include: Massage For the Purpose of:: To decrease pain, To improve muscle performance and motor function and To increase flexibility/ROM Cryotherapy (ice pack, ice massage): Yes Thermo therapy (hot pack): Yes For the Purpose of:: To decrease pain and To decrease swelling/inflammation Last Seen Last Seen: This patient was last seen in our office 08/20/23. Pertinent comments regarding their Physical therapy will appear below: Pt. was seen in PT for his initial evaluation to work on balance and gait progression after having new prosthesis. [facility], but has not been back and has not been in PT for ~3 months. Pt. will be DC from PT at this point in time. At this point I will be discontinuing this patient from physical therapy. I would be happy to see this patient again in the future if found appropriate by the physician. Thank you! Andi Vaughan, DPT Balance/Gait/Functional tests Balance/Special Test Scores 30 Second Chair Rise Test Seconds: 6
== END 2023-08-20 19:00 | disposition home or self-care (01) ==
LOC: PT 15:42
PROVIDERS: PCP Family Medicine; Referring Provider Family Medicine; Visit Provider Family Medicine
DX: Z89.511 Acquired absence of right leg below knee (principal)
CPT/HCPCS: 97162

== ENCOUNTER → 2023-08-20 | Outpatient (CLI) | payer OTHER, SELFPAY ==
--- NOTE | 2023-08-20 14:25 | ECHOD_ITS ---
Reason For Study: CARDIOMYOPATHY Procedure This was a 2D Doppler, Color Flow transthoracic echocardiogram. Contrast injection was performed. Exam performed in department. Left Ventricle Normal LV size. Mild to moderate segmental systolic dysfunction (see wall motion). Stage 1 diastolic dysfunction. The left ventricular ejection fraction is 40 %. Posterior-Basal: Hypokinetic. Mid- Posterior: Hypokinetic. Basal inferoseptal: Mildly hypokinetic. The rest of the wall segments are normal. Right Ventricle Mildly dilated right ventricle. ICD or pacer leads identified within the right ventricle. Normal systolic function. Atria Normal left atrium. Normal right atrium. Mitral Valve There is mild mitral annular calcification. Tricuspid Valve Normal tricuspid valve. Aortic Valve Trisinus/trileaflet aortic valve. Trivial eccentric aortic valve insufficiency. Pulmonic Valve Normal pulmonic valve. Mild (1+) pulmonic valve insufficiency. Great Vessels Normal aortic root. The pulmonary artery is normal size. Normal inferior vena cava. Pericardium/Pleural No pericardial effusion. Medication 22 gauge I.V. with prn adaptor inserted into right arm. Diluted definity 2ml given slow IV push to enhance endocardial definition. Performed a rapid injection of agitated mix of 9 cc saline and 1cc air to assess for atrial septal defect. MMode/2D Measurements & Calculations LVIDd: 4.4 cm IVSd: 1.5 cm LVOT diam: 2.2 cm LVIDs: 3.1 cm LVPWd: 1.0 cm FS: 30.8 % LVOT area: 3.7 cm2 Ao root diam: 4.0 cm LAV(MOD-bp): 50.1 ml LVAd ap4: 47.8 cm2 LAV(MOD-bp) Indexed: 22.4 ml/m2 LVLd ap4: 10.0 cm LAV(MOD-sp2): 45.4 ml EDV(MOD-sp4): 192.9 ml LAV(MOD-sp4): 50.3 ml EDV(sp4-el): 193.4 ml LVAs ap4: 36.2 cm2 LVLs ap4: 8.6 cm ESV(MOD-sp4): 129.8 ml ESV(sp4-el): 128.8 ml EF(MOD-sp4): 32.7 % EF(sp4-el): 33.4 % LVAd ap2: 31.0 cm2 SV(MOD-sp4): 63.1 ml SV(MOD-sp2): 34.1 ml LVLd ap2: 7.8 cm EDV(MOD-sp2): 101.3 ml EDV(sp2-el): 104.2 ml LVAs ap2: 23.4 cm2 LVLs ap2: 6.6 cm ESV(MOD-sp2): 67.1 ml ESV(sp2-el): 70.3 ml EF(MOD-sp2): 33.7 % SV(sp4-el): 64.6 ml LA dimension(2D): 4.4 cm LA A4 area: 18.2 cm2 RA A4 area: 13.4 cm2 Time Measurements MV dec time: 0.28 sec Doppler Measurements & Calculations MV E max aroldo: 39.3 cm/sec Lat Peak E' Aroldo: 13.8 cm/sec Med Peak E' Aroldo: 5.3 cm/sec MV A max aroldo: 88.5 cm/sec E/E' lat: 2.9 E/E' med: 7.4 MV E/A: 0.44 Ao V2 max: 98.7 cm/sec LV V1 max: 74.6 cm/sec MV dec slope: 140.8 cm/sec2 Ao max P.9 mmHg LV V1 max P.2 mmHg Ao V2 mean: 77.0 cm/sec LV V1 mean P.4 mmHg Ao mean P.5 mmHg LV V1 mean: 56.6 cm/sec Ao V2 VTI: 19.6 cm LV V1 VTI: 11.6 cm AV (velocity ratio): 0.59 CASEY(I,D): 2.2 cm2 CASEY(V,D): 2.8 cm2 SV(LVOT): 42.7 ml PA V2 max: 82.8 cm/sec PI end-d aroldo: 135.1 cm/sec PA max PG (full): 1.0 mmHg ECHO/Echo Complete W/ Contrast Interpretation Summary Normal LV size. Mild to moderate segmental systolic dysfunction (see wall motion). Stage 1 diastolic dysfunction. The left ventricular ejection fraction is 40 %. Contrast injection was performed. The study was technically difficult. Compared to previous study, the left ventricular systolic function has improved.. Ordering Physician: Jerald Pedersen Referring Physician: Darius Hartmann MD Performed By: Demetria Diaz RDCS
== END | disposition home or self-care (01) ==
PROVIDERS: PCP Family Medicine; Referring Provider Nurse Practitioner Family; Visit Provider Nurse Practitioner Family
DX: I25.5 Ischemic cardiomyopathy (principal); I50.22 Chronic systolic (congestive) heart failure; Z95.1 Presence of aortocoronary bypass graft; Z95.5 Presence of coronary angioplasty implant and graft; Z95.810 Presence of automatic (implantable) cardiac defibrillator
CPT/HCPCS: 93306; Q9957; A4216; C8929

== ENCOUNTER 2023-09-04 06:55 | Day surgery (SDC) | payer OTHER, SELFPAY ==
--- OUTSIDE RECORDS SUMMARY | 2023-09-04 07:00 | XMS RPT_ITS | CCD ---
Author Name Unknown Address [address] [place] [address] Organization [facility] Care Team Providers Care Head Sulfide Operator Name Role Phone Melina Augustin Unavailable Unavailable PROVIDER, UNKNOWN Unavailable Unavailable Darius Hartmann Unavailable Unavailable Bill Lockwood Unavailable Unavailable PROVIDER, UNKNOWN Unavailable Unavailable Darius Hartmann Unavailable Unavailable Aristides Morris Unavailable Unavailabl e Augustin, Mleina Emily Unavailable Unavailable SOO, DANTE A Unavailable Unavailable NONSTAFF, PHYSICIAN Unavailable Unavailable SOO, DANTE A Unavailable Unavailable NONSTAFF, PHYSICIAN Unavailable Unavailable SOO, DANTE A Unavailable Unavailable NONSTAFF, PHYSICIAN Unavailable Unavailable UNKNOWN, PROVIDER Unavailable Unavailable NONSTAFF, PHYSICIAN Unavailable Unavailable UNKNOWN, PROVIDER Unavailable Unavailable NONSTAFF, PHYSICIAN Unavailable Unavailable NONSTAFF, PHYSICIAN Unavailable Unavailable AMILCAR COBB Unavailable Unavailable UNKNOWN, PROVIDER Unavailable Unavailable NONSTAFF, PHYSICIAN Unavailable Unavailable MAJERCQASIM, GUREDA Unavailable Unavailable NONSTAFF, PHYSICIAN Unavailable Unavailable MORRIS WILKINS ([facility]) Jaciel Unavailable Unavailabl e UNKNOWN, PROVIDER Unavailable Unavailable AMILCAR COBB Unavailable Unavailable HUGH MORENO Unavailable Unavailable AUGUSTIN, MELINA Unavailable Unavailable TAVRI, SIDHARTHA Unavailable Unavailable AUGUSTIN, MELINA Unavailable Unavailable UNKNOWN, PROVIDER Unavailable Unavailable Darius Hartmann Primary Care Provider Justice Menezes Primary Care Provider NITO ORELLANA JR. Attending Unavailable Unavailable Primary Care Provider Unavailabl e No, Physician Primary Care Provider Unavailabl e No, Physician Primary Care Provider Unavailabl e Reyna Wright DPM, Jeremiah Unavailable NO, PHYSICIAN Primary Care Unavailable NITO ORELLANA JR. Attending Unavailable NO, PHYSICIAN Primary Care Unavailable REYNA JR., NITO Attending Unavailable REYNA JR., NITO Attending Unavailable NO, PHYSICIAN Primary Care Unavailable REYNA JR., NITO Attending Unavailable NO, PHYSICIAN Primary Care Unavailable REYNA JR., NITO Attending Unavailable NO, PHYSICIAN Primary Care Unavailable NO, PHYSICIAN Primary Care Unavailable REYNA JR., NITO Attending Unavailable Allergies Allergy Classification Reported Allergen(s) Allergy Type Date of Onset Reaction(s) Facility Anti-Epileptic Agents (1 source) gabapentin Drug Allergy 12-30-19 13 Intolerance [facility] Work Phone: HMG-CoA Reductase Inhibitors (statins) (1 source) Hmg-Coa Reductase Inhibitors (Statins) Drug Allergy 12-21-19 10 Other: See Comments [facility] Penicillins (antibiotic) (3 sources) Penicillins Drug Allergy 09-30-19 15 Hives, Shortness of Breath [facility] Thiazolidinediones (glitazones) (3 sources) pioglitazone Drug Allergy 05-07-20 05 Swelling [facility] Work Phone: Unclassified (6 sources) HMG-CoA reductase inhibitor; Translations: [DILCKCE-MDL-TP A REDUCTASE INHIBITORS] Propensity to adverse reactions to drug Other (See Comments) [facility] (6 sources) gabapentin; Translations: [GABAPENTIN] Drug Allergy 11-25-19 18 Other (See Comments) [place] (1 source) Hmg-Coa Reductase Inhibitors (Statins) Propensity to adverse reactions to drug 03-04-20 12 Other (See Comments) [place] (2 sources) Penicillins; Translations: [PENICILLINS] Propensity to adverse reactions to drug 03-04-20 12 Hives [place] (12 sources) pioglitazone; Translations: [PIOGLITAZONE] Drug Allergy 03-04-20 12 Swelling, Unknown [place] (1 source) pregabalin Drug Allergy 03-04-20 12 Other (See Comments) [place] (3 sources) Penicillins Propensity to adverse reactions to drug Hives [facility] (7 sources) HMG-CoA reductase inhibitor Propensity to adverse reactions to drug Other (See Comments), Unknown [facility] (7 sources) Penicillins Propensity to adverse reactions to drug Hives [facility] (3 sources) Penicillin; Translations: [PENICILLIN] Drug Allergy 02-13-20 23 Unknown [facility] Medications Current Medications Medication Drug Class(es) Dates Sig (Normalized) Sig (Original) 200 actuat albuterol 0.09 mg/actuat metered dose inhaler (1 source) beta2-Adrenergic Agonist Start: 11-10-2018 take 2 puff(s) by inhalation every four hours as needed for wheezing albuterol sulfate HFA (PROVENTIL HFA) 108 (90 Base) MCG/ACT inhaler Inhale 2 puffs into the lungs every 4 hours as needed for Wheezing 1 Inhaler 3 11/10/2018 Active ascorbic acid 500 mg oral tablet (11 sources) Vitamin C take 1 tablet by mouth once daily ascorbic acid, vitamin C, (VITAMIN C) 500 MG tablet Take 1 (one) tablet (500 mg total) by mouth daily . 0 Active aspirin 81 mg chewable tablet (13 sources) Platelet Aggregation Inhibitor, Nonsteroidal Anti-inflammatory Drug aspirin 81 mg chewable tablet Chew and Swallow 1 (one) tablet (81 mg total) daily . 0 Active Completed/Discontinued Medications Medication Drug Class(es) Dates Sig (Normalized) Sig (Original) amLODIPine 5 mg oral tablet (1 source) Dihydropyridine Calcium Channel Toño take 5 mg by mouth once daily AMLODIPINE BESYLATE (AMLODIPINE ORAL) Take by mouth. 5mg daily 0 Active Problems Active Problems Problem Classification Problem Date Documented Date Episodic/Chronic Chronic ulcer of skin (5 sources) Non-pressure chronic ulcer of other part of right foot with unspecified severity; Translations: [Non-pressure chronic ulcer of other part of right foot with fat layer exposed] Onset: 09-08-2017 Chronic Conduction disorders (2 sources) Presence of automatic (implantable) cardiac defibrillator; Translations: [Automatic implantable cardiac defibrillator in situ] Onset: 09-25-2017 10-17-2017 Chronic Congestive heart failure; nonhypertensive (15 sources) Heart failure, unspecified; Translations: [Chronic combined systolic (congestive) and diastolic (congestive) heart failure] Onset: 09-25-2017 10-17-2017 Chronic Coronary atherosclerosis and other heart disease (20 sources) Atherosclerotic heart disease of [place] coronary artery without angina pectoris; Translations: [Old myocardial infarction] Onset: 04-28-2006 10-17-2017 Chronic Diabetes mellitus with complications (20 sources) Type 2 diabetes mellitus with foot ulcer; Translations: [Type 2 diabetes mellitus with other specified complication] Onset: 09-08-2017 03-22-2020 Chronic Diabetes mellitus with complications (4 sources) Type 2 diabetes mellitus with diabetic polyneuropathy; Translations: [Type 2 diabetes mellitus with diabetic peripheral angiopathy with gangrene] Onset: 09-08-2017 Diabetes mellitus without complication (1 source) Type 2 diabetes mellitus without complications; Translations: [TYPE 2 DIABETES MELLITUS WITHOUT COMPLICATIONS] Onset: 09-25-2017 Chronic Diabetes mellitus without complication (1 source) Increased glucose level; Translations: [Other abnormal glucose] Episodic Disorders of lipid metabolism (2 sources) Hyperlipidemia; Translations: [Mixed hyperlipidemia] 10-17-2017 Chronic Essential hypertension (15 sources) Essential (primary) hypertension; Translations: [Hypertensive disorder] Onset: 04-28-2006 10-17-2017 Chronic Gangrene (1 source) Gangrene of toe of right foot; Translations: [Gangrene of toe of right foot] 10-16-2017 Hypertension with complications and secondary hypertension (1 source) Hypertensive heart disease with heart failure; Translations: [HYPERTENSIVE HEART DISEASE WITH HEART FAILURE] Onset: 10-02-2017 Chronic Infective arthritis and osteomyelitis (except that caused by tuberculosis or STD) (2 sources) Osteomyelitis, unspecified; Translations: [Osteomyelitis] Onset: 10-02-2017 10-16-2017 Chronic Osteoarthritis (12 sources) Osteoarthritis; Translations: [Unspecified osteoarthritis, unspecified site] 03-23-2021 Chronic Other connective tissue disease (13 sources) Swelling of bilateral feet; Translations: [Other specified soft tissue disorders] Episodic Other ear and sense organ disorders (12 sources) Hearing loss; Translations: [Unspecified hearing loss, unspecified ear] 03-23-2021 Chronic Other eye disorders (3 sources) Ill-defined disorder of eye; Translations: [Unspecified disorder of eye and adnexa] Episodic Other eye disorders (10 sources) Disorder of eye; Translations: [Unspecified disorder of eye and adnexa] 03-23-2021 Episodic Other nutritional; endocrine; and metabolic disorders (1 source) Obesity, unspecified; Translations: [OBESITY, UNSPECIFIED] Onset: 09-08-2017 Chronic Other nutritional; endocrine; and metabolic disorders (1 source) Morbid (severe) obesity due to excess calories; Translations: [MORBID (SEVERE) OBESITY DUE TO EXCESS CALORIES] Onset: 10-02-2017 Chronic Other nutritional; endocrine; and metabolic disorders (1 source) Obesity; Translations: [Obesity] Onset: 10-17-2017 10-17-2017 Chronic Other screening for suspected conditions (not mental disorders or infectious disease) (1 source) Platelet count below reference range; Translations: [Thrombocytopenia] 10-20-2017 Episodic Other skin disorders (2 sources) Ingrowing nail; Translations: [Ingrowing nail] 02-05-2023 Episodic Lulú-; endo-; and myocarditis; cardiomyopathy (1 source) Cardiomyopathy, unspecified; Translations: [CARDIOMYOPATHY, UNSPECIFIED] Onset: 09-25-2017 Chronic Peripheral and visceral atherosclerosis (13 sources) Peripheral vascular disease, unspecified; Translations: [Peripheral vascular disease] Onset: 09-18-2017 10-16-2017 Chronic Septicemia (3 sources) Sepsis, unspecified organism; Translations: [SEPSIS, UNSPECIFIED ORGANISM] Onset: 10-02-2017 Spondylosis; intervertebral disc disorders; other back problems (1 source) Lumbar post-laminectomy syndrome; Translations: [Postlaminectomy syndrome, not elsewhere classified] Onset: 04-28-2006 Chronic Substance-related disorders (1 source) Nicotine dependence, chewing tobacco, uncomplicated; Translations: [NICOTINE DEPENDENCE, CHEWING TOBACCO, UNCOMPLICATED] Onset: 09-25-2017 Chronic Unclassified (1 source) Body mass index (BMI) 34.0-34.9, adult; Translations: [BODY MASS INDEX (BMI) 34.0-34.9, ADULT] Onset: 10-02-2017 Chronic Unclassified (1 source) emt intermediate (current) use of oral hypoglycemic drugs; Translations: [WELDING LEAD BURNER (CURRENT) USE OF ORAL HYPOGLYCEMIC DRUGS] Onset: 09-25-2017 Unclassified (1 source) Unknown / UNK(Unknown) Onset: 09-15-2017 Unclassified (2 sources) Nail Care Onset: 03-21-2023 Varicose veins of lower extremity (12 sources) Varicose veins of lower extremity; Translations: [Asymptomatic varicose veins of unspecified lower extremity] 03-23-2021 Episodic Past or Other Problems Problem Classification Problem Date Documented Da te Episodic/Chronic Chronic obstructive pulmonary disease and bronchiectasis (1 source) Bronchitis; Translations: [Bronchitis] Onset: 11-09-2018 11-09-2018 Episodic Coronary atherosclerosis and other heart disease (3 sources) Presence of aortocoronary bypass graft; Translations: [Presence of coronary angioplasty implant and graft] Onset: 09-25-2017 Episodic Fluid and electrolyte disorders (1 source) Acidosis; Translations: [ACIDOSIS] Onset: 10-02-2017 Episodic Gangrene (1 source) Gangrene, not elsewhere classified; Translations: [GANGRENE, NOT ELSEWHERE CLASSIFIED] Onset: 10-02-2017 Episodic Mycoses (9 sources) Onychomycosis; Translations: [Tinea unguium] Onset: 12-13-2022 Episodic Nausea and vomiting (1 source) Nausea; Translations: [NAUSEA] Onset: 10-02-2017 Episodic Other aftercare (1 source) emt intermediate (current) use of antithrombotics/ant iplatelets; Translations: [WELDING LEAD BURNER (CURRENT) USE OF ANTITHROMBOTICS/ANT IPLATELETS] Onset: 10-02-2017 Episodic Other aftercare (1 source) emt intermediate (current) use of aspirin; Translations: [CARE HOME (CURRENT) USE OF ASPIRIN] Onset: 10-02-2017 Episodic Other connective tissue disease (1 source) Pain in limb; Translations: [Pain in unspecified limb] Onset: 12-30-2012 12-30-2012 Episodic Other diseases of veins and lymphatics (1 source) Venous insufficiency (chronic) (peripheral); Translations: [VENOUS INSUFFICIENCY (CHRONIC) (PERIPHERAL)] Onset: 09-15-2017 Episodic Other disorders of stomach and duodenum (1 source) Gastroparesis syndrome; Translations: [Gastroparesis] Onset: 12-09-2006 12-04-2009 Episodic Other lower respiratory disease (1 source) Dyspnea; Translations: [Dyspnea] Onset: 11-07-2018 11-07-2018 Episodic Other lower respiratory disease (1 source) Acute respiratory distress; Translations: [Acute respiratory distress] Onset: 11-07-2018 11-07-2018 Episodic Other skin disorders (2 sources) Ingrowing nail; Translations: [Ingrowing nail] Onset: 02-12-2023 Episodic Phlebitis; thrombophlebitis and thromboembolism (1 source) Acute deep venous thrombosis of popliteal vein; Translations: [Acute deep vein thrombosis (DVT) of popliteal vein] Onset: 11-11-2017 11-11-2017 Episodic Screening or history of mental health and substance abuse (1 source) Personal history of nicotine dependence; Translations: [PERSONAL HISTORY OF NICOTINE DEPENDENCE] Onset: 09-29-2017 Episodic Septicemia (1 source) Severe sepsis without septic shock; Translations: [SEVERE SEPSIS WITHOUT SEPTIC SHOCK] Onset: 10-02-2017 Episodic Skin and subcutaneous tissue infections (20 sources) Cellulitis of right lower limb; Translations: [Cellulitis and abscess of lower limb] Onset: 09-08-2017 10-16-2017 Episodic Spondylosis; intervertebral disc disorders; other back problems (3 sources) Low back pain; Translations: [Low back pain] Onset: 04-28-2006 12-04-2009 Episodic Unclassified (2 sources) Acquired absence of other specified parts of digestive tract; Translations: [Edema, unspecified] Onset: 09-08-2017 Episodic Unclassified (1 source) E11.621 Onset: 09-15-2017 Results Test Name Value Interpretation Reference Range Facil ity Vital Signs Date Time Vital Sign Value Performing Clinician Faci lity 03-21-2023 16:10-0400 Diastolic blood pressure 84 mm[Hg] Nito Orellana Jr., DPM Work Phone: [facility] 03-21-2023 16:10-0400 Systolic blood pressure 130 mm[Hg] Nito Orellana Jr., DPM Work Phone: [facility] 03-21-2023 16:08-0400 Body temperature 97.7 [degF] Nito Orellana Jr., DPM Work Phone: [facility] 03-21-2023 16:08-0400 Heart rate 76 /min Nito Orellana Jr., DPM Work Phone: [facility] 02-12-2023 10:49-0400 Body temperature 98.29 [degF] Nito Orellana Jr., DPM Work Phone: [facility] 02-12-2023 10:49-0400 Diastolic blood pressure 80 mm[Hg] Nito Orellana Jr., DPM Work Phone: [facility] 02-12-2023 10:49-0400 Heart rate 70 /min Nito Orellana Jr., DPM Work Phone: [facility] 02-12-2023 10:49-0400 Systolic blood pressure 161 mm[Hg] Nito Reyna Jr., DPM Work Phone: [facility] 02-05-2023 10:01-0400 Diastolic blood pressure 84 mm[Hg] Nito Reyna Jr., DPM Work Phone: [facility] 02-05-2023 10:01-0400 Heart rate 75 /min Nito Reyna Jr., DPM Work Phone: [facility] 02-05-2023 10:01-0400 Respiratory rate 17 /min Nito Reyna Jr., DPM Work Phone: [facility] 02-05-2023 10:01-0400 SaO2% (BldA) [Mass fraction] 99 % Nito Reyna Jr., DPM Work Phone: [facility] 02-05-2023 10:01-0400 Systolic blood pressure 140 mm[Hg] Nito Reyna Jr., DPM Work Phone: [facility] 12-13-2022 16:14-0400 Body temperature 97.9 [degF] Nito Reyna Jr., DPM Work Phone: [facility] 12-13-2022 16:14-0400 Diastolic blood pressure 85 mm[Hg] Nito Reyna Jr., DPM Work Phone: [facility] 12-13-2022 16:14-0400 Heart rate 78 /min Nito Reyna Jr., DPM Work Phone: [facility] 12-13-2022 16:14-0400 Systolic blood pressure 142 mm[Hg] Nito Reyna Jr., DPM Work Phone: [facility] 09-20-2022 15:28-0500 Diastolic blood pressure 85 mm[Hg] Nito Reyna Jr., DPM Work Phone: [facility] 09-20-2022 15:28-0500 Heart rate 83 /min Nito Reyna Jr., DPM Work Phone: [facility] 09-20-2022 15:28-0500 Systolic blood pressure 133 mm[Hg] Nito Reyna Jr., DPM Work Phone: [facility] 09-20-2022 15:21-0500 Body temperature 98.4 [degF] Nito Reyna Jr., DPM Work Phone: [facility] 03-22-2022 15:59-0400 Body temperature 99.39 [degF] Nito Reyna Jr., DPM Work Phone: [facility] 03-22-2022 15:59-0400 Diastolic blood pressure 67 mm[Hg] Nito Reyna Jr., DPM Work Phone: [facility] 03-22-2022 15:59-0400 Heart rate 80 /min Nito Reyna Jr., DPM Work Phone: [facility] 03-22-2022 15:59-0400 Systolic blood pressure 121 mm[Hg] Nito Reyna Jr., DPM Work Phone: [facility] 12-21-2021 16:09-0400 Diastolic blood pressure 75 mm[Hg] Nito Reyna Jr., DPM Work Phone: [facility] 12-21-2021 16:09-0400 Heart rate 79 /min Nito Reyna Jr., DPM Work Phone: [facility] 12-21-2021 16:09-0400 Systolic blood pressure 128 mm[Hg] Nito Reyna Jr., DPM Work Phone: [facility] 12-21-2021 16:04-0400 Body temperature 98.29 [degF] Nito Reyna Jr., DPM Work Phone: [facility] 09-21-2021 14:29-0500 Diastolic blood pressure 85 mm[Hg] Nito Reyna Jr., DPM Work Phone: [facility] 09-21-2021 14:29-0500 Heart rate 78 /min Nito Reyna Jr., DPM Work Phone: [facility] 09-21-2021 14:29-0500 Systolic blood pressure 161 mm[Hg] Nito Reyna Jr., DPM Work Phone: [facility] 09-21-2021 14:23-0500 Body temperature 98.01 [degF] Nito Reyna Jr., DPM Work Phone: [facility] 06-27-2021 14:25-0500 Body temperature 98.1 [degF] Nito Reyna Jr., DPM Work Phone: [facility] 06-27-2021 14:25-0500 Diastolic blood pressure 82 mm[Hg] Nito Reyna Jr., DPM Work Phone: [facility] 06-27-2021 14:25-0500 Heart rate 87 /min Nito Reyna Jr., DPM Work Phone: [facility] 06-27-2021 14:25-0500 Systolic blood pressure 140 mm[Hg] Nito Reyna Jr., DPM Work Phone: [facility] 01-03-2021 09:03-0400 Body height 177.8 cm Nito Reyna Jr., DPM Work Phone: [facility] 01-03-2021 09:03-0400 Body mass index (BMI) [Ratio] 34.44 kg/m2 Nito Reyna Jr., DPM Work Phone: [facility] 01-03-2021 09:03-0400 Body weight 108.86 kg Nito Reyna Jr., DPM Work Phone: [facility] 12-27-2020 09:03-0400 Diastolic blood pressure 86 mm[Hg] Nitothu Orellana Jr., DPM Work Phone: [facility] 12-27-2020 09:03-0400 Systolic blood pressure 153 mm[Hg] Nito Reyna Wright, DPM Work Phone: [facility] Encounters Encounter Date Encounter Type Care Provider Facility Start: 08-22-2023 End: 08-22-2023 ambulatory NITO REYNA WRIGHT [facility] Start: 03-21-2023 End: 03-21-2023 ambulatory NITO REYNA ROSA. [facility] Start: 03-21-2023 End: 03-21-2023 Patient encounter procedure Nito Altmanlon DPM Work Phone: [facility] Procedures Date Procedure Procedure Detail Performing Clinician Start: 12-27-2020 Hemoglobin glycosylated a1c Historical Provider MD Start: 03-22-2020 Non-invasive physiol ogic study extremity 3 kuldeep Nix David Work Phone: Start: 10-08-2017 Detachment at Right 1st Toe, Complete, Open Approach DANTE SOO Start: 10-08-2017 Insertion of Infusio n Device into Superior Vena Cava, Percutaneous Approach DANTE SOO Start: 10-03-2017 Dilation of Right An terior Tibial Artery, Percutaneous Approach DANTE SOO Start: 10-03-2017 Fluoroscopy of Super ior Vena Cava, Guidance DANTE SOO Start: 10-03-2017 Ultrasonography of R ight Upper Extremity Veins, Guidance DANTE SOO Start: 09-20-2014 GLUCOSE FASTING BLD [place] nda Ixl PA Work Phone: Start: 10-24-2007 Colonoscopy Harrison michel MD Work Phone: Plan of Treatment Date Care Activity Detail Author Start: 04-03-2027 DTaP/Tdap/Td vaccine (2 - Td) DTaP/Tdap/Td vaccine (2 - Td) [place] Start: 04-03-2027 Tetanus vaccination Tetanus: Every 10yrs [facility] Start: 2025 Pneumococcal Vaccine: Ped or At-Risk (2 of 2 - PPSV23) Pneumococcal Vaccine: Ped or At-Risk (2 of 2 - PPSV23) [facility] Start: 06-25-2023 End: 06-25-2023 Patient encounter procedure 06/25/2023 2:15 PM EST Office Visit [facility] [address] [place] [address] Nito Orellana Jr., DPM [address] [place] [address] [facility] Start: 05-16-2023 End: 05-16-2023 Patient encounter procedure 05/16/2023 8:00 AM EDT Office Visit [facility] [address] [place] [address] Nito Orellana Jr., DPM [address] [place] [address] [facility] Start: 04-11-2023 Influenza vaccination [facility] Start: 03-21-2023 End: 03-21-2023 Patient encounter procedure 03/21/2023 4:15 PM EDT Office Visit [facility] [address] [place] [address] Nito Orellana Jr., DPM [address] [place] [address] [facility] Start: 02-12-2023 End: 02-12-2023 Patient encounter procedure 02/12/2023 10:45 AM EDT Office Visit [facility] [address] [place] [address] Nito Orellana Jr., DPM [address] [place] [address] [facility] Start: 12-30-2022 End: 12-30-2022 Patient encounter procedure 12/30/2022 3:20 PM EDT Office Visit [facility] [address] [facility] [place] [address] Nito Orellana Jr., ADDIE [address] [place] [address] Zach Gomez III, DO [address] [place] [address] [facility] Start: 12-13-2022 End: 12-13-2022 Patient encounter procedure 12/13/2022 Office Visit PodNito Kay Jr., ADDIE [address] [place] [address] [facility] Start: 10-17-2022 Screening for malignant neoplasm of colon [facility] Start: 04-11-2022 Influenza vaccination [facility] Start: 03-22-2022 End: 03-22-2022 Patient encounter procedure 03/22/2022 Office Visit PodNito Kay Jr., DPM [address] [place] [address] [facility] Start: 12-21-2021 End: 12-21-2021 Patient encounter procedure 12/21/2021 Office Visit PodNito Kay Jr., ADDIE [address] [place] [address] [facility] Start: 09-21-2021 End: 09-21-2021 Patient encounter procedure 09/21/2021 Office Visit Nito Bess Jr., ADDIE [address] [place] [address] [facility] Start: 06-29-2021 Hemoglobin A1c measurement A1C [facility] Start: 06-27-2021 End: 06-27-2021 Patient encounter procedure 06/27/2021 Office Visit Podiatry Nito Orellana Jr., DPJaciel [address] [place] [address] [facility] Start: 04-11-2021 Influenza vaccination [facility] Start: 03-29-2021 Hemoglobin A1c measurement A1C [facility] Start: 03-28-2021 End: 03-28-2021 Patient encounter procedure 03/28/2021 Office Visit Podiatry Nito Orellana Jr., ADDIE [address] [place] [address] [phone] [facility] Start: 04-11-2020 Influenza vaccination Flu vaccine (#1) [place] Start: 04-03-2020 End: 04-03-2020 Office Visit 04/03/2020 Office Visit Vascular Surgery James Hernandez MD [address] [facility] [address] [place], [place] [id number] [facility] Start: 11-11-2019 Creatinine measurement Creatinine monitoring [place], [place] Start: 11-11-2019 Potassium monitoring Potassium monitoring [place] Start: 11-11-2019 Screening for malignant neoplasm of colon [facility] Start: 10-16-2018 Diabetic foot examination Diabetic foot exam [place] Start: 10-16-2018 HbA1c (Bld) [Mass fraction] A1C test (Diabetic or Prediabetic) [place], [place] Start: 04-03-2018 Pneumococcal Vaccine: Ped or At-Risk (2 - PCV) Pneumococcal Vaccine: Ped or At-Risk (2 - PCV) [facility] Start: 10-23-2017 Screening for malignant neoplasm of colon [facility] Start: 04-22-2016 PROSTATE CANCER SCREENING DISCUSSION PROSTATE CANCER SCREENING DISCUSSION [facility] Start: 10-01-2013 Hepatitis C antibody, confirmatory test DILATED RETINAL EXAM [facility] Start: 07-01-2013 Hemoglobin A1c/Hemoglobin.total in Blood HBA1C [facility] Start: 06-06-2013 Hepatitis B surface antibody level LDL CHOLESTEROL [facility] Start: 11-05-2012 3 comp foot exam completed DIABETIC FOOT EXAM [place] [facility] Start: 01-20-2012 Hepatitis B screening URINE ALBUMIN:CREATININE RATIO [facility] Start: 2010 Administration of herpes zoster vaccine Zoster Vaccines (1 of 2) [facility] Start: 2010 Screening for malignant neoplasm of colon [facility] Start: 2010 Shingles Vaccine (1 of 2) Shingles Vaccine (1 of 2) [place], [place] Start: 2010 SHINGRIX VACCINE (1 of 2) SHINGRIX VACCINE (1 of 2) [facility] Start: 1979 Hepatitis B vaccine (1 of 3 - Risk 3-dose series) Hepatitis B vaccine (1 of 3 - Risk 3-dose series) [place], [place] Start: 1979 Urine microalbumin profile DTAP,TDAP,TD (1 - Tdap) [facility] Start: 1978 Diabetic microalbuminuria test Diabetic microalbuminuria test [place], [place] Start: 1978 HEPATITIS C SCREENING HEPATITIS C SCREENING [facility] Start: 1978 Hepatitis C screening Hepatitis C Screening [facility] Start: 1978 HIV SCREENING HIV SCREENING [facility] Start: 1976 ONE PNEUMOVAX PRIOR TO AGE 65 ONE PNEUMOVAX PRIOR TO AGE 65 [facility] Start: 1975 HIV screening [facility] Start: 1972 Adult depression screening assessment [facility] Start: 1972 COVID-19 Vaccine (1) COVID-19 Vaccine (1) [facility] Start: 1970 Diabetic foot examination Foot Exam [facility] Start: 1970 Diabetic retinal exam Diabetic retinal exam [place], [place] Start: 1970 Glaucoma screening [facility] Start: 1970 Lipid panel Lipid screen [place] Start: 1970 Microalbumin measurement, urine, quantitative Urine Microalbumin [facility] Start: 1970 Ophthalmic examination and evaluation Ophthalmology Exam [facility] Start: 1970 Urine screening for protein Urine Microalbumin [facility] Start: 1966 Pneumococcal Vaccine: Ped or At-Risk (1 of 2 - PPSV23) Pneumococcal Vaccine: Ped or At-Risk (1 of 2 - PPSV23) [facility] Start: 1965 COVID-19 Vaccine (1) COVID-19 Vaccine (1) [facility] Start: 1963 History and physical examination, annual for health maintenance Wellness Visit [facility] Start: 1960 COVID-19 Vaccine (#1) COVID-19 Vaccine (#1) [facility] Start: 1960 Hepatitis C screening Hepatitis C screen [place], [place] Start: 1960 Prostate specific antigen measurement PSA Level [facility] Start: 1960 Screening for malignant neoplasm of colon [facility] Start: 1960 Tetanus vaccination Tetanus: Every 10yrs [facility] Payers Date Payer Category Payer Unknown 2014 Self-pay SELF PAY HSP/MED ICAL SELF PAY [id number] 2014-2015 SELF PAY Indemnity [id number] 2014 Unknown [id number] 2013 Unknown [id number] 1960 Unknown [id number] 1960 Unknown [id number] 1960 Unknown [id number] 1960 Unknown [id number] 1960 Unknown [id number] 1960 Unknown [id number] 1960 Unknown [id number] Social History Date Type Detail Facility Start: 03-22-2020 End: 03-22-2022 Tobacco smoking status NHIS Never smoker [facility] Start: 03-22-2020 End: 03-28-2021 Tobacco use and exposure Current user [place] History of tobacco use Chews Tobacco [place] Start: 09-05-2014 End: 03-22-2020 Alcohol intake Current non-drinker of alcohol (finding) [place], [place] Start: 1960 Sex Assigned At Not on file M [place] Start: 12-11-2021 End: 12-13-2022 Exposure to SARS-CoV-2 (event) Not sure [place] Start: 06-03-2012 Tobacco Comment chews tobacco [facility] Start: 03-23-2021 End: 03-28-2021 Tobacco smoking status [facility] Current every day smoker [facility] History of tobacco use [facility] Start: 03-23-2021 End: 03-21-2023 Alcohol intake Lifetime non-drinker (finding) [facility] Start: 03-23-2021 Tobacco Comment 4 or less ciga rettes (less then 1/4 pack)/day in last 30 days [facility] Start: 03-22-2022 Tobacco use and exposure Smokeless tobacco non-user [facility] Start: 09-20-2022 End: 02-12-2023 History of Social function [facility] Start: 09-20-2022 End: 02-12-2023 Tobacco use panel [facility] Medical Equipment Procedure Code Equipment Code Equipment Origin al Text Equipment Identifier Dates Test blood sugar three times daily. DX: 250.02 Start: 10-23-2011 Clinical Notes 09-21-2014 to 03-21-2023 Nito Orellana Jr., DPM - 03/21/2023 4:26 PM Nito Escobedo Jr., DPM - 02/12/2023 11:04 AM Nito Escobedo Jr., DPM - 02/05/2023 10:28 AM EDT Note Date & Type Note Facility 03-21-2023 History of Presen t illness Narrative Patient is a pleasant 62-year-old male who comes in today for nail care. Long history of right leg amputation. Geriatric care is managed by primary including Dr. Burris . Physical right leg BKA. Vascular: DP PT pulses poorly palpable left foot mild edema. Derm: No open wounds no ulcers no rashes no deep nodules. No streaking no fluctuance or crepitation. Left foot nails [id number] are elongated thickened mycotic crumbling and dystrophic. Neuro: light touch is blunted distally at 3/6 sties, babinski is absent. 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 Qualifies for nail care given substantial limb loss risk. Procedure: Sharply debrided and debulked in height and length 5 onychomycotic nails in height and length with a sharp pair of nail nipper consistent with a q7 modifier. Low medical complexity decision. Follow-up in 3 months for foot nail care documented in this encounter [facility] 02-12-2023 History of Presen t illness Narrative Ingrown left lateral great toe Patient is a pleasant 62-year-old male who comes in today for a 2-week history of an ingrown left great toenail. He states that he nearly finished his levoquin and is feeling much better overall. Reviewed: PVRs and ABIs reviewed from [place]. Appears to have 50% stenosis of his SFA and some peroneal occlusion. Following up with them taking a watch and see approach. Derm: No erythema to the distal lateral great toe with an ingrown nail. No streaking or lymphangitis no fluctuance or crepitation. Neuro: Absent. Musculoskeletal: Right leg amputation. No pain to the great toe today and this is much improved in the last week. Assessment and plan: Patient is a pleasant 62-year-old high-risk male with an ingrown left lateral toenail. Continue the levofloxacin until completed. No oral antibiotic refills needed. Apply topical bacitracin daily with bandage for one more week then stop. -Given his improvement no admission required today despite the substantial risk history of DKA and A1c of 12%. Follow-up in 3 months to reevaluate. Low medical complexity decision making based on his high morbidity. documented in this encounter [facility] 02-05-2023 History of Presen t illness Narrative Ingrown left lateral great toe Patient is a pleasant 62-year-old male who comes in today for a 1-2-week history of an ingrown left great toenail. He states it is a bit red and swollen and feeling poor. -States that yesterday he saw primary care who started him on a prescription of levofloxacin. Reviewed: PVRs and ABIs reviewed from [place]. Appears to have 50% stenosis of his SFA and some peroneal occlusion. Following up with them taking a watch and see approach. Derm: Some erythema to the distal lateral great toe with an ingrown nail. No streaking or lymphangitis no fluctuance or crepitation. Neuro: Absent. Musculoskeletal: Right leg amputation. No pain to the great toe though this is clearly ingrown. Assessment and plan: Patient is a pleasant 62-year-old high-risk male with an ingrown left lateral toenail. As a courtesy did help cut this free. Continue the levofloxacin. Apply topical bacitracin daily with bandage. Follow-up in 1 week to reevaluate. If no better consider up titration of antibiotics. documented in this encounter [facility] 12-13-2022 History of Presen t illness Narrative Left leg nail care Consider vascular consult Patient pleasant 62-year-old male who comes in today to have his left foot nails cut. Geriatrics managed primary. Patient states that he is wondering if he is able to see vascular surgeon. Has complaints of some calf cramping though happens sometimes while at rest and only moderately while ambition. States he is really unsure of the distance but he is really worried. States that his son works with a vascular surgeon in [place] who was on him and that there is endovascular techniques to improve circulation and he is wondering he can have a consultation with vascular to talk about this and discuss. DP PT pulses poorly palpable. Moderate extremity edema. Derm: Skin is dyshidrotic though there is no open wounds no ulcers no rashes no deep nodules. Toe nails 1 through 5 are thickened and dystrophic. Neuro: Light touch is distally. Right leg amputation. Left leg: Can easily wiggle toes, and into the digits ankle subtalar is full and pain-free. Assessment and plan Patient is a pleasant 62-year-old male with history of right leg amputation, distal peripheral arterial disease and onychodystrophy 5 nails. -Regarding his questions specifically about vascular: I did recommend that he get PVRs and ABIs but he declined stating that the blood pressure cuff is too tight. -Likely no intervention will be warranted as he is minimally thickened there is no critical limb ischemia present today. Nonetheless I did place a referral from surgery to have him discuss options conservative versus surgical his rest including my colleague Dr. Gomez. -Patient does qualify for nail care. Sharply debrided 5 nails in length and propel nail nippers. Follow-up with myself in [address] Gomez in the next few weeks. documented in this encounter [facility] 09-20-2022 History of Presen t illness Narrative Patient is a pleasant 62-year-old male who comes in today for nail care. Long history of right leg amputation. Geriatric care is managed by primary including Dr. Burris from [facility], date of last service is January 24, 2021. Physical right leg BKA. Vascular: DP PT pulses poorly palpable left foot mild edema. Derm: No open wounds no ulcers no rashes no deep nodules. No streaking no fluctuance or crepitation. Left foot nails [id number] are elongated thickened mycotic crumbling and dystrophic. Neuro: light touch is blunted distally at 3/6 sties, babinski is absent. 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 Qualifies for nail care given substantial limb loss risk. Procedure: Sharply debrided and debulked in height and length 5 onychomycotic nails in height and length with a sharp pair of nail nipper consistent with a q7 modifier. Low medical complexity decision. Follow-up in 3 months for foot nail care documented in this encounter [facility] 03-22-2022 History of Presen t illness Narrative Patient is a pleasant 61-year-old male who comes in today for nail care. Long history of right leg amputation. Geriatric care is managed by primary including Dr. Burris from [facility], date of last service is January 24, 2021. Still with left leg wound. Physical right leg BKA. Vascular: DP PT pulses poorly palpable left foot mild edema. Derm: No open wounds no ulcers no rashes no deep nodules. -Anterior left kelly is with open superficial ulceration with suppurative and surrounding erythema. No streaking no fluctuance or crepitation. Left foot nails 55919 are elongated thickened mycotic crumbling and dystrophic. Neuro: light touch is blunted distally at 3/6 sties, babinski is absent. 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 Qualifies for nail care given substantial limb loss risk. Procedure: Sharply debrided and debulked in height and length 5 onychomycotic nails in height and length with a sharp pair of nail nipper consistent with a q7 modifier. Start topibal bacitracine and bandaid. Low medical complexity decision. Follow-up in 3 months for foot nail care documented in this encounter [facility] 12-21-2021 History of Presen t illness Narrative Nail care Patient is a pleasant 61-year-old male who comes in today for nail care. Long history of right leg amputation. Geriatric care is managed by primary including Dr. Burris from [facility], date of last service is January 24, 2021. Patient additionally states that 2 weeks ago he was putting firewood, a somehow came back and whacked him in the kelly. States it was bleeding a little eventually dried up however he states his leg is still seeping just wants to make sure that it is a Physical right leg BKA. Vascular: DP PT pulses poorly palpable left foot mild edema. Derm: No open wounds no ulcers no rashes no deep nodules. -Anterior left kelly is with open superficial ulceration with suppurative and surrounding erythema. No streaking no fluctuance or crepitation. Left foot nails [id number] are elongated thickened mycotic crumbling and dystrophic. Neuro: light touch is blunted distally at 3/6 sties, babinski is absent. 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 Qualifies for nail care given substantial limb loss risk. Procedure: Sharply debrided and debulked in height and length 5 onychomycotic nails in height and length with a sharp pair of nail nipper consistent with a q7 modifier. Regarding his acute left kelly trauma and cellular, can start oral doxycycline 100 mg twice daily for 7 days 14 tabs 0 refills. Apply topical Betadine daily. Low medical complexity decision. Follow-up in 3 months for foot nail care documented in this encounter [facility] 09-21-2021 History of Presen t illness Narrative Nail care Patient is a pleasant 61-year-old male who comes in today for nail care. Long history of right leg amputation. Geriatric care is managed by primary including Dr. Burris from [facility], date of last service is January 24, 2021. Physical right leg BKA. Vascular: DP PT pulses poorly palpable left foot mild edema. Derm: No open wounds no ulcers no rashes no deep nodules. Left foot nails 28903 are elongated thickened mycotic crumbling and dystrophic. Neuro: light touch is blunted distally at 3/6 sties, babinski is absent. 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 Qualifies for nail care given substantial limb loss risk. Procedure: Sharply debrided and debulked in height and length 5 onychomycotic nails in height and length with a sharp pair of nail nipper consistent with a q7 modifier. Follow-up in 3 months for foot nail care documented in this encounter [facility] 06-27-2021 History of Presen t illness Narrative Nail care Patient is a pleasant 60-year-old male who comes in today for nail care. Long history of right leg amputation. Geriatric care is managed by primary including Dr. Burris from [facility], date of last service is January 24, 2021. Physical right leg BKA. Vascular: DP PT pulses poorly palpable left foot mild edema. Derm: No open wounds no ulcers no rashes no deep nodules. Left foot nails 54903 are elongated thickened mycotic crumbling and dystrophic. 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 Qualifies for nail care given substantial limb loss risk. Procedure: Sharply debrided and debulked in height and length 5 onychomycotic nails in height and length with a sharp pair of nail nipper consistent with a q7 modifier. Follow-up in 3 months for foot nail care documented in this encounter [facility] 03-28-2021 History of Presen t illness Narrative Nail care Patient is a pleasant 60-year-old male who comes in today for nail care. Long history of right leg amputation. Geriatric care is managed by primary including Dr. Burris from [facility], date of last service is January 24, 2021. Physical right leg BKA. Vascular: DP PT pulses poorly palpable left foot mild edema. Derm: No open wounds no ulcers no rashes no deep nodules. Left foot nails 34670 are elongated thickened mycotic crumbling and dystrophic. 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 Qualifies for nail care given substantial limb loss risk. Procedure: Sharply debrided and debulked in height and length 5 onychomycotic nails in height and length with a sharp pair of nail nipper consistent with a q7 modifier. Follow-up in 3 months for foot nail care documented in this encounter [facility] 09-21-2014 Miscellaneous Notes Fasting blood sugar result on 09/20/14 was 99. Result faxed to [facility] AC department. Jane Warren RN Patient notified of mildly elevated serum potassium level of 5.2. Confirmed that he is not currently on potassium supplementation or diuretic. Patient currently feels well with no new complaints. Patient advised to stay on a low-potassium diet this week, will recheck potassium morning of surgery. Patient has also previously been advised to recheck a fasting glucose today or tomorrow as this had also been elevated. Patient verbalized understanding and agreed with the plan. Patient s identity has been confirmed by name and birthdate: Yes Call received from [place] at [facility] PAT at 0815AM to report a critical value for potassium with a result of 5.2. Kadi Bowens PA-C was notified of the result at 0821AM. James Bowie LPN Confirmed with patient that he is to hold aspirin for five days prior to surgery as instructed per Dr. Mora. Upon talking with him found he has been holding aspirin since 09/07/14. Jane Warren RN Received lab work from PAT visit at [facility] on 09/16/14. Blood sugar 362 and HGB A1c 12.4. Upon talking with patient over phone noted that he had eaten approximately 20-30 minutes prior to lab work being drawn. States his HGB A1c usually runs around that range and blood sugar usually around 270. Discussed with Dr. Mora and order placed for him to have FBS drawn on Friday09/20/14. Patient aware. Jane Warren RN Surgery for [facility] scheduled as follows: scheduled for 09/23/2014 @ 0715. Patient to arrive @ [facility] at 0530 am. Spoke to Lexi [facility] 09/16/14 @ 0800 Orders, consent, and current H&P faxed to: [facility] [phone] & [phone] and [facility] [phone] Referral placed in Epic: Yes IP appointment placed in Epic: Yes He was notified of all dates/times and instructed to call our office immediately with any concerns or questions. [facility] booklet and instructions given. Is update H&P needed? no Cardiac Clearance N/A Kidney center notified: [facility] Kadi Montanez Ma documented in this encounter [facility] Angina at rest (HCC) Other and unspecified angina pectoris Cellulitis of left lower limb Eye pressure Swollen feet Swelling of limb [facility] Diagnosis Onychomycosis- Primary Dermatophytosis of nail Peripheral vascular disease, unspecified (HCC) Peripheral vascular disease, unspecified [facility] Diagnosis Onychomycosis- Primary Dermatophytosis of nail Peripheral vascular disease, unspecified (HCC) Peripheral vascular disease, unspecified [facility] Diagnosis Cellulitis of left foot- Primary Onychomycosis Dermatophytosis of nail Peripheral vascular disease, unspecified (HCC) Peripheral vascular disease, unspecified [facility] Diagnosis Ulcer of left lower extremity with fat layer exposed (HCC)- Primary [facility] Diagnosis Peripheral vascular disease, unspecified (HCC)- Primary Peripheral vascular disease, unspecified Onychomycosis Dermatophytosis of nail [facility] Diagnosis Cellulitis of left foot- Primary Ingrown nail Ingrowing nail [facility] Diagnosis Cellulitis of left foot- Primary Ingrown nail Ingrowing nail [facility] Diagnosis Onychomycosis- Primary Dermatophytosis of nail Peripheral vascular disease, unspecified (HCC) Peripheral vascular disease, unspecified documented in this encounter [facility] Summary Purpose Family History No Family History Records FoundNo Family History Records FoundNo Family History Records FoundNo Family History Records FoundNo Family History Records FoundNo Family History Records Found Advance Directives No Advanced Directives Records FoundDocuments on File Type Date Recorded 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 Expl anation Advance Directives and Livin g Will Advance Directives and Livin g Will 10/27/2017 10:34 AM Power of Plastics Fabricator Latest Code Status on File Code Status Date Activated Date Inactivated Comments Full Code 11/08/2018 12:35 AM 11/10/2018 12:09 PM Full Code 10/17/2017 6:25 PM 10/23/2017 4:58 PM Full Code 10/16/2017 1:19 PM 10/17/2017 6:25 PM Documents on File Type Date Recorded 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 Expl anation Advance Directives and Living Will Reason for Referral Status Reason Specialty Diagnoses / Procedures Referre d By Contact Referred To Contact Open Radiology Diagnoses Diabetic ulcer of toe of left foot associated with type 2 diabetes mellitus, limited to breakdown of skin (HCC) Procedures VL ARTERIAL PVR LOWER WO EXERCISE James Hernandez MD [address] [facility] [address] [place] [address] Specialty Diagnoses / Procedures Referred By Contac t Referred To Contact Vascular Surgery Diagnoses Peripheral vascular disease, unspecified (HCC) Nito Orellana Jr., DPM [address] [id number] Zach Gomez III, DO [address] [place] [address] Referral ID Status Reason Start Date Expiration Date V isits Requested Visits Authorized [id number] Authorized 12/13/2022 12/13/2023 1 1 Assessments Diagnosis Diabetic ulcer of toe of left foot associated with type 2 diabetes mellitus, limited to breakdown of skin (HCC) Additional Source Comments (unrecognized sect ion and content) No Status Records FoundNo Status Records FoundNo Status Records FoundNo Status Records FoundNo Status Records FoundNo Status Records Found INFORMATION SOURCE (unrecogn ized section and content) DATE CREATED AUTHOR AUTHOR'S ORGANIZ ATION 01/30/2018 [facility] DATE CREATED AUTHOR AUTHOR'S ORGANIZ ATION 04/14/2018 [facility] DATE CREATED AUTHOR AUTHOR'S ORGANIZ ATION 03/25/2020 [facility] DATE CREATED AUTHOR [facility]IZ AT[facility] DATE CREATED AUTHOR AUTHOR'S ORGANIZ ATION 08/24/2023 [facility] Source Comments (unrecognize d section and content) In the event this informatio n is protected by the Federal Confidentiality of Alcohol and Drug Abuse Patient Records regulations: The Federal rules restrict any use of the information to criminally investigate or prosecute any alcohol or drug abuse patient.[facility] Reason for Visit (unrecogniz ed section and content) Reason Comments Nail Care Diabetic nail care. Blood sugar was 167 today. Reason Comments Nail Care A1C: possibly 8 Reason Comments Nail Care Diabetic - pt is hav ing some shooting pains across his toes -possible neuropathy Reason Comments Nail Care Diabetic Pt has a wo und on his kelly from a piece of wood that he was splitting and hit him Reason Comments Nail Care Diabetic nail care. Pt states his last A1C was between 7-8 a month ago. Pt states he has no other concerns today. Reason Comments Nail Care Diabetic blood sugar was 247 this morning Reason Comments Nail Care Reason Comments Cellulitis FOLLOW UP LEFT FOOT CELLULITIS. Reason Comments Nail Care Nail care Care Teams (unrecognized sec tion and content) Head Sulfide Operator Relationship Specialty Start Date End Date No, Physician [facility] PCP - General 03/28/21 Head Sulfide Operator Relationship Specialty Start Date End Date No, Physician [facility] PCP - General 03/28/21 Head Sulfide Operator Relationship Specialty Start Date End Date No, Physician [facility] PCP - General 03/28/21 Head Sulfide Operator Relationship Specialty Start Date End Date No, Physician [facility] PCP - General 03/28/21 Head Sulfide Operator Relationship Specialty Start Date End Date No, Physician [facility] PCP - General 03/28/21 Nito Orellana Jr., DPM [address] [place] [address] Podiatry 12/20/22 Head Sulfide Operator Relationship Specialty Start Date End Date No, Physician [facility] PCP - General 03/28/21 Nito Orellana Jr., DPM [address] [place] [address] Podiatry 12/20/22 Head Sulfide Operator Relationship Specialty Start Date End Date No, Physician [facility] PCP - General 03/28/21 Nito Orellana Jr., DPM [address] [place] [address] Podiatry 12/20/22 FOR RECORDS PERTAINING TO PATIENTS WHO ARE OR HAVE BEEN ENROLLED IN A CHEMICAL DEPENDENCY/SUBSTANCEABUSE PROGRAM, SOME INFORMATION MAY BE OMITTED. This clinical summary was aggregated from multiple sources. Caution should be exercised in using it in the provision of clinical care. This summary normalizes information from multiple sources, and as a consequence, information in this document may materially change the coding, format and clinical context of patient data. In addition, data may be omitted in some cases. CLINICAL DECISIONS SHOULD BE BASED ON THE PRIMARY CLINICAL RECORDS. [facility] [employer] [facility]. provides no warranty or guarantee of the accuracy or completeness of information in this document.
[2023-09-04 07:21] VITALS: BMI 31.8
[2023-09-04 07:24] LABS: Hematocrit 46.5 % (40-54); Hemoglobin 15.8 g/dL (13.0-16.5); Mean Corpuscular Hgb 28.7 pg (27.0-32.0); Mean Corpuscular Volume 84.5 fL (80-94); Mean Platelet Vol. 10.1 fl (6.2-12.0); Platelet Count 245 K/mm3 (150-450); RBC Distribution Width CV 12.9 % (11.6-14.6); RBC Distribution Width SD 39.8 fl (35.1-43.9); White Blood Count 7.3 K/mm3 (4.4-11.0)
[2023-09-04 07:39] LABS: Anion Gap 5 (5-15); BUN 17 mg/dL (7-18); BUN/Creat Ratio 12.8 RATIO (10-20); Chloride 110 mmol/L (98-107); Creatinine, Serum 1.33 mg/dL (0.70-1.30); EST Glomerular Filtration Rate 58 mL/min (>60); Est Glom Filt Rate - Afr Amer 70 mL/min (>60); Estimated Creatinine Clearance 67.65 ml/min; Glucose 201 mg/dL (74-106); Potassium 3.5 mmol/L (3.5-5.1); Sodium Level 137 mmol/L (136-145)
--- NOTE | 2023-09-04 07:59 | HP.PCM_ITS ---
HPI - General HPI Narrative XUAN HUSTON, is a 63 M who presents with chronic venous insufficiency of the left lower extremity, refractory to compression. Previously had GSV harvested for CABG. Now with accessory reflux in two separate veins in thigh and calf. [facility] Medical History Amputation of leg Arthritis Atherosclerosis of coronary artery of [place] without angina pectoris Back pain Back problem Carpal tunnel syndrome CHF (congestive heart failure) Chronic systolic heart failure Deep vein blood clot of right lower extremity Diabetes mellitus Diabetic retinopathy associated with type 2 diabetes mellitus Difficulty balancing Essential hypertension Gallstones Gangrene of right foot GERD (gastroesophageal reflux disease) Hard of hearing History of DVT (deep vein thrombosis) Hx of staphylococcal infection Hyperlipidemia Ischemic cardiomyopathy Neuropathy NPDR (nonproliferative diabetic retinopathy) Obesity Old myocardial infarction Osteoarthritis Osteomyelitis PAD (peripheral artery disease) Paroxysmal atrial fibrillation Peripheral arterial occlusive disease Polyneuropathy Polyneuropathy due to type 2 diabetes mellitus Sick sinus syndrome Thrombocytopenia Home Medications aspirin 81 mg tablet,delayed release 81 mg PO DAILY [facility] 10/10/17 [History Last Taken 06/19/18] metolazone 2.5 mg tablet 2.5 mg PO .COMPLEX PRN SWELLING #45 tabs 08/26/19 [Rx Last Taken Unknown] ascorbic acid (vitamin C) 500 mg capsule 500 mg PO DAILY 12/22/20 [History Last Taken Unknown] Novolog FlexPen U-100 Insulin 100 unit/mL (3 mL) subcutaneous (insulin aspart U- 100) 30 unit (0.3 mL) subcut .tidcm #135 mL 05/24/21 [Rx Last Taken Unknown] flash glucose sensor (FreeStyle Junaid 14 Day Sensor kit) #2 ea 12/10/21 [Rx Last Taken Unknown] Dexcom G6 Technical Aide (blood-glucose meter,continuous) #1 ea 02/28/22 [Rx Last Taken Unknown] Dexcom G6 Sensor (blood-glucose sensor) #9 ea 02/28/22 [Rx Last Taken Unknown] Dexcom G6 Transmitter (blood-glucose transmitter) #1 ea 02/28/22 [Rx Last Taken Unknown] carvedilol 6.25 mg tablet 6.25 mg PO BID #180 tabs 10/29/22 [Rx Last Taken 0 09/04/23] dapagliflozin propanediol 10 mg tablet (Farxiga) 10 mg PO DAILY 10/29/22 [History Last Taken Unknown] omeprazole 20 mg capsule,delayed release 20 mg PO DAILY #90 caps 10/29/22 [Rx Last Taken Unknown] diazepam 5 mg tablet (Valium) 5 mg PO ONCE PRN sedation #1 TAB 12/24/22 [Rx Last Taken Unknown] ezetimibe 10 mg tablet 10 mg PO DAILY #90 tabs 02/24/23 [Rx Last Taken Unknown] nitroglycerin 0.4 mg/hr transdermal 24 hour patch 1 patch transdermal DAILY #90 ea 06/23/23 [Rx Last Taken 09/04/23] furosemide 40 mg tablet 40 mg PO .COMPLEX #270 tabs 07/21/23 [Rx Last Taken Unknown] insulin glargine 100 unit/mL (3 mL) subcutaneous pen (Basaglar KwikPen U-100 Insulin) 40 unit subcut QAM 07/21/23 [History Last Taken Unknown] ranolazine 500 mg tablet,extended release,12 hr (Ranexa) 500 mg PO BID #180 tabs 07/21/23 [Rx Last Taken Unknown] rosuvastatin 5 mg tablet (Crestor) 5 mg PO .3 times a week #36 tabs 07/21/23 [Rx Last Taken Unknown] sacubitril 97 mg-valsartan 103 mg tablet (Entresto) See Rx Instructions .Route .COMPLEX #180 tabs 07/21/23 [Rx Last Taken Unknown] Allergy/AdvReac Type Severity Reaction Status Date / Time Penicillins Allergy Hives Verified 07/21/23 09:04 pioglitazone HCl [From Actos] Allergy Swelling Verified 07/21/23 09:04 Pnfkquz-PJC-HzV Reductase Allergy Unknown Verified 07/21/23 09:04 Inhibitor [Mspejxz-Gsz-Vyz Reductase Inhibitor] gabapentin [From Neurontin] AdvReac Intermediate Other Verified 07/21/23 09:04 Family History Father , age 57 Diabetes CAD (coronary artery disease) Brother , age 33 Diabetes Myocardial infarction Brother Diabetes AICD (automatic cardioverter/defibrillator) present CAD (coronary artery disease) coronary stents Other Heart disease Hypertension Surgical History abdominal aortagram with RLE runoff (~10/17/17) Amputation, toe, traumatic H/O coronary artery bypass surgery (09/26/04) H/O right heart catheterization History of angioplasty History of carpal tunnel release of both wrists History of coronary artery stent placement (09/25/17) History of exploratory laparotomy History of eye surgery (~04/2023) History of laminectomy History of left heart catheterization (06/2018) 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) History of spinal fusion History of vasectomy (1994) Hx of cholecystectomy (2014) left heart cath and RLE arteriogram (09/25/17) neurostimulator implant Presence of automatic implantable cardioverter-defibrillator (08/08/16) Previous back surgery RLE peroneal artery stent (10/03/17) Status post ablation of incompetent vein using laser Social History Smoking Status: Never smoker alcohol intake: never substance use type: does not use caffeine: Yes Type: carbonated beverages Number of servings: 1 and coffee Number of servings: 2 what type of physical activity do you participate in: none ROS Constitutional Constitutional: Denies chills, fever(s), frequent falls, lethargy or weakness Eyes Eyes: Denies blind spots, change in vision or loss of vision ENT HEENT: Denies bleeding gums, hoarseness or sore throat Cardiovascular Cardiovascular: Denies abdominal pain, bluish discoloration of hand/feet, chest pain with activity, claudication, cold extremities, cyanosis, dyspnea on exertion, erythema on extremities, irregular heart rhythm, leg edema, leg ulcers, numbness in extremities or weakness in extremities Respiratory/Chest Respiratory/Chest: Denies cough, excessive phlegm production, shortness of breath at rest, shortness of breath with exertion or wheezing Gastrointestinal Gastrointestinal: Denies anorexia, change in stool character, constipation, diarrhea, melena or rectal bleeding Genitourinary Genitourinary: Denies dysuria or hematuria Musculoskeletal Musculoskeletal: Denies abnormal gait Integumentary Integumentary: Reports other Details: ; Denies erythema, non-healing lesions or wounds Neurologic Neurologic: Denies abnormal speech, focal weakness, headache(s), loss of vision, numbness, paresthesias or sensory deficit Hematologic/Lymphatic Hematologic/Lymphatic: Denies easy bleeding, easy bruising or lymphadenopathy Vital Signs Vital Signs Vital Signs: Weight Weight: 222 lb 5 oz Body Mass Index (BMI) 31.8 Physical Exam Const alert, oriented x3, no apparent distress and healthy appearing General Appearance: cooperative; Negative for combative or lethargic Orientation / Consciousness: awake Exam Limitations: no limitations HEENT Head and Scalp: normocephalic and atraumatic Eyes EOMs intact bilaterally General Eye: normal appearance of both eyes Neck full ROM, no lymphadenopathy, thyroid normal and No no carotid bruits General: trachea midline; Negative for lymphadenopathy or tenderness Thyroid: thyroid normal Lymph Lymphatic: Negative for no lymphadenopathy noted Resp normal respiratory effort and no use of accessory muscles Effort and Inspection: Negative for labored, stridor or audible wheezes Cardio regular rate and regular rhythm Back/Spine Cervical Spine: cervical ROM normal Extremity full ROM, normal capillary refill and no clubbing, cyanosis or edema Skin no rashes or lesions noted and no wounds Neuro oriented x3, CN's II-XII intact bilaterally, no focal motor deficits and no sensory deficits noted Psych thought process normal, cooperative, affect normal, speech normal and activity/motor behavior normal Results Lab / Micro Data 09/04/23 06:59 09/04/23 06:59 Labs: Laboratory Results - last 24 hr 09/04/23 06:59: WBC 7.3, RBC 5.50, Hgb 15.8, Hct 46.5, MCV 84.5, MCH 28.7, MCHC 34.0, RDW Std Deviation 39.8, RDW Coeff of Sushila 12.9, Plt Count 245, MPV 10.1, Sodium 137, Potassium 3.5, Chloride 110 H, Carbon Dioxide 22.0, Anion Gap 5, BUN 17, Creatinine 1.33 H, Estim Creat Clear Calc 67.65, Est GFR (MDRD) Af Amer 70, Est GFR (MDRD) Non-Af 58 L, BUN/Creatinine Ratio 12.8, Glucose 201 H, Calcium 9.0 Assessment & Plan Assessment/Plan (1) Venous insufficiency (chronic) (peripheral): PLAN: -plan left accessory chemical ablation
--- NOTE | 2023-09-04 14:39 | OP.PCM_ITS ---
Report of Operation Date of Procedure: 09/04/23 Pre-Operative Diagnosis: Venous insufficiency with ulceration of the left lower extremity Post-Operative Diagnosis: Same Surgery/Procedure Performed:: Ultrasound-guided access of left accessory saphenous vein with unsuccessful ablation attempt Surgeon: Nas Gergg Type of Anesthesia: Local and Sedation,Conscious Estimated Blood Loss (mL): 1 Description of Procedure: HPI: Patient is a 63-year-old male with combined arterial and venous insufficiency of lower extremities with a prior right below the knee amputation. He has longstanding venous insufficiency skin changes of left lower extremity and has had episodes of ulceration. This is been refractory to compression. He previously had his great saphenous vein removed as part of a coronary artery bypass surgery and reflux studies revealed accessory saphenous vein reflux. He is taken now for attempted glue ablation of accessory saphenous vein. Description of procedure: Upon obtaining form consent and verification correct patient procedure site patient taken the [employer] where he was positioned prepped and draped in usual fashion. Time was performed consultation administered Versed and fentanyl. The accessory saphenous veins which improved the marked were evaluated with ultrasound and they had multiple intervening segments of straight accessory saphenous with connecting branches that were more varicosities. Also these veins were very shallow but is felt that efforts to access was to be undertaken. Skin was anesthetized 1% lidocaine in efforts to access the accessory saphenous at the ankle were undertaken. We able to enter into the vessel but not able to successfully thread a wire. We then moved to the superior aspect of the calf accessory vein and attempted increased access again without much success. We have into the vein to get a wire to pass however we could not traverse the varicose segments. Likewise we attempted to access the thigh accessory saphenous which was feeding into the varicosities into the calf. Multiple efforts with location also were unsuccessful. We felt that we had attempted all reasonable efforts and that a potential lay out maker focal ablation as well as sclerotherapy of the more superficial vein would be potentially beneficial at a later time. Manual pressure was held over the access attempt sites and dry sterile dressing was placed. Patient was taken recovery room with dissipate discharge home.
== END 2023-09-04 10:50 | disposition home or self-care (01) ==
LOC: CLSP 06:57
PROVIDERS: PCP Family Medicine; Referring Provider Surgery Trauma Surgery; Visit Provider Surgery Trauma Surgery
DX: I83.002 Varicose veins of unspecified lower extremity with ulcer of calf (principal); L97.829 Non-pressure chronic ulcer of other part of left lower leg with unspecified severity; I11.0 Hypertensive heart disease with heart failure; I50.22 Chronic systolic (congestive) heart failure; E11.42 Type 2 diabetes mellitus with diabetic polyneuropathy; E11.59 Type 2 diabetes mellitus with other circulatory complications; I87.2 Venous insufficiency (chronic) (peripheral); K21.9 Gastro-esophageal reflux disease without esophagitis; I25.10 Atherosclerotic heart disease of native coronary artery without angina pectoris; Z79.84 Long term (current) use of oral hypoglycemic drugs; E78.5 Hyperlipidemia, unspecified; I25.5 Ischemic cardiomyopathy; Z79.82 Long term (current) use of aspirin; Z96.651 Presence of right artificial knee joint
CPT/HCPCS: 36415; 36482; 80048; 85027; 99152; 99153; C1894; J7040

== ENCOUNTER 2023-10-23 06:50 | Day surgery (SDC) | payer OTHER, SELFPAY ==
[2023-10-22 09:33] VITALS: BMI 32.3
--- OUTSIDE RECORDS SUMMARY | 2023-10-23 06:53 | XMS RPT_ITS | CCD ---
Author Name Unknown Address [address] [place] [address] Organization [facility] Care Team Providers Care Communications Tower Technician Name Role Phone Melina Augustin Unavailable Unavailable PROVIDER, UNKNOWN Unavailable Unavailable Darius Hartmann Unavailable Unavailable Bill Lockwood Unavailable Unavailable PROVIDER, UNKNOWN Unavailable Unavailable Darius Hartmann Unavailable Unavailable Aristides Morris Unavailable Unavailabl e Augustin, Melina Emily Unavailable Unavailable SOO, DANTE A Unavailable Unavailable NONSTAFF, PHYSICIAN Unavailable Unavailable SOO, DANTE A Unavailable Unavailable NONSTAFF, PHYSICIAN Unavailable Unavailable SOO, DANTE A Unavailable Unavailable NONSTAFF, PHYSICIAN Unavailable Unavailable UNKNOWN, PROVIDER Unavailable Unavailable NONSTAFF, PHYSICIAN Unavailable Unavailable UNKNOWN, PROVIDER Unavailable Unavailable NONSTAFF, PHYSICIAN Unavailable Unavailable NONSTAFF, PHYSICIAN Unavailable Unavailable AMILCAR COBB Unavailable Unavailable UNKNOWN, PROVIDER Unavailable Unavailable NONSTAFF, PHYSICIAN Unavailable Unavailable MAJERCQASIM GUERDA Unavailable Unavailable NONSTAFF, PHYSICIAN Unavailable Unavailable MORRIS WILKINS ([facility]) Jaciel Unavailable Unavailabl e UNKNOWN, PROVIDER Unavailable [...] Physician Primary Care Provider Unavailabl e Reyna Tan DPM, Jeremiah Unavailable NO, PHYSICIAN Primary Care [...] source) gabapentin Drug Allergy 12-30-19 13 Intolerance [facility] Work Phone: HMG-CoA Reductase Inhibitors (statins) (1 source) Hmg-Coa Reductase Inhibitors (Statins) Drug Allergy 12-21-19 10 Other: See Comments [facility] Penicillins (antibiotic) (3 sources) Penicillins Drug Allergy 09-30-19 15 Hives, Shortness of Breath [facility] Thiazolidinediones (glitazones) (3 sources) pioglitazone Drug Allergy 05-07-20 05 Swelling [facility] Work Phone: Unclassified (6 sources) HMG-CoA reductase inhibitor; Translations: [GQPCKCK-ZKB-RE A REDUCTASE INHIBITORS] Propensity to adverse reactions to drug Other (See Comments) [facility] (6 sources) gabapentin; Translations: [GABAPENTIN] Drug Allergy 11-25-19 18 Other (See Comments) [place] (1 source) Hmg-Coa Reductase Inhibitors (Statins) Propensity to adverse reactions to drug 03-04-20 12 Other (See Comments) [place] (2 sources) Penicillins; Translations: [PENICILLINS] Propensity to adverse reactions to drug 03-04-20 12 Hives [place] (12 sources) pioglitazone; Translations: [PIOGLITAZONE] Drug Allergy 03-04-20 12 Swelling, Unknown [place] (1 source) pregabalin Drug Allergy 03-04-20 12 Other (See Comments) [place] (3 sources) Penicillins Propensity to adverse reactions to drug Hives [facility] (7 sources) HMG-CoA reductase inhibitor Propensity to adverse reactions to drug Other (See Comments), Unknown [facility] (7 sources) Penicillins Propensity to adverse reactions to drug Hives [facility] (3 sources) Penicillin; Translations: [PENICILLIN] Drug Allergy 02-13-20 23 Unknown [facility] Medications Current Medications Medication Drug Class(es) Dates [...] disease (20 sources) Atherosclerotic heart disease of unga coronary artery without angina pectoris; Translations: [Old [...] ADULT] Onset: 10-02-2017 Chronic Unclassified (1 source) 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; Translations: [BLUING OVEN TENDER (CURRENT) USE OF ORAL HYPOGLYCEMIC DRUGS] Onset: [...] Onset: 10-02-2017 Episodic Other aftercare (1 source) 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) use of antithrombotics/ant iplatelets; Translations: [FPC (CURRENT) USE OF ANTITHROMBOTICS/ANT IPLATELETS] Onset: 10-02-2017 Episodic Other aftercare (1 source) senior living (current) use of aspirin; Translations: [BLUING OVEN TENDER (CURRENT) USE OF ASPIRIN] Onset: 10-02-2017 Episodic [...] mm[Hg] Nito Orellana Jr., DPM Work Phone: [facility] 03-21-2023 16:10-0400 Systolic blood pressure 130 mm[Hg] Nito Orellana Jr., DPM Work Phone: [facility] 03-21-2023 16:08-0400 Body temperature 97.7 [degF] Nito Orellana Jr., DPM Work Phone: [facility] 03-21-2023 16:08-0400 Heart rate 76 /min Nito Orellana Jr., DPM Work Phone: [facility] 02-12-2023 10:49-0400 Body temperature 98.29 [degF] Nito Orellana Jr., DPM Work Phone: [facility] 02-12-2023 10:49-0400 Diastolic blood pressure 80 mm[Hg] Nito Orellana Jr., DPM Work Phone: [facility] 02-12-2023 10:49-0400 Heart rate 70 /min Nito Orellana Jr., DPM Work Phone: [facility] 02-12-2023 10:49-0400 Systolic blood pressure 161 mm[Hg] Nito Reyna Jr., DPM Work Phone: [facility] 02-05-2023 10:01-0400 Diastolic blood pressure 84 mm[Hg] Nito Reyna Jr., DPM Work Phone: [facility] 02-05-2023 10:01-0400 Heart rate 75 /min Nito Reyna Jr., DPM Work Phone: [facility] 02-05-2023 10:01-0400 Respiratory rate 17 /min Nito Reyna Jr., DPM Work Phone: [facility] 02-05-2023 10:01-0400 SaO2% (BldA) [Mass fraction] 99 % Nito Reyna Jr., DPM Work Phone: [facility] 02-05-2023 10:01-0400 Systolic blood pressure 140 mm[Hg] Nito Reyna Jr., DPM Work Phone: [facility] 12-13-2022 16:14-0400 Body temperature 97.9 [degF] Nito Reyna Jr., DPM Work Phone: [facility] 12-13-2022 16:14-0400 Diastolic blood pressure 85 mm[Hg] Nito Reyna Jr., DPM Work Phone: [facility] 12-13-2022 16:14-0400 Heart rate 78 /min Nito Reyna Jr., DPM Work Phone: [facility] 12-13-2022 16:14-0400 Systolic blood pressure 142 mm[Hg] Nito Reyna Jr., DPM Work Phone: [facility] 09-20-2022 15:28-0500 Diastolic blood pressure 85 mm[Hg] Nito Reyna Jr., DPM Work Phone: [facility] 09-20-2022 15:28-0500 Heart rate 83 /min Nito Reyna Jr., DPM Work Phone: [facility] 09-20-2022 15:28-0500 Systolic blood pressure 133 mm[Hg] Nito Reyna Jr., DPM Work Phone: [facility] 09-20-2022 15:21-0500 Body temperature 98.4 [degF] Nito Reyna Jr., DPM Work Phone: [facility] 03-22-2022 15:59-0400 Body temperature 99.39 [degF] Nito Reyna Jr., DPM Work Phone: [facility] 03-22-2022 15:59-0400 Diastolic blood pressure 67 mm[Hg] Nito Reyna Jr., DPM Work Phone: [facility] 03-22-2022 15:59-0400 Heart rate 80 /min Nito Reyna Jr., DPM Work Phone: [facility] 03-22-2022 15:59-0400 Systolic blood pressure 121 mm[Hg] Nito Reyna Jr., DPM Work Phone: [facility] 12-21-2021 16:09-0400 Diastolic blood pressure 75 mm[Hg] Nito Reyna Jr., DPM Work Phone: [facility] 12-21-2021 16:09-0400 Heart rate 79 /min Nito Renya Jr., DPM Work Phone: [facility] 12-21-2021 16:09-0400 Systolic blood pressure 128 mm[Hg] Nito Reyna Jr., DPM Work Phone: [facility] 12-21-2021 16:04-0400 Body temperature 98.29 [degF] Nito Reyna Jr., DPM Work Phone: [facility] 09-21-2021 14:29-0500 Diastolic blood pressure 85 mm[Hg] Nito Reyna Jr., DPM Work Phone: [facility] 09-21-2021 14:29-0500 Heart rate 78 /min Nito Reyna Jr., DPM Work Phone: [facility] 09-21-2021 14:29-0500 Systolic blood pressure 161 mm[Hg] Nito Reyna Jr., DPM Work Phone: [facility] 09-21-2021 14:23-0500 Body temperature 98.01 [degF] Nito Reyna Jr., DPM Work Phone: [facility] 06-27-2021 14:25-0500 Body temperature 98.1 [degF] Nito Reyna Jr., DPM Work Phone: [facility] 06-27-2021 14:25-0500 Diastolic blood pressure 82 mm[Hg] Nito Reyna Jr., DPM Work Phone: [facility] 06-27-2021 14:25-0500 Heart rate 87 /min Nito Reyna Jr., DPM Work Phone: [facility] 06-27-2021 14:25-0500 Systolic blood pressure 140 mm[Hg] Nito Reyna Jr., DPM Work Phone: [facility] 01-03-2021 09:03-0400 Body height 177.8 cm Nito Reyna Jr., DPM Work Phone: [facility] 01-03-2021 09:03-0400 Body mass index (BMI) [Ratio] 34.44 kg/m2 Nito Reyna Jr., DPM Work Phone: [facility] 01-03-2021 09:03-0400 Body weight 108.86 kg Nito Reyna Jr., DPM Work Phone: [facility] 12-27-2020 09:03-0400 Diastolic blood pressure 86 mm[Hg] Nito Reyna Jr., DPM Work Phone: [facility] 12-27-2020 09:03-0400 Systolic blood pressure 153 mm[Hg] Nitothu Orellana Jr., DPM Work Phone: [facility] Encounters Encounter Date Encounter Type Care Provider Facility Start: 08-22-2023 End: 08-22-2023 ambulatory NITOThu ORELLANA JR. [facility] Start: 03-21-2023 End: 03-21-2023 ambulatory NITOThu ORELLANA JR. 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 [place] nda Marine PA Work Phone: Start: 10-24-2007 Colonoscopy Harrison michel MD Work Phone: Plan of Treatment Date Care Activity Detail Author Start: 04-03-2027 DTaP/Tdap/Td vaccine (2 - Td) DTaP/Tdap/Td vaccine (2 - Td) [place] Start: 04-03-2027 Tetanus vaccination Tetanus: Every 10yrs [facility] Start: 2025 Pneumococcal Vaccine: Ped or At-Risk (2 of 2 - PPSV23) Pneumococcal Vaccine: Ped or At-Risk (2 of 2 - PPSV23) [facility] Start: 06-25-2023 End: 06-25-2023 Patient encounter procedure 06/25/2023 2:15 PM EST Office Visit [facility] [address] [place] [address] Nito Orellana Jr., DPM [address] [place] [address] [facility] Start: 05-16-2023 End: 05-16-2023 Patient encounter procedure 05/16/2023 8:00 AM EDT Office Visit [facility] [address] [place] [address] Nito Orellana Jr., DPM [address] [place] [address] [facility] Start: 04-11-2023 Influenza vaccination [facility] Start: 03-21-2023 End: 03-21-2023 Patient encounter procedure 03/21/2023 4:15 PM EDT Office Visit [facility] [address] [place] [address] Nito Orellana Jr., DPM [address] [place] [address] [facility] Start: 02-12-2023 End: 02-12-2023 Patient encounter procedure 02/12/2023 10:45 AM EDT Office Visit [facility] [address] [place] [address] Nito Orellana Jr., DPM [address] [place] [address] [facility] Start: 12-30-2022 End: 12-30-2022 Patient encounter procedure 12/30/2022 3:20 PM EDT Office Visit [facility] [address] [facility] [place] [address] Nito Orellana Jr., ADDIE [address] [place] [address] Zach Gomez III, DO [address] [place] [address] [facility] Start: 12-13-2022 End: 12-13-2022 Patient encounter procedure 12/13/2022 Office Visit PodNito Kay Jr., ADDIE [address] [place] [address] [facility] Start: 10-17-2022 Screening for malignant neoplasm of colon [facility] Start: 04-11-2022 Influenza vaccination [facility] Start: 03-22-2022 End: 03-22-2022 Patient encounter procedure 03/22/2022 Office Visit PodNito Kay Jr., DPM [address] [place] [address] [facility] Start: 12-21-2021 End: 12-21-2021 Patient encounter procedure 12/21/2021 Office Visit PodNito Kay Jr., ADDIE [address] [place] [address] [facility] Phys[facility] Start: 09-21-2021 End: 09-21-2021 Patient encounter procedure 09/21/2021 Office Visit Nito Bess Jr., ADDIE [address] [place] [address] [facility] Start: 06-29-2021 Hemoglobin A1c measurement A1C [facility] Start: 06-27-2021 End: 06-27-2021 Patient encounter procedure 06/27/2021 Office Visit Podiatry Nito Orellana Jr., DPJaciel [address] [place] [address] [facility] Start: 04-11-2021 Influenza vaccination [facility] Start: 03-29-2021 Hemoglobin A1c measurement A1C [facility] Start: 03-28-2021 End: 03-28-2021 Patient encounter procedure 03/28/2021 Office Visit Podiatry Nito Orellana Jr., ADDIE [address] [place] [address] [phone] [facility] Start: 04-11-2020 Influenza vaccination Flu vaccine (#1) [place] Start: 04-03-2020 End: 04-03-2020 Office Visit 04/03/2020 Office Visit Vascular Surgery James Hernandez MD [address] [place], [place] [id number] [facility] Start: 11-11-2019 Creatinine measurement Creatinine monitoring [place], [place] Start: 11-11-2019 Potassium monitoring Potassium monitoring [place], [place] Start: 11-11-2019 Screening for malignant neoplasm of colon [facility] Start: 10-16-2018 Diabetic foot examination Diabetic foot exam [place] Start: 10-16-2018 HbA1c (Bld) [Mass fraction] A1C test (Diabetic or Prediabetic) [place] Start: 04-03-2018 Pneumococcal Vaccine: Ped or At-Risk (2 - PCV) Pneumococcal Vaccine: Ped or At-Risk (2 - PCV) [facility] Start: 10-23-2017 Screening for malignant neoplasm of colon [facility] Start: 04-22-2016 PROSTATE CANCER SCREENING DISCUSSION PROSTATE CANCER SCREENING DISCUSSION [facility] Start: 10-01-2013 Hepatitis C antibody, confirmatory test DILATED RETINAL EXAM [facility] Start: 07-01-2013 Hemoglobin A1c/Hemoglobin.total in Blood HBA1C [facility] Start: 10-27-2013 Hepatitis B surface antibody level LDL CHOLESTEROL [facility] Start: 11-05-2012 3 comp foot exam completed DIABETIC FOOT EXAM [facility] Start: 01-20-2012 Hepatitis B screening URINE ALBUMIN:CREATININE RATIO [facility] Start: 2010 Administration of herpes zoster vaccine Zoster Vaccines (1 of 2) [facility] Start: 2010 Screening for malignant neoplasm of colon [facility] Start: 2010 Shingles Vaccine (1 of 2) Shingles Vaccine (1 of 2) [place], [place] Start: 2010 SHINGRIX VACCINE (1 of 2) SHINGRIX VACCINE (1 of 2) [facility] Start: 1979 Hepatitis B vaccine (1 of 3 - Risk 3-dose series) Hepatitis B vaccine (1 of 3 - Risk 3-dose series) [place] Start: 1979 Urine microalbumin profile DTAP,TDAP,TD (1 - Tdap) [facility] Start: 1978 Diabetic microalbuminuria test Diabetic microalbuminuria test [place] Start: 1978 HEPATITIS C SCREENING HEPATITIS C SCREENING [facility] Start: 1978 Hepatitis C screening Hepatitis C Screening [facility] Start: 1978 HIV SCREENING HIV SCREENING [facility] Start: 1976 ONE PNEUMOVAX PRIOR TO AGE 65 ONE PNEUMOVAX PRIOR TO AGE 65 [facility] Start: 1975 HIV screening [facility] Start: 1972 Adult depression screening assessment [facility] Start: 1972 COVID-19 Vaccine (1) COVID-19 Vaccine (1) [facility] Start: 1970 Diabetic foot examination Foot Exam [facility] Start: 1970 Diabetic retinal exam Diabetic retinal exam [place], [place] Start: 1970 Glaucoma screening [facility] Start: 1970 Lipid panel Lipid screen [place], [place] Start: 1970 Microalbumin measurement, urine, quantitative Urine Microalbumin [facility] Start: 1970 Ophthalmic examination and evaluation Ophthalmology Exam [facility] Start: 1970 Urine screening for protein Urine Microalbumin [facility] Start: 1966 Pneumococcal Vaccine: Ped or At-Risk (1 of 2 - PPSV23) Pneumococcal Vaccine: Ped or At-Risk (1 of 2 - PPSV23) [facility] Start: 1965 COVID-19 Vaccine (1) COVID-19 Vaccine (1) [facility] Start: 1963 History and physical examination, annual for health maintenance Wellness Visit [facility] Start: 1960 COVID-19 Vaccine (#1) COVID-19 Vaccine (#1) [facility] Start: 1960 Hepatitis C screening Hepatitis C screen [place], [place] Start: 1960 Prostate specific antigen measurement PSA Level [facility] Start: 1960 Screening for malignant neoplasm of colon [facility] Start: 1960 Tetanus vaccination Tetanus: Every 10yrs [facility] Payers Date Payer Category Payer Unknown 2014 Self-pay SELF PAY HSP/MED ICAL SELF PAY [id number] 2014-2015 SELF PAY Indemnity [id number] 2014 Unknown [id number] 2013 Unknown [id number] 1960 Unknown [id number] 1960 Unknown [id number] 1960 Unknown [id number] 1960 Unknown [id number] 1960 Unknown [id number] 1960 Unknown [id number] 1960 Unknown [id number] Social History Date Type Detail Facility Start: 03-22-2020 End: 03-22-2022 Tobacco smoking status NHIS Never smoker [facility] Start: 03-22-2020 End: 03-28-2021 Tobacco use and exposure Current user [place] History of tobacco use Chews Tobacco [place], [place] Start: 09-05-2014 End: 03-22-2020 Alcohol intake Current non-drinker of alcohol (finding) [place], [place] Start: 1960 Sex Assigned At Not on file [place] Start: 12-11-2021 End: 12-13-2022 Exposure to SARS-CoV-2 (event) Not sure [place] Start: 06-03-2012 Tobacco Comment chews tobacco [facility] Start: 03-23-2021 End: 03-28-2021 Tobacco smoking status [facility] Current every day smoker [facility] History of tobacco use Cigarette Smoker [facility] Start: 03-23-2021 End: 03-21-2023 Alcohol intake Lifetime non-drinker (finding) [facility] Start: 03-23-2021 Tobacco Comment 4 or less ciga rettes (less then 1/4 pack)/day in last 30 days [facility] Start: 03-22-2022 Tobacco use and exposure Smokeless tobacco non-user [facility] Start: 09-20-2022 End: 02-12-2023 History of Social function [facility] Start: 09-20-2022 End: 02-12-2023 Tobacco use panel [facility] Medical Equipment Procedure Code Equipment Code Equipment [...] no fluctuance or crepitation. Left foot nails 32936 are elongated thickened mycotic crumbling and dystrophic. [...] foot nail care documented in this encounter [facility] 02-12-2023 History of Presen t illness Narrative Ingrown left lateral great toe Patient is a pleasant 62-year-old male who comes in today for a 2-week history of an ingrown left great toenail. He states that he nearly finished his levoquin and is feeling much better overall. Reviewed: PVRs and ABIs reviewed from [place]. Appears to have 50% stenosis of his [...] his high morbidity. documented in this encounter [facility] 02-05-2023 History of Presen t illness Narrative [...] levofloxacin. Reviewed: PVRs and ABIs reviewed from [place]. Appears to have 50% stenosis of his [...] titration of antibiotics. documented in this encounter [facility] 12-13-2022 History of Presen t illness Narrative Left leg nail care Consider vascular consult Patient gianluca 62-year-old male who comes in today to [...] son works with a vascular surgeon in [place] who was on him and that there [...] next few weeks. documented in this encounter [facility] 09-20-2022 History of Presen t illness Narrative Patient is a pleasant 62-year-old male who comes in today for nail care. Long history of right leg amputation. Geriatric care is managed by primary including Dr. Burris from [facility], date of last service is January 24, 2021. Physical right leg BKA. Vascular: DP PT pulses poorly palpable left foot mild edema. Derm: No open wounds no ulcers no rashes no deep nodules. No streaking no fluctuance or crepitation. Left foot nails 34837 are elongated thickened mycotic crumbling and dystrophic. [...] foot nail care documented in this encounter [facility] 03-22-2022 History of Presen t illness Narrative Patient is a pleasant 61-year-old male who comes in today for nail care. Long history of right leg amputation. Geriatric care is managed by primary including Dr. Burris from [facility], date of last service is January 24, 2021. Still with left leg wound. Physical right leg BKA. Vascular: DP PT pulses poorly palpable left foot mild edema. Derm: No open wounds no ulcers no rashes no deep nodules. -Anterior left kelly is with open superficial ulceration with suppurative and surrounding erythema. No streaking no fluctuance or crepitation. Left foot nails 03838 are elongated thickened mycotic crumbling and dystrophic. [...] foot nail care documented in this encounter [facility] 12-21-2021 History of Presen t illness Narrative Nail care Patient is a pleasant 61-year-old male who comes in today for nail care. Long history of right leg amputation. Geriatric care is managed by primary including Dr. Burris from [facility], date of last service is January 24, [...] no fluctuance or crepitation. Left foot nails 11305 are elongated thickened mycotic crumbling and dystrophic. [...] foot nail care documented in this encounter [facility] 09-21-2021 History of Presen t illness Narrative Nail care Patient is a pleasant 61-year-old male who comes in today for nail care. Long history of right leg amputation. Geriatric care is managed by primary including Dr. Burris from [facility], date of last service is January 24, 2021. Physical right leg BKA. Vascular: DP PT pulses poorly palpable left foot mild edema. Derm: No open wounds no ulcers no rashes no deep nodules. Left foot nails 63114 are elongated thickened mycotic crumbling and dystrophic. [...] foot nail care documented in this encounter [facility] 06-27-2021 History of Presen t illness Narrative Nail care Patient is a pleasant 60-year-old male who comes in today for nail care. Long history of right leg amputation. Geriatric care is managed by primary including Dr. Burris from [facility], date of last service is January 24, 2021. Physical right leg BKA. Vascular: DP PT pulses poorly palpable left foot mild edema. Derm: No open wounds no ulcers no rashes no deep nodules. Left foot nails 99878 are elongated thickened mycotic crumbling and dystrophic. [...] foot nail care documented in this encounter [facility] 03-28-2021 History of Presen t illness Narrative Nail care Patient is a pleasant 60-year-old male who comes in today for nail care. Long history of right leg amputation. Geriatric care is managed by primary including Dr. Burris from [facility], date of last service is January 24, 2021. Physical right leg BKA. Vascular: DP PT pulses poorly palpable left foot mild edema. Derm: No open wounds no ulcers no rashes no deep nodules. Left foot nails 92648 are elongated thickened mycotic crumbling and dystrophic. [...] foot nail care documented in this encounter [facility] 09-21-2014 Miscellaneous Notes Fasting blood sugar result on 09/20/14 was 99. Result faxed to [facility] AC department. Jane Warren RN Patient [...] birthdate: Yes Call received from Sowmya at [facility] PAT at 0815AM to report a [...] Received lab work from PAT visit at [facility] on 09/16/14. Blood sugar 362 and [...] Patient aware. Jane Warren RN Surgery for [facility] scheduled as follows: scheduled for 09/23/2014 @ 0715. Patient to arrive @ [facility] at 0530 am. Spoke to Lexi [facility] 09/16/14 @ 0800 Orders, consent, and current H&P faxed to: [facility] [phone] & [phone] and [facility] [phone] Referral placed in Epic: Yes IP appointment placed in Epic: Yes He was notified of all dates/times and instructed to call our office immediately with any concerns or questions. [facility] booklet and instructions given. Is update H&P needed? no Cardiac Clearance N/A Kidney center notified: [facility] Kadi Montanez Ma documented in this encounter [facility] Angina at rest (HCC) Other and unspecified angina pectoris Cellulitis of left lower limb Eye pressure Swollen feet Swelling of limb [facility] Onychomycosis- Primary Dermatophytosis of nail Peripheral vascular disease, unspecified (HCC) Peripheral vascular disease, unspecified [facility] Diagnosis Onychomycosis- Primary Dermatophytosis of nail Peripheral vascular disease, unspecified (HCC) Peripheral vascular disease, unspecified [facility] Cellulitis of left foot- Primary Onychomycosis Dermatophytosis of nail Peripheral vascular disease, unspecified (HCC) Peripheral vascular disease, unspecified [facility] Diagnosis Ulcer of left lower extremity with fat layer exposed (HCC)- Primary [facility] Diagnosis Peripheral vascular disease, unspecified (HCC)- Primary Peripheral vascular disease, unspecified Onychomycosis Dermatophytosis of nail [facility] Cellulitis of left foot- Primary Ingrown nail Ingrowing nail [facility] Diagnosis Cellulitis of left foot- Primary Ingrown nail Ingrowing nail [facility] Diagnosis Onychomycosis- Primary Dermatophytosis of nail Peripheral vascular disease, unspecified (HCC) Peripheral vascular disease, unspecified documented in this encounter [facility] Summary Purpose Family History No Family History Records FoundNo Family History Records FoundNo Family History Records FoundNo Family History Records FoundNo Family History Records FoundNo Family History Records Found Advance Directives No Advanced Directives Records FoundDocuments on File Type Date Recorded Patient Electrophysiology Tech Expl anation Advance Directives and Livin g Will Advance Directives and Livin g Will 10/27/2017 10:34 AM Power of Heeler Machine Latest Code Status on File Code Status Date Activated Date Inactivated Comments Full Code 11/08/2018 12:35 AM 11/10/2018 12:09 PM Full Code 10/17/2017 6:25 PM 10/23/2017 4:58 PM Full Code 10/16/2017 1:19 PM 10/17/2017 6:25 PM Documents on File Type Date Recorded Patient Electrophysiology Tech Expl anation Advance Directives and Living Will Reason for Referral Status Reason Specialty Diagnoses / Procedures Referre d By Contact Referred To Contact Open Radiology Diagnoses Diabetic ulcer of toe of left foot associated with type 2 diabetes mellitus, limited to breakdown of skin (HCC) Procedures VL ARTERIAL PVR LOWER WO EXERCISE James Hernandez MD [address] [facility] [address] [place] [address] Specialty Diagnoses / Procedures Referred By Contac t Referred To Contact Vascular Surgery Diagnoses Peripheral vascular disease, unspecified (HCC) Nito Orellana Jr., DPM [address] [phone] Zach Gomez III, DO [address] [phone] Referral ID Status Reason Start Date Expiration Date V isits Requested Visits Authorized [id number] Authorized 12/13/2022 12/13/2023 1 1 Assessments Diagnosis [...] DATE CREATED AUTHOR AUTHOR'S ORGANIZ ATION 01/30/2018 [facility] DATE CREATED AUTHOR AUTHOR'S ORGANIZ ATION 04/14/2018 [facility] DATE CREATED AUTHOR AUTHOR'S ORGANIZ ATION 03/25/2020 [facility] DATE CREATED AUTHOR AUTHOR[facility]S OR[facility]IZ ATION [facility] DATE CREATED AUTHOR AUTHOR'S ORGANIZ ATION 08/24/2023 [facility] Source Comments (unrecognize d section and content) In the event this informatio n is protected by the Federal Confidentiality of Alcohol and Drug Abuse Patient Records regulations: The Federal rules restrict any use of the information to criminally investigate or prosecute any alcohol or drug abuse patient.[facility] Reason for Visit (unrecogniz ed section and [...] Care Teams (unrecognized sec tion and content) Communications Tower 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 Relationship Specialty Start Date End Date No, Physician [facility] PCP - General 03/28/21 Communications Tower Technician Relationship Specialty Start Date End Date No, Physician [facility] PCP - General 03/28/21 Communications Tower Technician Relationship Specialty Start Date End Date No, Physician [facility] PCP - General 03/28/21 Communications Tower Technician Relationship Specialty Start Date End Date No, Physician [facility] PCP - General 03/28/21 Communications Tower Technician Relationship Specialty Start Date End Date No, Physician [facility] PCP - General 03/28/21 Nito Orellana Jr., DPM [address] [place] [address] Podiatry 12/20/22 Communications Tower Technician Relationship Specialty Start Date End Date No, Physician [facility] PCP - General 03/28/21 Nito Orellana Jr., DPM [address] [facility] [place] [address] Podiatry 12/20/22 Communications Tower Technician Relationship Specialty Start Date End Date No, Physician [facility] PCP - General 03/28/21 Nito Orellana Jr., DPM [address] [place] [address] Podiatry 12/20/22 FOR RECORDS PERTAINING TO PATIENTS [...] BE BASED ON THE PRIMARY CLINICAL RECORDS. [employer] [facility]. provides no warranty or guarantee of the accuracy or completeness of information in this document.
--- NOTE | 2023-10-23 08:00 | PCM.HP.STD ---
HPI - General HPI Narrative XUAN HUSTON, is a 63 M who presents with multiple episodes of LLE venous ulcerations. Prior GSV ablation, has large incompetent varicosities and perforators that continue to be source of recurring issues. 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 [facility] Medical History Amputation of leg Arthritis Atherosclerosis of coronary artery of [place] heart without angina pectoris Back pain Back problem Carpal tunnel syndrome CHF (congestive heart failure) Chronic systolic heart failure Deep vein blood clot of right lower extremity Diabetes mellitus Diabetic retinopathy associated with type 2 diabetes mellitus Difficulty balancing Essential hypertension Gallstones Gangrene of right foot GERD (gastroesophageal reflux disease) Hard of hearing History of DVT (deep vein thrombosis) Hx of staphylococcal infection Hyperlipidemia Ischemic cardiomyopathy Neuropathy NPDR (nonproliferative diabetic retinopathy) Obesity Old myocardial infarction Osteoarthritis Osteomyelitis PAD (peripheral artery disease) Paroxysmal atrial fibrillation Peripheral arterial occlusive disease Polyneuropathy Polyneuropathy due to type 2 diabetes mellitus Sick sinus syndrome Thrombocytopenia Home Medications aspirin 81 mg tablet,delayed release 81 mg PO DAILY [facility] 10/10/17 [History Last Taken 06/19/18] metolazone 2.5 mg tablet 2.5 mg PO .COMPLEX PRN SWELLING #45 tabs 08/26/19 [Rx Last Taken Unknown] ascorbic acid (vitamin C) 500 mg capsule 500 mg PO DAILY 12/22/20 [History Last Taken Unknown] Novolog FlexPen U-100 Insulin 100 unit/mL (3 mL) subcutaneous (insulin aspart U-100) 30 unit (0.3 mL) subcut .tidcm #135 mL 05/24/21 [Rx Last Taken Unknown] flash glucose sensor (FreeStyle Junaid 14 Day Sensor kit) #2 ea 12/10/21 [Rx Last Taken Unknown] Dexcom G6 Globe Changer (blood-glucose meter,continuous) #1 ea 02/28/22 [Rx Last Taken Unknown] Dexcom G6 Sensor (blood-glucose sensor) #9 ea 02/28/22 [Rx Last Taken Unknown] Dexcom G6 Transmitter (blood-glucose transmitter) #1 ea 02/28/22 [Rx Last Taken Unknown] dapagliflozin propanediol 10 mg tablet (Farxiga) 10 mg PO DAILY 10/29/22 [History Last Taken Unknown] diazepam 5 mg tablet (Valium) 5 mg PO ONCE PRN sedation #1 TAB 12/24/22 [Rx Last Taken Unknown] ezetimibe 10 mg tablet 10 mg PO DAILY #90 tabs 02/24/23 [Rx Last Taken Unknown] nitroglycerin 0.4 mg/hr transdermal 24 hour patch 1 patch transdermal DAILY #90 ea 06/23/23 [Rx Last Taken 09/04/23] furosemide 40 mg tablet 40 mg PO .COMPLEX #270 tabs 07/21/23 [Rx Last Taken Unknown] insulin glargine 100 unit/mL (3 mL) subcutaneous pen (Basaglar KwikPen U-100 Insulin) 40 unit subcut QAM 07/21/23 [History Last Taken Unknown] ranolazine 500 mg tablet,extended release,12 hr (Ranexa) 500 mg PO BID #180 tabs 07/21/23 [Rx Last Taken Unknown] rosuvastatin 5 mg tablet (Crestor) 5 mg PO .3 times a week #36 tabs 07/21/23 [Rx Last Taken Unknown] sacubitril 97 mg-valsartan 103 mg tablet (Entresto) See Rx Instructions .Route .COMPLEX #180 tabs 07/21/23 [Rx Last Taken Unknown] carvedilol 6.25 mg tablet See Rx Instructions .Route .COMPLEX #180 tabs 10/09/23 [Rx Last Taken Unknown] omeprazole 20 mg capsule,delayed release See Rx Instructions .Route .COMPLEX #90 caps 10/09/23 [Rx Last Taken Unknown] tirzepatide 2.5 mg/0.5 mL subcutaneous pen injector (Mounjaro) 2.5 mg subcut QWEEK 10/22/23 [History Last Taken Unknown] Allergy/AdvReac Type Severity Reaction Status Date / Time dulaglutide [From Trulicity] Allergy Intermediate Diarrhea Verified 09/17/23 15:00 Penicillins Allergy Hives Verified 09/17/23 15:00 pioglitazone HCl [From Actos] Allergy Swelling Verified 09/17/23 15:00 Mtkktth-WKF-EiT Reductase Allergy Unknown Verified 09/17/23 15:00 Inhibitor [Atgoxnn-Mbt-Gps Reductase Inhibitor] gabapentin [From Neurontin] AdvReac Intermediate Other Verified 09/17/23 15:00 Family History Father , age 57 Diabetes CAD (coronary artery disease) Brother , age 33 Diabetes Myocardial infarction Brother Diabetes AICD (automatic cardioverter/defibrillator) present CAD (coronary artery disease) coronary stents Other Heart disease Hypertension Surgical History abdominal aortagram with RLE runoff (~10/17/17) Amputation, toe, traumatic H/O coronary artery bypass surgery (09/26/04) H/O right heart catheterization History of angioplasty History of carpal tunnel release of both wrists History of coronary artery stent placement (09/25/17) History of exploratory laparotomy History of eye surgery (~04/2023) History of laminectomy History of left heart catheterization (06/2018) 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) History of spinal fusion History of vasectomy (1994) Hx of cholecystectomy (2014) left heart cath and RLE arteriogram (09/25/17) neurostimulator implant Presence of automatic implantable cardioverter-defibrillator (08/08/16) Previous back surgery RLE peroneal artery stent (10/03/17) Status post ablation of incompetent vein using laser Social History Smoking Status: Never smoker alcohol intake: never substance use type: does not use caffeine: Yes Type: carbonated beverages Number of servings: 1 and coffee Number of servings: 2 what type of physical activity do you participate in: none ROS Constitutional Constitutional: Denies chills, fever(s), frequent falls, lethargy or weakness Eyes Eyes: Denies blind spots, change in vision or loss of vision ENT HEENT: Denies bleeding gums, hoarseness or sore throat Cardiovascular Cardiovascular: Denies abdominal pain, bluish discoloration of hand/feet, chest pain with activity, claudication, cold extremities, cyanosis, dyspnea on exertion, erythema on extremities, irregular heart rhythm, leg edema, leg ulcers, numbness in extremities or weakness in extremities Respiratory/Chest Respiratory/Chest: Denies cough, excessive phlegm production, shortness of breath at rest, shortness of breath with exertion or wheezing Gastrointestinal Gastrointestinal: Denies anorexia, change in stool character, constipation, diarrhea, melena or rectal bleeding Genitourinary Genitourinary: Denies dysuria or hematuria Musculoskeletal Musculoskeletal: Denies abnormal gait Integumentary Integumentary: Reports other Details: ; Denies erythema, non-healing lesions or wounds Neurologic Neurologic: Denies abnormal speech, focal weakness, headache(s), loss of vision, numbness, paresthesias or sensory deficit Hematologic/Lymphatic Hematologic/Lymphatic: Denies easy bleeding, easy bruising or lymphadenopathy Vital Signs Vital Signs Vital Signs: Weight Weight: 225 lb Body Mass Index (BMI) 32.3 Physical Exam Const alert, oriented x3, no apparent distress and healthy appearing General Appearance: cooperative; Negative for combative or lethargic Orientation / Consciousness: awake Exam Limitations: no limitations HEENT Head and Scalp: normocephalic and atraumatic Eyes EOMs intact bilaterally General Eye: normal appearance of both eyes Neck full ROM, no lymphadenopathy and thyroid normal General: trachea midline; Negative for lymphadenopathy or tenderness Thyroid: thyroid normal Lymph Lymphatic: Negative for no lymphadenopathy noted Resp normal respiratory effort and no use of accessory muscles Effort and Inspection: Negative for labored, stridor or audible wheezes Cardio regular rate and regular rhythm Back/Spine Cervical Spine: cervical ROM normal Extremity full ROM, normal capillary refill and no clubbing, cyanosis or edema Skin no rashes or lesions noted and no wounds Neuro oriented x3, CN's II-XII intact bilaterally, no focal motor deficits and no sensory deficits noted Psych thought process normal, cooperative, affect normal, speech normal and activity/motor behavior normal Assessment & Plan Assessment/Plan (1) Ulcer of extremity due to chronic venous insufficiency: PLAN: -truck sales representative ablation
--- NOTE | 2023-10-23 09:50 | PCM.OPRPT ---
Report of Operation Date of Procedure: 10/23/23 Pre-Operative Diagnosis: venous insufficiency with varicose veins, pain, ulceration left lower extremity Post-Operative Diagnosis: same Surgery/Procedure Performed:: left lower extremity web content producer ablation x 3 Surgeon: Nas Gregg Type of Anesthesia: Local and Sedation,Conscious Estimated Blood Loss (mL): 4 Description of Procedure: HPI: Patient is a 63-year-old male with chronic venous insufficiency with multiple episodes of ulceration left lower extremity. He previously has had his saphenous vein harvested and has significant incompetent varicosities that are in part feeding his lower leg skin changes. He also has multiple perforators that feed into these varicosities in the area of the worst skin changes. He presents now for wound web content producer radiofrequency ablation. Description of procedure: Upon obtaining form consent and verification correct patient procedure site patient was taken to the [facility] where he was positioned prepped and draped in usual sterile fashion. Timeouts performed conscious sedation administered with Versed and fentanyl. Ultrasound used to evaluate for perforators connecting the varicosities to the deep system. A total of 4 varicosities were identified that appeared to directly communicate with varicosities in the area of the skin changes. Skin overlying the first web content producer was anesthetized 1% lidocaine and small skin incision made through which the ablation probe was advanced. We had difficulty cannulating the web content producer and there was not sufficient drop in Ohms to indicate satisfactory position within the lumen. Multiple efforts were undertaken we were unable to treat this initial web content producer. Next web content producer branch more cephalad was larger in caliber and the skin overlying was anesthetized with lidocaine and the skin incision made. The ablation probe was then advanced into the vessel with satisfactory drop in resistance indicating satisfactory placement. The device was then engaged for a total of 4 minutes after which the there was deactivated and withdrawn. Next skin overlying the third web content producer was anesthetized 1% lidocaine and skin incision made. Probe was then advanced with satisfactory resistance drop indicating good positioning. This again was activated for this time 6 minutes and then deactivated withdrawn. Finally we anesthetized skin overlying the most superior web content producer and skin incision made. The ablation probe was then advanced into the the vessel with dropping resistance indicating satisfactory positioning. This was again engaged for 6 minutes and then deactivated withdrawn. Steri-Strips were then applied followed by dry sterile dressings and Jose wrap. Patient was taken recovery room within anticipated discharged home.
== END 2023-10-23 10:40 | disposition home or self-care (01) ==
PROVIDERS: PCP Family Medicine; Referring Provider Surgery Trauma Surgery; Visit Provider Surgery Trauma Surgery
DX: I83.028 Varicose veins of left lower extremity with ulcer other part of lower leg (principal); L97.829 Non-pressure chronic ulcer of other part of left lower leg with unspecified severity; I11.0 Hypertensive heart disease with heart failure; I50.22 Chronic systolic (congestive) heart failure; E11.42 Type 2 diabetes mellitus with diabetic polyneuropathy; E11.59 Type 2 diabetes mellitus with other circulatory complications; I48.0 Paroxysmal atrial fibrillation; I25.10 Atherosclerotic heart disease of native coronary artery without angina pectoris; Z79.82 Long term (current) use of aspirin; I87.2 Venous insufficiency (chronic) (peripheral); I25.5 Ischemic cardiomyopathy; E78.5 Hyperlipidemia, unspecified; Z90.49 Acquired absence of other specified parts of digestive tract; Z95.810 Presence of automatic (implantable) cardiac defibrillator; Z82.49 Family history of ischemic heart disease and other diseases of the circulatory system; I25.2 Old myocardial infarction; I83.812 Varicose veins of left lower extremity with pain
CPT/HCPCS: 36475; 99152; 99153; C1888; J7030; J7040

== ENCOUNTER → 2023-10-27 | Outpatient (CLI) | payer OTHER, SELFPAY ==
--- NOTE | 2023-10-27 13:17 | RAD_ITS ---
STUDY: X-RAY CHEST REASON FOR EXAM: Male, 63 years old. Cough TECHNIQUE: PA and lateral views of the chest. COMPARISON: Comparison is made with prior study dated March 09, 2022. FINDINGS: The lungs are clear and expanded. There is no demonstrated pleural abnormality. Sternal cerclage wires and vascular clips are present from a prior sternotomy and coronary artery bypass graft procedure (CABG). A left-sided dual-chamber pacemaker is seen. Normal mediastinum and delia. Normal visualized pulmonary arteries. Normal visualized aortic arch and descending thoracic aorta. Normal visualized thoracic spine. Normal visualized ribs, clavicles, and shoulders. There is no demonstrated abnormality of the visualized soft tissue structures of the upper abdomen. Electrodes from a spinal cord stimulator device is seen. RAD/Chest PA and Lateral IMPRESSION: No acute abnormalities present. Electronically Signed: Izaiah Mcgee MD at 13:39 EDT ,
== END | disposition home or self-care (01) ==
LOC: MTRAD 13:16
PROVIDERS: PCP Family Medicine; Referring Provider Physician Assistant; Visit Provider Physician Assistant
DX: R05.9 Cough, unspecified (principal)
CPT/HCPCS: 71046

== ENCOUNTER → 2023-10-29 | Outpatient (CLI) | payer OTHER, SELFPAY ==
--- NOTE | 2023-10-29 10:49 | VDLE_ITS ---
Reason For Study: S/P Lt Saph / Perf ablation RIGHT LEFT CFV is compressible, spontaneous, phasic, GSV is normal. competent and demonstrates normal CFV is compressible, spontaneous, phasic, augmentation. competent, and demonstrates normal Procedure augmentation. This is a venous duplex using B-mode, color FV is compressible, spontaneous, phasic, flow and spectral Doppler. competent and demonstrates normal Exam performed in department. augmentation. The exam was diagnostic. POP V is compressible, spontaneous, phasic, competent and demonstrates normal augmentation. T/P Trunk is compressible. PTV is compressible. LT PerV is compressible. VL/Venous Duplex US, Unilateral Interpretation Summary Deep veins of the left lower extremity are patent and compressible segmentally. There is no evidence of left lower extremity deep vein thrombosis. Ordering Physician: Emmanuelle Rivers Referring Physician: Emmanuelle Rivers Performed By: Richmond Dove RVT
== END | disposition home or self-care (01) ==
LOC: CVS 10:49
PROVIDERS: PCP Family Medicine; Referring Provider Physician Assistant; Visit Provider Physician Assistant
DX: I87.2 Venous insufficiency (chronic) (peripheral) (principal)
CPT/HCPCS: 93971

== ENCOUNTER 2023-11-13 15:00 | Inpatient (IN) | payer OTHER, SELFPAY ==
[2023-11-13] VITALS (8 sets, daily range): BP systolic 78–106; BP diastolic 51–67; PULSE 77–87; RESP 16–25; TEMP 36.5–36.8; O2SAT 94–97; BMI 32.1; BMI 31.9
--- NOTE | 2023-11-13 15:26 | EDS_ITS ---
HPI <FERNANDO Zheng - Last Filed: 11/13/23 18:32> History of Present Illness Chief Complaint: Shortness of Breath Narrative Narrative: Patient is a 63-year-old male with history of ICD secondary to sick sinus syndrome, hypertension, lipidemia history of surgeries below the knee amputation, CHF with ejection fraction of 40% who presents to the emergency department with 5 days of decreased appetite, weakness, nausea, vomiting, weakness. Patient was seen at the PCPs office, had blood pressure of 81 systolic, was dizzy, and referred here to the emergency department. PFSH <FERNANDO Zheng - Last Filed: 11/13/23 18:32> [facility]LY [facility] Medical History Acute bronchitis, unspecified Amputation of leg Arthritis Atherosclerosis of coronary artery of [place] heart without angina pectoris Back pain Back problem Carpal tunnel syndrome CHF (congestive heart failure) Chronic systolic heart failure Deep vein blood clot of right lower extremity Diabetes mellitus Diabetic retinopathy associated with type 2 diabetes mellitus Difficulty balancing Essential hypertension Gallstones Gangrene of right foot GERD (gastroesophageal reflux disease) Hard of hearing History of DVT (deep vein thrombosis) Hx of staphylococcal infection Hyperlipidemia Ischemic cardiomyopathy Neuropathy NPDR (nonproliferative diabetic retinopathy) Obesity Old myocardial infarction Osteoarthritis Osteomyelitis PAD (peripheral artery disease) Paroxysmal atrial fibrillation Peripheral arterial occlusive disease Polyneuropathy Polyneuropathy due to type 2 diabetes mellitus Sick sinus syndrome Thrombocytopenia Home Medications aspirin 81 mg tablet,delayed release 81 mg PO DAILY HEART HEALTH 10/10/17 [History Last Taken 11/13/23 08:00 81 mg] metolazone 2.5 mg tablet 2.5 mg PO .COMPLEX PRN SWELLING #45 tabs 08/26/19 [Rx Last Taken Unknown] ascorbic acid (vitamin C) 500 mg capsule 500 mg PO DAILY supplement 12/22/20 [History Last Taken 11/13/23 08:00 500 mg] Novolog FlexPen U-100 Insulin 100 unit/mL (3 mL) subcutaneous (insulin aspart U- 100) 30 unit (0.3 mL) subcut .tidcm DM #135 mL 05/24/21 [Rx Last Taken Unknown] flash glucose sensor (FreeStyle Junaid 14 Day Sensor kit) #2 ea 12/10/21 [Rx Last Taken Unknown] Dexcom G6 Rn Teacher (blood-glucose meter,continuous) #1 ea 02/28/22 [Rx Last Taken Unknown] Dexcom G6 Sensor (blood-glucose sensor) #9 ea 02/28/22 [Rx Last Taken Unknown] Dexcom G6 Transmitter (blood-glucose transmitter) #1 ea 02/28/22 [Rx Last Taken Unknown] dapagliflozin propanediol 10 mg tablet (Farxiga) 10 mg PO DAILY CHF 10/29/22 [History Last Taken 11/13/23 08:00 10 mg] ezetimibe 10 mg tablet 10 mg PO DAILY cholesterol #90 tabs 02/24/23 [Rx Last Taken 11/13/23 08:00 10 mg] nitroglycerin 0.4 mg/hr transdermal 24 hour patch 1 patch transdermal DAILY CHF #90 ea 06/23/23 [Rx Last Taken 11/13/23 08:00 1 patch] furosemide 40 mg tablet 40 mg PO .COMPLEX diuretic #270 tabs 07/21/23 [Rx Last Taken 11/13/23 08:00 80 mg] insulin glargine 100 unit/mL (3 mL) subcutaneous pen (Basaglar KwikPen U-100 Insulin) 30 unit subcut QAM DM 07/21/23 [History Last Taken Unknown] sacubitril 97 mg-valsartan 103 mg tablet (Entresto) See Rx Instructions .Route .COMPLEX CHF #180 tabs 07/21/23 [Rx Last Taken 11/13/23 08:00 97-103] carvedilol 6.25 mg tablet See Rx Instructions .Route .COMPLEX for his blood pressure #180 tabs 10/09/23 [Rx Last Taken 11/13/23 08:00 6.25] omeprazole 20 mg capsule,delayed release See Rx Instructions .Route .COMPLEX acid reflux #90 caps 10/09/23 [Rx Last Taken 11/12/23 20:00 20] pitavastatin calcium 4 mg tablet 4 mg PO .COMPLEX cholesterol 11/13/23 [History Last Taken Unknown] ranolazine 500 mg tablet,extended release,12 hr 500 mg PO BID CHF 11/13/23 [History Last Taken 11/13/23 08:00 500 mg] Allergy/AdvReac Type Severity Reaction Status Date / Time dulaglutide [From [facility]] Allergy Intermediate Diarrhea Verified 11/13/23 15:02 Penicillins Allergy Hives Verified 11/13/23 15:02 pioglitazone HCl [From Actos] Allergy Swelling Verified 11/13/23 15:02 Mcrzikn-CQH-DeU Reductase Allergy Unknown Verified 11/13/23 15:02 Inhibitor [Ypiuhih-Mmo-Gyq Reductase Inhibitor] gabapentin [From Neurontin] AdvReac Intermediate Other Verified 11/13/23 15:02 Family History Father , age 57 Diabetes CAD (coronary artery disease) Brother , age 33 Diabetes Myocardial infarction Brother Diabetes AICD (automatic cardioverter/defibrillator) present CAD (coronary artery disease) coronary stents Other Heart disease Hypertension Surgical History abdominal aortagram with RLE runoff (~10/17/17) Amputation, toe, traumatic H/O coronary artery bypass surgery (09/26/04) H/O right heart catheterization History of angioplasty History of carpal tunnel release of both wrists History of coronary artery stent placement (09/25/17) History of exploratory laparotomy History of eye surgery (~04/2023) History of laminectomy History of left heart catheterization (06/2018) 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) History of spinal fusion History of vasectomy (1994) Hx of cholecystectomy (2014) left heart cath and RLE arteriogram (09/25/17) neurostimulator implant Presence of automatic implantable cardioverter-defibrillator (08/08/16) Previous back surgery RLE peroneal artery stent (10/03/17) Status post ablation of incompetent vein using laser Social History Smoking Status: Current every day smoker tobacco type: smokeless tobacco alcohol intake: never substance use type: does not use caffeine: Yes Type: carbonated beverages Number of servings: 1 and coffee Number of servings: 2 what type of physical activity do you participate in: none ROS <FERNANDO Zheng - Last Filed: 11/13/23 18:32> ROS ED ROS Narrative Constitutional: Negative for fever, chills, weight loss. Positive for weakness Eyes: Negative for vision loss, vision change, double vision ENT: Negative for any sore throat, ear pain, congestion Cardiovascular: Negative for any tightness, palpitations. Positive for left- sided chest pain Respiratory: Negative for any cough, sputum production, hemoptysis, dyspnea, dyspnea on exertion, orthopnea Gastrointestinal: Negative for any abdominal pain, diarrhea, constipation, blood in stool, blood in vomit. Positive for nausea and vomiting : Negative for any urinary frequency, dysuria, retention, blood in urine Muscle skeletal: Negative for any neck pain, back pain Neurological: Negative for any headache, syncope. Positive for dizziness Skin: Negative for any rashes, itching, abrasions, lacerations Psychiatric: Negative for any depression, anxiety, stress, suicidal ideation, homicidal ideation Hematologic: Negative for any excessive bruising, easy bleeding EXAM <FERNANDO Zheng - Last Filed: 11/13/23 18:32> Physical Exam Narrative Exam Narrative: Vital signs reviewed. Patient's blood pressure is slightly low at 93/48. HEET: Head normocephalic atraumatic, TMs clear bilaterally. Posterior pharynx is clear, dry mucous membranes. Nares clear bilaterally. Neck: Supple with no lymphadenopathy or tenderness. No signs of meningismus. Cardiac: Regular rate and rhythm no murmurs gallops or rubs, equal peripheral pulses bilaterally. Respiratory: Diminished lung sounds at bilateral bases, slight crackles the left lower lobe. No chest tenderness. Abdomen: Soft, nontender, nondistended. No abdominal bruit or pulsatile masses. No hepatosplenomegaly Extremities: No peripheral edema, no signs of gross trauma or deformity. Active full range of motion of all extremities. Patient's right leg is a below the knee amputation Neuro: Cranial nerves II through XII intact, no focal neurological deficits. Skin: Clean dry and intact with no rash, purpura, petechiae, vesicles or pustules. Backs/flank: No CVA tenderness, no midline spinal tenderness, no deformity. Psych: Normal mood and affect. No SI, HI or acute psychosis. Const Vital Signs: 11/13/23 15:02 11/13/23 15:13 11/13/23 15:47 Temperature 98 F Temperature Source Temporal Pulse Rate 82 Respiratory Rate 20 H Respiratory Effort Normal Non-Labored Respiratory Depth Normal Respiratory Pattern Normal Blood Pressure 96/57 L Blood Pressure Mean 70 Pulse Ox 97 Oxygen Delivery Method Room Air Room Air Room Air 11/13/23 16:15 11/13/23 17:00 11/13/23 17:29 Temperature Temperature Source Pulse Rate 77 78 Respiratory Rate 25 H 24 H Respiratory Effort Respiratory Depth Respiratory Pattern Blood Pressure 88/60 L 78/51 L 84/62 L Blood Pressure Mean 71 59 69 Pulse Ox 95 95 Oxygen Delivery Method Positive well nourished and well developed General Appearance ED: well developed <Dr. Harrison Hernandez DO - Last Filed: 11/13/23 22:30> Physical Exam Const Vital Signs: 11/13/23 15:02 11/13/23 15:13 11/13/23 15:47 Temperature 98 F Temperature Source Temporal Pulse Rate 82 Respiratory Rate 20 H Respiratory Effort Normal Non-Labored Respiratory Depth Normal Respiratory Pattern Normal Blood Pressure 96/57 L Blood Pressure Mean 70 Pulse Ox 97 Oxygen Delivery Method Room Air Room Air Room Air 11/13/23 16:15 11/13/23 17:00 11/13/23 17:29 Temperature Temperature Source Pulse Rate 77 78 Respiratory Rate 25 H 24 H Respiratory Effort Respiratory Depth Respiratory Pattern Blood Pressure 88/60 L 78/51 L 84/62 L Blood Pressure Mean 71 59 69 Pulse Ox 95 95 Oxygen Delivery Method MDM <FERNANDO Zheng - Last Filed: 11/13/23 18:32> [facility] Lab Data Labs: Laboratory Results - last 24 hr 11/13/23 11/13/23 11/13/23 15:10 15:45 17:30 WBC 10.2 RBC 4.81 Hgb 13.4 Hct 42.0 MCV 87.3 MCH 27.9 MCHC 31.9 L RDW Std Deviation 43.6 RDW Coeff of Sushila 13.5 Plt Count 301 MPV 10.9 Immature Gran % (Auto) 0.300 Neut % (Auto) 72.9 H Lymph % (Auto) 16.7 L [place] % (Auto) 9.0 Eos % (Auto) 0.7 Baso % (Auto) 0.4 Absolute Neuts (auto) 7.4 Absolute Lymphs (auto) 1.70 Nucleated RBC % 0 PT 15.5 H INR 1.2 APTT 31.1 Sodium 136 Potassium 4.0 Chloride 101 Carbon Dioxide 21.0 Anion Gap 14 BUN 29 H Creatinine 1.79 H Estim Creat Clear Calc 50.45 Est GFR (MDRD) Af Amer 50 L Est GFR (MDRD) Non-Af 41 L BUN/Creatinine Ratio 16.2 Glucose 231 H Lactic Acid 2.1 H* Calcium 8.6 Troponin I High Sens 6252 H* 5953 H* B-Natriuretic Peptide 1031.9 H Urine Color Yellow Urine Clarity Clear Urine pH 6.0 Ur Specific [place] 1.015 Urine Protein 15 H Urine Glucose (UA) 1000 H Urine Ketones 50 H Urine Occult Blood Negative Urine Nitrite Negative Urine Bilirubin Negative Urine Urobilinogen 1 H Ur Leukocyte Esterase Negative Urine RBC 0 SEEN Urine WBC 0 SEEN Ur Squamous Epith Cells 0 SEEN Urine Bacteria 0 SEEN Urine Mucus 0 SEEN Radiography Diagnostic Testing: Clinical Impression(s) from Imaging Studies Chest X-Ray 11/13/23 15:55 IMPRESSION: Possible mild atelectasis or infiltrate in the lung bases. Possible small left pleural effusion. Electronically Signed: Moreno Mccurdy MD at 16:14 EDT , EKG Atrial sensed ventricular paced: Attestation: I personally reviewed and interpreted this EKG as follows: Comments: Rate of 81 bpm, TX interval 246 ms, QRS duration 172 ms, no acute ST elevation, no acute infarct noted Treatment and Re-Evaluation :: Differential diagnosis includes however is not limited to: ACS, GA, dehydration, COVID-19, influenza, viral-like illness, CHF exacerbation, hyperglycemia Patient appears to be in no obvious respiratory distress however he is slight tachypnea, slightly hypotensive however the patient's oxygen is 98%. Heart rate was in the 80s that is paced. Patient received basic laboratory values, COVID- 19, influenza, cardiac workup. Chest x-ray two-view. Patient given 1 L of normal saline, IV Zofran. All radiologic examinations were read, reviewed by the emergency department attending. From these reads, a plan of care will be put in place. Patient's chest x-ray showed possible mild atelectasis or infiltrate in the lung bases. Possible small left pleural effusion. Patient's urinalysis was negative for any infection. Patient's laboratory values showed normal CBC, patient's chemistry shows slight elevation in the creatinine at 1.79, earlier in the month of August it was 1.33, BUN of 29, patient's blood glucose was 231, lactic acid was 2.1. Patient's initial troponin was 6252 consistent with NSTEMI. At this time, patient was given baby aspirin. Patient's blood pressure remains soft at 92 systolic, I will give the patient other 500 cc of normal saline. Patient need to be admitted to hospital, repeat troponin will be completed. I spoke with cardiology, Dr. Bullock, he did come down and see the patient, patient did have a nitro paste on that he took off. Patient blood pressure 95 systolic, patient stable for admission to medicine. Critical care time was documented for this patient secondary to multiple phone calls to specialist as well as hospitalist, multiple rechecking on the patient secondary to hypotension. <Dr. Harrison Hernandez, DO - Last Filed: 11/13/23 22:30> [facility] History & Record Review Discussion w/independent historian: Patient and Significant other Lab Data Attestation: I reviewed the patient's lab results. Labs: Laboratory Results - last 24 hr 11/13/23 11/13/23 11/13/23 15:10 15:45 17:30 WBC 10.2 RBC 4.81 Hgb 13.4 Hct 42.0 MCV 87.3 MCH 27.9 MCHC 31.9 L RDW Std Deviation 43.6 RDW Coeff of Sushila 13.5 Plt Count 301 MPV 10.9 Immature Gran % (Auto) 0.300 Neut % (Auto) 72.9 H Lymph % (Auto) 16.7 L Latimer % (Auto) 9.0 Eos % (Auto) 0.7 Baso % (Auto) 0.4 Absolute Neuts (auto) 7.4 Absolute Lymphs (auto) 1.70 Nucleated RBC % 0 PT 15.5 H INR 1.2 APTT 31.1 Sodium 136 Potassium 4.0 Chloride 101 Carbon Dioxide 21.0 Anion Gap 14 BUN 29 H Creatinine 1.79 H Estim Creat Clear Calc 50.45 Est GFR (MDRD) Af Amer 50 L Est GFR (MDRD) Non-Af 41 L BUN/Creatinine Ratio 16.2 Glucose 231 H Lactic Acid 2.1 H* Calcium 8.6 Troponin I High Sens 6252 H* 5953 H* B-Natriuretic Peptide 1031.9 H Urine Color Yellow Urine Clarity Clear Urine pH 6.0 Ur Specific [place] 1.015 Urine Protein 15 H Urine Glucose (UA) 1000 H Urine Ketones 50 H Urine Occult Blood Negative Urine Nitrite Negative Urine Bilirubin Negative Urine Urobilinogen 1 H Ur Leukocyte Esterase Negative Urine RBC 0 SEEN Urine WBC 0 SEEN Ur Squamous Epith Cells 0 SEEN Urine Bacteria 0 SEEN Urine Mucus 0 SEEN Radiography Diagnostic Testing: Clinical Impression(s) from Imaging Studies Chest X-Ray 11/13/23 15:55 IMPRESSION: Possible mild atelectasis or infiltrate in the lung bases. Possible small left pleural effusion. Electronically Signed: Moreno Mccurdy MD at 16:14 EDT , Management Discussion w/another healthcare provider: Hospitalist (Dr. Cedillo) and Early Childhood Lead Teacher (Cardiology - Dr. Bullock) Treatment and Re-Evaluation :: Differential diagnosis includes however is not limited to: ACS, GA, dehydration, COVID-19, influenza, viral-like illness, CHF exacerbation, hyperglycemia Patient appears to be in no obvious respiratory distress however he is slight tachypnea, slightly hypotensive however the patient's oxygen is 98%. Heart rate was in the 80s that is paced. Patient received basic laboratory values, COVID- 19, influenza, cardiac workup. Chest x-ray two-view. Patient given 1 L of normal saline, IV Zofran. All radiologic examinations were read, reviewed by the emergency department attending. From these reads, a plan of care will be put in place. Patient's chest x-ray showed possible mild atelectasis or infiltrate in the lung bases. Possible small left pleural effusion. Patient's urinalysis was negative for any infection. Patient's laboratory values showed normal CBC, patient's chemistry shows slight elevation in the creatinine at 1.79, earlier in the month of August it was 1.33, BUN of 29, patient's blood glucose was 231, lactic acid was 2.1. Patient's initial troponin was 6252 consistent with NSTEMI. At this time, patient was given baby aspirin. Patient's blood pressure remains soft at 92 systolic, I will give the patient other 500 cc of normal saline. Patient need to be admitted to hospital, repeat troponin will be completed. I spoke with cardiology, Dr. Kobe, he did come down and see the patient, patient did have a nitro paste on that he took off. Patient blood pressure 95 systolic, patient stable for admission to medicine. Critical care time was documented for this patient secondary to multiple phone calls to specialist as well as hospitalist, multiple rechecking on the patient secondary to hypotension. I have personally performed a face to face assessment of the patient and have reviewed the DAYANA Note. I performed a substantive portion of the visit including all aspects of the following. My navarro findings include: History is multiple day history of decreased p.o. intake and vomiting. states that she is concerned for CHF but notes that the left leg is significantly less swollen than normal and that his veins seem very soft particularly in his hands. He states he has a very dry mouth. No reported fevers. No significant cough. He denies any chest pain. He was hypotensive at primary care doctor's office and sent him over. He has not had any syncope. Exam is patient alert no acute distress. He has dry mucous membranes. Lung sounds clear and equal. Abdomen appears benign. Lower extremity does not show any tense edema. Slightly delayed capillary refill. No mottling. Medical Decison Making patient received gentle IV hydration given his CHF. My independent interpretation of the chest x-ray is no pulmonary edema. Possible small left pleural effusion. No definitive consolidation. Troponin is significantly elevated. He is in a paced rhythm. Again no chest pain or chest pressure. BNP is elevated but which is elevated off his baseline. Lactic acid was also slightly elevated 2.1 however anion gap of 14 CO2 of 21. COVID flu RSV is negative. patient would benefit from inpatient care. Will speak with cardiology and hospitalist. <FERNANDO Zheng - Last Filed: 11/13/23 18:32> Critical Care Time Critical Care Time: Yes Critical care time (excluding procedures): 30-74 minutes, Discussing w/Patient &/or Family/Oil Filters Inspector, Discussing w/Consultants and Performing Direct Patient Care at Bedside Discharge Plan Dx/Rx/DC Orders Clinical Impression: Back pain, Acute non-ST elevation myocardial infarction (NSTEMI), Chest pain, Dehydration, Atherosclerosis of coronary artery of [place] heart without angina pectoris, Chronic systolic heart failure, Vomiting, Acute kidney injury Disposition Disposition: Acute Care Hospital [facility] Discharge Date/Time: 11/13/23 18:58
[2023-11-13] MEDS: 0.9% Normal Saline (1000mL) 1,000 ML 999 ML IV (15:38)
[2023-11-13] MEDS: Ondansetron 4 MG/2 ML Vial IV (15:40)
--- NOTE | 2023-11-13 15:55 | RAD_ITS ---
STUDY: X-RAY CHEST REASON FOR EXAM: Male, 63 years old. chest pain TECHNIQUE: Frontal and lateral views of the chest. COMPARISON: 10/27/2023. FINDINGS: Incomplete expansion of both lungs. Ill-defined increased density in both lung bases which could be mild atelectasis or infiltrate. Lateral view suggests possibility of small left pleural effusion. Normal size heart. Previous CABG. Pacemaker is seen with leads terminating in the right atrium and right ventricle. Normal mediastinum and delia. Normal visualized pulmonary arteries. Normal visualized aortic arch and descending thoracic aorta. Normal visualized thoracic spine. Stable appearance of lower thoracic epidural stimulator. Normal visualized ribs, clavicles, and shoulders. There is no demonstrated abnormality of the visualized soft tissue structures of the upper abdomen. RAD/Chest PA and Lateral IMPRESSION: Possible mild atelectasis or infiltrate in the lung bases. Possible small left pleural effusion. Electronically Signed: Moreno Mccurdy MD at 16:14 EDT ,
[2023-11-13 15:57] LABS: Bacteria 0 SEEN /hpf (None Seen); Mucous, Urine 0 SEEN /hpf (<or=2+); Red Blood Cells-Urine 0 SEEN /hpf (0-5); Squamous Epithelial Cells - UA 0 SEEN /hpf (0-5); White Blood Cells 0 SEEN /hpf (0-5)
[2023-11-13 15:59] LABS: Color, Urine Yellow (Yellow); Glucose, Dipstick 1000 mg/dl (Normal); Ketone-Dipstick 50 mg/dl (Negative); Leukocyte Esterase-Dipstick Negative /ul (Negative); Nitrite-Dipstick Negative (Negative); Occult Blood-Urine Negative /ul (Negative); Protein-Dipstick 15 mg/dl (Negative); Specific Gravity, Urine 1.015 (1.002-1.030); Urine Bilirubin Dipstick Negative (Negative); Urine Clarity Clear (Clear); Urine Urobilinogen 1 mg/dl (Normal)
[2023-11-13 16:27] LABS: Absolute Neutrophil Count 7.4 X10^3/uL (2.0-7.7); Basophil# 0.04 X10^3/uL; Basophil% 0.4 % (0-1); Eosinophil# 0.07 X10^3/uL; Eosinophils% 0.7 % (0-5); Hemoglobin 13.4 g/dL (13.0-16.5); Lymphocyte % 16.7 % (19-41); Mean Corp Hgb Conc 31.9 g/dL (32-36); Mean Corpuscular Hgb 27.9 pg (27.0-32.0); Mean Corpuscular Volume 87.3 fL (80-94); Mean Platelet Vol. 10.9 fl (6.2-12.0); Monocyte# 0.92 X10^3/uL; NRBC Flagged by Analyzer 0 % (0-5); Neutrophil # 7.42 X10^3/uL (2.7-7.7); Neutrophil % 72.9 % (47-70); Platelet Count 301 K/mm3 (150-450); RBC Distribution Width CV 13.5 % (11.6-14.6); RBC Distribution Width SD 43.6 fl (35.1-43.9); Red Blood Count 4.81 M/mm3 (4.6-6.2); White Blood Count 10.2 K/mm3 (4.4-11.0)
[2023-11-13 16:47] LABS: BNP,B-Type NATRIURETIC PEPTIDE 1031.9 pg/mL (0-100)
[2023-11-13 16:48] LABS: Anion Gap 14 (5-15); BUN 29 mg/dL (7-18); BUN/Creat Ratio 16.2 RATIO (10-20); Calcium,Total 8.6 mg/dL (8.5-10.1); Chloride 101 mmol/L (98-107); Creatinine, Serum 1.79 mg/dL (0.70-1.30); EST Glomerular Filtration Rate 41 mL/min (>60); Est Glom Filt Rate - Afr Amer 50 mL/min (>60); Estimated Creatinine Clearance 50.45 ml/min; Glucose 231 mg/dL (74-106); Sodium Level 136 mmol/L (136-145); Troponin-I HS (w/2H Reflex) 6252 pg/mL (3.0-78.0)
[2023-11-13 16:50] LABS: Lactic Acid 2.1 mmol/L (0.4-1.9)
[2023-11-13] MEDS: Aspirin 81 MG TAB.CHEW 324 MG PO (17:18)
[2023-11-13] MEDS: 0.9% Normal Saline (500mL Bag) 500 ML 999 ML IV (17:58)
[2023-11-13 17:59] LABS: International Normalized Ratio 1.2; Prothrombin Time (Protime)PT. 15.5 SECONDS (11.7-14.9)
[2023-11-13] MEDS: HEPARIN/D5w 25,000 UNITS 25,000 UNITS/250 ML IV.SOLN. 10 UNITS CONT INF (17:59)
[2023-11-13] MEDS: Heparin Injection (Vial) 5,000 UNIT/ML VIAL 4000 UNIT IV (17:59)
[2023-11-13 18:00] LABS: Partial Thromboplast Time 31.1 Seconds (24.1-36.2)
[2023-11-13 18:19] LABS: Reflex Troponin-HS? (from REC) Y
--- NOTE | 2023-11-13 18:29 | PCM.HP.STD ---
HPI - General General Date of Admission: 11/13/23 Date of Service: 11/13/23 Chief Complaint: Multiple complaints. Feeling very weak, shortness of breath nausea vomiting and chest tightness HPI Narrative XUAN HUSTON, is a 63 M with history of CAD and multiple stents came to ED with shortness of breath and chest tightness anteriorly. He describes her chest tightness starts from the anterior with radiation to jaws, carotids and interscapular area with no aggravating or relieving factor. Chest pain starts even at rest at any time. Patient also has nauseated with loss of Tritus and did not had much oral intake since past Friday about 4 -5 days ago. Patient also had URI symptoms including shortness of breath, cough, sinus heaviness and had Levaquin. In ED, patient was hypotensive BP systolic 78, systolic 84. Patient has AICD paced rhythm on EKG. No acute ischemic changes noticed. Patient has a history of CABG and cardiac stents in the past. Troponins are high therefore shoe repairer helper was consulted from ED. When I saw the patient presents chest pain-free with no shortness of breath. Blood pressure also mild improvement on resuscitation. [facility] Medical History Acute bronchitis, unspecified Amputation of leg Arthritis Atherosclerosis of coronary artery of [place] heart without angina pectoris Back pain Back problem Carpal tunnel syndrome CHF (congestive heart failure) Chronic systolic heart failure Deep vein blood clot of right lower extremity Diabetes mellitus Diabetic retinopathy associated with type 2 diabetes mellitus Difficulty balancing Essential hypertension Gallstones Gangrene of right foot GERD (gastroesophageal reflux disease) Hard of hearing History of DVT (deep vein thrombosis) Hx of staphylococcal infection Hyperlipidemia Ischemic cardiomyopathy Neuropathy NPDR (nonproliferative diabetic retinopathy) Obesity Old myocardial infarction Osteoarthritis Osteomyelitis PAD (peripheral artery disease) Paroxysmal atrial fibrillation Peripheral arterial occlusive disease Polyneuropathy Polyneuropathy due to type 2 diabetes mellitus Sick sinus syndrome Thrombocytopenia Home Medications aspirin 81 mg tablet,delayed release 81 mg PO DAILY HEART HEALTH 10/10/17 [History Last Taken 11/13/23 08:00 81 mg] metolazone 2.5 mg tablet 2.5 mg PO .COMPLEX PRN SWELLING #45 tabs 08/26/19 [Rx Last Taken Unknown] ascorbic acid (vitamin C) 500 mg capsule 500 mg PO DAILY supplement 12/22/20 [History Last Taken 11/13/23 08:00 500 mg] Novolog FlexPen U-100 Insulin 100 unit/mL (3 mL) subcutaneous (insulin aspart U-100) 30 unit (0.3 mL) subcut .tidcm DM #135 mL 05/24/21 [Rx Last Taken Unknown] flash glucose sensor (FreeStyle Junaid 14 Day Sensor kit) #2 ea 12/10/21 [Rx Last Taken Unknown] Dexcom G6 Solar Crew Member (blood-glucose meter,continuous) #1 ea 02/28/22 [Rx Last Taken Unknown] Dexcom G6 Sensor (blood-glucose sensor) #9 ea 02/28/22 [Rx Last Taken Unknown] Dexcom G6 Transmitter (blood-glucose transmitter) #1 ea 02/28/22 [Rx Last Taken Unknown] dapagliflozin propanediol 10 mg tablet (Farxiga) 10 mg PO DAILY CHF 10/29/22 [History Last Taken 11/13/23 08:00 10 mg] ezetimibe 10 mg tablet 10 mg PO DAILY cholesterol #90 tabs 02/24/23 [Rx Last Taken 11/13/23 08:00 10 mg] nitroglycerin 0.4 mg/hr transdermal 24 hour patch 1 patch transdermal DAILY CHF #90 ea 06/23/23 [Rx Last Taken 11/13/23 08:00 1 patch] furosemide 40 mg tablet 40 mg PO .COMPLEX diuretic #270 tabs 07/21/23 [Rx Last Taken 11/13/23 08:00 80 mg] insulin glargine 100 unit/mL (3 mL) subcutaneous pen (Basaglar KwikPen U-100 Insulin) 30 unit subcut QAM DM 07/21/23 [History Last Taken Unknown] sacubitril 97 mg-valsartan 103 mg tablet (Entresto) See Rx Instructions .Route .COMPLEX CHF #180 tabs 07/21/23 [Rx Last Taken 11/13/23 08:00 97-103] carvedilol 6.25 mg tablet See Rx Instructions .Route .COMPLEX for his blood pressure #180 tabs 10/09/23 [Rx Last Taken 11/13/23 08:00 6.25] omeprazole 20 mg capsule,delayed release See Rx Instructions .Route .COMPLEX acid reflux #90 caps 10/09/23 [Rx Last Taken 11/12/23 20:00 20] pitavastatin calcium 4 mg tablet 4 mg PO .COMPLEX cholesterol 11/13/23 [History Last Taken Unknown] ranolazine 500 mg tablet,extended release,12 hr 500 mg PO BID CHF 11/13/23 [History Last Taken 11/13/23 08:00 500 mg] Allergy/AdvReac Type Severity Reaction Status Date / Time dulaglutide [From Trulicity] Allergy Intermediate Diarrhea Verified 11/13/23 15:02 Penicillins Allergy Hives Verified 11/13/23 15:02 pioglitazone HCl [From Actos] Allergy Swelling Verified 11/13/23 15:02 Dmyknpt-MMF-IgN Reductase Allergy Unknown Verified 11/13/23 15:02 Inhibitor [Xffbvxo-Sgv-Nlj Reductase Inhibitor] gabapentin [From Neurontin] AdvReac Intermediate Other Verified 11/13/23 15:02 Family History Father , age 57 Diabetes CAD (coronary artery disease) Brother , age 33 Diabetes Myocardial infarction Brother Diabetes AICD (automatic cardioverter/defibrillator) present CAD (coronary artery disease) coronary stents Other Heart disease Hypertension Surgical History abdominal aortagram with RLE runoff (~10/17/17) Amputation, toe, traumatic H/O coronary artery bypass surgery (09/26/04) H/O right heart catheterization History of angioplasty History of carpal tunnel release of both wrists History of coronary artery stent placement (09/25/17) History of exploratory laparotomy History of eye surgery (~04/2023) History of laminectomy History of left heart catheterization (06/2018) 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) History of spinal fusion History of vasectomy (1994) Hx of cholecystectomy (2014) left heart cath and RLE arteriogram (09/25/17) neurostimulator implant Presence of automatic implantable cardioverter-defibrillator (08/08/16) Previous back surgery RLE peroneal artery stent (10/03/17) Status post ablation of incompetent vein using laser Social History Smoking Status: Current every day smoker tobacco type: smokeless tobacco alcohol intake: never substance use type: does not use caffeine: Yes Type: carbonated beverages Number of servings: 1 and coffee Number of servings: 2 what type of physical activity do you participate in: none ROS ROS Narrative Constitutional: Reports fatigue and weakness. No fever. HEENT: Reports systems reviewed and no addt'l complaints, except as documented Respiratory/Chest: As described in HPI CVS: As described in HPI Gastrointestinal: Decreased oral intake. Nauseated. Denies coffee ground emesis, hematemesis or vomiting Genitourinary: Denies burning urination or new urinary tract symptoms Musculoskeletal: Right BKA. Chronic left leg venous insufficiency. Neurologic: Denies seizure-like symptoms. skin: No ulcer. No rash Endocrinology: Reports systems reviewed and no addt'l complaints, except as documented Hematologic/Lymphatic: Reports systems reviewed and no addt'l complaints, except as documented Rest 14 ROS are negative except as mentioned in HPI Vital Signs Vital Signs Vital Signs: 11/13/23 15:02 11/13/23 15:13 11/13/23 15:47 Temperature 98 F Temperature Source Temporal Pulse Rate 82 Respiratory Rate 20 H Respiratory Effort Normal Non-Labored Respiratory Depth Normal Respiratory Pattern Normal Blood Pressure 96/57 L Blood Pressure Mean 70 Pulse Ox 97 Oxygen Delivery Method Room Air Room Air Room Air 11/13/23 16:15 11/13/23 17:00 11/13/23 17:29 Temperature Temperature Source Pulse Rate 77 78 Respiratory Rate 25 H 24 H Respiratory Effort Respiratory Depth Respiratory Pattern Blood Pressure 88/60 L 78/51 L 84/62 L Blood Pressure Mean 71 59 69 Pulse Ox 95 95 Oxygen Delivery Method Weight Weight: 224 lb Body Mass Index (BMI) 32.1 Physical Exam Narrative General: Alert, Oriented x3, Cooperative HEENT: Atraumatic, PERRLA, EOMI, Normocephalic Oral: Oral mucosa dry. No Gingival or Mucosal Lesions/ Ulcerations Neck: Supple, No JVD, Negative Carotid Bruits Chest wall/Lungs: Air entry diminished in bilateral lung bases. No crepitation/rhonchi Cardiovascular: Paced rhythm. Left-sided AICD. Systolic murmur over LLSB Abdomen: Bowel Sounds Present, Soft, Non Tender, Non-Distended : No dysuria. No renal angle tenderness. No suprapubic tenderness. Extremities: No edema, Capillary Refill Less than 3 Seconds Skin: No rashes, No breakdown Musculoskeletal: Right BKA. Left lower extremity chronic edema, with varicose vein/venous emergency. No Tenderness to Palpation of Joints or Extremities Neurological: Cranial nerves II-XII grossly intact, DTR 2+/4. No acute focal neurological deficit. Psych/Mental Status: Flat affect. Results Lab / Micro Data 11/13/23 15:10 11/13/23 15:10 Labs: Laboratory Results - last 24 hr 11/13/23 15:10: WBC 10.2, RBC 4.81, Hgb 13.4, Hct 42.0, MCV 87.3, MCH 27.9, MCHC 31.9 L, RDW Std Deviation 43.6, RDW Coeff of Sushila 13.5, Plt Count 301, MPV 10.9, Immature Gran % (Auto) 0.300, Neut % (Auto) 72.9 H, Lymph % (Auto) 16.7 L, Barber % (Auto) 9.0, Eos % (Auto) 0.7, Baso % (Auto) 0.4, Absolute Neuts (auto) 7.4, Absolute Lymphs (auto) 1.70, Nucleated RBC % 0, PT 15.5 H, INR 1.2, APTT 31.1, Sodium 136, Potassium 4.0, Chloride 101, Carbon Dioxide 21.0, Anion Gap 14, BUN 29 H, Creatinine 1.79 H, Estim Creat Clear Calc 50.45, Est GFR (MDRD) Af Amer 50 L, Est GFR (MDRD) Non-Af 41 L, BUN/Creatinine Ratio 16.2, Glucose 231 H, Lactic Acid 2.1 H*, Calcium 8.6, Troponin I High Sens 6252 H*, B-Natriuretic Peptide 1031.9 H 11/13/23 15:45: Urine Color Yellow, Urine Clarity Clear, Urine pH 6.0, Ur Specific Kegley 1.015, Urine Protein 15 H, Urine Glucose (UA) 1000 H, Urine Ketones 50 H, Urine Occult Blood Negative, Urine Nitrite Negative, Urine Bilirubin Negative, Urine Urobilinogen 1 H, Ur Leukocyte Esterase Negative, Urine RBC 0 SEEN, Urine WBC 0 SEEN, Ur Squamous Epith Cells 0 SEEN, Urine Bacteria 0 SEEN, Urine Mucus 0 SEEN Micro: Microbiology 11/13/23 15:45 Mucosa - Nose SARS-CoV-2, Influenza & RSV (PCR) - Final Imaging Radiology Impression Chest X-Ray 11/13/23 15:55 IMPRESSION: Possible mild atelectasis or infiltrate in the lung bases. Possible small left pleural effusion. Electronically Signed: Moreno Mccurdy MD at 16:14 EDT , Assessment & Plan Assessment/Plan (1) Acute non-ST elevation myocardial infarction (NSTEMI): PLAN: Plan This is a 80-year-old gentleman being admitted for chest pain and shortness of breath consistent with non-STEMI. 1. Non-STEMI: Patient is admitted in PCU. First troponin was not 6006, second troponin similar to 6000. Cardiology is consulted. Patient on IV heparin drip. Was given aspirin 324 milligram in ED. Continue aspirin 81 mg daily, carvedilol. 2. CAD status post CABG and multiple stents: Patient has history of CABG in 2004 with VEGA to LAD to diagonal, SVG to right posterior descending.. 2D echo is ordered. 3. Chronic HFrEF, ischemic cardiomyopathy, sick sinus syndrome status post AICD: Last echo shows EF 40%. Patient at home is on guideline directed medical therapy. BNP is elevated. Patient on Entresto but held because of CARLOS. Lasix also on hold for similar region and patient is hypotensive. 4. Hypotension: Resuscitated with IV fluid for maps more than 65, SBP 90 mmHg. 5. Paroxysmal A-fib: Currently patient seems in sinus rhythm. Patient EKG reviewed shows atrial sensed ventricular paced rhythm. Prolonged AV conduction from pacemaker. It was intubated in the office. 6. Peripheral arterial disease status post amputation of right lower extremity, chronic venous insufficiency/varicose vein in left leg status post laser treatment 7. CARLOS on CKD stage III: Last BUN/creatinine 17/1.33 in August 2023. Increased to 29/1.79. Renal and bladder ultrasound ordered. Consult nephrology. IV fluid is ordered 8. Diabetes mellitus type 2 uncontrolled: Currently patient is having poor oral intake therefore Lantus and Humalog insulin dose decreased. Accu-Cheks ACH cover with milk sliding scale 9. Other multiple comorbidities include peripheral neuropathy due to diabetes mellitus, osteoarthritis and reduced physical activity from amputation. OT ordered Living will/advanced directive/end of life care: Patient does have living will or advanced directive. His is power of health care attorney for health. After discussion of benefits/risks procedures involved with full code, DNR CC arrest and DNR CC, the patient clearly stated that if and time comes to let him go. He is DNR CC arrest. No intubation Patient doesnot want artificial life support including intubation, tube feed, ventilator and/chest compression, central venous catheter, vasopressor and DC shock if needed Total time spent in [id number] encounter in discussion of advanced directive 17 minutes. Microbiology Past 72 Hours 11/13/23 15:45 Mucosa - Nose SARS-CoV-2, Influenza & RSV (PCR) - Final Laboratory Results 11/13/23 15:10: WBC 10.2, RBC 4.81, Hgb 13.4, Hct 42.0, MCV 87.3, MCH 27.9, MCHC 31.9 L, RDW Std Deviation 43.6, RDW Coeff of Sushila 13.5, Plt Count 301, MPV 10.9, Immature Gran % (Auto) 0.300, Neut % (Auto) 72.9 H, Lymph % (Auto) 16.7 L, Barber % (Auto) 9.0, Eos % (Auto) 0.7, Baso % (Auto) 0.4, Absolute Neuts (auto) 7.4, Absolute Lymphs (auto) 1.70, Nucleated RBC % 0, PT 15.5 H, INR 1.2, APTT 31.1, Sodium 136, Potassium 4.0, Chloride 101, Carbon Dioxide 21.0, Anion Gap 14, BUN 29 H, Creatinine 1.79 H, Estim Creat Clear Calc 50.45, Est GFR (MDRD) Af Amer 50 L, Est GFR (MDRD) Non-Af 41 L, BUN/Creatinine Ratio 16.2, Glucose 231 H, Lactic Acid 2.1 H*, Calcium 8.6, Troponin I High Sens 6252 H*, B-Natriuretic Peptide 1031.9 H 11/13/23 15:45: Urine Color Yellow, Urine Clarity Clear, Urine pH 6.0, Ur Specific Kegley 1.015, Urine Protein 15 H, Urine Glucose (UA) 1000 H, Urine Ketones 50 H, Urine Occult Blood Negative, Urine Nitrite Negative, Urine Bilirubin Negative, Urine Urobilinogen 1 H, Ur Leukocyte Esterase Negative, Urine RBC 0 SEEN, Urine WBC 0 SEEN, Ur Squamous Epith Cells 0 SEEN, Urine Bacteria 0 SEEN, Urine Mucus 0 SEEN 11/13/23 17:30: Troponin I High Sens 5953 H* 11/13/23 20:40: Lactic Acid Pending Clinical Impression(s) from Imaging Studies Chest X-Ray 11/13/23 15:55 IMPRESSION: Possible mild atelectasis or infiltrate in the lung bases. Possible small left pleural effusion. Charges/Coding Visit Charges Inpatient E&M: 24603 Init Hosp L3 Procedures Hospitalists Procedures: 19430 Advncd Care Plan 30 Min
--- NOTE | 2023-11-13 18:39 | CON.PCM.CA_ITS ---
Assessment & Plan Assessment/Plan (1) Acute non-ST elevation myocardial infarction (NSTEMI): PLAN: He presents with a non-ST elevation myocardial infarction. We will evaluate this ultimately with a cardiac catheterization when his renal function allows. We will preliminary start with an echocardiogram to reassess his ventricular function and then optimize his therapy. It is not clear whether there is any infectious etiology at this particular time. (2) H/O coronary artery bypass surgery: PLAN: He is status post coronary bypass surgery as noted above. Prior to his discharge this will need to be reevaluated. (3) Presence of automatic implantable cardioverter-defibrillator: PLAN: He does have an implantable defibrillator. This continues to be interrogated in the office and my recommendation is for him to continue following up in the office regarding the above. (4) Ischemic cardiomyopathy: PLAN: He does have evidence of ischemic cardiomyopathy. Previous echocardiogram had demonstrated ejection fraction of 40%. This will be repeated. He is on guideline directed medical therapy and this will be optimized. His natruretic peptide level is elevated suggestive of some element of congestive heart failure. After his blood pressure is optimized we may resume his diuretics. (5) Paroxysmal atrial fibrillation: PLAN: He has a history of paroxysmal atrial fibrillation. He is in sinus rhythm at this time. (6) Essential hypertension: PLAN: His blood pressure is low at this particular time and he will be treated with some intravenous fluid and his medications optimized. Thank you for allowing me to participate in the care of your patient. Please don't hesitate to call if any issues arise. HPI Consult Data Date of Consult: 11/13/23 HPI Narrative HPI Narrative: XUAN HUSTON, is a 63 M who presents to the emergency room feeling unwell with sh ortness of breath as well as experiencing chest tightness across his chest into his jaw. He says that this apparently started around October 25. He did have an upper respiratory tract infection at that time and was given Levaquin. He was urged to come to the emergency room but he did not see the reason to it. However today he felt worse and so decided to present to the emergency room. He was noted to be hypotensive but pain-free. His EKG did not demonstrate any acute changes. Cardiac enzymes however came back significantly abnormal with worsening renal function as well. He has a history of coronary artery disease with bypass surgery in 2004 where he had an VEGA to the LAD with sequential to the diagonal, SVG to the right posterior descending. Patient has undergone multiple PCI's especially to the obtuse marginal branch and that has been noted to be occluded. He does have a history of ischemic cardiomyopathy with ICD placement for an ejection fraction which was less than 35% which has now improved to approximately 40% with segmental wall motion abnormalities., diabetes, atrial fibrillation, peripheral arterial disease with amputation of his right lower limb and hyperlipidemia. 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 He is currently pain-free. He acknowledges intermittent, mild, bilateral lower extremity edema. This is improved from previous. He has not used metolazone in months. He acknowledges shortness of breath at rest and with activity. He acknowledges orthopnea, cough, and PND. He acknowledges lightheadedness. He denies dizziness, near- syncope, or syncope. He denies fatigue. His is concerned regarding daytime fatigue and worsening confusion. [facility] Medical History Acute bronchitis, unspecified Amputation of leg Arthritis Atherosclerosis of coronary artery of [place] heart without angina pectoris Back pain Back problem Carpal tunnel syndrome CHF (congestive heart failure) Chronic systolic heart failure Deep vein blood clot of right lower extremity Diabetes mellitus Diabetic retinopathy associated with type 2 diabetes mellitus Difficulty balancing Essential hypertension Gallstones Gangrene of right foot GERD (gastroesophageal reflux disease) Hard of hearing History of DVT (deep vein thrombosis) Hx of staphylococcal infection Hyperlipidemia Ischemic cardiomyopathy Neuropathy NPDR (nonproliferative diabetic retinopathy) Obesity Old myocardial infarction Osteoarthritis Osteomyelitis PAD (peripheral artery disease) Paroxysmal atrial fibrillation Peripheral arterial occlusive disease Polyneuropathy Polyneuropathy due to type 2 diabetes mellitus Sick sinus syndrome Thrombocytopenia Home Medications aspirin 81 mg tablet,delayed release 81 mg PO DAILY [facility] 10/10/17 [History Last Taken 06/19/18] metolazone 2.5 mg tablet 2.5 mg PO .COMPLEX PRN SWELLING #45 tabs 08/26/19 [Rx Last Taken Unknown] ascorbic acid (vitamin C) 500 mg capsule 500 mg PO DAILY 12/22/20 [History Last Taken Unknown] Novolog FlexPen U-100 Insulin 100 unit/mL (3 mL) subcutaneous (insulin aspart U- 100) 30 unit (0.3 mL) subcut .tidcm #135 mL 05/24/21 [Rx Last Taken Unknown] flash glucose sensor (FreeStyle Junaid 14 Day Sensor kit) #2 ea 12/10/21 [Rx Last Taken Unknown] Dexcom G6 Solvent Station Attendant (blood-glucose meter,continuous) #1 ea 02/28/22 [Rx Last Taken Unknown] Dexcom G6 Sensor (blood-glucose sensor) #9 ea 02/28/22 [Rx Last Taken Unknown] Dexcom G6 Transmitter (blood-glucose transmitter) #1 ea 02/28/22 [Rx Last Taken Unknown] dapagliflozin propanediol 10 mg tablet (Farxiga) 10 mg PO DAILY 10/29/22 [History Last Taken Unknown] ezetimibe 10 mg tablet 10 mg PO DAILY #90 tabs 02/24/23 [Rx Last Taken Unknown] nitroglycerin 0.4 mg/hr transdermal 24 hour patch 1 patch transdermal DAILY #90 ea 06/23/23 [Rx Last Taken 09/04/23] furosemide 40 mg tablet 40 mg PO .COMPLEX #270 tabs 07/21/23 [Rx Last Taken Unknown] insulin glargine 100 unit/mL (3 mL) subcutaneous pen (Basaglar KwikPen U-100 Insulin) 30 unit subcut QAM 07/21/23 [History Last Taken Unknown] ranolazine 500 mg tablet,extended release,12 hr (Ranexa) 500 mg PO BID #180 tabs 07/21/23 [Rx Last Taken Unknown] sacubitril 97 mg-valsartan 103 mg tablet (Entresto) See Rx Instructions .Route .COMPLEX #180 tabs 07/21/23 [Rx Last Taken Unknown] carvedilol 6.25 mg tablet See Rx Instructions .Route .COMPLEX #180 tabs 10/09/23 [Rx Last Taken Unknown] omeprazole 20 mg capsule,delayed release See Rx Instructions .Route .COMPLEX #90 caps 10/09/23 [Rx Last Taken Unknown] pitavastatin calcium 4 mg tablet 4 mg PO .COMPLEX 11/13/23 [History Last Taken Unknown] Allergy/AdvReac Type Severity Reaction Status Date / Time dulaglutide [From Trulicity] Allergy Intermediate Diarrhea Verified 11/13/23 15:02 Penicillins Allergy Hives Verified 11/13/23 15:02 pioglitazone HCl [From Actos] Allergy Swelling Verified 11/13/23 15:02 Zavwchz-FJQ-KpC Reductase Allergy Unknown Verified 11/13/23 15:02 Inhibitor [Egbdbts-Uac-Glq Reductase Inhibitor] gabapentin [From Neurontin] AdvReac Intermediate Other Verified 11/13/23 15:02 Family History Father , age 57 Diabetes CAD (coronary artery disease) Brother , age 33 Diabetes Myocardial infarction Brother Diabetes AICD (automatic cardioverter/defibrillator) present CAD (coronary artery disease) coronary stents Other Heart disease Hypertension Surgical History abdominal aortagram with RLE runoff (~10/17/17) Amputation, toe, traumatic H/O coronary artery bypass surgery (09/26/04) H/O right heart catheterization History of angioplasty History of carpal tunnel release of both wrists History of coronary artery stent placement (09/25/17) History of exploratory laparotomy History of eye surgery (~04/2023) History of laminectomy History of left heart catheterization (06/2018) 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) History of spinal fusion History of vasectomy (1994) Hx of cholecystectomy (2014) left heart cath and RLE arteriogram (09/25/17) neurostimulator implant Presence of automatic implantable cardioverter-defibrillator (08/08/16) Previous back surgery RLE peroneal artery stent (10/03/17) Status post ablation of incompetent vein using laser Social History Smoking Status: Never smoker alcohol intake: never substance use type: does not use caffeine: Yes Type: carbonated beverages Number of servings: 1 and coffee Number of servings: 2 what type of physical activity do you participate in: none ROS Constitutional Constitutional: Denies fever(s) or weight loss Eyes Eyes: Reports systems reviewed and no addt'l complaints, except as documented ENT HEENT: Reports systems reviewed and no addt'l complaints, except as documented Cardiovascular Cardiovascular: Denies chest pain at rest, chest pain with activity, dyspnea at rest, dyspnea on exertion, edema, palpitations or paroxysmal nocturnal dyspnea Respiratory/Chest Respiratory/Chest: Denies dyspnea on exertion, productive cough, shortness of breath at rest or shortness of breath with exertion Gastrointestinal Gastrointestinal: Denies change in bowel habits, nausea, vomiting or weight changes Genitourinary Genitourinary: Denies difficulty urinating Musculoskeletal Musculoskeletal: Denies joint stiffness or muscle weakness Integumentary Integumentary: Denies lesions Neurologic Neurologic: Denies dizziness or syncope Psychiatric Psychiatric: Denies anxiety Endocrine Endocrinology: Denies excessive sweating or fatigue Hematologic/Lymphatic Hematologic/Lymphatic: Denies anemia Allergic/Immunologic Allergic/Immunologic: Denies seasonal rhinorrhea Physical Exam Const alert, oriented x3 and no apparent distress General Appearance: cooperative HEENT hearing grossly normal bilaterally Head and Scalp: atraumatic Eyes EOMs intact bilaterally Neck General: normal visual inspection Chest inspection of chest normal and palpation of chest normal Resp normal respiratory effort Auscultation: clear to auscultation bilaterally Cardio regular rate, regular rhythm, S1 normal heart sound and S2 normal heart sound Jugular Venous Distention: JVD Rhythm: regular rhythm Heart Sounds: S1 normal and S2 normal GI normal to inspection, nondistended, normoactive bowel sounds Extremity normal capillary refill and no pedal edema Extremity Narrative: Right lower extremity amputee Peripheral Pulses: Yes pulses 2+ throughout and femoral pulses present Skin no rashes or lesions noted Neuro oriented x3 and CN's II-XII intact bilaterally Psych Appearance: grossly normal and appropriate Risk Stratification Risk Stratification Applicable: Yes Age >/= 65: No >/= 3 CAD Risk Factors (HTN, HLD, DM, family hx of CAD, or current smoker): Yes Aspirin Use in the Past 7 Days: Yes Severe Angina (>/= episodes in 24 hours): No EKG ST Changes >/= 0.5mm: No Positive Cardiac Marker: Yes CHAPIS Risk Stratification Score: 3 CHAPIS % Risk: 13% Risk Objective Data Vital Signs: Vital Signs Temp Pulse Resp BP Pulse Ox O2 Del Method 98 F 78 24 H 84/62 L 95 Room Air 11/13/23 15:02 11/13/23 17:00 11/13/23 17:00 11/13/23 17:29 11/13/23 17:00 11/13/23 15:47 Oxygen Delivery Method Room Air Weight: 224 lb Body Mass Index (BMI) 32.1 Intake & Output: Intake and Output for Last 24 Hours 11/11/23 11/12/23 11/13/23 23:59 23:59 23:59 Intake Total 1000 / 1000 Balance 1000 / 1000 Lab / Micro Data 11/13/23 15:10 11/13/23 15:10 Labs: Laboratory Results - last 24 hr 11/13/23 15:10: WBC 10.2, RBC 4.81, Hgb 13.4, Hct 42.0, MCV 87.3, MCH 27.9, MCHC 31.9 L, RDW Std Deviation 43.6, RDW Coeff of Sushila 13.5, Plt Count 301, MPV 10.9, Immature Gran % (Auto) 0.300, Neut % (Auto) 72.9 H, Lymph % (Auto) 16.7 L, Jack % (Auto) 9.0, Eos % (Auto) 0.7, Baso % (Auto) 0.4, Absolute Neuts (auto) 7.4, Absolute Lymphs (auto) 1.70, Nucleated RBC % 0, PT 15.5 H, INR 1.2, APTT 31.1, Sodium 136, Potassium 4.0, Chloride 101, Carbon Dioxide 21.0, Anion Gap 14, BUN 29 H, Creatinine 1.79 H, Estim Creat Clear Calc 50.45, Est GFR (MDRD) Af Amer 50 L, Est GFR (MDRD) Non-Af 41 L, BUN/Creatinine Ratio 16.2, Glucose 231 H, Lactic Acid 2.1 H*, Calcium 8.6, Troponin I High Sens 6252 H*, B-Natriuretic Peptide 1031.9 H 11/13/23 15:45: Urine Color Yellow, Urine Clarity Clear, Urine pH 6.0, Ur Specific [place] 1.015, Urine Protein 15 H, Urine Glucose (UA) 1000 H, Urine Ketones 50 H, Urine Occult Blood Negative, Urine Nitrite Negative, Urine Bilirubin Negative, Urine Urobilinogen 1 H, Ur Leukocyte Esterase Negative, Urine RBC 0 SEEN, Urine WBC 0 SEEN, Ur Squamous Epith Cells 0 SEEN, Urine Bacteria 0 SEEN, Urine Mucus 0 SEEN Micro: Microbiology 11/13/23 15:45 Mucosa - Nose SARS-CoV-2, Influenza & RSV (PCR) - Final Cardiology Labs/Tests 11/13/23 15:10: WBC 10.2, RBC 4.81, Hgb 13.4, Hct 42.0, MCV 87.3, MCH 27.9, MCHC 31.9 L, Plt Count 301, MPV 10.9, Immature Gran % (Auto) 0.300, Neut % (Auto) 72.9 H, Lymph % (Auto) 16.7 L, Jack % (Auto) 9.0, Eos % (Auto) 0.7, Baso % (Auto) 0.4, Absolute Neuts (auto) 7.4, Nucleated RBC % 0, PT 15.5 H, INR 1.2, APTT 31.1, Sodium 136, Potassium 4.0, Chloride 101, Carbon Dioxide 21.0, Anion Gap 14, BUN 29 H, Creatinine 1.79 H, Est GFR (MDRD) Af Amer 50 L, Est GFR (MDRD) Non-Af 41 L, BUN/Creatinine Ratio 16.2, Glucose 231 H, Lactic Acid 2.1 H*, Calcium 8.6, B-Natriuretic Peptide 1031.9 H 11/13/23 15:45: Urine Color Yellow, Urine Clarity Clear, Urine pH 6.0, Ur Specific [place] 1.015, Urine Protein 15 H, Urine Glucose (UA) 1000 H, Urine Ketones 50 H, Urine Occult Blood Negative, Urine Nitrite Negative, Urine Bilirubin Negative, Urine Urobilinogen 1 H, Ur Leukocyte Esterase Negative, Urine RBC 0 SEEN, Urine WBC 0 SEEN Rhythm: EKG: ECHO: Stress Test: Cardiac Cath: PCI: CT Surgery: Holter monitor: EPS: PPM: CXR: Chest CT Scan: Radiography Diagnostic Testing: Radiology Impression Chest X-Ray 11/13/23 15:55 IMPRESSION: Possible mild atelectasis or infiltrate in the lung bases. Possible small left pleural effusion. Electronically Signed: Moreno Mccurdy MD at 16:14 EDT ,
[2023-11-13 18:54] LABS: Troponin-I HS 5953 pg/mL (3.0-78.0)
--- NOTE | 2023-11-13 19:03 | EKG12_ITS ---
Test Reason : CP Blood Pressure : / mmHG Vent. Rate : 073 BPM Atrial Rate : 072 BPM P-R Int : 000 ms QRS Dur : 174 ms QT Int : 502 ms P-R-T Axes : 000 229 103 degrees QTc Int : 553 ms Ventricular-paced rhythm Abnormal ECG Confirmed by Roni Finch [id number]), editorial manager OLEKSANDR MORENO ([id number]) on 11/17/2023 1:18:13 PM Referred By: Confirmed By:Roni Finch
[2023-11-13 20:19] LABS: Reflex Lactate? Y
[2023-11-13 21:48] LABS: Lactic Acid 2.1 mmol/L (0.4-1.9)
[2023-11-13] MEDS: Ranolazine 500 MG Tablet PO (22:50)
[2023-11-13] MEDS: Ezetimibe 10 MG Tablet PO (22:50)
[2023-11-13] MEDS: Carvedilol 6.25 MG Tablet PO (22:50)
[2023-11-13 22:51] LABS: Bedside Glucose 168 mg/dL (74-106)
[2023-11-13 22:54] LABS: Partial Thromboplast Time 43.2 Seconds (24.1-36.2)
[2023-11-13] MEDS: 0.9% Normal Saline (1000mL) 1,000 ML 100 ML IV (23:00)
[2023-11-14] VITALS (15 sets, daily range): BP systolic 92–122; BP diastolic 48–94; PULSE 66–89; RESP 18–24; TEMP 36–36.9; O2SAT 93–99
--- NOTE | 2023-11-14 05:55 | US_ITS ---
STUDY: RENAL ULTRASOUND - COMPLETE REASON FOR EXAM: Male, 63 years old. Elevated BUN and creatinine TECHNIQUE: Ultrasound evaluation of the kidneys was performed with real-time and static lora-scale imaging. COMPARISON: None. FINDINGS: RIGHT KIDNEY: Normal location of the right kidney, which is normal in size. The right kidney measures 12.5 x 7.0 x 5.9 cm. There is a normal cortex of the right kidney. The renal cortex measures 1.8 cm. There is no right renal mass or cyst. There are no right renal calculi. There is no right hydronephrosis. DISTAL RIGHT URETER: There is non-visualization of the distal right ureter. There is no demonstrated right ureterovesical junction calculus. There is a visualized right ureteral jet. LEFT KIDNEY: Normal location of the left kidney, which is normal in size. The left kidney measures 12.1 x 5.4 x 6.6 cm. There is a normal cortex of the left kidney. The renal cortex measures 1.9 cm. There is no left renal mass or cyst. There are no left renal calculi. There is no left hydronephrosis. DISTAL LEFT URETER: There is non-visualization of the distal left ureter. There is no demonstrated left ureterovesical junction calculus. There is a visualized left ureteral jet. AORTA: There is no elongation or tortuosity of the abdominal aorta. I.V.C.: The IVC is patent. BLADDER: The bladder distends normally with estimated capacity of 672.27 mL. No wall thickening, mass, or abnormal post void residual noted US/Kidney and Bladder IMPRESSION: No suspicious sonographic findings Electronically Signed: Caio Matos MD at 15:23 EDT ,
--- NOTE | 2023-11-14 05:55 | ECHOCS_ITS ---
Reason For Study: NSTEMI Procedure This was a 2D Doppler, Color Flow transthoracic echocardiogram. The study was technically difficult. Exam performed portable in patient room. Left Ventricle Mildly dilated left ventricle. Mild assymetric septal hypertrophy. Moderately severe segmental systolic dysfunction (see wall motion). The estimated ejection fraction is 30-35 %. Infero-Basal: Akinetic. Mid-Inferior: Akinetic. Inferior [place] : Hypokinetic. Basal anteroseptal: Akinetic. Mid- anteroseptal : Akinetic. Septal [place] : Hypokinetic. Posterior-Basal: Akinetic. Mid-Posterior: Severely Hypokinetic. Right Ventricle The right ventricle is not well visualized. ICD or pacer leads identified within the right ventricle. Atria The left atrium is mildly enlarged. Normal right atrium. ICD or pacer leads identified within the right atrium. Mitral Valve There is Mild focal posterior mitral annular calcification. Mild focal mitral valve calcification. Moderate (2+) mitral valve insufficiency. Tricuspid Valve Normal tricuspid valve. Mild (1+) tricuspid valve insufficiency. Pulmonary artery systolic pressure is 20 mmHg. Aortic Valve Trisinus/trileaflet aortic valve. Mild focal aortic valve calcification. Trivial aortic valve insufficiency. Pulmonic Valve Normal pulmonic valve. Mild (1+) pulmonic valve insufficiency identified. Great Vessels Normal aortic root. Pericardium/Pleural No pericardial effusion. Medication Diluted definity 1.0ml given slow IV push to enhance endocardial definition. MMode/2D Measurements & Calculations LVIDd: 5.5 cm IVSd: 1.3 cm Ao root diam: 3.6 cm LVIDs: 4.7 cm LVPWd: 0.97 cm FS: 14.5 % LAV(MOD-bp): 78.2 ml LA A4 area: 24.5 cm2 LA dimension(2D): 5.1 cm LAV(MOD-bp) Indexed: 35.8 ml/m2 LAV(MOD-sp2): 68.4 ml LAV(MOD-sp4): 84.6 ml Doppler Measurements & Calculations MV E max aroldo: 119.7 cm/sec Lat Peak E' Aroldo: 14.2 cm/sec Med Peak E' Aroldo: 8.6 cm/sec E/E' lat: 8.4 E/E' med: 13.9 Ao V2 max: 103.5 cm/sec LV V1 max: 75.0 cm/sec PA V2 max: 63.2 cm/sec Ao max P.3 mmHg LV V1 max P.3 mmHg Ao V2 mean: 78.1 cm/sec LV V1 mean P.2 mmHg Ao mean P.7 mmHg LV V1 mean: 50.4 cm/sec Ao V2 VTI: 18.3 cm LV V1 VTI: 12.7 cm AV (velocity ratio): 0.69 PI end-d aroldo: 181.0 cm/sec TR max aroldo: 206.0 cm/sec TR max P.0 mmHg ECHO/Echo Complete W/ Contrast Interpretation Summary The estimated ejection fraction is 30-35 %. Mildly dilated left ventricle with severe hypokinesis to akinesis of the inferior and posterior wall. The left atrium is mildly enlarged. Mild (1+) tricuspid valve insufficiency. Moderate (2+) mitral valve insufficiency. The study was technically difficult. Contrast injection was performed. Compared to prior study, changes are noted. Ordering Physician: Giovanni Cedillo Referring Physician: Darius Hartmann MD Performed By: Kerrie Hanna RDCS
[2023-11-14 06:17] LABS: Hematocrit 37.6 % (40-54); Hemoglobin 12.4 g/dL (13.0-16.5); Mean Corpuscular Hgb 28.6 pg (27.0-32.0); Mean Corpuscular Volume 86.8 fL (80-94); Mean Platelet Vol. 10.3 fl (6.2-12.0); Platelet Count 243 K/mm3 (150-450); RBC Distribution Width CV 13.6 % (11.6-14.6); RBC Distribution Width SD 43.7 fl (35.1-43.9); Red Blood Count 4.33 M/mm3 (4.6-6.2); White Blood Count 7.1 K/mm3 (4.4-11.0)
[2023-11-14 06:27] LABS: Partial Thromboplast Time 46.1 Seconds (24.1-36.2)
[2023-11-14 06:46] LABS: Bedside Glucose 169 mg/dL (74-106)
[2023-11-14 06:51] LABS: Anion Gap 14 (5-15); BUN 29 mg/dL (7-18); BUN/Creat Ratio 18.1 RATIO (10-20); Calcium,Total 7.9 mg/dL (8.5-10.1); Chloride 102 mmol/L (98-107); Cholesterol 117 mg/dL (200); EST Glomerular Filtration Rate 47 mL/min (>60); Est Glom Filt Rate - Afr Amer 56 mL/min (>60); Estimated Creatinine Clearance 56.28 ml/min; Glucose 196 mg/dL (74-106); High Density Lipoprotein 34 mg/dL; Potassium 3.2 mmol/L (3.5-5.1); Sodium Level 135 mmol/L (136-145); Thyroid Stim Hormone (TSH) 1.15 uIU/mL (0.358-3.74); Triglycerides 111 mg/dL; Very Low Density Lipoprotein 22 mg/dL (5-40)
[2023-11-14] MEDS: Potassium Chloride Oral Tablet 20 MEQ PO ×2 (07:46→16:53)
[2023-11-14] MEDS: Aspirin E.C. 81 MG Tablet PO (07:46)
[2023-11-14] MEDS: 0.9% Normal Saline (1000mL) 1,000 ML 15 ML IV (07:47)
[2023-11-14] MEDS: Pantoprazole Sodium 20 MG Tablet PO (07:48)
--- NOTE | 2023-11-14 09:14 | CASEMGMT ---
OSWALDO CM note: Insurance review for hospitals In-network with?[facility] [employer] PPO Insurance if transfer is recommended is as follows: [facility], [employer], [facility], [facility], [facility], [facility], [facility] ([facility]), [facility], and . Joe DAWNN OSWALDO CM
--- NOTE | 2023-11-14 09:55 | PCM.PN.HOSP ---
Reason for Visit Reason for Visit: Diagnoses Essential (primary) hypertension (11/13/23) Non-ST elevation (NSTEMI) myocardial infarction (11/13/23) Ischemic cardiomyopathy (11/13/23) Paroxysmal atrial fibrillation (11/13/23) Presence of aortocoronary bypass graft (11/13/23) Presence of automatic (implantable) cardiac defibrillator (11/13/23) Subjective Subjective Patient is an 63 -year-old gentleman who was sent from his primary care physician's office with progressive shortness of breath. Patient was found to have elevated troponin on admission consistent with acute non-STEMI treatment initiated per protocol admitted to monitored bed for further management Objective Data Objective Data Vital Signs: Vital Signs Temp Pulse Resp BP Pulse Ox O2 Del Method 98.4 F 85 18 92/64 97 Room Air 11/14/23 07:41 11/14/23 07:41 11/14/23 07:41 11/14/23 07:41 11/14/23 07:41 11/14/23 07:45 Oxygen Delivery Method Room Air Weight: 101 kg Body Mass Index (BMI) 31.9 Intake & Output: Intake and Output for Last 24 Hours 11/12/23 11/13/23 11/14/23 23:59 23:59 23:59 Intake Total 2390.67 / 2390.67 1415.65 / 1415.65 Output Total 0 / 0 400 / 400 Balance 2390.67 / 2390.67 1015.65 / 1015.65 Lab / Micro Data 11/14/23 05:30 11/14/23 05:30 Labs: Laboratory Results - last 24 hr 11/13/23 15:10: WBC 10.2, RBC 4.81, Hgb 13.4, Hct 42.0, MCV 87.3, MCH 27.9, MCHC 31.9 L, RDW Std Deviation 43.6, RDW Coeff of Sushila 13.5, Plt Count 301, MPV 10.9, Immature Gran % (Auto) 0.300, Neut % (Auto) 72.9 H, Lymph % (Auto) 16.7 L, [place] % (Auto) 9.0, Eos % (Auto) 0.7, Baso % (Auto) 0.4, Absolute Neuts (auto) 7.4, Absolute Lymphs (auto) 1.70, Nucleated RBC % 0, PT 15.5 H, INR 1.2, APTT 31.1, Sodium 136, Potassium 4.0, Chloride 101, Carbon Dioxide 21.0, Anion Gap 14, BUN 29 H, Creatinine 1.79 H, Estim Creat Clear Calc 50.45, Est GFR (MDRD) Af Amer 50 L, Est GFR (MDRD) Non-Af 41 L, BUN/Creatinine Ratio 16.2, Glucose 231 H, Lactic Acid 2.1 H*, Calcium 8.6, Troponin I High Sens 6252 H*, B-Natriuretic Peptide 1031.9 H 11/13/23 15:45: Urine Color Yellow, Urine Clarity Clear, Urine pH 6.0, Ur Specific [place] 1.015, Urine Protein 15 H, Urine Glucose (UA) 1000 H, Urine Ketones 50 H, Urine Occult Blood Negative, Urine Nitrite Negative, Urine Bilirubin Negative, Urine Urobilinogen 1 H, Ur Leukocyte Esterase Negative, Urine RBC 0 SEEN, Urine WBC 0 SEEN, Ur Squamous Epith Cells 0 SEEN, Urine Bacteria 0 SEEN, Urine Mucus 0 SEEN 11/13/23 17:30: Troponin I High Sens 5953 H* 11/13/23 20:40: Lactic Acid 2.1 H* 11/13/23 22:05: APTT 43.2 H 11/13/23 22:32: POC Glucose 168 H 11/14/23 05:30: WBC 7.1, RBC 4.33 L, Hgb 12.4 L, Hct 37.6 L, MCV 86.8, MCH 28.6, MCHC 33.0, RDW Std Deviation 43.7, RDW Coeff of Sushila 13.6, Plt Count 243, MPV 10.3, APTT 46.1 H, Sodium 135 L, Potassium 3.2 L, Chloride 102, Carbon Dioxide 19.0 L, Anion Gap 14, BUN 29 H, Creatinine 1.60 H, Estim Creat Clear Calc 56.28, Est GFR (MDRD) Af Amer 56 L, Est GFR (MDRD) Non-Af 47 L, BUN/Creatinine Ratio 18.1, Glucose 196 H, Calcium 7.9 L, Triglycerides 111, Cholesterol 117, LDL Cholesterol 61, VLDL Cholesterol 22, HDL Cholesterol 34 L, TSH 1.15 11/14/23 06:24: POC Glucose 169 H Micro: Microbiology 11/13/23 15:45 Mucosa - Nose SARS-CoV-2, Influenza & RSV (PCR) - Final Radiography Diagnostic Testing: Radiology Impression Chest X-Ray 11/13/23 15:55 IMPRESSION: Possible mild atelectasis or infiltrate in the lung bases. Possible small left pleural effusion. Electronically Signed: Moreno Mccurdy MD at 16:14 EDT , Physical Exam Narrative GENERAL: cooperative HEENT: Atraumatic; normocephalic EYES; Anicteric, Normal Conjunctiva NECK; supple, normal thyroid, RESPIRATORY: Diminished to auscultation CARDIOVASCULAR: Regular S1 S2, GI: soft, normoactive bowel sounds, : No Renal angle tenderness; EXTREMITIES: No edema, no clubbing, MUSCULOSKELETAL: Right BKA NEURO: Awake; no lateralizing signs. SKIN: No Rash PSYCH; Flat affect Assessment & Plan Assessment/Plan (1) Acute non-ST elevation myocardial infarction (NSTEMI): PLAN: Plan Patient is an 63 -year-old gentleman who was sent from his primary care physician's office with progressive shortness of breath. Patient was found to have elevated troponin on admission consistent with acute non-STEMI treatment initiated per protocol admitted to monitored bed for further management 1. Acute non-STEMI ? Patient has significant risk factors including coronary artery disease with CABG with multiple PCI's. Presented with progressive shortness of breath found to have elevated troponin. Treatment initiated per protocol with antiplatelet therapy, beta-blockers, heparin as well as Zetia and pitavastatin. 2D echo ordered and consultation placed to cardiology 2. Coronary artery disease ? With previous CABG and multiple stents placement. Patient is on guideline directed medical therapy 3. Ischemic cardiomyopathy ? With a EF of 40% patient has AICD in place. Patient has known EF of 40% patient was previously on Entresto and furosemide held given worsening kidney function as well as hypotension 4. Hypotension ? Patient was on Entresto and diuretic therapy held 5. GERD ? On PPI 6. Acute kidney injury ? Superimposed on chronic kidney disease stage III. Baseline creatinine 1.3. Creatinine on admission 1.79. Potential nephrotoxic medications including Entresto as well as furosemide held daily monitoring with BMP ordered 7. Paroxysmal A-fib ? Patient presented in sinus rhythm 8. Peripheral arterial disease -With history of right BKA. Did continue with antiplatelet therapy 9. Diabetes mellitus type II -patient's oral hypoglycemics held. Placed on long acting insulin, Accu-Cheks a.c. and at bedtime and covered with sliding scale insulin 10. Generalized osteoarthritis ? Pain meds as needed 11. Dyslipidemia -Patient is on statin therapy, continued at home dose 12. DVT prophylaxis ? Patient is on heparin Time spent in the patient's overall evaluation,decision-making process, review of diagnostic data, adjustment of management, discussion with other providers, nursing nursing and ancillary staff involved in patient's care documentation, 55 Minutes Charges/Coding Visit Charges Inpatient E&M: 97530 [facility] L3
--- NOTE | 2023-11-14 10:09 | PCM.PN.CARD ---
Subjective Subjective No chest pain or shortness of breath this morning. Per him, he has chest pain with coughing only. Objective Data Vital Signs: Vital Signs Temp Pulse Resp BP Pulse Ox O2 Del Method 98.4 F 85 18 92/64 97 Room Air 11/14/23 07:41 11/14/23 07:41 11/14/23 07:41 11/14/23 07:41 11/14/23 07:41 11/14/23 07:45 Oxygen Delivery Method Room Air Weight: 222 lb 10.67 oz Body Mass Index (BMI) 31.9 Intake & Output: Intake and Output for Last 24 Hours 11/12/23 11/13/23 11/14/23 23:59 23:59 23:59 Intake Total 2390.67 / 2390.67 1415.65 / 1415.65 Output Total 0 / 0 400 / 400 Balance 2390.67 / 2390.67 1015.65 / 1015.65 Lab / Micro Data 11/14/23 05:30 11/14/23 05:30 Labs: Laboratory Results - last 24 hr 11/13/23 15:10: WBC 10.2, RBC 4.81, Hgb 13.4, Hct 42.0, MCV 87.3, MCH 27.9, MCHC 31.9 L, RDW Std Deviation 43.6, RDW Coeff of Sushila 13.5, Plt Count 301, MPV 10.9, Immature Gran % (Auto) 0.300, Neut % (Auto) 72.9 H, Lymph % (Auto) 16.7 L, [place] % (Auto) 9.0, Eos % (Auto) 0.7, Baso % (Auto) 0.4, Absolute Neuts (auto) 7.4, Absolute Lymphs (auto) 1.70, Nucleated RBC % 0, PT 15.5 H, INR 1.2, APTT 31.1, Sodium 136, Potassium 4.0, Chloride 101, Carbon Dioxide 21.0, Anion Gap 14, BUN 29 H, Creatinine 1.79 H, Estim Creat Clear Calc 50.45, Est GFR (MDRD) Af Amer 50 L, Est GFR (MDRD) Non-Af 41 L, BUN/Creatinine Ratio 16.2, Glucose 231 H, Lactic Acid 2.1 H*, Calcium 8.6, Troponin I High Sens 6252 H*, B-Natriuretic Peptide 1031.9 H 11/13/23 15:45: Urine Color Yellow, Urine Clarity Clear, Urine pH 6.0, Ur Specific [place] 1.015, Urine Protein 15 H, Urine Glucose (UA) 1000 H, Urine Ketones 50 H, Urine Occult Blood Negative, Urine Nitrite Negative, Urine Bilirubin Negative, Urine Urobilinogen 1 H, Ur Leukocyte Esterase Negative, Urine RBC 0 SEEN, Urine WBC 0 SEEN, Ur Squamous Epith Cells 0 SEEN, Urine Bacteria 0 SEEN, Urine Mucus 0 SEEN 11/13/23 17:30: Troponin I High Sens 5953 H* 11/13/23 20:40: Lactic Acid 2.1 H* 11/13/23 22:05: APTT 43.2 H 11/13/23 22:32: POC Glucose 168 H 11/14/23 05:30: WBC 7.1, RBC 4.33 L, Hgb 12.4 L, Hct 37.6 L, MCV 86.8, MCH 28.6, MCHC 33.0, RDW Std Deviation 43.7, RDW Coeff of Sushila 13.6, Plt Count 243, MPV 10.3, APTT 46.1 H, Sodium 135 L, Potassium 3.2 L, Chloride 102, Carbon Dioxide 19.0 L, Anion Gap 14, BUN 29 H, Creatinine 1.60 H, Estim Creat Clear Calc 56.28, Est GFR (MDRD) Af Amer 56 L, Est GFR (MDRD) Non-Af 47 L, BUN/Creatinine Ratio 18.1, Glucose 196 H, Calcium 7.9 L, Triglycerides 111, Cholesterol 117, LDL Cholesterol 61, VLDL Cholesterol 22, HDL Cholesterol 34 L, TSH 1.15 11/14/23 06:24: POC Glucose 169 H Micro: Microbiology 11/13/23 15:45 Mucosa - Nose SARS-CoV-2, Influenza & RSV (PCR) - Final Cardiology Labs/Tests 11/13/23 15:10: WBC 10.2, RBC 4.81, Hgb 13.4, Hct 42.0, MCV 87.3, MCH 27.9, MCHC 31.9 L, Plt Count 301, MPV 10.9, Immature Gran % (Auto) 0.300, Neut % (Auto) 72.9 H, Lymph % (Auto) 16.7 L, [place] % (Auto) 9.0, Eos % (Auto) 0.7, Baso % (Auto) 0.4, Absolute Neuts (auto) 7.4, Nucleated RBC % 0, PT 15.5 H, INR 1.2, APTT 31.1, Sodium 136, Potassium 4.0, Chloride 101, Carbon Dioxide 21.0, Anion Gap 14, BUN 29 H, Creatinine 1.79 H, Est GFR (MDRD) Af Amer 50 L, Est GFR (MDRD) Non-Af 41 L, BUN/Creatinine Ratio 16.2, Glucose 231 H, Lactic Acid 2.1 H*, Calcium 8.6, B-Natriuretic Peptide 1031.9 H 11/13/23 15:45: Urine Color Yellow, Urine Clarity Clear, Urine pH 6.0, Ur Specific [place] 1.015, Urine Protein 15 H, Urine Glucose (UA) 1000 H, Urine Ketones 50 H, Urine Occult Blood Negative, Urine Nitrite Negative, Urine Bilirubin Negative, Urine Urobilinogen 1 H, Ur Leukocyte Esterase Negative, Urine RBC 0 SEEN, Urine WBC 0 SEEN 11/13/23 20:40: Lactic Acid 2.1 H* 11/13/23 22:05: APTT 43.2 H 11/14/23 05:30: WBC 7.1, RBC 4.33 L, Hgb 12.4 L, Hct 37.6 L, MCV 86.8, MCH 28.6, MCHC 33.0, Plt Count 243, MPV 10.3, APTT 46.1 H, Sodium 135 L, Potassium 3.2 L, Chloride 102, Carbon Dioxide 19.0 L, Anion Gap 14, BUN 29 H, Creatinine 1.60 H, Est GFR (MDRD) Af Amer 56 L, Est GFR (MDRD) Non-Af 47 L, BUN/Creatinine Ratio 18.1, Glucose 196 H, Calcium 7.9 L, Triglycerides 111, Cholesterol 117, LDL Cholesterol 61, VLDL Cholesterol 22, HDL Cholesterol 34 L Rhythm: EKG: ECHO: Stress Test: Cardiac Cath: PCI: CT Surgery: Holter monitor: EPS: PPM: CXR: Chest CT Scan: Radiography Diagnostic Testing: Radiology Impression Chest X-Ray 11/13/23 15:55 IMPRESSION: Possible mild atelectasis or infiltrate in the lung bases. Possible small left pleural effusion. Electronically Signed: Moreno Mccurdy MD at 16:14 EDT , Physical Exam Narrative Comfortable. No apparent distress. Heart sounds 1 and 2 normal. No murmurs or rubs noted. Mildly decreased breath sounds left base. Alert oriented x 3. Right below-knee amputation. Assessment & Plan Assessment/Plan (1) Acute non-ST elevation myocardial infarction (NSTEMI): PLAN: NSTEMI. Options discussed with patient. Coronary angiography with possible revascularization offered. Risks benefits and alternatives explained. Particular emphasis given to the risk of contrast-induced nephropathy in view of baseline renal insufficiency. He understand these and wishes to proceed. (2) H/O coronary artery bypass surgery: PLAN: See #1 above. History of VEGA to the LAD and vein graft to the RCA. (3) Presence of automatic implantable cardioverter-defibrillator: PLAN: Continue following in the pacemaker clinic as outpatient. (4) Ischemic cardiomyopathy: PLAN: He does have evidence of ischemic cardiomyopathy. Previous echocardiogram had demonstrated ejection fraction of 40%. This will be repeated. He is on guideline directed medical therapy and this will be optimized. His natruretic peptide level is elevated suggestive of some element of congestive heart failure. After his blood pressure is optimized we may resume his diuretics. (5) Paroxysmal atrial fibrillation: PLAN: He has a history of paroxysmal atrial fibrillation. He is in sinus rhythm at this time. (6) Essential hypertension: PLAN: His blood pressure is low at this particular time and he will be treated with some intravenous fluid and his medications optimized. Thank you for allowing me to participate in the care of your patient. Please don't hesitate to call if any issues arise.
[2023-11-14] MEDS: Carvedilol 6.25 MG Tablet PO ×2 (10:13→16:53)
--- NOTE | 2023-11-14 11:52 | PCM.CONS.R ---
Assessment & Plan Assessment/Plan (1) Acute kidney injury: PLAN: This is 62 years old with longstanding diabetes mellitus with e damage nd organ, and I suspect he has got diabetic nephropathy at the baseline. Came over with hypotension, dehydration, increased lactic acid and non-STEMI. He is creatinine improved with IV hydration, he is more hemodynamically stable. He just received load of IV dye for cardiac catheterization. Initial injury is of renal hypoperfusion, He is at high risk of contrast-induced nephropathy Avoid further nephrotoxins Avoid hypotension We will follow closely HPI Consult Data Date of Consult: 11/14/23 HPI Narrative Reason for Consultation: Acute kidney injury HPI Narrative: XUAN HUSTON, is a 63 M who presents with a 4 to 5-day history of not feeling well. He states that he has not been eating or drinking for those for 5 days, he has extreme fatigue and was barely able to move, checked himself in the emergency room and was found to have creatinine 1.79. His lactic acid level was elevated, his blood pressure was low. He received IV fluids and felt little bit better, creatinine is down to 1.6. He also had elevated troponins and was diagnosed with non-STEMI. He has extensive history of vascular disease, coronary artery disease and peripheral vascular disease. He has mild chronic kidney insufficiency with a baseline with creatinine of 1.2-1.3. He has longstanding history of diabetes and already has profound diabetic neuropathy. He does have some mild proteinuria, so I suspect he has got diabetic nephropathy at the baseline. Kidney ultrasound was done this morning and still pending results. He just had cardiac catheterization and coming out of the [facility]. [facility] Medical History Acute bronchitis, unspecified Amputation of leg Arthritis Atherosclerosis of coronary artery of [place] heart without angina pectoris Back pain Back problem Carpal tunnel syndrome CHF (congestive heart failure) Chronic systolic heart failure Deep vein blood clot of right lower extremity Diabetes mellitus Diabetic retinopathy associated with type 2 diabetes mellitus Difficulty balancing Essential hypertension Gallstones Gangrene of right foot GERD (gastroesophageal reflux disease) Hard of hearing History of DVT (deep vein thrombosis) Hx of staphylococcal infection Hyperlipidemia Ischemic cardiomyopathy Neuropathy NPDR (nonproliferative diabetic retinopathy) Obesity Old myocardial infarction Osteoarthritis Osteomyelitis PAD (peripheral artery disease) Paroxysmal atrial fibrillation Peripheral arterial occlusive disease Polyneuropathy Polyneuropathy due to type 2 diabetes mellitus Sick sinus syndrome Thrombocytopenia Home Medications aspirin 81 mg tablet,delayed release 81 mg PO DAILY HEART HEALTH 10/10/17 [History Last Taken 11/13/23 08:00 81 mg] metolazone 2.5 mg tablet 2.5 mg PO .COMPLEX PRN SWELLING #45 tabs 08/26/19 [Rx Last Taken Unknown] ascorbic acid (vitamin C) 500 mg capsule 500 mg PO DAILY supplement 12/22/20 [History Last Taken 11/13/23 08:00 500 mg] Novolog FlexPen U-100 Insulin 100 unit/mL (3 mL) subcutaneous (insulin aspart U-100) 30 unit (0.3 mL) subcut .tidcm DM #135 mL 05/24/21 [Rx Last Taken Unknown] flash glucose sensor ([employer] [employer]id 14 Day Sensor kit) #2 ea 12/10/21 [Rx Last Taken Unknown] Dexcom G6 Chief Scientific Officer (blood-glucose meter,continuous) #1 ea 02/28/22 [Rx Last Taken Unknown] Dexcom G6 Sensor (blood-glucose sensor) #9 ea 02/28/22 [Rx Last Taken Unknown] Dexcom G6 Transmitter (blood-glucose transmitter) #1 ea 02/28/22 [Rx Last Taken Unknown] dapagliflozin propanediol 10 mg tablet (Farxiga) 10 mg PO DAILY CHF 10/29/22 [History Last Taken 11/13/23 08:00 10 mg] ezetimibe 10 mg tablet 10 mg PO DAILY cholesterol #90 tabs 02/24/23 [Rx Last Taken 11/13/23 08:00 10 mg] nitroglycerin 0.4 mg/hr transdermal 24 hour patch 1 patch transdermal DAILY CHF #90 ea 06/23/23 [Rx Last Taken 11/13/23 08:00 1 patch] furosemide 40 mg tablet 40 mg PO .COMPLEX diuretic #270 tabs 07/21/23 [Rx Last Taken 11/13/23 08:00 80 mg] insulin glargine 100 unit/mL (3 mL) subcutaneous pen (Basaglar KwikPen U-100 Insulin) 30 unit subcut QAM DM 07/21/23 [History Last Taken Unknown] sacubitril 97 mg-valsartan 103 mg tablet (Entresto) See Rx Instructions .Route .COMPLEX CHF #180 tabs 07/21/23 [Rx Last Taken 11/13/23 08:00 97-103] carvedilol 6.25 mg tablet See Rx Instructions .Route .COMPLEX for his blood pressure #180 tabs 10/09/23 [Rx Last Taken 11/13/23 08:00 6.25] omeprazole 20 mg capsule,delayed release See Rx Instructions .Route .COMPLEX acid reflux #90 caps 10/09/23 [Rx Last Taken 11/12/23 20:00 20] pitavastatin calcium 4 mg tablet 4 mg PO .COMPLEX cholesterol 11/13/23 [History Last Taken Unknown] ranolazine 500 mg tablet,extended release,12 hr 500 mg PO BID CHF 11/13/23 [History Last Taken 11/13/23 08:00 500 mg] Allergy/AdvReac Type Severity Reaction Status Date / Time dulaglutide [From Trulicity] Allergy Intermediate Diarrhea Verified 11/13/23 15:02 Penicillins Allergy Hives Verified 11/13/23 15:02 pioglitazone HCl [From Actos] Allergy Swelling Verified 11/13/23 15:02 Bewlawl-TZB-TvN Reductase Allergy Unknown Verified 11/13/23 15:02 Inhibitor [Rdttdzs-Uhj-Cbs Reductase Inhibitor] gabapentin [From Neurontin] AdvReac Intermediate Other Verified 11/13/23 15:02 Family History Father , age 57 Diabetes CAD (coronary artery disease) Brother , age 33 Diabetes Myocardial infarction Brother Diabetes AICD (automatic cardioverter/defibrillator) present CAD (coronary artery disease) coronary stents Other Heart disease Hypertension Surgical History abdominal aortagram with RLE runoff (~10/17/17) Amputation, toe, traumatic H/O coronary artery bypass surgery (09/26/04) H/O right heart catheterization History of angioplasty History of carpal tunnel release of both wrists History of coronary artery stent placement (09/25/17) History of exploratory laparotomy History of eye surgery (~04/2023) History of laminectomy History of left heart catheterization (06/2018) 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) History of spinal fusion History of vasectomy (1994) Hx of cholecystectomy (2014) left heart cath and RLE arteriogram (09/25/17) neurostimulator implant Presence of automatic implantable cardioverter-defibrillator (08/08/16) Previous back surgery RLE peroneal artery stent (10/03/17) Status post ablation of incompetent vein using laser Social History Smoking Status: Current every day smoker tobacco type: smokeless tobacco alcohol intake: never substance use type: does not use caffeine: Yes Type: carbonated beverages Number of servings: 1 and coffee Number of servings: 2 what type of physical activity do you participate in: none ROS Constitutional Constitutional: Reports malaise and weakness Eyes Eyes: Denies blindness, blurry vision, change in vision, discongugate gaze, double vision, dry eyes or loss of vision ENT HEENT: Reports dry mouth Cardiovascular Cardiovascular: Reports chest pain and dyspnea on exertion Respiratory/Chest Respiratory/Chest: Denies dry cough, dyspnea on exertion, hemoptysis, portable oxygen @ home, productive cough, shortness of breath at rest or wheezing Gastrointestinal Gastrointestinal: Reports anorexia and dry heaves Genitourinary Genitourinary: Denies change in urinary stream, difficulty urinating, dribbling, dysuria, flank pain, hematuria, nocturia, oliguria, post void dribbling, urinary frequency, urinary hesitancy, urinary incontinence or urinary urgency Musculoskeletal Musculoskeletal: Denies abnormal gait, arthralgias, joint stiffness, joint swelling, muscle cramps or myalgias Integumentary Integumentary: Denies dry skin, erythema, jaundice, lesions, pruritus, rash or skin ulcer Neurologic Neurologic: Denies abnormal gait, burning sensations, confusion, focal weakness, frequent falls, headache(s), numbness, restless legs, seizures, syncope, tremor(s) or weakness Psychiatric Psychiatric: Denies anxiety, confusion, depression or hallucinations Endocrine Endocrinology: Denies cold intolerance, fatigue, heat intolerance, polydipsia or polyuria Hematologic/Lymphatic Hematologic/Lymphatic: Denies anemia, easy bleeding or easy bruising Physical Exam Const no apparent distress and average body habitus Orientation / Consciousness: oriented to person, oriented to place and oriented to time HEENT normocephalic Head and Scalp: atraumatic Neck no lymphadenopathy Resp no use of accessory muscles Cardio regular rate GI non-tender and non-distended Auscultation: normoactive bowel sounds Palpation: soft Skin no rashes or lesions noted Neuro Sensorium / Orientation: somnolent Psych cooperative Medical Records Data Attestation: I reviewed the patient's medical records Lab / Micro Data Attestation: I reviewed the patient's lab results. 11/14/23 05:30 11/14/23 05:30 Labs: Laboratory Results - last 24 hr 11/13/23 15:10: WBC 10.2, RBC 4.81, Hgb 13.4, Hct 42.0, MCV 87.3, MCH 27.9, MCHC 31.9 L, RDW Std Deviation 43.6, RDW Coeff of Sushila 13.5, Plt Count 301, MPV 10.9, Immature Gran % (Auto) 0.300, Neut % (Auto) 72.9 H, Lymph % (Auto) 16.7 L, [place] % (Auto) 9.0, Eos % (Auto) 0.7, Baso % (Auto) 0.4, Absolute Neuts (auto) 7.4, Absolute Lymphs (auto) 1.70, Nucleated RBC % 0, PT 15.5 H, INR 1.2, APTT 31.1, Sodium 136, Potassium 4.0, Chloride 101, Carbon Dioxide 21.0, Anion Gap 14, BUN 29 H, Creatinine 1.79 H, Estim Creat Clear Calc 50.45, Est GFR (MDRD) Af Amer 50 L, Est GFR (MDRD) Non-Af 41 L, BUN/Creatinine Ratio 16.2, Glucose 231 H, Lactic Acid 2.1 H*, Calcium 8.6, Troponin I High Sens 6252 H*, B-Natriuretic Peptide 1031.9 H 11/13/23 15:45: Urine Color Yellow, Urine Clarity Clear, Urine pH 6.0, Ur Specific Stephen 1.015, Urine Protein 15 H, Urine Glucose (UA) 1000 H, Urine Ketones 50 H, Urine Occult Blood Negative, Urine Nitrite Negative, Urine Bilirubin Negative, Urine Urobilinogen 1 H, Ur Leukocyte Esterase Negative, Urine RBC 0 SEEN, Urine WBC 0 SEEN, Ur Squamous Epith Cells 0 SEEN, Urine Bacteria 0 SEEN, Urine Mucus 0 SEEN 11/13/23 17:30: Troponin I High Sens 5953 H* 11/13/23 20:40: Lactic Acid 2.1 H* 11/13/23 22:05: APTT 43.2 H 11/13/23 22:32: POC Glucose 168 H 11/14/23 05:30: WBC 7.1, RBC 4.33 L, Hgb 12.4 L, Hct 37.6 L, MCV 86.8, MCH 28.6, MCHC 33.0, RDW Std Deviation 43.7, RDW Coeff of Sushila 13.6, Plt Count 243, MPV 10.3, APTT 46.1 H, Sodium 135 L, Potassium 3.2 L, Chloride 102, Carbon Dioxide 19.0 L, Anion Gap 14, BUN 29 H, Creatinine 1.60 H, Estim Creat Clear Calc 56.28, Est GFR (MDRD) Af Amer 56 L, Est GFR (MDRD) Non-Af 47 L, BUN/Creatinine Ratio 18.1, Glucose 196 H, Calcium 7.9 L, Triglycerides 111, Cholesterol 117, LDL Cholesterol 61, VLDL Cholesterol 22, HDL Cholesterol 34 L, TSH 1.15 11/14/23 06:24: POC Glucose 169 H Micro: Microbiology 11/13/23 15:45 Mucosa - Nose SARS-CoV-2, Influenza & RSV (PCR) - Final Imaging Radiology Impression Chest X-Ray 11/13/23 15:55 IMPRESSION: Possible mild atelectasis or infiltrate in the lung bases. Possible small left pleural effusion. Electronically Signed: Moreno Mccurdy MD at 16:14 EDT , Echocardiogram 11/14/23 05:55 Interpretation Summary The estimated ejection fraction is 30-35 %. Mildly dilated left ventricle with severe hypokinesis to akinesis of the inferior and posterior wall. The left atrium is mildly enlarged. Mild (1+) tricuspid valve insufficiency. Moderate (2+) mitral valve insufficiency. The study was technically difficult. Contrast injection was performed. Compared to prior study, changes are noted. Ordering Physician: Giovanni Cedillo Referring Physician: Darius Hartmann MD Performed By: Kerrie Hanna RDCS
--- NOTE | 2023-11-14 12:10 | CL.D_ITS ---
Patient Name: XUAN HUSTON Study Date: 11/14/2023 Performing: Kwabena Lyles MD Ht: 70 inches 177.8 cm : 1960 Wt: 222.67 lbs 101 kg Age: 63 Gender: male BSA: 2.18 PROCEDURE(S) PERFORMED DC04-(80085)LHC/COR/CABG CLINICAL PROFILE AND INDICATIONS Indications: ACS <= 24 hrs Heart Failure: Heart Failure Type: Systolic CAD Presentations: Non-STEMI. Symptom onset Date/Time: Time Not Available CONCLUSIONS distal to VEGA anastomosis. 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 The risks and benefits of the procedure as well as a full description of our services here and current unavailability of surgical backup were fully explained to the patient and/or their significant other prior to the catheterization. The Timeout was completed, verifying the correct patient and procedure. The patient's procedural site was prepped and draped in the usual fashion. Local anesthetic was given subcutaneously to right radial region with Lidocaine 2%. Using a modified Seldinger technique, arterial access was obtained via the right radial artery, a 6Fr sheath was inserted. Saphenous Vein graft to the RPDA selective angiography was performed in multiple views using a 5 Fr. 4.0 [place] catheter-occluded. Left internal mammary artery graft to the LAD-Diag selective angiography was performed in multiple views using a 5 Fr. IM catheter. Left internal mammary artery graft to the LAD selective angiography was performed in multiple views using a 5 Fr. IM catheter. LV to AO pullback pressures were then recorded. Left Coronary Artery selective angiography was performed in multiple views using a 6 Fr. XB 2.5.The arterial sheath was pulled and a TR Band was applied for hemostasis 10 ml of air CORONARY ANGIOGRAPHY DOMINANCE: Right Dominant LEFT HEART ASSESSMENT Left Ventricular Ejection Fraction: Not assessed LVEDP: 36 mmHg LEFT ANTERIOR DESCENDING ARTERY: LAD: Calcified 100% Proximal lesion in LAD Tubular 60% Mid lesion in LAD OM 1: In-Stent Restenosis 100% Ostial lesion in MARG1 OM 2: In-Stent Restenosis 100% Ostial lesion in MARG1 RIGHT CORONARY ARTERY: RCA: Tubular 100% Proximal lesion in RCA GRAFTS: SVG Graft to RCA Tubular 100% lesion in SVG Graft to RCA VEGA Graft to LAD Tubular 50% lesion in VEGA Graft to LAD COMPLICATIONS No Complications PROCEDURE MEDICATIONS Versed 1 mg IV Fentanyl 50 mcg IV Oxygen: 2 L/min via nasal cannula Heparin given IA 11/14/2023 10:48:23 Heparin 2000 unit(s) IV 11/14/2023 11:01:42 Heparin 2000 unit(s) IV 11/14/2023 11:09:12 Lasix 40 mg IV 11/14/2023 11:52:31 Nitro 50 mcg IA 11/14/2023 11:18:10 SUMMARY OF HEMODYNAMIC DATA Time AIR REST ECG 10:31:21 AO 88/56 (71) SA 10:55:13 LV 91/26, 36 11:36:11 LV 92/27, 36 11:36:14 11:59:09 Signed By Kwabena Lyles MD On 11/14/2023 12:09:56 Kwabena Lyles MD
[2023-11-14] MEDS: Ranolazine 500 MG Tablet PO ×2 (12:20→20:00)
[2023-11-14] MEDS: Ezetimibe 10 MG Tablet PO (12:20)
--- NOTE | 2023-11-14 12:20 | CASEMGMT ---
OSWALDO ALMARAZ Face to Face with patient for initial transition planning/care coordination assessment. RN CM introduced self and role at [facility]. Patient lying in bed, alert and oriented, family at bedside. Patient willing to participate in assessment and is able to answer all questions appropriately. Care providers, pharmacy, and demographics verified. PCP: Mary Kate Specialists: Kobe, blast furnace keeper; dandre Gregg Preferred [facility]acy: [facility] Insurance: MMO Prescription Benefit: yes Living Will/HPOA: yes, Evelyne Fuchs LNOK: , son Living Arrangements: Patient lives with in a single story home with 3 steps and grab bar to enter the home. Patient is independent at home. Transportation: DME/HHC: Patient has shower chair, raised toilet, cane, grab bars, walker, wheelchair, glucometer with supplies at home. No previous HHC of SNF. Patient wishes to discharge home, denies need for home health at this time. Patient states he has no further needs or concerns at this time. CM to follow for discharge planning needs that may arise. Disposition Plan: Patient to discharge home with family support and follow-up plans in place. Madina SANCHEZ, RN, CM
[2023-11-14] MEDS: Insulin Lispro 100 UNIT/ML INSULN.PEN SC (12:23)
[2023-11-14] MEDS: Insulin Lispro 100 UNIT/ML INSULN.PEN 10 UNIT SC ×2 (12:23→16:51)
[2023-11-14] MEDS: Clopidogrel Bisulfate 75 MG Tablet PO (12:23)
[2023-11-14 12:38] LABS: Bedside Glucose 189 mg/dL (74-106)
[2023-11-14] MEDS: Ascorbic Acid 500 MG Tablet PO (12:48)
[2023-11-14 16:43] LABS: Bedside Glucose 144 mg/dL (74-106)
[2023-11-14] MEDS: Glucerna Shake 120 ML LIQUID PO (16:52)
[2023-11-14] MEDS: Nitroglycerin Oint 1 INCH PACKET TD (20:00)
--- NOTE | 2023-11-14 21:44 | CPS ---
O2 started due to CP pt was experiencing at the 1900 hour. 2L nasal o2.
[2023-11-14 21:45] LABS: Bedside Glucose 117 mg/dL (74-106)
--- NOTE | 2023-11-14 21:54 | PCM.HOSP.N ---
Hospitalist Note Patient with dyspnea, now on supplemental oxygen, given IVFs following catheterization. ECHO with noted reduced EF 30-35%. Will dose with lasix 40 mg IV x 1.
[2023-11-14] MEDS: 0.9% Saline Lock 10 ML Syringe IV (22:05)
[2023-11-14] MEDS: Furosemide 40 MG/4 ML Vial IV (22:05)
[2023-11-15 00:23] VITALS: BP 117/52; PULSE 74
[2023-11-15] MEDS: Nitroglycerin Oint 1 INCH PACKET TD ×2 (00:23→05:59)
[2023-11-15 03:00] VITALS: BP 100/72; BP 94/62; PULSE 73; PULSE 77; RESP 20; TEMP 35.7; TEMP 35.8; O2SAT 92; O2SAT 95
[2023-11-15 05:59] VITALS: BP 93/66; PULSE 77
[2023-11-15 06:19] LABS: Absolute Lymphocyte Count 1.86 X10^3/uL (0.83-4.51); Absolute Neutrophil Count 5.5 X10^3/uL (2.0-7.7); Basophil# 0.05 X10^3/uL; Basophil% 0.6 % (0-1); Eosinophil# 0.08 X10^3/uL; Hematocrit 40.7 % (40-54); Hemoglobin 13.4 g/dL (13.0-16.5); Lymphocyte # 1.86 X10^3/ul (0.83-4.51); Lymphocyte % 22.1 % (19-41); Mean Corp Hgb Conc 32.9 g/dL (32-36); Mean Corpuscular Hgb 28.4 pg (27.0-32.0); Mean Corpuscular Volume 86.2 fL (80-94); Mean Platelet Vol. 10.4 fl (6.2-12.0); Monocyte# 0.93 X10^3/uL; Monocyte% 11.1 % (0-10); NRBC Flagged by Analyzer 0 % (0-5); Neutrophil # 5.45 X10^3/uL (2.7-7.7); Neutrophil % 64.7 % (47-70); Platelet Count 306 K/mm3 (150-450); RBC Distribution Width CV 13.4 % (11.6-14.6); RBC Distribution Width SD 42.3 fl (35.1-43.9); Red Blood Count 4.72 M/mm3 (4.6-6.2); White Blood Count 8.4 K/mm3 (4.4-11.0)
[2023-11-15] MEDS: Ondansetron 4 MG/2 ML Vial IV (06:46)
[2023-11-15 06:47] LABS: Anion Gap 13 (5-15); BUN 30 mg/dL (7-18); BUN/Creat Ratio 18.2 RATIO (10-20); Calcium,Total 8.6 mg/dL (8.5-10.1); Chloride 102 mmol/L (98-107); Creatinine, Serum 1.65 mg/dL (0.70-1.30); EST Glomerular Filtration Rate 45 mL/min (>60); Est Glom Filt Rate - Afr Amer 54 mL/min (>60); Estimated Creatinine Clearance 54.57 ml/min; Glucose 180 mg/dL (74-106); Magnesium 2.6 mg/dL (1.6-2.6); Potassium 4.5 mmol/L (3.5-5.1); Sodium Level 134 mmol/L (136-145)
[2023-11-15 06:51] LABS: Phosphorus 3.5 mg/dL (2.5-4.9)
[2023-11-15 07:54] VITALS: O2SAT 95
--- NOTE | 2023-11-15 08:15 | DS.PCM_ITS ---
Providers Date of Admission: 11/13/23 Date of Discharge: 11/15/23 Primary Care Physician: Dr. Darius Hartmann MD Consultations 11/13/23 19:03 Consult: Cardiology Routine Consulting Provider: Harvey Bullock Reason for Consult: Chest Pain/nstemi EMERGENT Consult: No Notified: Yes Date Notified: 11/13/23 Time Notified: 18:27 Method of Notification: ED Physician Initiated 11/13/23 21:48 Consult: Nephrology Routine Consulting Provider: Brenda Strange Reason for Consult: CARLOS on CKD. EMERGENT Consult: No Notified: Yes Date Notified: 11/13/23 Time Notified: 21:49 Method of Notification: Text Reason For Visit: NSTEMI Diagnosis Discharge Diagnosis (1) Acute kidney injury: Status: Acute Code(s): N17.9 - Acute kidney failure, unspecified Plan Patient is an 63 -year-old gentleman who was sent from his primary care physician's office with progressive shortness of breath. Patient was found to have elevated troponin on admission consistent with acute non-STEMI treatment initiated per protocol admitted to monitored bed for further management 1. Acute non-STEMI ? Patient has significant risk factors including coronary artery disease with CABG with multiple PCI's. Presented with progressive shortness of breath found to have elevated troponin. Treatment initiated per protocol with antiplatelet therapy, beta-blockers, heparin as well as Zetia and pitavastatin. 2D echo ordered and consultation placed to cardiology ? 11/15/2023 patient underwent left heart catheterization the day prior CORONARY ANGIOGRAPHY DOMINANCE: Right Dominant LEFT HEART ASSESSMENT Left Ventricular Ejection Fraction: Not assessed LVEDP: 36 mmHg LEFT ANTERIOR DESCENDING ARTERY: LAD: Calcified 100% Proximal lesion in LAD Tubular 60% Mid lesion in LAD OM 1: In-Stent Restenosis 100% Ostial lesion in MARG1 OM 2: In-Stent Restenosis 100% Ostial lesion in MARG1 RIGHT CORONARY ARTERY: RCA: Tubular 100% Proximal lesion in RCA GRAFTS: SVG Graft to RCA Tubular 100% lesion in SVG Graft to RCA VEGA Graft to LAD Tubular 50% lesion in VEGA Graft to LAD COMPLICATIONS No Complications Based on above cardiology recommended optimization of medical therapy 2. Coronary artery disease ? With previous CABG and multiple stents placement. Patient is on guideline directed medical therapy 3. Ischemic cardiomyopathy ? With a EF of 40% patient has AICD in place. Patient has known EF of 40% patient was previously on Entresto and furosemide held given worsening kidney function as well as hypotension 4. Hypotension ? Patient was on Entresto and diuretic therapy held ? Entresto resumed on discharge at the half dose. Patient was on both metolazone as well as furosemide metolazone discontinued 5. GERD ? On PPI 6. Acute kidney injury ? Superimposed on chronic kidney disease stage III. Baseline creatinine 1.3. Creatinine on admission 1.79. Potential nephrotoxic medications including Entresto as well as furosemide held daily monitoring with BMP ordered ? Kidney function at a time of discharge 1.65 patient to follow-up with nephrology as outpatient 7. Paroxysmal A-fib ? Patient presented in sinus rhythm 8. Peripheral arterial disease -With history of right BKA. Did continue with antiplatelet therapy 9. Diabetes mellitus type II -patient's oral hypoglycemics held. Placed on long acting insulin, Accu-Cheks a.c. and at bedtime and covered with sliding scale insulin 10. Generalized osteoarthritis ? Pain meds as needed 11. Dyslipidemia -Patient is on statin therapy, continued at home dose 12. DVT prophylaxis ? Patient is on heparin Time spent in the patient's overall evaluation,decision-making process, review of diagnostic data, adjustment of management, discussion with other providers, nursing nursing and ancillary staff involved in patient's care documentation, 35 Minutes Medications at Discharge Home Medications aspirin 81 mg tablet,delayed release 81 mg PO DAILY HEART HEALTH 10/10/17 ascorbic acid (vitamin C) 500 mg capsule 500 mg PO DAILY supplement 12/22/20 Novolog FlexPen U-100 Insulin 100 unit/mL (3 mL) subcutaneous (insulin aspart U- 100) 30 unit (0.3 mL) subcut .tidcm DM #135 mL 05/24/21 flash glucose sensor (FreeStyle Junaid 14 Day Sensor kit) #2 ea 12/10/21 Dexcom G6 Machine Operator Picker (blood-glucose meter,continuous) #1 ea 02/28/22 Dexcom G6 Sensor (blood-glucose sensor) #9 ea 02/28/22 Dexcom G6 Transmitter (blood-glucose transmitter) #1 ea 02/28/22 dapagliflozin propanediol 10 mg tablet (Farxiga) 10 mg PO DAILY CHF 10/29/22 ezetimibe 10 mg tablet 10 mg PO DAILY cholesterol #90 tabs 02/24/23 nitroglycerin 0.4 mg/hr transdermal 24 hour patch 1 patch transdermal DAILY CHF #90 ea 06/23/23 furosemide 40 mg tablet 40 mg PO .COMPLEX diuretic #270 tabs 07/21/23 insulin glargine 100 unit/mL (3 mL) subcutaneous pen (Basaglar KwikPen U-100 Insulin) 30 unit subcut QAM DM 07/21/23 carvedilol 6.25 mg tablet See Rx Instructions .Route .COMPLEX for his blood pressure #180 tabs 10/09/23 omeprazole 20 mg capsule,delayed release See Rx Instructions .Route .COMPLEX acid reflux #90 caps 10/09/23 pitavastatin calcium 4 mg tablet 4 mg PO .COMPLEX cholesterol 11/13/23 ranolazine 500 mg tablet,extended release,12 hr 500 mg PO BID CHF 11/13/23 sacubitril 97 mg-valsartan 103 mg tablet (Entresto) See Rx Instructions .Route .COMPLEX CHF #180 tabs 11/15/23 Physical Exam Narrative GENERAL: cooperative HEENT: Atraumatic; normocephalic EYES; Anicteric, Normal Conjunctiva NECK; supple, normal thyroid, RESPIRATORY: Diminished to auscultation CARDIOVASCULAR: Regular S1 S2, GI: soft, normoactive bowel sounds, : No Renal angle tenderness; EXTREMITIES: No edema, no clubbing, MUSCULOSKELETAL: Right BKA NEURO: Awake; no lateralizing signs. SKIN: No Rash PSYCH; Flat affect Weight / BMI Weight Weight: 101 kg Body Mass Index (BMI) 31.9 ABG / Lab / Microbiology Data 11/15/23 06:05 11/15/23 06:00 Laboratory: Laboratory Results - last 24 hr 11/14/23 12:18: POC Glucose 189 H 11/14/23 16:14: POC Glucose 144 H 11/14/23 20:15: POC Glucose 117 H 11/15/23 06:00: Sodium 134 L, Potassium 4.5, Chloride 102, Carbon Dioxide 19.0 L , Anion Gap 13, BUN 30 H, Creatinine 1.65 H, Estim Creat Clear Calc 54.57, Est GFR (MDRD) Af Amer 54 L, Est GFR (MDRD) Non-Af 45 L, BUN/Creatinine Ratio 18.2, Glucose 180 H, Calcium 8.6, Magnesium 2.6 11/15/23 06:05: WBC 8.4, RBC 4.72, Hgb 13.4, Hct 40.7, MCV 86.2, MCH 28.4, MCHC 32.9, RDW Std Deviation 42.3, RDW Coeff of Sushila 13.4, Plt Count 306, MPV 10.4, Immature Gran % (Auto) 0.500, Neut % (Auto) 64.7, Lymph % (Auto) 22.1, [place] % (Auto) 11.1 H, Eos % (Auto) 1.0, Baso % (Auto) 0.6, Absolute Neuts (auto) 5.5, Absolute Lymphs (auto) 1.86, Nucleated RBC % 0, Phosphorus 3.5 Microbiology: Microbiology 11/13/23 15:45 Mucosa - Nose SARS-CoV-2, Influenza & RSV (PCR) - Final Radiography Diagnostic Testing: Radiology Impression Echocardiogram 11/14/23 05:55 Interpretation Summary The estimated ejection fraction is 30-35 %. Mildly dilated left ventricle with severe hypokinesis to akinesis of the inferior and posterior wall. The left atrium is mildly enlarged. Mild (1+) tricuspid valve insufficiency. Moderate (2+) mitral valve insufficiency. The study was technically difficult. Contrast injection was performed. Compared to prior study, changes are noted. Ordering Physician: Giovanni Cedillo Referring Physician: Darius Hartmann MD Performed By: Kerrie Hanna RDCS D/C Instructions Discharge Diet: Low fat / Low cholesterol and 1800 Calorie Control Diet Discharge Activity: Return to Normal Activity Call your doctor if you observe: Fever of 101 or Higher, Shortness of breath, Fainting spells and Chest pain Meaningful Use Info Meaningful Use Diagnoses (Choose all that apply): AMI AMI/Post PCI/Angioplasty Aspirin given w/in 24hrs of arrival?: Yes ASA at discharge?: Yes Statins at discharge?: Yes Jose/ARB at discharge?: Yes Beta Toño at discharge?: Yes Done w/ Acute IA measure.: Yes Documented LVEF (%): 30 CHF JOSE/ARB ordered at discharge?: Yes Documented LVEF (%): 30 Discharge Plan Admission Admit Date/Time: 11/13/23 18:25 Attending Provider: Brent Chung Primary Care Provider: Darius Hartmann Consulting Providers: Harvey Bullock; Brenda Strange; Giovanni Cedillo Discharge Orders/Prescriptions Prescriptions: Continued ascorbic acid (vitamin C) 500 mg capsule 500 mg PO DAILY (DME) Dexcom G6 Machine Operator Picker Misc See Rx Instructions .Route Qty: 1 0RF Rx Instructions: As directed (DME) Dexcom G6 Sensor Device See Rx Instructions .Route Qty: 9 3RF Rx Instructions: 1 sensor q 10 days (DME) Dexcom G6 Transmitter Device See Rx Instructions .Route Qty: 1 3RF Rx Instructions: 1 transmitter q 90 days dapagliflozin propanediol [Farxiga] 10 mg tablet 10 mg PO DAILY insulin glargine [Basaglar KwikPen U-100 Insulin] 100 unit/mL (3 mL) insulin pen 30 unit subcut QAM furosemide 40 mg tablet 40 mg PO .COMPLEX Qty: 270 3RF Rx Instructions: 2 tablets in the morning and one tablet in the afternoon aspirin 81 MG tablet,delayed release (DR/EC) 81 mg PO DAILY pitavastatin calcium 4 mg tablet 4 mg PO .COMPLEX Rx Instructions: 4 mg orally 3 times/week ranolazine 500 mg tablet extended release 12 hr 500 mg PO BID Rx Instructions: Take with food. insulin aspart U-100 [Novolog FlexPen U-100 Insulin] 100 unit/mL (3 mL) insulin pen 30 unit subcut .tidcm Qty: 135 3RF Rx Instructions: 15 u with snacks max daily dose- 150 u (DME) FreeStyle Junaid 14 Day Sensor Kit See Rx Instructions .ROUTE .MEDSUPPLY Qty: 2 6RF Rx Instructions: As directed ezetimibe 10 mg tablet 10 mg PO DAILY Qty: 90 3RF nitroglycerin 0.4 mg/hr patch 24 hour 1 patch Transdermal DAILY Qty: 90 3RF carvedilol 6.25 mg tablet See Rx Instructions .ROUTE .COMPLEX Qty: 180 3RF Dose Instruction: TAKE 1 TABLET TWICE A DAY Rx Instructions: TAKE 1 TABLET TWICE A DAY omeprazole 20 mg capsule,delayed release(DR/EC) See Rx Instructions .ROUTE .COMPLEX Qty: 90 3RF Dose Instruction: TAKE 1 CAPSULE DAILY Rx Instructions: TAKE 1 CAPSULE DAILY Changed Entresto 97-103 mg tablet See Rx Instructions .ROUTE .COMPLEX Qty: 180 3RF Dose Instruction: TAKE 1 TABLET TWICE A DAY Rx Instructions: TAKE 1/2 TABLET TWICE A DAY Discontinued metolazone 2.5 mg tablet 2.5 mg PO .COMPLEX PRN (Reason: SWELLING) Qty: 45 3RF Rx Instructions: PRN Referrals / Follow Up: Harvey Bullock MD [Med Staff - Active Staff] - Within 2 Weeks Darius Hartmann MD [Primary Care Provider] - Within 2 Weeks Disposition Disposition (needs filled in before D/C Order can be placed): Home, Self Care Charges/Coding Visit Charges Inpatient E&M: 06803 Disch Hosp >30min
[2023-11-15 09:33] VITALS: BP 105/63; PULSE 74; RESP 16; TEMP 36.6; O2SAT 97
[2023-11-15] MEDS: Pantoprazole Sodium 20 MG Tablet PO (09:43)
[2023-11-15] MEDS: Aspirin E.C. 81 MG Tablet PO (09:43)
[2023-11-15] MEDS: Potassium Chloride Oral Tablet 20 MEQ PO (09:43)
[2023-11-15] MEDS: Ranolazine 500 MG Tablet PO (09:43)
[2023-11-15] MEDS: Carvedilol 6.25 MG Tablet PO (09:43)
[2023-11-15] MEDS: Ascorbic Acid 500 MG Tablet PO (09:43)
[2023-11-15] MEDS: Ezetimibe 10 MG Tablet PO (09:43)
[2023-11-15] MEDS: Clopidogrel Bisulfate 75 MG Tablet PO (09:43)
[2023-11-15] MEDS: Insulin Lispro 100 UNIT/ML INSULN.PEN SC (09:44)
[2023-11-15] MEDS: Insulin Lispro 100 UNIT/ML INSULN.PEN 10 UNIT SC (09:44)
[2023-11-15 09:58] VITALS: O2SAT 92; O2SAT 95
== END 2023-11-15 10:40 | disposition home or self-care (01) | DRG 281 ==
LOC: ED 16:10 → PCU 18:50
PROVIDERS: Nurse Practitioner; Admitting Provider Internal Medicine; Emergency Provider Emergency Medicine; PCP Family Medicine; Visit Provider Internal Medicine
DX: I21.4 Non-ST elevation (NSTEMI) myocardial infarction (principal); I13.0 Hypertensive heart and chronic kidney disease with heart failure and stage 1 through stage 4 chronic kidney disease, or unspecified chronic kidney disease; N17.9 Acute kidney failure, unspecified; I50.22 Chronic systolic (congestive) heart failure; E11.42 Type 2 diabetes mellitus with diabetic polyneuropathy; I49.5 Sick sinus syndrome; E11.22 Type 2 diabetes mellitus with diabetic chronic kidney disease; E11.51 Type 2 diabetes mellitus with diabetic peripheral angiopathy without gangrene; E86.0 Dehydration; I48.0 Paroxysmal atrial fibrillation; E78.5 Hyperlipidemia, unspecified; N18.30 Chronic kidney disease, stage 3 unspecified; Z79.4 Long term (current) use of insulin; E11.59 Type 2 diabetes mellitus with other circulatory complications; I87.2 Venous insufficiency (chronic) (peripheral); I25.10 Atherosclerotic heart disease of native coronary artery without angina pectoris; I25.5 Ischemic cardiomyopathy; Z51.5 Encounter for palliative care; Z95.5 Presence of coronary angioplasty implant and graft; Z79.82 Long term (current) use of aspirin; Z66 Do not resuscitate; R06.09 Other forms of dyspnea; Z95.1 Presence of aortocoronary bypass graft
CPT/HCPCS: 36415; 71046; 76770; 80048; 80061; 81001; 82962; 83605; 83735; 83880; 84100; 84443; 84484; 85025; 85027; 85610; 85730; 87631; 93005; 93306; 93455; 97802; 99152; 99153; 99285; J7030; J7040; Q9957; Q9967; A4216; C1769; C1894; C8929; J1940; J2405

== ENCOUNTER 2023-11-20 22:49 | Emergency (ER) | payer OTHER, SELFPAY ==
[2023-11-20 22:50] VITALS: TEMP 29.4
--- NOTE | 2023-11-20 22:55 | ED.RN ---
[id number] Dr Freitas called the time of at [id number]
--- NOTE | 2023-11-20 22:58 | EDS_ITS ---
HPI History of Present Illness Chief Complaint: CPR Informant: EMS Narrative Narrative: Patient is a 63-year-old male with past medical history of hypertension hyperlipidemia ischemic cardiomyopathy paroxysmal A-fib sick sinus syndrome status post pacemaker/defibrillator placement and below the knee right-sided amputation. EMS states that the patient was feeling fatigued and that he was getting shocked. They state when they arrive patient was awake but showing signs of fatigue and blood pressure was low with a systolic of approximately 60. During their initial evaluation patient went into V. tach and then proceeded to become unresponsive at which time there was no pulse felt and CPR was started. EMS followed ACLS protocol and brought the patient to the hospital [facility] Medical History Acute bronchitis, unspecified Amputation of leg Arthritis Atherosclerosis of coronary artery of [place] heart without angina pectoris Back pain Back problem Carpal tunnel syndrome CHF (congestive heart failure) Chronic systolic heart failure Deep vein blood clot of right lower extremity Diabetes mellitus Diabetic retinopathy associated with type 2 diabetes mellitus Difficulty balancing Essential hypertension Gallstones Gangrene of right foot GERD (gastroesophageal reflux disease) Hard of hearing History of DVT (deep vein thrombosis) Hx of staphylococcal infection Hyperlipidemia Ischemic cardiomyopathy Neuropathy NPDR (nonproliferative diabetic retinopathy) Obesity Old myocardial infarction Osteoarthritis Osteomyelitis PAD (peripheral artery disease) Paroxysmal atrial fibrillation Peripheral arterial occlusive disease Polyneuropathy Polyneuropathy due to type 2 diabetes mellitus Sick sinus syndrome Thrombocytopenia Home Medications aspirin 81 mg tablet,delayed release 81 mg PO DAILY HEART HEALTH 10/10/17 [History Last Taken 11/13/23 08:00 81 mg] ascorbic acid (vitamin C) 500 mg capsule 500 mg PO DAILY supplement 12/22/20 [History Last Taken 11/13/23 08:00 500 mg] Novolog FlexPen U-100 Insulin 100 unit/mL (3 mL) subcutaneous (insulin aspart U- 100) 30 unit (0.3 mL) subcut .tidcm DM #135 mL 05/24/21 [Rx Last Taken Unknown] flash glucose sensor (FreeStyle Junaid 14 Day Sensor kit) #2 ea 12/10/21 [Rx Last Taken Unknown] Dexcom G6 Medical Technician Assistant (blood-glucose meter,continuous) #1 ea 02/28/22 [Rx Last Taken Unknown] Dexcom G6 Sensor (blood-glucose sensor) #9 ea 02/28/22 [Rx Last Taken Unknown] Dexcom G6 Transmitter (blood-glucose transmitter) #1 ea 02/28/22 [Rx Last Taken Unknown] dapagliflozin propanediol 10 mg tablet (Farxiga) 10 mg PO DAILY CHF 10/29/22 [History Last Taken 11/13/23 08:00 10 mg] ezetimibe 10 mg tablet 10 mg PO DAILY cholesterol #90 tabs 02/24/23 [Rx Last Taken 11/13/23 08:00 10 mg] nitroglycerin 0.4 mg/hr transdermal 24 hour patch 1 patch transdermal DAILY CHF #90 ea 06/23/23 [Rx Last Taken 11/13/23 08:00 1 patch] furosemide 40 mg tablet 40 mg PO .COMPLEX diuretic #270 tabs 07/21/23 [Rx Last Taken 11/13/23 08:00 80 mg] insulin glargine 100 unit/mL (3 mL) subcutaneous pen (Basaglar KwikPen U-100 Insulin) 30 unit subcut QAM DM 07/21/23 [History Last Taken Unknown] carvedilol 6.25 mg tablet See Rx Instructions .Route .COMPLEX for his blood pressure #180 tabs 10/09/23 [Rx Last Taken 11/13/23 08:00 6.25] omeprazole 20 mg capsule,delayed release See Rx Instructions .Route .COMPLEX acid reflux #90 caps 10/09/23 [Rx Last Taken 11/12/23 20:00 20] pitavastatin calcium 4 mg tablet 4 mg PO .COMPLEX cholesterol 11/13/23 [History Last Taken Unknown] ranolazine 500 mg tablet,extended release,12 hr 500 mg PO BID CHF 11/13/23 [History Last Taken 11/13/23 08:00 500 mg] clopidogrel 75 mg tablet 75 mg PO DAILY #90 tabs 11/15/23 [Rx Last Taken Unknown] sacubitril 97 mg-valsartan 103 mg tablet (Entresto) See Rx Instructions .Route .COMPLEX CHF #180 tabs 11/15/23 [Rx Last Taken 11/13/23 08:00 97-103] Allergy/AdvReac Type Severity Reaction Status Date / Time dulaglutide [[facility]] Allergy Intermediate Diarrhea Verified 11/13/23 15:02 Penicillins Allergy Hives Verified 11/13/23 15:02 pioglitazone HCl [From Actos] Allergy Swelling Verified 11/13/23 15:02 Lolrhln-EWQ-RgC Reductase Allergy Unknown Verified 11/13/23 15:02 Inhibitor [Qgmxifi-Qdm-Zhq Reductase Inhibitor] gabapentin [From Neurontin] AdvReac Intermediate Other Verified 11/13/23 15:02 Family History Father , age 57 Diabetes CAD (coronary artery disease) Brother , age 33 Diabetes Myocardial infarction Brother Diabetes AICD (automatic cardioverter/defibrillator) present CAD (coronary artery disease) coronary stents Other Heart disease Hypertension Surgical History abdominal aortagram with RLE runoff (~10/17/17) Amputation, toe, traumatic H/O coronary artery bypass surgery (09/26/04) H/O right heart catheterization History of angioplasty History of carpal tunnel release of both wrists History of coronary artery stent placement (09/25/17) History of exploratory laparotomy History of eye surgery (~04/2023) History of laminectomy History of left heart catheterization (06/2018) 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) History of spinal fusion History of vasectomy (1994) Hx of cholecystectomy (2014) left heart cath and RLE arteriogram (09/25/17) neurostimulator implant Presence of automatic implantable cardioverter-defibrillator (08/08/16) Previous back surgery RLE peroneal artery stent (10/03/17) Status post ablation of incompetent vein using laser Social History Smoking Status: Current every day smoker tobacco type: smokeless tobacco alcohol intake: never substance use type: does not use caffeine: Yes Type: carbonated beverages Number of servings: 1 and coffee Number of servings: 2 what type of physical activity do you participate in: none ROS ROS ED ROS Narrative Review of systems cannot be obtained secondary to patient's medical severity/unstable Review of Systems ROS Unobtainable: other EXAM Physical Exam Const Vital Signs: 11/20/23 22:50 11/20/23 22:57 Temperature 84.9 F L Temperature Source Temporal Oxygen Delivery Method Ambu-Bag Oxygen Flow Rate (L/min) 15 Positive obese Nutritional Appearance: obese HEENT HEENT Narrative: LMA in place Otherwise head is normocephalic atraumatic Eyes Eyes Narrative: Pupils are fixed and dilated Resp Resp Narrative: No spontaneous breath sounds auscultated Cardio Rate: other Other Details: No spontaneous heartbeat auscultated or central pulses palpated Extremity Extremity Narrative: Right below the knee amputation Otherwise normal extremities Neuro Neuro Narrative: Patient is unresponsive with GCS of 3 Skin Skin Narrative: Skin is pale and cool MDM MDM MDM Narrative Medical decision making narrative: Patient arrived to the ER in cardiopulmonary arrest. EMS was performing ACLS pr otocol. They reported that patient potentially was a DNR. Therefore ACLS protocol was continued while lying discussed patient's wishes with the family. Family confirmed that he is a DNR and therefore all efforts were ceased. At that time an ultrasound was placed onto the chest wall and there was no cardiac motion and patient was pronounced at 10:54 PM. Discharge Plan Triage Chief Complaint: CPR ED Provider: Isacc Freitas Dx/Rx/DC Orders Clinical Impression: Cardiopulmonary arrest, Diabetes mellitus, Sick sinus syndrome, Ischemic cardiomyopathy, Chronic systolic heart failure Prescriptions: No Action ascorbic acid (vitamin C) 500 mg capsule 500 mg PO DAILY (DME) Dexcom G6 Medical Technician Assistant Misc See Rx Instructions .Route Qty: 1 0RF Rx Instructions: As directed (DME) Dexcom G6 Sensor Device See Rx Instructions .Route Qty: 9 3RF Rx Instructions: 1 sensor q 10 days (DME) Dexcom G6 Transmitter Device See Rx Instructions .Route Qty: 1 3RF Rx Instructions: 1 transmitter q 90 days dapagliflozin propanediol [Farxiga] 10 mg tablet 10 mg PO DAILY insulin glargine [Basaglar KwikPen U-100 Insulin] 100 unit/mL (3 mL) insulin pen 30 unit subcut QAM furosemide 40 mg tablet 40 mg PO .COMPLEX Qty: 270 3RF Rx Instructions: 2 tablets in the morning and one tablet in the afternoon aspirin 81 MG tablet,delayed release (DR/EC) 81 mg PO DAILY pitavastatin calcium 4 mg tablet 4 mg PO .COMPLEX Rx Instructions: 4 mg orally 3 times/week ranolazine 500 mg tablet extended release 12 hr 500 mg PO BID Rx Instructions: Take with food. Entresto 97-103 mg tablet See Rx Instructions .ROUTE .COMPLEX Qty: 180 3RF Dose Instruction: TAKE 1 TABLET TWICE A DAY Rx Instructions: TAKE 1/2 TABLET TWICE A DAY clopidogrel 75 mg Tablet 75 mg PO DAILY Qty: 90 0RF insulin aspart U-100 [Novolog FlexPen U-100 Insulin] 100 unit/mL (3 mL) insulin pen 30 unit subcut .tidcm Qty: 135 3RF Rx Instructions: 15 u with snacks max daily dose- 150 u (DME) FreeStyle Junaid 14 Day Sensor Kit See Rx Instructions .ROUTE .MEDSUPPLY Qty: 2 6RF Rx Instructions: As directed ezetimibe 10 mg tablet 10 mg PO DAILY Qty: 90 3RF nitroglycerin 0.4 mg/hr patch 24 hour 1 patch Transdermal DAILY Qty: 90 3RF carvedilol 6.25 mg tablet See Rx Instructions .ROUTE .COMPLEX Qty: 180 3RF Dose Instruction: TAKE 1 TABLET TWICE A DAY Rx Instructions: TAKE 1 TABLET TWICE A DAY omeprazole 20 mg capsule,delayed release(DR/EC) See Rx Instructions .ROUTE .COMPLEX Qty: 90 3RF Dose Instruction: TAKE 1 CAPSULE DAILY Rx Instructions: TAKE 1 CAPSULE DAILY Primary Care Provider: Darius Hartmann Referrals: Darius Hartmann MD [Primary Care Provider] - Disposition Disposition: Date/Time: 11/20/23 22:54
--- NOTE | 2023-11-20 23:19 | ED.RN ---
No fluids administerd.
== END 2023-11-21 02:49 ==
PROVIDERS: Emergency Provider Emergency Medicine; PCP Family Medicine; Visit Provider Emergency Medicine
DX: I46.9 Cardiac arrest, cause unspecified (principal); I11.0 Hypertensive heart disease with heart failure; I50.22 Chronic systolic (congestive) heart failure; I49.5 Sick sinus syndrome; I48.0 Paroxysmal atrial fibrillation; E11.51 Type 2 diabetes mellitus with diabetic peripheral angiopathy without gangrene; E11.42 Type 2 diabetes mellitus with diabetic polyneuropathy; I25.5 Ischemic cardiomyopathy; I25.2 Old myocardial infarction; Z86.718 Personal history of other venous thrombosis and embolism; E78.5 Hyperlipidemia, unspecified; Z95.810 Presence of automatic (implantable) cardiac defibrillator
CPT/HCPCS: 99281